=== PATIENT | male | born 1960 | race African-American/Black ===

== ENCOUNTER → 2016-08-01 | Outpatient (CLI) | payer MEDICARE ==
[~2016-08-01] MED LIST: AGM875T PO; ALBU8.5H4 IH; AMOX500C2 PO; ASPI-999 PO; ATEN100T PO; ATEN50TA PO; ATOR20TA66 PO; BENZ200C25 PO; CEPH500C PO; CHLO500T2 PO; CLN.1T PO; DOCU100T7 PO; GABA-488 PO; HYDR-34 PO; HYDR-3812 PO; HYDR-756 PO; HYDR-757 PO; HYDR12.570 PO; HYDR25TA4 PO; HYDROCHLOROTHIAZIDE; HYDROCODONE 7.5/500 PO; KCL10CCR; LISI40TA PO; NICO1PAT5; PHEN118S12 PO; PRD20T PO; PROP1TAB77 PO; STOOL SOFTENER; VITAMIN E
--- OUTSIDE RECORDS SUMMARY | 2016-08-01 10:57 | XMS REPORT | Continuity of Care Document ---
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 Role Phone LAURA NOVOA DO PCP Insurance Providers Payer Name Policy Number Subscriber Name Relationship [employer] [id number] Alverto Hernandez 16 Self / Same As Patient Advance Directives Directive Response Recorded Date/Time Advance Directives No 12/21/14 11:07pm Resuscitation Status Full Code 12/21/14 11:07pm Problems Medical Problems Problem Onset Date Status Insect bite Unknown Active Insect bite Unknown Active Medications Medication Dose Route Sig Days/Qty Instructions Order Date Discontinued Date Status Chlorzoxazone 1 Tab PO TWICE A DAY 12/26/08 Active Potassium Chloride 12/26/08 07/20/11 Discontinued [Hydrochlorothiazide] 12/26/08 07/20/11 Discontinued Nicotine 12/26/08 08/15/09 Discontinued Acetaminophen/Hydrocodone Bitart 1 Tab PO DAILY PRN 12/26/08 Discontinued [Stool Softener] 08/15/09 07/20/11 Discontinued [Vitamin E] 08/15/09 07/20/11 Discontinued Amoxicillin/Clavulanate Potassium 1 Tab PO TWICE A DAY 20 Qty FOR INFECTION 08/15/09 12/02/12 Discontinued Propoxyphene HCl/Acetaminophen 1 - 2 Each PO Q6HR PRN 20 Qty 08/15/09 12/02/12 Discontinued Clonidine HCl 1 Each PO TWICE A DAY 10 Qty FOR BLOOD PRESSURE 08/15/09 12/02/12 Discontinued Hydrochlorothiazide 25 Mg PO DAILY 07/20/11 Active Lisinopril 1 Tab PO DAILY 07/20/11 Active Docusate Sodium 1 Tab PO DAILY 07/20/11 02/18/13 Discontinued Clonidine HCl 1 Each PO THREE TIMES A DAY 42 Qty 07/20/11 12/02/12 Discontinued Atenolol 50 Mg PO DAILY 12/02/12 Active Phenylephrine Hcl/Cod/Prometh 2 Tsp PO THREE TIMES A DAY PRN 02/18/13 Discontinued Amoxicillin 2 Each PO THREE TIMES A DAY 10 Days 12/02/12 02/18/13 Discontinued Benzonatate (Tessalon Perles) 1 Each PO Q8HR PRN 20 Qty 12/02/1202/18 Discontinued Prednisone 40 Mg PO DAILY 5 Days 12/02/12 02/18/13 Discontinued Albuterol 8.5 Gm IH EVERY 6 HOURS PRN 1 Qty 12/02/12 02/18/13 Discontinued [Hydrocodone 7.5/500] 1 Tab PO EVERY 6 HOURS PRN 02/18/13 Active Amoxicillin 1 Each PO THREE TIMES A DAY 10 Days 02/18/13 12/21/14 Discontinued Cephalexin Monohydrate (Keflex) 2 Each PO EVERY 12 HOURS 7 Days Active Social History Social History Problem Response Recorded Date/Time Alcohol Use Occasionally Uses 12/21/2014 11:07pm Recreational Drug Use No 12/21/2014 11:07pm Recent Foreign Travel No 12/21/2014 11:07pm Recent Infectious Disease Exposure No 12/21/2014 11:07pm Smoking Status Current Everyday Smoker 12/21/2014 11:07pm Query Response Start Date Stop Date Smoking Status Current Everyday Smoker Hospital Discharge Instructions No hospital discharge instructions. Plan of Care No plan of care. Functional Status No functional status results. Allergies, Adverse Reactions, Alerts Allergen Type Severity Reaction Status Last Updated No Known Drug Allergies Active 07/20/11 Immunizations Name Given Type Tetanus Booster (TDap) Unknown Historical Tdap 12/21/14 Administered Vital Signs Acute Vital Signs Vital Response Date/Time Temperature (Fahrenheit) 98.0 degrees F (97.6 - 99.5) Temperature (Calculated Celsius) 36.90949 degrees C (36.4 - 37.5) Temperature Source Temporal Pulse Rate (adult) 76 bpm (60 - 90) Respiratory Rate 16 bpm (12 - 24) O2 Sat by Pulse Oximetry 99 % (88 - 100) Blood Pressure 191/110 mm Hg Pain Pain Intensity 4 Height (Feet) 6 feet Height (Inches) 3 inches Height (Calculated Centimeters) 190.589236 cm Weight (Pounds) 211 pounds Weight (Calculated Kilograms) 95.240918 kilograms Calculated BMI 26.37 Results No known relevant diagnostic tests, laboratory data and/or discharge summary. Procedures No known history of procedures. Encounters Encounter Location Date/Time Departed Emergency Room Via [facility] 12/21/14 10:59pm Recent Diagnosis
--- NOTE | 2016-08-01 12:15 | Diagnostic Imaging Report ---
PROCEDURE: MRI lumbar spine. TECHNIQUE: Multiplanar, multisequence MRI of the lumbar spine was performed without contrast. INDICATION: Tingling. Numbness. FINDINGS: There is minimal retrolisthesis of L5 over S1, otherwise the alignment of the posterior spinal line is satisfactory. The discs demonstrate significant disc height loss at L4/5 and L5/S1 with disc desiccation. There is prominent marrow edema along the endplates of vertebra around the L5/S1 disc compatible with reactive degenerative Modic type I changes. The marrow signal otherwise demonstrates no suspicious lesion. The cauda equina and conus medullaris appear grossly unremarkable. T12/L1: There is a mild right paracentral disc herniation without spinal canal or foraminal stenosis. L1/2: No disc herniation. No spinal canal or foraminal stenosis. L2/3: No disc herniation, no spinal canal or foraminal stenosis. There is mild facet joint hypertrophy seen at this level. L3/4: There is no disc herniation. There is mild facet arthropathy. There is no central canal or lateral recess stenosis. Bilateral foraminal stenosis, mild on the right and mild to moderate on the left, is seen. L4/5: There is an asymmetric disc bulge to the left with slight caudal migration of the herniated disc seen. This is associated with rhqctcyt-ej-fongnh facet arthropathy bilaterally. There is no central canal stenosis. The lateral recesses, however, demonstrate bilateral bdztpfin-zs-jqzmfc stenosis, worse on the left side encroaching upon the descending L5 nerve root. The neural foramina demonstrate bilateral stenosis, moderate on the right and severe on the left, compressing the exiting left L4 spinal nerve. L5/S1: There is minimal retrolisthesis secondary to disc height loss. No significant central canal stenosis. A diffuse disc bulge is present with superimposed cranially migrated right paracentral extruded disc. This results in hchvvgcw-ha-fsvxgu stenosis of the right lateral recess above the disc level compressing the descending right S1 nerve root. The right lateral recess at the disc level demonstrates moderate stenosis. The left lateral recess also demonstrates stenosis of kuxjleel-rj-rdkzkn degree mildly compressing the descending left L5 nerve root. The foramina demonstrate bilateral chjbbrqq-lv-cjyzta stenosis. IMPRESSION: Lower lumbar spine prominent disc degenerative changes with disc herniations at L4/5 and L5/S1. At these two levels, there is significant lateral recess and foraminal stenosis as described. Dictated by: Dictated on workstation # [id number]
== END ==
LOC: RAD 10:51
PROVIDERS: ATTEND Family Medicine
DX: M48.06 Spinal stenosis, lumbar region (principal)
CPT/HCPCS: 72148

== ENCOUNTER 2016-10-09 16:36 | Emergency (ER) | payer MEDICARE ==
[~2016-10-09] VITALS: Ht 185.4 cm; Wt 100.7 kg
[~2016-10-09 16:36] MED LIST changes: -HYDR-3812 PO
--- OUTSIDE RECORDS SUMMARY | 2016-10-09 16:42 | XMS REPORT | Continuity of Care Document ---
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 Role Phone LAURA NOVOA DO PCP Insurance Providers Payer Name Policy Number Subscriber Name Relationship [employer] [id number] Alverto Hernandez 16 Self / Same As [...] F (97.6 - 99.5) Temperature (Calculated Celsius) 36.96252 degrees C (36.4 - 37.5) Temperature Source Temporal Pulse Rate (adult) 76 bpm (60 - 90) Respiratory Rate 16 bpm (12 - 24) O2 Sat by Pulse Oximetry 99 % (88 - 100) Blood Pressure 191/110 mm Hg Pain Pain Intensity 4 Height (Feet) 6 feet Height (Inches) 3 inches Height (Calculated Centimeters) 190.177575 cm Weight (Pounds) 211 pounds Weight (Calculated Kilograms) 95.048371 kilograms Calculated BMI 26.37 Results No known relevant diagnostic tests, laboratory data and/or discharge summary. Procedures No known history of procedures. Encounters Encounter Location Date/Time Departed Emergency Room Via [facility] 12/21/14 10:59pm Recent Diagnosis
--- NOTE | 2016-10-09 17:14 | ED EENT ---
History of Present Illness General Chief Complaint: Oral/Throat Problems Stated Complaint: SWOLLEN GLANDS IN NECK/DIFF SWALLOWING Source: patient, RN notes reviewed Exam Limitations: no limitations (JACK NUNN DO) History of Present Illness Time seen by provider: 17:14 Timing/Duration: other (last night) Severity: moderate (02/05) Location: throat Prearrival Treatment: no prearrival treatment Modifying Factors: Improves With Other (swallowing make pain worse) Associated Symptoms: fever, sore throat (JACK NUNN DO) Allergies and Home Medications Allergies Coded Allergies: No Known Drug Allergies (Unverified , 07/20/11) Home Medications Amoxicillin 500 Mg Capsule, 1,000 MG PO TID, #60 Ref 0 Prescribed by: ANNA HERNANDEZ on 10/09/162015 Aspirin 81 Mg Tab.chew, 81 MG PO DAILY, (Reported) Atenolol 100 Mg Tablet, 100 MG PO DAILY, (Reported) Atorvastatin Calcium 20 Mg Tablet, 20 MG PO HS, (Reported) Chlorzoxazone 500 Mg Tablet, 500 MG PO BID PRN for MUSCLE SPASMS, (Reported) Gabapentin 300 Mg Capsule, 300 MG PO TID, (Reported) Hydrochlorothiazide 25 Mg Tablet, 25 MG PO DAILY, (Reported) Hydrocodone/Acetaminophen 1 Each Tablet, 1 TAB PO BID PRN for PAIN, (Reported) Hydrocodone/Acetaminophen 1 Each Tablet, 1 EACH PO Q4H PRN for PAIN, #20 Ref 0 Prescribed by: ANNA HERNANDEZ on 10/09/162015 Lisinopril 40 Mg Tablet, 40 MG PO DAILY, (Reported) Review of Systems Constitutional: see HPI, fever Mouth: see HPI, pain (JACK NUNN DO) All Other Systems Reviewed Negative Unless Noted: Yes (Negative excepted noted.) (JACK NUNN DO) Past Ylqlwno-Bizkoc-Rrfexu Hx Patient Social History Recent Foreign Travel: No Contact w/Someone Who Travel: No (JACK NUNN DO) Immunizations Up To Date Tetanus Booster (TDap): Unknown PED Vaccines UTD: No (JACK NUNN DO) Seasonal Allergies Seasonal Allergies: No (JACK NUNN DO) Surgeries HX Surgeries: Yes (Inguinal hernia Rpr-peds) Surgeries: Orthopedic (JACK UNNN DO) Respiratory Hx Respiratory Disorders: No (JACK NUNN DO) Cardiovascular Hx Cardiac Disorders: Yes Cardiac Disorders: High Cholesterol, Hypertension (JACK NUNN DO) Neurological Hx Neurological Disorders: No (JACK NUNN DO) Reproductive System Hx Reproductive Disorders: No (JACK NUNN DO) Genitourinary Hx Genitourinary Disorders: No (JACK NUNN DO) Gastrointestinal Hx Gastrointestinal Disorders: No (JACK NUNN DO) Musculoskeletal Hx Musculoskeletal Disorders: Yes Musculoskeletal Disorders: Chronic Back Pain (JACK NUNN DO) Endocrine Hx Endocrine Disorders: No (JACK NUNN DO) HEENT HX ENT Disorders: No (JACK NUNN DO) Cancer Hx Cancer: No (JACK NUNN DO) Psychosocial Hx Psychiatric Problems: No (JACK NUNN DO) Integumentary HX Skin/Integumentary Disorder: No (JACK NUNN DO) Blood Transfusions Hx Blood Disorders: No Adverse Reaction to a Blood Tr: No (JACK NUNN DO) Family Medical History Significant Family History: Diabetes (JACK NUNN DO) Physical Exam Vital Signs (ANNA HERNANDEZ) General Appearance: WD/WN, no apparent distress Mouth/Throat: other (posterior pharynx is red and mild edema, but no exudate) Neck: supple, No lymphadenopathy (R), No lymphadenopathy (L) Cardiovascular: regular rate, rhythm Respiratory: no respiratory distress Neurologic/Psychiatric: no motor/sensory deficits, alert, oriented x 3 Skin: warm/dry, No rash (JACK NUNN DO) Progress/Results/Core Measures Results/Orders Lab Results (ANNA HERNANDEZ) My Orders (ANNA HERNANDEZ) Vital Signs/I&O (ANNA HERNANDEZ) Departure Communication Progress Notes 1800 Patient care assumed from Dr. Nunn. CT scan findings of the face show multiple maxillary and mandibular dental caries with apical lucency suggestive of periapical abscesses. Scattered subcentimeter cervical lymph nodes noted. No drainable fluid collection noted. Laboratory and diagnostic findings were discussed with the patient. Patient given Rocephin 1 g IM 1 dose prior to discharge. Discharge to home with follow-up as an outpatient with his dentist of choice. All return precautions were discussed with the patient as described in the discharge instructions of this report. Patient voices understanding and agrees with the treatment plan. (ANNA HERNANDEZ) Impression Impression: Primary Impression: Abscess, dental Disposition: HOME, SELF-CARE Condition: Improved Departure-Patient Inst. Decision time for Depature: 20:15 (ANNA HERNANDEZ) Referrals: LAURA NOVOA DO (PCP/Family) Primary Care Physician Patient Instructions: Dental Pain (DC) Add. Discharge Instructions: All discharge instructions reviewed with patient and/or family. Voiced understanding. Medications as instructed. Continue usual home medications. Ibuprofen 800 mg by mouth every 8 hours as needed for pain. Ice packs or heating pads as needed for pain and swelling. Push fluids. Contact the dentist of your choice for recheck and dental repair tomorrow morning. Follow- up with your family practitioner for recheck. Return to the emergency department for worsened pain, swelling, fever, difficulty swallowing, difficulty breathing, vomiting, or any other concerns. Scripts Hydrocodone/Acetaminophen (Hydrocodon -Acetaminophen 5-325) 1 Each Tablet 1 EACH PO Q4H Y for PAIN, #20 TAB 0 Refills Prov: ANNA HERNANDEZ 10/09/16 Amoxicillin (Amoxicillin) 500 Mg Capsule 1000 MG PO TID, #60 CAP 0 Refills Prov: ANNA HERNANDEZ 10/09/16 JACK NUNN DO Oct 09, 2016 17:14 ANNA HERNANDEZ Oct 09, 2016 20:17
--- NOTE | 2016-10-09 18:32 | Diagnostic Imaging Report ---
PROCEDURE: CT neck soft tissue without contrast. TECHNIQUE: Multiple contiguous axial images were obtained through the neck without the use of intravenous contrast. INDICATION: Swelling under the jaw. Difficulty breathing. COMPARISON: 12/02/2012. FINDINGS: Multiple maxillary and mandibular dental caries are identified. Additionally, there are multiple areas of periapical lucency suggestive of periapical abscesses. There is however no significant surrounding soft tissue extension. There is no soft tissue emphysema. No focal air-fluid collection is identified to suggest soft tissue abscess. A few scattered borderline prominent appearing cervical lymph nodes are identified, bilaterally. The largest lymph nodes however measure approximately 9 mm in shortest axis dimension. No lymph nodes are seen measuring greater than 1 cm in shortest axis dimension. No soft tissue masses are identified on this noncontrast exam. The visualized portions of the nasopharynx, oropharynx and the hypopharynx are unremarkable. There is no airway compromise. The deep spaces of the neck are unremarkable. The parotid, submandibular and thyroid glands are unremarkable. The visualized portions of the intracranial structures demonstrate no acute abnormalities. The paranasal sinuses and orbits are unremarkable. The visualized portion of the lung apices and mediastinum are unremarkable. There is calcified atherosclerosis of the bilateral common and internal carotid arteries. IMPRESSION: 1. Multiple maxillary and mandibular dental caries with areas of periapical lucency suggestive of periapical abscesses. There is however no evidence of soft tissue abscess or soft tissue emphysema. 2. Few scattered prominent-appearing, yet subcentimeter cervical lymph nodes. Otherwise, no focal soft tissue masses identified. Dictated by: Dictated on workstation # [id number]
[2016-10-09] MEDS ORDERED: fentaNYL INJECTION 100 MCG/2 ML AMP IVP STA (18:41)
[2016-10-09 18:54] LABS: BASOPHILS % (AUTO) 0 % (0-10); EOSINOPHILS # (AUTO) 0.1 10^3/uL (0.0-0.3); EOSINOPHILS % (AUTO) 1 % (0-10); LYMPHOCYTES # (AUTO) 1.5 X 10^3 (1.0-4.0); LYMPHOCYTES % (AUTO) 10 % (12-44); MEAN CORPUSCULAR HEMOGLOBIN 31 PG (25-34); MEAN CORPUSCULAR HGB CONC 34 G/DL (32-36); MEAN CORPUSCULAR VOLUME 91 FL (80-99); MONOCYTES % (AUTO) 7 % (0-12); NEUTROPHILS # (AUTO) 11.9 X 10^3 (1.8-7.8); NEUTROPHILS % (AUTO) 82 % (42-75); PLATELET COUNT 200 10^3/uL (130-400); RED BLOOD COUNT 4.21 10^6/uL (4.35-5.85); RED CELL DISTRIBUTION WIDTH 13.4 % (10.0-14.5); WHITE BLOOD COUNT 14.5 10^3/uL (4.3-11.0)
[2016-10-09 19:06] LABS: BAND NEUTROPHILS 4 %; BASOPHILS % (MANUAL) 0 %; EOSINOPHILS % (MANUAL) 0 %; LYMPHOCYTES % (MANUAL) 17 %; NEUTROPHILS % (MANUAL) 72 %
[2016-10-09 19:14] LABS: ALANINE AMINOTRANSFERASE 24 U/L (0-55); ALBUMIN 3.9 G/DL (3.2-4.5); ANION GAP 12 MMOL/L (5-14); ASPARTATE AMINO TRANSFERASE 18 U/L (5-34); BILIRUBIN,TOTAL 0.9 MG/DL (0.1-1.0); BLOOD UREA NITROGEN 13 MG/DL (7-18); BUN/CREATININE RATIO 14; CALCIUM 9.4 MG/DL (8.5-10.1); CARBON DIOXIDE 24 MMOL/L (21-32); CHLORIDE 104 MMOL/L (98-107); CREATININE SERUM 0.96 MG/DL (0.60-1.30); GFR ESTIMATED > 60; GLUCOSE 89 MG/DL (70-105); POTASSIUM 3.9 MMOL/L (3.6-5.0); SODIUM 140 MMOL/L (135-145); TOTAL PROTEIN 7.3 G/DL (6.4-8.2)
[2016-10-09] MEDS ORDERED: HYDROcodone/APAP 10 MG/325 MG (LORTAB) TAB PO STA (19:14)
[2016-10-09] MEDS ORDERED: LIDOCAINE 1% INJ 20 ML (XYLOCAINE) VIAL INJ ONE (20:15)
[2016-10-09] MEDS ORDERED: cefTRIAXone 1 GM (ROCEPHIN) VIAL IM ONE (20:15)
[2016-10-09] MEDS ORDERED: HYDR-3812 PO (20:16)
[2016-10-09] MEDS ORDERED: AMOX500C2 PO (20:16)
[2016-10-09 20:33] VITALS: BP 181/105
== END 2016-10-09 20:33 | disposition home or self-care (01) ==
LOC: EDUNIT# 16:36 → ER 16:37
DX: K04.7 Periapical abscess without sinus (principal); R59.0 Localized enlarged lymph nodes; I10 Essential (primary) hypertension; Z79.82 Long term (current) use of aspirin; Z79.899 Other long term (current) drug therapy
CPT/HCPCS: 36415; 70490; 80053; 85007; 85027; 87430; 96372; 99285

== ENCOUNTER 2017-09-04 11:17 | Observation (INO) | payer MEDICARE ==
[2017-09-04] VITALS (9 sets, daily range): BP systolic 156–196; BP diastolic 82–95
[~2017-09-04] VITALS: Ht 188 cm; Wt 98.4 kg
[~2017-09-04 11:17] MED LIST changes: +ACHD5005 PO
[2017-09-04] MEDS ORDERED: ASPIRIN 81 MG CHEW (CHILDREN'S ASA) PO ONE (11:30)
[2017-09-04] MEDS ORDERED: meTOprolol 5 MG/5 ML (LOPRESSOR) VIAL IV ONE (11:30)
[2017-09-04 12:03] LABS: BASOPHILS % (AUTO) 0 % (0-10); EOSINOPHILS # (AUTO) 0.2 10^3/uL (0.0-0.3); EOSINOPHILS % (AUTO) 3 % (0-10); HEMATOCRIT 39 % (40-54); HEMOGLOBIN 13.4 G/DL (13.3-17.7); LYMPHOCYTES # (AUTO) 2.8 X 10^3 (1.0-4.0); LYMPHOCYTES % (AUTO) 42 % (12-44); MEAN CORPUSCULAR HEMOGLOBIN 31 PG (25-34); MEAN CORPUSCULAR HGB CONC 34 G/DL (32-36); MEAN CORPUSCULAR VOLUME 91 FL (80-99); MEAN PLATELET VOLUME 10.7 FL (7.4-10.4); MONOCYTES # (AUTO) 0.5 X 10^3 (0.0-1.0); MONOCYTES % (AUTO) 8 % (0-12); NEUTROPHILS # (AUTO) 3.2 X 10^3 (1.8-7.8); NEUTROPHILS % (AUTO) 47 % (42-75); PLATELET COUNT 205 10^3/uL (130-400); RED BLOOD COUNT 4.27 10^6/uL (4.35-5.85); RED CELL DISTRIBUTION WIDTH 13.5 % (10.0-14.5); WHITE BLOOD COUNT 6.7 10^3/uL (4.3-11.0)
[2017-09-04 12:19] LABS: INR 0.9 (0.8-1.4); PROTHROMBIN TIME PATIENT 12.5 SEC (12.2-14.7)
[2017-09-04 12:27] LABS: ALANINE AMINOTRANSFERASE 22 U/L (0-55); ALBUMIN 4.2 GM/DL (3.2-4.5); ALKALINE PHOSPHATASE 72 U/L (40-136); BILIRUBIN,TOTAL 0.6 MG/DL (0.1-1.0); BUN/CREATININE RATIO 13; CARBON DIOXIDE 28 MMOL/L (21-32); CHLORIDE 103 MMOL/L (98-107); CREATINE KINASE 107 U/L (30-200); GFR ESTIMATED > 60; GLUCOSE 91 MG/DL (70-105); POTASSIUM 3.5 MMOL/L (3.6-5.0); SODIUM 141 MMOL/L (135-145); TOTAL PROTEIN 8.1 GM/DL (6.4-8.2)
[2017-09-04 12:35] LABS: CREATINE KINASE MB 1.1 NG/ML (<6.6); MYOGLOBIN SERUM 43.9 NG/ML (10.0-92.0)
--- NOTE | 2017-09-04 12:49 | Diagnostic Imaging Report ---
PROCEDURE: CT head without contrast. TECHNIQUE: Multiple contiguous axial images were obtained through the brain without the use of intravenous contrast. INDICATION: Hypertension. Visual disturbances. Dizziness. COMPARISON: None. FINDINGS: No intracranial hemorrhage, mass effect, hydrocephalus or extra-axial fluid collections. Mild generalized cerebral and cerebellar parenchymal volume loss. Low-attenuation changes in the deep white matter of the parietal lobe greater than frontal lobes are symmetric bilaterally. No CT evidence of large territorial infarction. Osseous structures are intact. The visualized paranasal sinuses and mastoids are clear. IMPRESSION: Low-attenuation changes in the white matter of the parietal greater than frontal lobes. This is nonspecific and can be seen with chronic small vessel ischemic change. However, an acute or subacute process cannot be excluded, particularly given the history of hypertension. These findings can also be seen in PRES. This could be better evaluated with MRI. Dictated by: Dictated on workstation # [id number]
--- NOTE | 2017-09-04 13:36 | Diagnostic Imaging Report ---
EXAMINATION: PA chest at 12:55 p.m. INDICATION: Shortness of breath and chest pain. FINDINGS: The borderline cardiomegaly noted on the prior exam of 11/18/2015 is again evident and no different. The lungs remain clear. There is still no sign of failure, pneumonia, or of a pleural effusion to suggest an acute abnormality. The mediastinum is not widened. The osseous structures are intact. IMPRESSION: There is no evidence for active disease. When compared to the prior study, there has been no significant change. Dictated by: Dictated on workstation # [id number]
--- NOTE | 2017-09-04 14:25 | ED Cardiac General ---
History of Present Illness General Chief Complaint: Cardiac/General Problems Stated Complaint: POSS HIGH BP Nursing Triage Note: pt reports he had been eating chips that were salted around 0945 this am and started feeling lightheaded, tingly all over and had blurred vision. Pt states he has hx of hypertension and is supposed to avoid salt intake. Pt reports he feels like his bp is high. Source: patient Exam Limitations: no limitations History of Present Illness Date Seen by Provider: Sep 04, 2017 Time Seen by Provider: 11:25 Allergies and Home Medications Allergies Coded Allergies: No Known Drug Allergies (Unverified , 07/20/11) Home Medications Amoxicillin 500 Mg Capsule, 1,000 MG PO TID, #60 Ref 0 Prescribed by: ANNA HERNANDEZ on 10/09/162015 Aspirin 81 Mg Tab.chew, 81 MG PO DAILY, (Reported) Atenolol 100 Mg Tablet, 100 MG PO DAILY, (Reported) Atorvastatin Calcium 20 Mg Tablet, 20 MG PO HS, (Reported) Chlorzoxazone 500 Mg Tablet, 500 MG PO BID PRN for MUSCLE SPASMS, (Reported) Gabapentin 300 Mg Capsule, 300 MG PO TID, (Reported) Hydrochlorothiazide 25 Mg Tablet, 25 MG PO DAILY, (Reported) Hydrocodone Bit/Acetaminophen 1 Each Tablet, 1 EACH PO Q4H PRN for PAIN, #20 Ref 0 Prescribed by: ANNA HERNANDEZ on 10/09/162015 Hydrocodone/Acetaminophen 1 Each Tablet, 1 TAB PO BID PRN for PAIN, (Reported) Lisinopril 40 Mg Tablet, 40 MG PO DAILY, (Reported) Past Ixqhdmm-Wieznj-Zmvobg Hx Patient Social History Alcohol Use: Occasionally Uses Alcohol Beverage of Choice: Beer Recreational Drug Use: No Smoking Status: Former Smoker Type Used: Cigarettes Former Smoker, Quit: Jul 10, 2017 2nd Hand Smoke Exposure: No Recent Foreign Travel: No Contact w/Someone Who Travel: No Recent Infectious Disease Expo: No Recent Hopitalizations: No Physical Abuse: No Sexual Abuse: No Mistreated: No Immunizations Up To Date Tetanus Booster (TDap): Unknown PED Vaccines UTD: No Seasonal Allergies Seasonal Allergies: No Surgeries History of Surgeries: Yes (Inguinal hernia Rpr-peds, lower back, r pinky finger ) Surgeries: Orthopedic Respiratory History of Respiratory Disorde: Yes Respiratory Disorders: Asthma Currently Using CPAP: No Currently Using BIPAP: No Cardiovascular History of Cardiac Disorders: Yes Cardiac Disorders: High Cholesterol, Hypertension Neurological History of Neurological Disord: Yes Neurological Disorders: Stroke Reproductive System Hx Reproductive Disorders: No Genitourinary History of Genitourinary Disor: No Gastrointestinal History of Gastrointestinal Di: No Musculoskeletal History of Musculoskeletal Dis: Yes Musculoskeletal Disorders: Chronic Back Pain Endocrine History of Endocrine Disorders: No Cancer History of Cancer: No Psychosocial History of Psychiatric Problem: No Suicide Risk Score: 0 Integumentary History of Skin or Integumenta: No Blood Transfusions History of Blood Disorders: No Adverse Reaction to a Blood Tr: No Family Medical History Significant Family History: Diabetes Physical Exam Vital Signs Vital Signs - First Documented 09/04/17 11:25 Temp 98.4 Pulse 60 Resp 18 B/P (MAP) 237/119 (158) Pulse Ox 99 Capillary Refill : Less Than 3 Seconds Progress/Results/Core Measures Results/Orders Lab Results Laboratory Tests Test 09/04/17 11:46 Range/Units White Blood Count 6.7 4.3-11.0 10^3/uL Red Blood Count 4.27 L 4.35-5.85 10^6/uL Hemoglobin 13.4 13.3-17.7 G/DL Hematocrit 39 L 40-54 % Mean Corpuscular Volume 91 80-99 FL Mean Corpuscular Hemoglobin 31 25-34 PG Mean Corpuscular Hemoglobin Concent 34 32-36 G/DL Red Cell Distribution Width 13.5 10.0-14.5 % Platelet Count 205 130-400 10^3/uL Mean Platelet Volume 10.7 H 7.4-10.4 FL Neutrophils (%) (Auto) 47 42-75 % Lymphocytes (%) (Auto) 42 12-44 % Monocytes (%) (Auto) 8 0-12 % Eosinophils (%) (Auto) 3 0-10 % Basophils (%) (Auto) 0 0-10 % Neutrophils # (Auto) 3.2 1.8-7.8 X 10^3 Lymphocytes # (Auto) 2.8 1.0-4.0 X 10^3 Monocytes # (Auto) 0.5 0.0-1.0 X 10^3 Eosinophils # (Auto) 0.2 0.0-0.3 10^3/uL Basophils # (Auto) 0.0 0.0-0.1 10^3/uL Prothrombin Time 12.5 12.2-14.7 SEC INR Comment 0.9 0.8-1.4 Activated Partial Thromboplast Time 26 24-35 SEC D-Dimer 1.24 H 0.00-0.49 UG/ML Sodium Level 141 135-145 MMOL/L Potassium Level 3.5 L 3.6-5.0 MMOL/L Chloride Level 103 98-107 MMOL/L Carbon Dioxide Level 28 21-32 MMOL/L Anion Gap 10 5-14 MMOL/L Blood Urea Nitrogen 14 7-18 MG/DL Creatinine 1.10 0.60-1.30 MG/DL Estimat Glomerular Filtration Rate > 60 BUN/Creatinine Ratio 13 Glucose Level 91 70-105 MG/DL Calcium Level 10.0 8.5-10.1 MG/DL Magnesium Level 2.0 1.8-2.4 MG/DL Total Bilirubin 0.6 0.1-1.0 MG/DL Aspartate Amino Transf (AST/SGOT) 23 5-34 U/L Alanine Aminotransferase (ALT/SGPT) 22 0-55 U/L Alkaline Phosphatase 72 40-136 U/L Total Creatine Kinase 107 30-200 U/L Creatine Kinase MB 1.1 <6.6 NG/ML Myoglobin 43.9 10.0-92.0 NG/ML Troponin I < 0.30 <0.30 NG/ML B-Type Natriuretic Peptide 23.3 <100.0 PG/ML Total Protein 8.1 6.4-8.2 GM/DL Albumin 4.2 3.2-4.5 GM/DL My Orders Orders - ANNA HERNANDEZ PA Cbc With Automated Diff (09/04/17 11:30) Magnesium (09/04/17 11:30) Chest 1 View, Ap/Pa Only (09/04/17 11:30) Ekg Tracing (09/04/17 11:30) Cardiac Profile 1 (09/04/17 11:30) Comprehensive Metabolic Panel (09/04/17 11:30) Myoglobin Serum (09/04/17 11:30) Protime With Inr (09/04/17 11:30) Partial Thromboplastin Time (09/04/17 11:30) O2 (09/04/17 11:30) Monitor-Rhythm Ecg Trace Only (09/04/17 11:30) Lipid Panel (09/05/17 06:00) Aspirin Chewable Tablet (Baby Aspirin Ch (09/04/17 11:30) Saline Lock/Iv-Start (09/04/17 11:30) Creatine Kinase (09/04/17 11:30) Creatine Kinase Mb (09/04/17 11:30) BNP (09/04/17 11:30) Fibrin Degradation Products (09/04/17 11:30) Ct Head Wo (09/04/17 11:30) Metoprolol Tartrate Injection (Lopressor (09/04/17 11:30) Mri Brain W/O Contrast (09/04/17 14:21) Medications Given in ED Current Medications Medications Dose Ordered Sig/Haylie Route Start Time Stop Time Status Last Admin Dose Admin Aspirin 324 mg ONCE ONCE PO 09/04/17 11:30 09/04/17 11:33 DC 09/04/17 11:47 324 MG Metoprolol Tartrate 5 mg ONCE ONCE IV 09/04/17 11:30 09/04/17 11:33 DC 09/04/17 11:47 5 MG Vital Signs/I&O Vital Sign - Last 12Hours 09/04/17 11:25 Temp 98.4 Pulse 60 Resp 18 B/P (MAP) 237/119 (158) Pulse Ox 99 Blood Pressure Mean: 158 Departure Departure-Patient Inst. Referrals: LAURA NOVOA DO (PCP/Family) Primary Care Physician ANNA HERNANDEZ Sep 04, 2017 14:25
--- NOTE | 2017-09-04 15:19 | Diagnostic Imaging Report ---
PROCEDURE: MR imaging of the brain without contrast. TECHNIQUE: Multiplanar, multisequence MR imaging of the brain was performed without contrast. INDICATION: Hypertension. Visual disturbances. Dizziness. COMPARISON: CT head without contrast performed earlier today. FINDINGS: Moderate diffuse periventricular through subcortical T2 hyperintensities in the supratentorial white matter are nonspecific but most consistent with leukoaraiosis. There is no restricted water diffusion. No hemosiderin deposition. No other abnormal intracranial signal. Normal morphology including the major midline structures, sella, posterior fossa and cerebellopontine angle. The orbits are unremarkable on this nondedicated exam. Normal intracranial flow voids. No hydrocephalus or extra-axial fluid collections. The paranasal sinuses and mastoids are clear. Normal bone marrow signal. IMPRESSION: Moderate nonspecific periventricular through subcortical T2 hyperintensities in the supratentorial white matter are most compatible with chronic small vessel ischemic change and should account for the findings on today's CT. No acute intracranial MRI findings. Dictated by: Dictated on workstation # [id number]
[2017-09-04] MEDS ORDERED: oxyCODONE/APAP 5/325MG (PERCOCET 5) TABLET PO STA (15:37)
[2017-09-04] MEDS ORDERED: IOHEXOL 350 MG/ML 150 ML (OMNIPAQUE 350) VIAL IV ONE (16:15)
[2017-09-04] MEDS ORDERED: NS 100 ML (IVPB) BAG IV ONE (16:15)
--- NOTE | 2017-09-04 17:46 | Diagnostic Imaging Report ---
PROCEDURE: CT angiography of the chest with contrast. TECHNIQUE: Multiple contiguous axial images were obtained through the chest after uneventful bolus administration of intravenous contrast. Reconstructed CTA MIP acquisitions were also performed. INDICATION: Hypertension, lightheadedness, and shortness of air. FINDINGS: The pulmonary arterial branches are widely patent. There is no filling defect. There is no PE. The thoracic aorta is patent and nonaneurysmal. There is no pleural or pericardial effusion. No lung mass or thoracic lymphadenopathy. No aspiration or focal pneumonia. No acute chest wall pathology. The visualized upper abdomen reveals left renal cyst with left renal and hepatic cysts with no acute abnormality. IMPRESSION: Negative for PE or other acute abnormalities. Hepatorenal cysts partially visualized. The chest is negative. Dictated by: Dictated on workstation # [id number]
[2017-09-04] MEDS ORDERED: CATHETER FLUSH 10 ML SYR IV PRN ×2 (19:00)
[2017-09-04] MEDS ORDERED: NITROGLYCERIN 0.4 MG SL TABS BTL 25'S SL PRN (19:00)
[2017-09-04] MEDS ORDERED: KETOROLAC 15 MG/ML VIAL IV PRN (19:00)
[2017-09-04] MEDS ORDERED: morphine INJ 4 MG/ML 1 ML (VIAL/SYRINGE) IV PRN (19:00)
[2017-09-04 19:24] LABS: CHOLESTEROL 193 MG/DL (< 200); CREATINE KINASE 88 U/L (30-200); HDL CHOLESTEROL 40 MG/DL (40-60); TRIGLYCERIDES 133 MG/DL (<150); VLDL CHOLESTEROL 27 MG/DL (5-40)
[2017-09-04] MEDS ORDERED: INFLUENZA TRIvalent 2017-2018 0.5 ML/45 MCG SYR IM ONE (19:45)
[2017-09-04] MEDS: NS IV 1000 ML 1,000 ML IV SCH (20:19)
[2017-09-04] MEDS: cloNIDine 0.1 MG (CATAPRES) TAB PO SCH (21:19)
[2017-09-04] MEDS: ATORVASTATIN 20 MG (LIPITOR) TABLET PO SCH (21:19)
[2017-09-04] MEDS: CATHETER FLUSH 10 ML SYR IV SCH (21:20)
[2017-09-04 21:59] LABS: BILIRUBIN,URINE NEGATIVE (NEGATIVE); CLARITY,URINE CLEAR; COLOR,URINE YELLOW; GLUCOSE, URINE (UA) NEGATIVE (NEGATIVE); KETONES,URINE NEGATIVE (NEGATIVE); LEUKOCYTE ESTERASE ,URINE NEGATIVE (NEGATIVE); NITRITE,URINE NEGATIVE (NEGATIVE); PH,URINE 5 (5-9); PROTEIN,URINE 2+ (NEGATIVE); UROBILINOGEN,URINE 1 MG/DL (NORMAL)
[2017-09-04] MEDS: HYDROcodone/APAP 5 MG/325 MG (LORTAB) TAB PO PRN (22:03)
[2017-09-04 22:12] LABS: SQUAMOUS EPITHELIAL CELL,UR 0-2 /HPF
[2017-09-05] VITALS (10 sets, daily range): BP systolic 119–181; BP diastolic 58–85
[2017-09-05] MEDS: HYDROcodone/APAP 5 MG/325 MG (LORTAB) TAB PO PRN ×3 (00:04→17:52)
[2017-09-05] MEDS: NS IV 1000 ML 1,000 ML IV SCH ×2 (02:41→08:20)
[2017-09-05] MEDS: CATHETER FLUSH 10 ML SYR IV SCH ×3 (05:16→20:26)
[2017-09-05 05:57] LABS: BASOPHILS % (AUTO) 1 % (0-10); EOSINOPHILS # (AUTO) 0.2 10^3/uL (0.0-0.3); EOSINOPHILS % (AUTO) 3 % (0-10); HEMATOCRIT 35 % (40-54); HEMOGLOBIN 11.6 G/DL (13.3-17.7); LYMPHOCYTES # (AUTO) 2.5 X 10^3 (1.0-4.0); LYMPHOCYTES % (AUTO) 40 % (12-44); MEAN CORPUSCULAR HEMOGLOBIN 31 PG (25-34); MEAN CORPUSCULAR HGB CONC 34 G/DL (32-36); MEAN CORPUSCULAR VOLUME 92 FL (80-99); MEAN PLATELET VOLUME 10.6 FL (7.4-10.4); MONOCYTES # (AUTO) 0.4 X 10^3 (0.0-1.0); MONOCYTES % (AUTO) 6 % (0-12); NEUTROPHILS # (AUTO) 3.1 X 10^3 (1.8-7.8); NEUTROPHILS % (AUTO) 50 % (42-75); PLATELET COUNT 184 10^3/uL (130-400); RED BLOOD COUNT 3.76 10^6/uL (4.35-5.85); RED CELL DISTRIBUTION WIDTH 13.3 % (10.0-14.5); WHITE BLOOD COUNT 6.2 10^3/uL (4.3-11.0)
[2017-09-05 06:33] LABS: ALANINE AMINOTRANSFERASE 16 U/L (0-55); ALBUMIN 3.4 GM/DL (3.2-4.5); ALKALINE PHOSPHATASE 56 U/L (40-136); BILIRUBIN,TOTAL 0.6 MG/DL (0.1-1.0); BUN/CREATININE RATIO 16; CALCIUM 8.7 MG/DL (8.5-10.1); CARBON DIOXIDE 24 MMOL/L (21-32); CHLORIDE 106 MMOL/L (98-107); CHOLESTEROL 179 MG/DL (< 200); CREATININE SERUM 1.01 MG/DL (0.60-1.30); GFR ESTIMATED > 60; GLUCOSE 102 MG/DL (70-105); HDL CHOLESTEROL 32 MG/DL (40-60); SODIUM 140 MMOL/L (135-145); TOTAL PROTEIN 6.5 GM/DL (6.4-8.2); TRIGLYCERIDES 155 MG/DL (<150); VLDL CHOLESTEROL 31 MG/DL (5-40)
[2017-09-05] MEDS: ONDANSETRON 4 MG/2 ML (SDV) Z0FRAN IV PRN ×2 (06:41→20:25)
--- NOTE | 2017-09-05 08:07 | History & Physicial ---
History of Present Illness History of Present Illness Reason for visit/HPI Patient states she was eating salted chips. Patient became lightheaded, tingling all over, and blurred vision. Patient drove himself out to the emergency room. Patient's systolic blood pressure was over 235. Review surgeries back and right pinky. Family history father diabetic. Denies asthma TB heart disease lung disease cancer. Patient has a history of hypertension and hyperlipidemia. Date of Admission Sep 04, 2017 at 16:27 Time Seen by Provider: 08:00 I consulted on this patient on 09/05/17 08:03 Attending Physician Simon Novoa DO Admitting Physician Simon Novoa DO Consult Allergies and Home Medications Allergies Coded Allergies: No Known Drug Allergies (Unverified , 07/20/11) Home Medications Amoxicillin 500 Mg Capsule, 1,000 MG PO TID, #60 Ref 0 Prescribed by: ANNA HERNANDEZ on 10/09/162015 Aspirin 81 Mg Tab.chew, 81 MG PO DAILY, (Reported) Atenolol 100 Mg Tablet, 100 MG PO DAILY, (Reported) Atorvastatin Calcium 20 Mg Tablet, 20 MG PO HS, (Reported) Chlorzoxazone 500 Mg Tablet, 500 MG PO BID PRN for MUSCLE SPASMS, (Reported) Gabapentin 300 Mg Capsule, 300 MG PO TID, (Reported) Hydrochlorothiazide 25 Mg Tablet, 25 MG PO DAILY, (Reported) Hydrocodone Bit/Acetaminophen 1 Each Tablet, 1 EACH PO Q4H PRN for PAIN, #20 Ref 0 Prescribed by: ANNA HERNANDEZ on 10/09/162015 Hydrocodone/Acetaminophen 1 Each Tablet, 1 TAB PO BID PRN for PAIN, (Reported) Lisinopril 40 Mg Tablet, 40 MG PO DAILY, (Reported) Past Kijurql-Gmwrrl-Zlqxam Hx Patient Social History Marrital Status: Employed/Student: unemployed Alcohol Use: Occasionally Uses Alcohol Beverage of Choice: Beer Recreational Drug Use: No Smoking Status: Former Smoker Former Smoker, Quit: Jul 10, 2017 Type Used: Cigarettes 2nd Hand Smoke Exposure: No Physical Abuse Screen: No Sexual Abuse: No Recent Foreign Travel: No Contact w/other who traveled: No Recent Hopitalizations: No Recent Infectious Disease Expo: No Immunizations Up To Date Tetanus Booster (TDap): Unknown Pediatric: No Seasonal Allergies Seasonal Allergies: No Surgeries Yes (Inguinal hernia Rpr-peds, lower back, r pinky finger) Orthopedic Respiratory Yes Currently Using CPAP: No Currently Using BIPAP: No Cardiovascular Yes High Cholesterol, Hypertension Neurological Yes Stroke Reproductive System Hx Reproductive Disorders: No Genitourinary No Gastrointestinal No Musculoskeletal Yes Chronic Back Pain Endocrine History of Endocrine Disorders: No HEENT History of HEENT Disorders: No Cancer No Psychosocial History of Psychiatric Problem: No Integumentary History of Skin or Integumenta: No Blood Transfusions History of Blood Disorders: No Adverse Reaction to a Blood Tr: No Family Medical History Significant Family History: Diabetes Constitutional: no symptoms reported EENTM: blurred vision Respiratory: no symptoms reported Cardiovascular: other (Hypertension) Gastrointestinal: no symptoms reported Genitourinary: no symptoms reported Physical Exam Vital Signs Vital Signs - First Documented 09/04/17 09/04/17 11:25 17:14 Temp 98.4 Pulse 60 Resp 18 B/P (MAP) 237/119 (158) Pulse Ox 99 O2 Delivery Room Air Capillary Refill : Less Than 3 Seconds General Appearance: No Apparent Distress, WD/WN Eyes: Bilateral Eye Normal Inspection HEENT: Normal ENT Inspection Neck: Full Range of Motion, Normal Inspection, Non Tender Respiratory: Chest Non Tender, Lungs Clear, Normal Breath Sounds, No Accessory Muscle Use, No Respiratory Distress Cardiovascular: Regular Rate, Rhythm, No Murmur Gastrointestinal: Non Tender, Soft Assessment/Plan Assessment and Plan Malignant hypertension. Blurred vision. Hyperlipidemia. Weakness. Problems: Clinical Quality Measures DVT/VTE Risk/Contraindication: Risk Factor Score Per Nursin RFS Level Per Nursing on Admit: 2=Moderate SIMON NOVOA DO Sep 05, 2017 08:07
[2017-09-05] MEDS: cloNIDine 0.1 MG (CATAPRES) TAB PO SCH ×2 (08:20→20:26)
[2017-09-05] MEDS: ASPIRIN E.C. 325 MG (ECOTRIN) TABLET PO SCH (08:20)
[2017-09-05] MEDS: lisINopril 20 MG (ZESTRIL) TAB PO SCH (08:20)
[2017-09-05] MEDS: ATENOLOL 50 MG (TENORMIN) TAB PO SCH (08:21)
[2017-09-05] MEDS: ENOXAPARIN 40 MG/0.4 ML (LOVENOX) SYR SC SCH (08:23)
[2017-09-05] MEDS ORDERED: ATEN50TA PO (08:38)
[2017-09-05] MEDS ORDERED: TRAM50TA2 PO (08:48)
[2017-09-05] MEDS ORDERED: CHLO500T4 PO (08:48)
[2017-09-05] MEDS ORDERED: FURO40TA4 PO (08:48)
[2017-09-05] MEDS ORDERED: LISI40TA PO (08:48)
--- OUTSIDE RECORDS SUMMARY | 2017-09-05 08:55 | XMS REPORT | Continuity of Care Document ---
Author Author [facility] Organization [facility] Address Unknown Phone Unavailable Allergies Active Description Code Type Severity Reaction Onset Reported/Identified Relationship to Patient Clinical Status Yes No Known Drug Allergies [id number] Drug Allergy Unknown N/A 07/20/2011 Medications There is no data. Problems Date Dx Coded Attending Type Code Diagnosis Diagnosed By 07/20/2011 Ot 401.9 HYPERTENSION NOS 07/20/2011 Ot 429.3 CARDIOMEGALY 07/20/2011 Ot 780.4 DIZZINESS AND GIDDINESS 12/02/2012 ANNA FARFAN Ot 465.9 ACUTE URI NOS 12/02/2012 ANNA FARFAN Ot 786.2 COUGH 02/18/2013 STANTON CASTELLON MD Ot 250.00 DIAB [place] WO COMPL, TYPE II OR UNSPEC TY 02/18/2013 STANTON CASTELLON MD Ot 305.1 TOBACCO USE DISORDER 02/18/2013 STANTON CASTELLON MD Ot 338.29 OTHER CHRONIC PAIN 02/18/2013 STANTON CASTELLON MD Ot 520.6 TOOTH ERUPTION DISTURB 02/18/2013 STANTON CASTELLON MD Ot 724.5 BACKACHE NOS 02/18/2013 STANTON CASTELLON MD Ot 785.6 ENLARGEMENT LYMPH NODES 02/18/2013 STANTON CASTELLON MD Ot V58.69 OT MED,LT,CURRENT USE 12/21/2014 Ot 781.94 12/21/2014 Ot 433.30 12/21/2014 GELLENDER DOLAURA Ot 573.8 12/21/2014 GELLENDER LAURA BEAL Ot 593.9 12/21/2014 GELLENDER DOLAURA Ot 789.01 12/21/2014 GELLENDER LAURA BEAL Ot 433.10 12/21/2014 GELLENDER DOLAURA Ot 723.1 12/21/2014 GELLENDER LAURA BEAL Ot 433.10 12/21/2014 GELLENDER LAURA BEAL Ot 433.30 12/21/2014 GELLENDER DO, LAURA Tyler Ot 786.6 12/21/2014 GELLENDER DO, LAURA Tyler Ot 593.9 12/21/2014 GELLENDER DO, LAURA Tyler Ot 729.81 12/21/2014 ARLINE DO JACK Tala Ot 910.4 INSECT BITE HEAD 12/21/2014 ARLINE BEAL JACK Edgar Ot E000.8 OTHER EXTERNAL CAUSE STATUS 12/21/2014 ARLINE BEALJACK Ot E849.0 ACCIDENT IN HOME 12/21/2014 ARLINE DOJACK Ot E906.4 NONVENOM ARTHROPOD BITE 08/30/2015 Ot 781.94 08/30/2015 Ot 433.30 08/30/2015 GELLENDER DO, LAURA Tyler Ot 573.8 08/30/2015 GELLENDER DO, LAURA Tyler Ot 593.9 08/30/2015 GELLENDER DO, LAURA Tyler Ot 789.01 08/30/2015 GELLENDER DO, LAURA Tyler Ot 433.10 08/30/2015 GELLENDER DO, LAURA Tyler Ot 723.1 08/30/2015 GELLENDER DO, LAURA Tyler Ot 433.10 08/30/2015 GELLENDER DO, LAURA Tyler Ot 433.30 08/30/2015 GELLENDER DO, LAURA Tyler Ot 786.6 08/30/2015 GELLENDER DO, LAURA Tyler Ot 593.9 08/30/2015 GELLENDER DO, LAURA Tyler Ot 729.81 09/27/2015 GELLENDER DO, LAURA Tyler Ot M79.605 09/27/2015 GELLENDER DO, LAURA Tyler Ot R20.0 11/18/2015 Ot 781.94 FACIAL WEAKNESS 11/18/2015 Ot 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 ARTERY OCCLUSION WO CEREBRA 11/18/2015 GELLENDER DO, LAURA Tyler Ot 573.8 LIVER DISORDERS NEC 11/18/2015 GELLENDER DO, LAURA Tyler Ot 593.9 RENAL URETERAL DIS NOS 11/18/2015 GELLENDER DO, LAURA Tyler Ot 789.01 ABDOMINAL PAIN, RIGHT UPPER QUADRANT 11/18/2015 GELLENDER DO, LAURA Tyler Ot 433.10 CAROTID ARTERY OCCLUSION W O CEREBRAL IN 11/18/2015 GELLENDER DO, LAURA Tyler Ot 723.1 CERVICALGIA 11/18/2015 GELLENDER DO, LAURA A Ot 433.10 CAROTID ARTERY OCCLUSION W O CEREBRAL IN 11/18/2015 SOMMER BEALLAURA Ot 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 ARTERY OCCLUSION WO CEREBRA 11/18/2015 SOMMER BEALLAURA Ot 786.6 CHEST SWELLING/MASS/LUMP 11/18/2015 SOMMER BEALLAURA Ot 593.9 RENAL URETERAL DIS NOS 11/18/2015 SOMMER BEALLAURA Ot 729.81 SWELLING OF LIMB 11/18/2015 SOMMER BEALLAURA Ot M79.605 PAIN IN LEFT LEG 11/18/2015 SOMMER BEALLAURA Ot R20.0 ANESTHESIA OF SKIN 11/18/2015 ALIVIA MARKHAM, PETTY Monae Ot E78.5 HYPERLIPIDEMIA, UNSPECIFIED 11/18/2015 ALIVIA MARKHAM, PETTY Monae Ot F17.210 NICOTINE DEPENDENCE, CIGARETTES, UNCOMPL 11/18/2015 ALIVIA MARKHAM, PETTY Monae Ot I10 ESSENTIAL (PRIMARY) HYPERTENSION 11/18/2015 PETTY BUNCH MD Ot R07.89 OTHER CHEST PAIN 11/18/2015 ALIVIA MARKHAM, PETTY Monae Ot E78.5 HYPERLIPIDEMIA, UNSPECIFIED 11/18/2015 ALIVIA MARKHAM, PETTY Monae Ot F17.210 NICOTINE DEPENDENCE, CIGARETTES, UNCOMPL 11/18/2015 ALIVIA MARKHAM, PETTY Monae Ot I10 ESSENTIAL (PRIMARY) HYPERTENSION 11/18/2015 LAIVIA MARKHAM, PETTY Monae Ot R07.89 OTHER CHEST PAIN 08/01/2016 Ot 781.94 FACIAL WEAKNESS 08/01/2016 Ot 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 ARTERY OCCLUSION WO CEREBRA 08/01/2016 SOMMER LAURA BEAL Ot 573.8 LIVER DISORDERS NEC 08/01/2016 SOMMER BEALLAURA Ot 593.9 RENAL URETERAL DIS NOS 08/01/2016 SOMMER BEALLAURA Ot 789.01 ABDOMINAL PAIN, RIGHT UPPER QUADRANT 08/01/2016 SOMMER BEALLAURA Ot 433.10 CAROTID ARTERY OCCLUSION W O CEREBRAL IN 08/01/2016 SOMMER BEALLAURA Ot 723.1 CERVICALGIA 08/01/2016 SOMMER BEALLAURA Ot 433.10 CAROTID ARTERY OCCLUSION W O CEREBRAL IN 08/01/2016 SOMMER BEALLAURA Ot 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 ARTERY OCCLUSION WO CEREBRA 08/01/2016 SOMMER BEAL, LAURA Tyler Ot 786.6 CHEST SWELLING/MASS/LUMP 08/01/2016 SOMMER BEAL, LAURA Tyler Ot 593.9 RENAL URETERAL DIS NOS 08/01/2016 SOMMER BEAL, LAURA Tyler Ot 729.81 SWELLING OF LIMB 08/01/2016 [facility] Tyler Ot M79.605 PAIN IN LEFT LEG 08/01/2016 LAURA NOVOA DO Ot R20.0 ANESTHESIA OF SKIN 08/02/2016 [facility] Tyler Ot M48.06 SPINAL STENOSIS, LUMBAR REGION 08/30/2016 [facility] Tyler Ot M48.06 SPINAL STENOSIS, LUMBAR REGION 10/09/2016 ANNA FARFAN Ot I10 ESSENTIAL (PRIMARY) HYPERTENSION 10/09/2016 ANNA FARFAN Ot J02.9 ACUTE PHARYNGITIS, UNSPECIFIED 10/09/2016 ANNA FARFAN Ot K04.7 PERIAPICAL ABSCESS WITHOUT SINUS 10/09/2016 ANNA FARAFN Ot R59.0 LOCALIZED ENLARGED LYMPH NODES 10/09/2016 ANNA FARFAN Ot 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 10/09/2016 ANNA FARFAN Ot Z79.899 OTHER FDC (CURRENT) DRUG THERAPY 10/10/2016 ANNA FARFAN Ot I10 ESSENTIAL (PRIMARY) HYPERTENSION 10/10/2016 ANNA FARFAN Ot J02.9 ACUTE PHARYNGITIS, UNSPECIFIED 10/10/2016 ANNA FARFAN Ot K04.7 PERIAPICAL ABSCESS WITHOUT SINUS 10/10/2016 ANNA FARFAN Ot R59.0 LOCALIZED ENLARGED LYMPH NODES 10/10/2016 ANNA FARFAN Ot 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 10/10/2016 ANNA FARFAN Ot Z79.899 OTHER [facility] (CURRENT) DRUG THERAPY 10/17/2016 ANNA FARFAN Ot I10 ESSENTIAL (PRIMARY) HYPERTENSION 10/17/2016 ANNA FARFAN Ot J02.9 ACUTE PHARYNGITIS, UNSPECIFIED 10/17/2016 ANNA FARFAN Ot K04.7 PERIAPICAL ABSCESS WITHOUT SINUS 10/17/2016 ANNA FARFAN Ot R59.0 LOCALIZED ENLARGED LYMPH NODES 10/17/2016 ANNA FARFAN Ot Z79.82 F[facility] (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 ASPIRIN 10/17/2016 MARY BLAINEANNA Ot Z79.899 OTHER [employer] DEVEL[employer] (CURRENT) DRUG THERAPY 10/18/2016 MARY VALLADARESANNA Niharika Ot I10 ESSENTIAL (PRIMARY) HYPERTENSION 10/18/2016 MARY VALLADARESANNA Niharika Ot J02.9 ACUTE PHARYNGITIS, UNSPECIFIED 10/18/2016 MARY BLAINEANNA Ot K04.7 PERIAPICAL ABSCESS WITHOUT SINUS 10/18/2016 MARY BLAINEANNA Ot R59.0 LOCALIZED ENLARGED LYMPH NODES 10/18/2016 MARY BLAINEANNA Ot Z79.82 [facility] (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 ASPIRIN 10/18/2016 MARY BLAINEANNA Ot Z79.899 OTHER [facility] (CURRENT) DRUG THERAPY Procedures There is no data. Results Test Result Range Streptococcus pyogenes antigen detection - 10/09/16 17:27 Streptococcus pyogenes antigen detection NEGATIVE NEGATIVE Bacterial throat culture - 10/09/16 17:27 Bacterial throat culture NBS NRG Complete blood count (CBC) with automated white blood cell (WBC) differential - 10/09/16 18:39 Blood leukocytes automated count (number/volume) 14.5 10*3/uL 4.3-11.0 Blood erythrocytes automated count (number/volume) 4.21 10*6/uL 4.35-5.85 Venous blood hemoglobin measurement (mass/volume) 12.9 g/dL 13.3-17.7 Blood hematocrit (volume fraction) 38 % 40-54 Automated erythrocyte mean corpuscular volume 91 [foz_us] 80-99 Automated erythrocyte mean corpuscular hemoglobin (mass per erythrocyte) 31 pg 25-34 Automated erythrocyte mean corpuscular hemoglobin concentration measurement ( mass/volume) 34 g/dL 32-36 Automated erythrocyte distribution width ratio 13.4 % 10.0-14.5 Automated blood platelet count (count/volume) 200 10*3/uL 130-400 Automated blood platelet mean volume measurement 11.0 [foz_us] 7.4-10.4 Automated blood neutrophils/100 leukocytes 82 % 42-75 Automated blood lymphocytes/100 leukocytes 10 % 12-44 Blood monocytes/100 leukocytes 7 % 0-12 Automated blood eosinophils/100 leukocytes 1 % 0-10 Automated blood basophils/100 leukocytes 0 % 0-10 Blood neutrophils automated count (number/volume) 11.9 10*3 1.8-7.8 Blood lymphocytes automated count (number/volume) 1.5 10*3 1.0-4.0 Blood monocytes automated count (number/volume) 1.0 10*3 0.0-1.0 Automated eosinophil count 0.1 10*3/uL 0.0-0.3 Automated blood basophil count (count/volume) 0.0 10*3/uL 0.0-0.1 Blood manual differential performed detection - 10/09/16 18:39 Blood monocytes/100 leukocytes 7 % NRG Manual blood segmented neutrophils/100 leukocytes 72 % NRG Blood band neutrophils/100 leukocytes 4 % NRG Manual blood lymphocytes/100 leukocytes 17 % NRG Manual eosinophils/100 leukocytes in nose 0 % NRG Manual blood basophils/100 leukocytes 0 % NRG Blood erythrocyte morphology finding identification [facility] Comprehensive metabolic panel - 10/09/16 18:39 Serum or plasma sodium measurement (moles/volume) 140 mmol/L 135-145 Serum or plasma potassium measurement (moles/volume) 3.9 mmol/L 3.6-5.0 Serum or plasma chloride measurement (moles/volume) 104 mmol/L 98-107 Carbon dioxide 24 mmol/L 21-32 Serum or plasma anion gap determination (moles/volume) 12 mmol/L 5-14 Serum or plasma urea nitrogen measurement (mass/volume) 13 mg/dL 7-18 Serum or plasma creatinine measurement (mass/volume) 0.96 mg/dL 0.60-1.30 Serum or plasma urea nitrogen/creatinine mass ratio 14 NRG Serum or plasma creatinine measurement with calculation of estimated glomerular filtration rate > NRG Serum or plasma glucose measurement (mass/volume) 89 mg/dL 70-105 Serum or plasma calcium measurement (mass/volume) 9.4 mg/dL 8.5-10.1 Serum or plasma total bilirubin measurement (mass/volume) 0.9 mg/dL 0.1-1.0 Serum or plasma alkaline phosphatase measurement (enzymatic activity/volume) 93 U/L 40-136 Serum or plasma aspartate aminotransferase measurement (enzymatic activity/ volume) 18 U/L 5-34 Serum or plasma alanine aminotransferase measurement (enzymatic activity/volume ) 24 U/L 0-55 Serum or plasma protein measurement (mass/volume) 7.3 g/dL 6.4-8.2 Serum or plasma albumin measurement (mass/volume) 3.9 g/dL 3.2-4.5 Complete blood count (CBC) with automated white blood cell (WBC) differential - 09/04/17 11:46 Blood leukocytes automated count (number/volume) 6.7 10*3/uL 4.3-11.0 Blood erythrocytes automated count (number/volume) 4.27 10*6/uL 4.35-5.85 Venous blood hemoglobin measurement (mass/volume) 13.4 g/dL 13.3-17.7 Blood hematocrit (volume fraction) 39 % 40-54 Automated erythrocyte mean corpuscular volume 91 [foz_us] 80-99 Automated erythrocyte mean corpuscular hemoglobin (mass per erythrocyte) 31 pg 25-34 Automated erythrocyte mean corpuscular hemoglobin concentration measurement ( mass/volume) 34 g/dL 32-36 Automated erythrocyte distribution width ratio 13.5 % 10.0-14.5 Automated blood platelet count (count/volume) 205 10*3/uL 130-400 Automated blood platelet mean volume measurement 10.7 [foz_us] 7.4-10.4 Automated blood neutrophils/100 leukocytes 47 % 42-75 Automated blood lymphocytes/100 leukocytes 42 % 12-44 Blood monocytes/100 leukocytes 8 % 0-12 Automated blood eosinophils/100 leukocytes 3 % 0-10 Automated blood basophils/100 leukocytes 0 % 0-10 Blood neutrophils automated count (number/volume) 3.2 10*3 1.8-7.8 Blood lymphocytes automated count (number/volume) 2.8 10*3 1.0-4.0 Blood monocytes automated count (number/volume) 0.5 10*3 0.0-1.0 Automated eosinophil count 0.2 10*3/uL 0.0-0.3 Automated blood basophil count (count/volume) 0.0 10*3/uL 0.0-0.1 PT panel in platelet poor plasma by coagulation assay - 09/04/17 11:46 Prothrombin time (PT) in platelet poor plasma by coagulation assay 12.5 s 12.2-14.7 INR in platelet poor plasma or blood by coagulation assay 0.9 0.8-1.4 Activated partial thromboplastin time (aPTT) in platelet poor plasma bycoagulation assay - 09/04/17 11:46 Activated partial thromboplastin time (aPTT) in platelet poor plasma bycoagulation assay 26 s 24-35 Comprehensive metabolic panel - 09/04/17 11:46 Serum or plasma sodium measurement (moles/volume) 141 mmol/L 135-145 Serum or plasma potassium measurement (moles/volume) 3.5 mmol/L 3.6-5.0 Serum or plasma chloride measurement (moles/volume) 103 mmol/L 98-107 Carbon dioxide 28 mmol/L 21-32 Serum or plasma anion gap determination (moles/volume) 10 mmol/L 5-14 Serum or plasma urea nitrogen measurement (mass/volume) 14 mg/dL 7-18 Serum or plasma creatinine measurement (mass/volume) 1.10 mg/dL 0.60-1.30 Serum or plasma urea nitrogen/creatinine mass ratio 13 NRG Serum or plasma creatinine measurement with calculation of estimated glomerular filtration rate > NRG Serum or plasma glucose measurement (mass/volume) 91 mg/dL 70-105 Serum or plasma calcium measurement (mass/volume) 10.0 mg/dL 8.5-10.1 Serum or plasma total bilirubin measurement (mass/volume) 0.6 mg/dL 0.1-1.0 Serum or plasma alkaline phosphatase measurement (enzymatic activity/volume) 72 U/L 40-136 Serum or plasma aspartate aminotransferase measurement (enzymatic activity/ volume) 23 U/L 5-34 Serum or plasma alanine aminotransferase measurement (enzymatic activity/volume ) 22 U/L 0-55 Serum or plasma protein measurement (mass/volume) 8.1 g/dL 6.4-8.2 Serum or plasma albumin measurement (mass/volume) 4.2 g/dL 3.2-4.5 Magnesium - 09/04/17 11:46 Magnesium 2.0 mg/dL 1.8-2.4 Serum or plasma creatine kinase measurement (enzymatic activity/volume) - 09/04 11:46 Serum or plasma creatine kinase measurement (enzymatic activity/volume) 107 U/L 30-200 Serum or plasma lithium measurement (moles/volume) - 09/04/17 11:46 BNP level 23.3 pg/mL <100.0 Serum or plasma creatine kinase MB measurement (enzymatic activity/volume) - 11:46 Serum or plasma creatine kinase MB measurement (enzymatic activity/volume) 1.1 ng/mL <6.6 Serum or plasma troponin i.cardiac measurement (mass/volume) - 09/04/17 11:46 Serum or plasma troponin i.cardiac measurement (mass/volume) < ng/ mL <0.30 Myoglobin, serum - 09/04/17 11:46 Myoglobin, serum 43.9 ng/mL 10.0-92.0 Fibrin D-dimer FEU measurement in platelet poor plasma (mass/volume) - 11:46 Fibrin D-dimer FEU measurement in platelet poor plasma (mass/volume) 1.24 ug/mL 0.00-0.49 Serum or plasma creatine kinase measurement (enzymatic activity/volume) - 09/04 18:58 Serum or plasma creatine kinase measurement (enzymatic activity/volume) 88 U/L 30-200 Lipid 1996 panel - 09/04/17 18:58 Serum or plasma triglyceride measurement (mass/volume) 133 mg/dL <150 Serum or plasma cholesterol measurement (mass/volume) 193 mg/dL < 200 Serum or plasma cholesterol in HDL measurement (mass/volume) 40 mg/ dL 40-60 Cholesterol in LDL [mass/volume] in serum or plasma by direct assay 133 mg/dL 1-129 Serum or plasma cholesterol in VLDL measurement (mass/volume) 27 mg/ dL 5-40 Complete urinalysis with reflex to culture - 09/04/17 20:50 Urine color determination YELLOW NRG Urine clarity determination CLEAR NRG Urine pH measurement by test strip 5 5-9 Specific gravity of urine by test strip 1.010 1.016- 1.022 Urine protein assay by test strip, semi-quantitative 2+ NEGATIVE Urine glucose detection by automated test strip NEGATIVE NEGATIVE Erythrocytes detection in urine sediment by light microscopy NEGATIVE NEGATIVE Urine ketones detection by automated test strip NEGATIVE NEGATIVE Urine nitrite detection by test strip NEGATIVE NEGATIVE Urine total bilirubin detection by test strip NEGATIVE NEGATIVE Urine urobilinogen measurement by automated test strip (mass/volume) 1 mg/dL NORMAL Urine leukocyte esterase detection by dipstick NEGATIVE NEGATIVE Automated urine sediment erythrocyte count by microscopy (number/high power field) NONE NRG Automated urine sediment leukocyte count by microscopy (number/high power field ) NONE NRG Bacteria detection in urine sediment by light microscopy NONE NRG Squamous epithelial cells detection in urine sediment by light microscopy 0-2 NRG Crystals detection in urine sediment by light microscopy NONE NRG Casts detection in urine sediment by light microscopy NONE NRG Mucus detection in urine sediment by light microscopy NEGATIVE NRG Complete urinalysis with reflex to culture NO NRG Complete blood count (CBC) with automated white blood cell (WBC) differential - 09/05/17 05:21 Blood leukocytes automated count (number/volume) 6.2 10*3/uL 4.3-11.0 Blood erythrocytes automated count (number/volume) 3.76 10*6/uL 4.35-5.85 Venous blood hemoglobin measurement (mass/volume) 11.6 g/dL 13.3-17.7 Blood hematocrit (volume fraction) 35 % 40-54 Automated erythrocyte mean corpuscular volume 92 [foz_us] 80-99 Automated erythrocyte mean corpuscular hemoglobin (mass per erythrocyte) 31 pg 25-34 Automated erythrocyte mean corpuscular hemoglobin concentration measurement ( mass/volume) 34 g/dL 32-36 Automated erythrocyte distribution width ratio 13.3 % 10.0-14.5 Automated blood platelet count (count/volume) 184 10*3/uL 130-400 Automated blood platelet mean volume measurement 10.6 [foz_us] 7.4-10.4 Automated blood neutrophils/100 leukocytes 50 % 42-75 Automated blood lymphocytes/100 leukocytes 40 % 12-44 Blood monocytes/100 leukocytes 6 % 0-12 Automated blood eosinophils/100 leukocytes 3 % 0-10 Automated blood basophils/100 leukocytes 1 % 0-10 Blood neutrophils automated count (number/volume) 3.1 10*3 1.8-7.8 Blood lymphocytes automated count (number/volume) 2.5 10*3 1.0-4.0 Blood monocytes automated count (number/volume) 0.4 10*3 0.0-1.0 Automated eosinophil count 0.2 10*3/uL 0.0-0.3 Automated blood basophil count (count/volume) 0.0 10*3/uL 0.0-0.1 Comprehensive metabolic panel - 09/05/17 05:21 Serum or plasma sodium measurement (moles/volume) 140 mmol/L 135-145 Serum or plasma potassium measurement (moles/volume) 4.0 mmol/L 3.6-5.0 Serum or plasma chloride measurement (moles/volume) 106 mmol/L 98-107 Carbon dioxide 24 mmol/L 21-32 Serum or plasma anion gap determination (moles/volume) 10 mmol/L 5-14 Serum or plasma urea nitrogen measurement (mass/volume) 16 mg/dL 7-18 Serum or plasma creatinine measurement (mass/volume) 1.01 mg/dL 0.60-1.30 Serum or plasma urea nitrogen/creatinine mass ratio 16 NRG Serum or plasma creatinine measurement with calculation of estimated glomerular filtration rate > NRG Serum or plasma glucose measurement (mass/volume) 102 mg/dL 70-105 Serum or plasma calcium measurement (mass/volume) 8.7 mg/dL 8.5-10.1 Serum or plasma total bilirubin measurement (mass/volume) 0.6 mg/dL 0.1-1.0 Serum or plasma alkaline phosphatase measurement (enzymatic activity/volume) 56 U/L 40-136 Serum or plasma aspartate aminotransferase measurement (enzymatic activity/ volume) 16 U/L 5-34 Serum or plasma alanine aminotransferase measurement (enzymatic activity/volume ) 16 U/L 0-55 Serum or plasma protein measurement (mass/volume) 6.5 g/dL 6.4-8.2 Serum or plasma albumin measurement (mass/volume) 3.4 g/dL 3.2-4.5 Lipid 1996 panel - 09/05/17 05:21 Serum or plasma triglyceride measurement (mass/volume) 155 mg/dL <150 Serum or plasma cholesterol measurement (mass/volume) 179 mg/dL < 200 Serum or plasma cholesterol in HDL measurement (mass/volume) 32 mg/ dL 40-60 Cholesterol in LDL [mass/volume] in serum or plasma by direct assay 118 mg/dL 1-129 Serum or plasma cholesterol in VLDL measurement (mass/volume) 31 mg/ dL 5-40 Encounters ACCT No. Visit Date/Time Discharge Status Pt. Type Provider Facility Loc./Unit Complaint [id number] 10/09/2016 16:37:00 10/09/2016 20:33:00 DIS Emergency ANNA FARFAN [facility] ER SWOLLEN GLANDS IN NECK /DIFF SWALLOWING [id number] 08/01/2016 10:51:00 08/01/2016 23:59:59 CLS Outpatient LAURA NOVOA DO [facility] RAD RIGHT LEG AND FOOT NUMBNESS AND TINGLING [id number] 11/18/2015 01:54:00 11/18/2015 16:50:00 DIS Inpatient PETTY BUNCH MD [facility] CSD CHEST PAIN,HYPERTENSIVE URGENCY [id number] 08/30/2015 14:06:00 08/30/2015 23:59:59 CLS Outpatient LAURA NOVOA DO [facility] RAD LT LEG GOIES NUMB HURTS TO WALK [id number] 12/21/2014 22:59:00 12/21/2014 23:37:00 DIS Emergency JACK NUNN DO [facility] ER BUG BITE IN LEFT EAR [id number] 01/08/2014 06:59:00 01/08/2014 23:59:59 CLS Outpatient LAURA NOVOA DO [facility] RAD SWELLING ABOVE LEFT CLAVICLE,RENAL INSUFF [id number] 12/31/2013 15:05:00 12/31/2013 23:59:59 CLS Outpatient LAURA NOVOA DO [facility] RAD SWELLING ABOVE LT CLAVICLE [id number] 12/04/2013 10:20:00 12/04/2013 23:59:59 CLS Outpatient LAURA NOVOA DO [facility] RAD CAROTID OCCLUSION [id number] 12/01/2013 11:10:00 12/01/2013 23:59:59 CLS Outpatient LAURA NOVOA DO [facility] RAD NECK PAIN SWELLING [id number] 11/04/2013 13:26:00 11/04/2013 23:59:59 CLS Outpatient LAURA NOVOA DO [facility] RAD RLQ PAIN [id number] 02/18/2013 08:38:00 02/18/2013 10:03:00 DIS Emergency STANTON CASTELLON MD [facility] ER SWOLLEN LYMPH NODES [id number] 12/02/2012 14:38:00 12/02/2012 17:49:00 DIS Emergency ANNA FARFAN [facility] ER COUGH/CONGESTION [id number] 09/04/2017 16:27:00 ACT Inpatient LAURA NOVOA DO [facility] 4TH HYPERTENSIVE ENERPENCY, GENERLIZED WEAKNESS [id number] 12/21/2014 22:59:00 Document Registration [id number] 10/20/2011 14:28:00 Document Registration [id number] 10/17/2011 12:42:00 Document Registration [id number] 07/20/2011 02:29:00 Document Registration
--- OUTSIDE RECORDS SUMMARY | 2017-09-05 09:38 | XMS REPORT | Continuity of Care Document ---
Author Author [facility] Organization [facility] Address Unknown Phone Unavailable Allergies Active Description Code Type Severity Reaction Onset Reported/Identified Relationship to Patient Clinical Status Yes No Known Drug Allergies [id number] Drug Allergy Unknown N/A 07/20/2011 Medications There [...] Tyler Ot 729.81 09/27/2015 GELLENDER DO, LAURA Tlyer Ot M79.605 09/27/2015 GELLENDER DO, LAURA Tyler [...] Monae Ot I10 ESSENTIAL (PRIMARY) HYPERTENSION 11/18/2015 ALIVIA MARKHAM, PETTY Monae Ot R07.89 OTHER CHEST [...] Tyler Ot 729.81 SWELLING OF LIMB 08/01/2016 [facility] Tyler Ot M79.605 PAIN IN [...] K04.7 PERIAPICAL ABSCESS WITHOUT SINUS 10/09/2016 ANNA FARFAN Ot R59.0 LOCALIZED ENLARGED LYMPH NODES 10/09/2016 ANNA FARFAN Ot 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 10/09/2016 ANNA FARFAN Ot Z79.899 OTHER LONG-TERM (CURRENT) DRUG THERAPY 10/10/2016 ANNA FARFAN Ot I10 ESSENTIAL (PRIMARY) HYPERTENSION 10/10/2016 ANAN FARFAN Ot J02.9 ACUTE PHARYNGITIS, UNSPECIFIED 10/10/2016 ANNA FARFAN Ot K04.7 PERIAPICAL ABSCESS WITHOUT SINUS 10/10/2016 ANNA FARFAN Ot R59.0 LOCALIZED ENLARGED LYMPH NODES 10/10/2016 ANNA FARFAN Ot 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 10/10/2016 ANNA FARFAN Ot Z79.899 OTHER LONG-TERM (CURRENT) DRUG THERAPY 10/17/2016 ANNA FARFAN Ot I10 ESSENTIAL (PRIMARY) HYPERTENSION 10/17/2016 ANNA FARFAN Ot J02.9 ACUTE PHARYNGITIS, UNSPECIFIED 10/17/2016 ANNA FARFAN Ot K04.7 PERIAPICAL ABSCESS WITHOUT SINUS 10/17/2016 ANNA FARFAN Ot R59.0 LOCALIZED ENLARGED LYMPH NODES 10/17/2016 ANNA FARFAN Ot Z79.82 LONG-TERM (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 ASPIRIN 10/17/2016 MARY BLAINEANNA Ot 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 10/18/2016 MARY VALLADARESANNA Niharika Ot I10 ESSENTIAL (PRIMARY) HYPERTENSION 10/18/2016 MARY VALLADARESANNA Niharika Ot J02.9 ACUTE PHARYNGITIS, UNSPECIFIED 10/18/2016 MARY BLAINEANNA Ot K04.7 PERIAPICAL ABSCESS WITHOUT SINUS 10/18/2016 MARY BLAINEANNA Ot R59.0 LOCALIZED ENLARGED LYMPH NODES 10/18/2016 MARY BLAINEANNA Ot Z79.82 LONG-TERM (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 ASPIRIN 10/18/2016 MARY BLAINEANNA Ot Z79.899 OTHER LONG-TERM (CURRENT) DRUG THERAPY Procedures There is no [...] Blood erythrocyte morphology finding identification NORMAL BANNER Comprehensive metabolic panel - 10/09/16 18:39 Serum [...] Status Pt. Type Provider Facility Loc./Unit Complaint [id number] 10/09/2016 16:37:00 10/09/2016 20:33:00 DIS Emergency ANNA FARFAN [facility] ER SWOLLEN GLANDS IN NECK /DIFF SWALLOWING [id number] 08/01/2016 10:51:00 08/01/2016 23:59:59 CLS Outpatient LAURA NOVOA DO [facility] RAD RIGHT LEG AND FOOT NUMBNESS AND TINGLING [id number] 11/18/2015 01:54:00 11/18/2015 16:50:00 DIS Inpatient PETTY BUNCH MD [facility] CSD CHEST PAIN,HYPERTENSIVE URGENCY [id number] 08/30/2015 14:06:00 08/30/2015 23:59:59 CLS Outpatient LAURA NOVOA DO [facility] RAD LT LEG GOIES NUMB HURTS TO WALK [id number] 12/21/2014 22:59:00 12/21/2014 23:37:00 DIS Emergency JACK NUNN DO [facility] ER BUG BITE IN LEFT EAR [id number] 01/08/2014 06:59:00 01/08/2014 23:59:59 CLS Outpatient LAURA NOVOA DO [facility] RAD SWELLING ABOVE LEFT CLAVICLE,RENAL INSUFF [id number] 12/31/2013 15:05:00 12/31/2013 23:59:59 CLS Outpatient LAURA NOVOA DO [facility] RAD SWELLING ABOVE LT CLAVICLE [id number] 12/04/2013 10:20:00 12/04/2013 23:59:59 CLS Outpatient LAURA NOVOA DO [facility] RAD CAROTID OCCLUSION [id number] 12/01/2013 11:10:00 12/01/2013 23:59:59 CLS Outpatient LAURA NOVOA DO [facility] RAD NECK PAIN SWELLING [id number] 11/04/2013 13:26:00 11/04/2013 23:59:59 CLS Outpatient LAURA NOVOA DO [facility] RAD RLQ PAIN [id number] 02/18/2013 08:38:00 02/18/2013 10:03:00 DIS Emergency STANTON CASTELLON MD [facility] ER SWOLLEN LYMPH NODES [id number] 12/02/2012 14:38:00 12/02/2012 17:49:00 DIS Emergency ANNA FARFAN [facility] ER COUGH/CONGESTION [id number] 09/04/2017 16:27:00 ACT Inpatient LAURA NOVOA DO [facility] 4TH HYPERTENSIVE ENERPENCY, GENERLIZED WEAKNESS [id number] 12/21/2014 22:59:00 Document Registration [id number] 10/20/2011 14:28:00 Document Registration [id number] 10/17/2011 12:42:00 Document Registration [id number] 07/20/2011 02:29:00 Document Registration
[2017-09-05] MEDS ORDERED: amLODIPine 10 MG (NORVASC) TAB PO NR (09:45)
--- NOTE | 2017-09-05 10:36 | Consultation-Cardiology ---
HPI-Cardiology Cardiology Consultation: Date of Consultation 09/05/17 Date of Admission Attending Physician Simon Gunn DO Admitting Physician Simon Gunn DO Consulting Physician Royal SOSA MD HPI: Time Seen by Provider: 09:00 Chief Complaint: Lightheadedness This is a 57-year-old gentleman with history of hyperlipidemia and hypertension. He is a patient of Dr. Gunn. He presented [employer] with complains of lightheadedness, tingling and blurred vision. He was found to have significantly high blood pressure and was treated appropriately. On my interviews blood pressure is improved however still uncontrolled. Patient denies any significant shortness of breath or chest pain. The patient also denies any history of syncope or near syncope. Review of Systems-Cardiology Review of Systems Constitutional: lightheadedness Eyes: blurred vision Ears/Nose/Throat: No As described under HPI, No no symptoms reported, No chronic hearing loss, No epistaxis, No ear discharge, No ear pain, No loose teeth, No mouth pain, No mouth swelling, No nasal drainage, No nose pain, No recent hearing loss, No throat pain, No throat swelling, No ulcerations, No other Respiratory: No no symptoms reported, No As described under HPI, No cough, No orthopnea, No shortness of breath, No SOB with excertion, No SOB at rest, No stridor, No wheezing, No other Cardiovascular: no symptoms reported, No As described under HPI, No chest pain , No edema, No irregular heart rate, No lightheadedness, No palpitations, No syncope, No other Gastrointestinal: No no symptoms reported, No As described under HPI, No abdomen distended, No abdominal pain, No blood streaked bowels, No constipation , No diarrhea, No difficulty swallowing, No nausea, No poor appetite, No poor fluid intake, No rectal bleeding, No vomiting, No other, No nausea/vomiting/ diarrhea, No stool coloration changes Genitourinary: No no symptoms reported, No As described under HPI, No burning, No dysuria, No discharge, No frequency, No flank pain, No hematuria, No incontinence, No pain, No urgency, No other, No urine frequency changes, No urine coloration changes Musculoskeletal: No no symptoms reported, No As describe under HPI, No back pain, No gout, No joint pain, No joint swelling, No muscle pain, No muscle stiffness, No neck pain, No other Skin: No no symptoms reported, No As described under HPI, No change in color, No change in hair/nails, No dryness, No lesions, No lumps, No rash, No other, No skin related problems, No ulcerations, No rash on exposed areas, No ulcerations on exposed areas Psychiatric/Neurological: No no symptoms reported, No As described under HPI, No anxiety, No depression, No emotional problems, No headache, No numbness, No pre-existing deficit, No seizure, No tingling, No tremors, No weakness, No other , No focal weakness, No syncope Hematologic: No no symptoms reported, No As described under HPI, No anemia, No blood clots, No easy bleeding, No easy bruising, No swollen glands, No other, No bleeding abnormalities DLI-Szzkfh-Djzyek Hx Patient Social History Marrital Status: Employed/Student: unemployed Alcohol Use: Occasionally Uses Recreational Drug Use: No Smoking Status: Former Smoker Type Used: Cigarettes 2nd Hand Smoke Exposure: No Recent Foreign Travel: No Recent Infectious Disease Expo: No Physical Abuse Screen: No Sexual Abuse: No Immunizations Up To Date Tetanus Booster (TDap): Unknown Past Medical History PMH As described under Assessment. Allergies and Home Medications Allergies Coded Allergies: No Known Drug Allergies (Unverified , 07/20/11) Home Medications Aspirin 81 Mg Tab.chew, 81 MG PO DAILY, (Reported) Atenolol 50 Mg Tablet, 100 MG PO DAILY, (Reported) TAKES 2 (50MG) TABLETS Atorvastatin Calcium 20 Mg Tablet, 20 MG PO HS, (Reported) Chlorzoxazone 500 Mg Tablet, 500 MG PO BID, (Reported) Furosemide 40 Mg Tablet, 40 MG PO DAILY, (Reported) Lisinopril 40 Mg Tablet, 40 MG PO DAILY, (Reported) Tramadol HCl 50 Mg Tablet, 50 MG PO BID PRN for PAIN-MODERATE, (Reported) Physical Exam-Cardiology Physical Exam Vital Signs/I&O Vital Sign - Last 12Hours 09/05/17 09/05/17 09/05/17 09/05/17 07:00 08:00 10:30 12:00 Temp 97.6 96.5 Pulse 56 61 71 Resp 18 20 B/P (MAP) 181/85 (117) 147/77 (100) 119/58 (78) Pulse Ox 100 97 O2 Delivery Room Air Room Air 09/05/17 15:44 Temp 97.1 Pulse 60 Resp 16 B/P (MAP) 150/76 (100) Pulse Ox 98 O2 Delivery Room Air Intake and Output 09/05/17 00:00 Intake Total 540 ml Output Total 50 ml Balance 490 ml Capillary Refill : Less Than 3 Seconds Constitutional: AAO x 3 HEENT: PERRL, No discharge, hearing is well preserved, oral hygience is good, No ulceration, No xanthelasmas are seen Neck: No non-tender, No full range of motion, No supple, No normal inspection, No carotid bruit, No limited range of motion, No lymphadenopathy (R), No lymphadenopathy (L), No tender lateral, No tender midline, No thyromegaly, No other, carotid pulses are 2 + bilaterally, No with good upstrokes Respiratory: No accessory muscle use, No respiratory distress, No chest tender , No chest expansion is symmetric, chest is bilaterally symmetric, lungs clear to percussion, lungs clear to auscultation, No crackles, No rhonchi, No rales, No stridor, No wheezing, No pleural rub, No other Cardiovascular: regular rate-rhythm, No irregularly irregular, No extra beats, No parasternal heave is noted, No JVD, No edema, No bradycardia, No tachycardia , No point of maximal impulse, No cardiac thrills are palpable, S1 and S2, No gallop/S3, No gallop/S4, No diastolic murmur, No systolic murmur, No friction rub, No click, No other Gastrointestinal: No tender, No soft, No round, No distended, No pulsatile mass , No organomegaly, No guarding, No rebound, No tenderness, No hernia, No mass, No audible bowel sounds, No abnormal bowel sounds, No abdominal bruits, No spleenomegaly, No other Rectal: deferred Extremities: No normal range of motion, No non-tender, No normal inspection, No pedal edema, No calf tenderness, No normal capillary refill, No pelvis stable , No calf tenderness, No inflammation, No pedal edema, No slow capillary refill , No swelling, No other, No abrasion, No clubbing, No cyanosis, No ecchymosis, No laceration, No no lower extremity edema bilateral, No significant edema, No tenderness, No wound Neurologic/Psychiatric: No steel manager II-XII nml as tested, No no motor/sensory deficits, alert, normal mood/affect, oriented x 3, No abnormal cerebellar tests , No abnormal steel manager II-XII, No abnormal gait, No aphasia, No EOM palsy, No facial droop, No motor weakness, No sensory deficit, No depressed affect, No disoriented x 3, No other, No grossly intact, No power is 5/5 both on sides Skin: No normal color, No warm/dry, No cyanosis, No cool, No diaphoresis, No damp, No ecchymosis, No jaundice, No mottled, No pallor, No rash, No tattoos/ piercings, No ulcerations, No rash on exposed areas, No ulcerations on exposed areas, No other Data Review Labs Laboratory Tests 09/04/17 18:58: Total Creatine Kinase 88, Triglycerides Level 133, Cholesterol Level 193, LDL Cholesterol Direct 133H, VLDL Cholesterol 27, HDL Cholesterol 40 09/04/17 20:50: Urine Color YELLOW, Urine Clarity CLEAR, Urine pH 5, Urine Specific [place] 1.010L, Urine Protein 2+H, Urine Glucose (UA) NEGATIVE, Urine Ketones NEGATIVE, Urine Nitrite NEGATIVE, Urine Bilirubin NEGATIVE, Urine Urobilinogen 1, Urine Leukocyte Esterase NEGATIVE, Urine RBC (Auto) NEGATIVE, Urine RBC NONE, Urine WBC NONE, Urine Squamous Epithelial Cells 0-2, Urine Crystals NONE, Urine Bacteria NONE, Urine Casts NONE, Urine Mucus NEGATIVE, Urine Culture Indicated NO 09/05/17 05:21: Triglycerides Level 155H, Cholesterol Level 179, LDL Cholesterol Direct 118, VLDL Cholesterol 31, HDL Cholesterol 32L, White Blood Count 6.2, Red Blood Count 3.76L, Hemoglobin 11.6L, Hematocrit 35L, Mean Corpuscular Volume 92, Mean Corpuscular Hemoglobin 31, Mean Corpuscular Hemoglobin Concent 34, Red Cell Distribution Width 13.3, Platelet Count 184, Mean Platelet Volume 10.6H, Neutrophils (%) (Auto) 50, Lymphocytes (%) (Auto) 40, Monocytes (%) (Auto) 6, Eosinophils (%) (Auto) 3, Basophils (%) (Auto) 1, Neutrophils # (Auto) 3.1, Lymphocytes # (Auto) 2.5, Monocytes # (Auto) 0.4, Eosinophils # (Auto) 0.2, Basophils # (Auto) 0.0, Sodium Level 140, Potassium Level 4.0, Chloride Level 106, Carbon Dioxide Level 24, Anion Gap 10, Blood Urea Nitrogen 16, Creatinine 1.01, Estimat Glomerular Filtration Rate > 60, BUN/Creatinine Ratio 16, Glucose Level 102, Calcium Level 8.7, Total Bilirubin 0.6, Aspartate Amino Transf (AST/ SGOT) 16, Alanine Aminotransferase (ALT/SGPT) 16, Alkaline Phosphatase 56, Troponin I < 0.30, Total Protein 6.5, Albumin 3.4 ECG Impression ECG Initial ECG Rhythm: Normal Sinus Comment LVH, lateral T-wave changes. A/P-Cardiology Assessment/Admission Diagnosis Severe hypertension, Hyperlipidemia, LVH, Lateral T-wave inversions. Plan Hypertension: We'll start all outpatient antihypertensive medications including lisinopril. Salt restriction was strongly recommended. I spoke to him about compliance with medications and salt restriction. LVH: Hypertensive heart disease: Patient has LVH on EKG suggesting hypertensive heart disease. We'll recommend an echocardiogram. Hyperlipidemia: Atorvastatin. Lateral T-wave changes: Could be secondary to LVH. May require a stress test as an outpatient. Thank you for your consultation. Please call me if you have any questions. Shauna Sosa MD, FACP, FACC, FSCAI, FHRS, CCDS Interventional Cardiology Cardiac Electrophysiology Vascular Medicine and Endovascular Interventions Clinical Quality Measures DVT/VTE Risk/Contraindication: Risk Factor Score Per Nursin RFS Level Per Nursing on Admit: 2=Moderate Royal SOSA MD Sep 05, 2017 10:36
--- NOTE | 2017-09-05 11:11 | Diagnostic Imaging Report ---
Procedure; Bilateral lower extremity venous Doppler. Indication: Leg pain. Findings: Spectral color flow imaging of the deep venous system was performed. There are no prior studies available for comparison. There is generally good blood flow and compressibility at all levels. There is no evidence for a deep venous embolus. Impression: There is no evidence for a deep venous thrombosis of the bilateral lower extremities. Dictated by: Dictated on workstation # [id number]
--- NOTE | 2017-09-05 11:14 | Occ Therapy Progress Note ---
Therapy Progress Note 1105 to 1110 Pt seen in room, family present. OT order from protocol, for changes in vision. Pt has been up ad ketan in room, taking himself to the bathroom. He denies any UE weakness or problems with self care. After discussion with pt and family, no skilled OT needs identified. DC OT visit SHLOMO CHRISTINE OT Sep 05, 2017 11:14
[2017-09-05] MEDS: ATORVASTATIN 20 MG (LIPITOR) TABLET PO SCH (20:26)
[2017-09-06] VITALS: BP 148/75
[2017-09-06 01:45] VITALS: BP 157/79
[2017-09-06] MEDS: ONDANSETRON 4 MG/2 ML (SDV) Z0FRAN IV PRN (01:51)
[2017-09-06 04:34] VITALS: BP 145/78
[2017-09-06 05:54] LABS: HEMOGLOBIN 11.1 G/DL (13.3-17.7); MEAN PLATELET VOLUME 10.2 FL (7.4-10.4); RED BLOOD COUNT 3.56 10^6/uL (4.35-5.85); RED CELL DISTRIBUTION WIDTH 13.2 % (10.0-14.5); WHITE BLOOD COUNT 5.7 10^3/uL (4.3-11.0)
[2017-09-06] MEDS: CATHETER FLUSH 10 ML SYR IV SCH (06:15)
[2017-09-06 06:17] LABS: BUN/CREATININE RATIO 14; CALCIUM 8.9 MG/DL (8.5-10.1); CARBON DIOXIDE 26 MMOL/L (21-32); CHLORIDE 107 MMOL/L (98-107); CREATININE SERUM 0.93 MG/DL (0.60-1.30); GFR ESTIMATED > 60; GLUCOSE 94 MG/DL (70-105); POTASSIUM 4.1 MMOL/L (3.6-5.0); SODIUM 139 MMOL/L (135-145)
[2017-09-06 08:00] VITALS: BP 162/80
--- NOTE | 2017-09-06 08:18 | Progress Note (SOAP) ---
Subjective Time Seen by Provider: 08:15 Subjective/Events-last exam Patient doing better today. Patient wants to go home. Blood pressure better. Nurse to call me at 10 a.m. Objective Exam Vital Signs Date Time Temp Pulse Resp B/P (MAP) Pulse Ox O2 Delivery O2 Flow Rate FiO2 09/06/17 04:34 97.8 64 18 145/78 (100) 98 Room Air 09/06/17 01:45 96.6 59 16 157/79 (105) 99 Room Air 09/06/17 01:00 54 09/06/17 00:00 97.4 72 18 148/75 (99) 98 Room Air 09/05/17 20:30 99 Room Air 09/05/17 19:59 97.6 69 16 141/73 (95) 99 Room Air 09/05/17 19:00 69 09/05/17 15:44 97.1 60 16 150/76 (100) 98 Room Air 09/05/17 13:00 66 09/05/17 12:00 96.5 71 20 119/58 (78) 97 Room Air 09/05/17 10:30 147/77 (100) I & O 09/06/17 07:00 Intake Total 2910 ml Balance 2910 ml Capillary Refill : Less Than 3 Seconds General Appearance: No Apparent Distress, WD/WN HEENT: Normal ENT Inspection Neck: Full Range of Motion, Normal Inspection Respiratory: Lungs Clear, Normal Breath Sounds, No Accessory Muscle Use, No Respiratory Distress Cardiovascular: Regular Rate, Rhythm, No Murmur Gastrointestinal: non tender, soft Results Lab Laboratory Tests 09/06/17 05:41 Laboratory Tests 09/06/17 05:41: White Blood Count 5.7, Red Blood Count 3.56L, Hemoglobin 11.1L, Hematocrit 33L, Mean Corpuscular Volume 91, Mean Corpuscular Hemoglobin 31, Mean Corpuscular Hemoglobin Concent 34, Red Cell Distribution Width 13.2, Platelet Count 169, Mean Platelet Volume 10.2, Sodium Level 139, Potassium Level 4.1, Chloride Level 107, Carbon Dioxide Level 26, Anion Gap 6, Blood Urea Nitrogen 13, Creatinine 0.93, Estimat Glomerular Filtration Rate > 60, BUN/Creatinine Ratio 14, Glucose Level 94, Calcium Level 8.9 Assessment/Plan Assessment/Plan Assess & Plan/Chief Complaint . Malignant hypertension better. Patient to be discharged today Clinical Quality Measures DVT/VTE Risk/Contraindication: Risk Factor Score Per Nursin RFS Level Per Nursing on Admit: 2=Moderate LAURA NOVOA DO Sep 06, 2017 08:18
[2017-09-06] MEDS: ATENOLOL 50 MG (TENORMIN) TAB PO SCH (08:52)
[2017-09-06] MEDS: lisINopril 20 MG (ZESTRIL) TAB PO SCH (08:52)
[2017-09-06] MEDS: ASPIRIN E.C. 325 MG (ECOTRIN) TABLET PO SCH (08:52)
[2017-09-06] MEDS: cloNIDine 0.1 MG (CATAPRES) TAB PO SCH (08:52)
[2017-09-06] MEDS: ENOXAPARIN 40 MG/0.4 ML (LOVENOX) SYR SC SCH (08:52)
[2017-09-06] MEDS: HYDROcodone/APAP 5 MG/325 MG (LORTAB) TAB PO PRN (09:12)
[2017-09-06] MEDS ORDERED: CLON0.1T PO (10:10)
[2017-09-06 10:45] VITALS: BP 162/80
--- NOTE | 2017-09-06 11:26 | Cardiology Progress Note ---
Cardiology SOAP Progress Note Subjective: No cardiac complaints. Objective: I&O/Vital Signs Vital Sign - Last 12Hours 09/06/17 09/06/17 09/06/17 07:00 08:00 10:45 Temp 97.1 Pulse 58 60 60 Resp 18 18 B/P (MAP) 162/80 (107) 162/80 Pulse Ox 100 100 O2 Delivery Room Air Room Air Intake and Output 09/06/17 00:00 Intake Total 1690 ml Balance 1690 ml Weight (Pounds): 217 Weight (Ounces): 0.0 Weight (Calculated Kilograms): 98.701346 Constitutional: AAO x 3 Respiratory: No accessory muscle use, No respiratory distress, No chest tender , No chest expansion is symmetric, chest is bilaterally symmetric, lungs clear to percussion, lungs clear to auscultation, No crackles, No rhonchi, No rales, No stridor, No wheezing, No pleural rub, No other Cardiovascular: regular rate-rhythm, No irregularly irregular, No extra beats, No parasternal heave is noted, No JVD, No edema, No bradycardia, No tachycardia , No point of maximal impulse, No cardiac thrills are palpable, S1 and S2, No gallop/S3, No gallop/S4, No diastolic murmur, No systolic murmur, No friction rub, No click, No other Gastrointestional: No tender, No soft, No round, No distended, No pulsatile mass, No organomegaly, No guarding, No rebound, No tenderness, No hernia, No mass, No audible bowel sounds, No abnormal bowel sounds, No abdominal bruits, No spleenomegaly, No other Extremities: No normal range of motion, No non-tender, No normal inspection, No pedal edema, No calf tenderness, No normal capillary refill, No pelvis stable , No calf tenderness, No inflammation, No pedal edema, No slow capillary refill , No swelling, No other, No abrasion, No clubbing, No cyanosis, No ecchymosis, No laceration, No no lower extremity edema bilateral, No significant edema, No tenderness, No wound Neurologic/Psychiatric: No corner former II-XII nml as tested, No no motor/sensory deficits, alert, normal mood/affect, oriented x 3, No abnormal cerebellar tests , No abnormal corner former II-XII, No abnormal gait, No aphasia, No EOM palsy, No facial droop, No motor weakness, No sensory deficit, No depressed affect, No disoriented x 3, No other, No grossly intact, No power is 5/5 both on sides Skin: No normal color, No warm/dry, No cyanosis, No cool, No diaphoresis, No damp, No ecchymosis, No jaundice, No mottled, No pallor, No rash, No tattoos/ piercings, No ulcerations, No rash on exposed areas, No ulcerations on exposed areas, No other Results/Procedures: Labs Laboratory Tests 09/06/17 05:41: White Blood Count 5.7, Red Blood Count 3.56L, Hemoglobin 11.1L, Hematocrit 33L, Mean Corpuscular Volume 91, Mean Corpuscular Hemoglobin 31, Mean Corpuscular Hemoglobin Concent 34, Red Cell Distribution Width 13.2, Platelet Count 169, Mean Platelet Volume 10.2, Sodium Level 139, Potassium Level 4.1, Chloride Level 107, Carbon Dioxide Level 26, Anion Gap 6, Blood Urea Nitrogen 13, Creatinine 0.93, Estimat Glomerular Filtration Rate > 60, BUN/Creatinine Ratio 14, Glucose Level 94, Calcium Level 8.9 A/P: Assessment/Dx: Severe hypertension, Hyperlipidemia, LVH, Lateral T-wave inversions. Plan: Hypertension: We'll start all outpatient antihypertensive medications including lisinopril. Salt restriction was strongly recommended. I spoke to him about compliance with medications and salt restriction. LVH: Hypertensive heart disease: Patient has LVH on EKG suggesting hypertensive heart disease. Echocardiogram showed hyperdynamic LV function with moderate concentric LVH suggesting hypertensive heart disease.. Hyperlipidemia: Atorvastatin. Lateral T-wave changes: Could be secondary to LVH. May require a stress test as an outpatient. Cardiology follow-up as an outpatient with myself. Thank you for your consultation. Please call me if you have any questions. Shauna Sosa MD, FACP, FACC, FSCAI, FHRS, CCDS Interventional Cardiology Cardiac Electrophysiology Vascular Medicine and Endovascular Interventions Royal SOSA MD Sep 06, 2017 11:26
--- NOTE | 2017-09-07 07:06 | Clinic Account Progress/Dx ---
Clinic Account Progress/Dx DIAGNOSIS: Time Seen by Provider: 07:05 Malignant hypertension. Blurred vision. Weakness. Hyperlipidemia. LVH left ventricular hypertrophy LAURA NOVOA DO Sep 07, 2017 07:06
== END 2017-09-06 08:18 | disposition home or self-care (01) ==
LOC: EDUNIT# 11:17 → ER 11:19 → 4TH 16:27 → UNDOADMOB 16:27 → 4TH 17:20
PROVIDERS: ADMIT Family Medicine; ATTEND Family Medicine
DX: I11.0 Hypertensive heart disease with heart failure (principal); H53.8 Other visual disturbances; R53.1 Weakness; E78.5 Hyperlipidemia, unspecified; I51.7 Cardiomegaly; Z87.891 Personal history of nicotine dependence; Z79.899 Other long term (current) drug therapy
CPT/HCPCS: 36415; 70450; 70551; 71045; 71275; 80048; 80053; 80061; 81000; 82550; 82553; 83735; 83874; 83880; 84484; 85025; 85027; 85379; 85610; 85730; 93005; 93041; 93306; 93970; 96374; G0378

== ENCOUNTER → 2017-09-14 | Outpatient (CLI) | payer MEDICARE ==
[~2017-09-14] MED LIST changes: +CHLO500T4 PO; +CLON0.1T PO; +FURO40TA4 PO; +TRAM50TA2 PO
--- NOTE | 2017-09-14 10:03 | Diagnostic Imaging Report ---
PROCEDURE: MRI lumbar spine. TECHNIQUE: Multiplanar, multisequence MRI of the lumbar spine was performed without contrast. INDICATION: Increasing low back pain and bilateral leg pain. Patient has a history of prior lumbar spine surgery in 1989. Comparison is made with prior MRI of the lumbar spine from 08/01/2016. Curvature of the lumbar spine is within normal limits. The vertebral body heights are maintained. No acute compression fracture seen. No geographic marrow lesion is seen. There are Modic changes in the endplates at the L4-5 level. There is loss of height and signal intensity to the L4-L5 and L5-S1 discs compatible with degenerative change, similar to prior exam. The conus is unremarkable at the L1 level. T12-L1: Again noted is a very mild broad-based right paracentral disc bulge producing slight indentation upon the ventral thecal sac. However, no significant resultant central canal or neuroforaminal stenosis is identified. L1-2: Unremarkable. L2-3: Unremarkable. L3-4: Unremarkable. L4-5: Broad-based disc/osteophyte complex is again noted flattening of the ventral thecal sac. AP dimensions of the central canal remain within normal limits. There is continued significant bilateral lateral recess stenosis as well as severe left and moderate to severe right neural foraminal stenosis, similar to prior. L5-S1: Previously noted right paracentral focal disc protrusion has significantly decreased in size. There is a small amount of residual signal at this location may represent tiny residual disc material. The central canal is widely patent. There is moderate bilateral neuroforaminal stenosis and moderate bilateral lateral recess stenosis. Paraspinous tissues are unremarkable. IMPRESSION: Lumbar spondylosis, similar to examination from one year earlier. Neural foraminal and lateral recess stenosis at L4-L5 and L5-S1 levels is again seen. There has been a decrease in size of a large right paracentral disc extrusion at L5-S1 level when compared with prior study, although a small amount of disc material does remain. No new abnormality is detected. Dictated by: Dictated on workstation # [id number]
== END ==
LOC: RAD 07:47
PROVIDERS: ATTEND Family Medicine
DX: M48.07 Spinal stenosis, lumbosacral region (principal); M51.27 Other intervertebral disc displacement, lumbosacral region; M47.816 Spondylosis without myelopathy or radiculopathy, lumbar region
CPT/HCPCS: 72148

== ENCOUNTER 2018-05-19 07:13 | Observation (INO) | payer MEDICARE ==
[2018-05-19] VITALS (20 sets, daily range): BP systolic 144–213; BP diastolic 72–109
[~2018-05-19] VITALS: Ht 188 cm; Wt 98.2 kg
[~2018-05-19 07:13] MED LIST changes: +HYDR-4226 PO; +HYDR-4227 PO; -HYDR-756 PO; -HYDR-757 PO
--- NOTE | 2018-05-19 07:40 | ED Cardiac General ---
History of Present Illness General Stated Complaint: CANT GET BLOOD PRESSURE DOWN 207/104 Source: patient Exam Limitations: no limitations History of Present Illness Date Seen by Provider: May 19, 2018 Time Seen by Provider: 07:23 Initial Comments The patient presents to the ER by private conveyance with chief complaint this morning his blood pressure was 207/104. This is the second day it has been that high in the morning when he checked it. He noticed it was pretty high around midnight because he was having some mild pain for just a minute or 2 under his left breast subcostal. He says he tried massaging the site but it didn't help. After a few minutes it went away. He's never had a heart attack and he says his mother when she denied headache: Her heart but he does not remember anything about that. He has however been dealing with very high blood pressure and even was hospitalized in August of this year for it. He's having no blurry vision lightheadedness headache change in vision double vision. He is not having any weakness but he does feel some tingling in his left leg and he said when he tapped his foot a few times it went away. He's had some persistent paresthesias in his right foot. He denies being diabetic and he quit smoking a couple years ago. He does not have any known thyroid disease but he does take a statin for cholesterol. After his chest pain went away he drank a cup of coffee and that only made his blood pressure go up even higher. He states he has been taking his medications appropriately and takes clonidine in the morning but he hasn't had this morning yet. He took an extra dose of atenolol last night before going to bed. Allergies and Home Medications Allergies Coded Allergies: No Known Drug Allergies (Unverified , 07/20/11) Home Medications Aspirin 81 Mg Tab.chew, 81 MG PO DAILY, (Reported) Atenolol 50 Mg Tablet, 100 MG PO DAILY, (Reported) TAKES 2 (50MG) TABLETS Atorvastatin Calcium 20 Mg Tablet, 20 MG PO HS, (Reported) Chlorzoxazone 500 Mg Tablet, 500 MG PO BID, (Reported) Clonidine HCl 0.1 Mg Tablet, 0.1 MG PO BID Prescribed by: ALEX PEÑA on 09/06/17 1010 Furosemide 40 Mg Tablet, 40 MG PO DAILY, (Reported) Lisinopril 40 Mg Tablet, 40 MG PO DAILY, (Reported) Tramadol HCl 50 Mg Tablet, 50 MG PO BID PRN for PAIN-MODERATE, (Reported) Patient Home Medication List Home Medication List Reviewed: Yes Review of Systems Review of Systems Constitutional: No chills, No dizziness, No fever, No malaise, No weakness EENTM: No Blurred Vision, No Double Vision Respiratory: Denies Cough, Denies Shortness of Air Cardiovascular: See HPI, Chest Pain; Denies Edema, Denies Irregular Heart Rate , Denies Lightheadedness, Denies Palpitations, Denies Syncope Gastrointestinal: Denies Constipated, Denies Diarrhea, Denies Nausea Genitourinary: Denies Discharge, Denies Drainage Musculoskeletal: No back pain, No joint pain Skin: No pruritus, No rash Psychiatric/Neurological: Denies Headache, Denies Numbness; Paresthesia ( bilateral feet intermittent) Past Kixpfhf-Rrqxhk-Bpzjmj Hx Patient Social History Alcohol Use: Occasionally Uses (last use 6 months ago) Alcohol Beverage of Choice: Beer Recreational Drug Use: No Smoking Status: Former Smoker Type Used: Cigarettes Former Smoker, Quit: Jul 10, 2017 2nd Hand Smoke Exposure: No Recent Foreign Travel: No Contact w/Someone Who Travel: No Recent Hopitalizations: No Immunizations Up To Date Tetanus Booster (TDap): Unknown PED Vaccines UTD: No Seasonal Allergies Seasonal Allergies: No Past Medical History Surgeries: Yes (Inguinal hernia Rpr-peds, lower back, r pinky finger) Orthopedic Respiratory: Yes Asthma Currently Using CPAP: No Currently Using BIPAP: No Cardiac: Yes High Cholesterol, Hypertension Neurological: Yes Stroke Reproductive Disorders: No Genitourinary: No Gastrointestinal: No Musculoskeletal: Yes Chronic Back Pain Endocrine: No HEENT: No Cancer: No Psychosocial: No Integumentary: No Blood Disorders: No Adverse Reaction/Blood Tranf: No Family Medical History Diabetes Physical Exam Vital Signs Vital Signs - First Documented 05/19/18 07:32 Temp 97.6 Pulse 67 Resp 16 B/P (MAP) 245/119 (161) Pulse Ox 16 O2 Delivery Room Air Capillary Refill : Height, Weight, BMI Height: 6'2.00" Weight: 217lbs. 0.0oz. 98.650875rc; 27.9 BMI Method:Stated General Appearance: No Apparent Distress, WD/WN HEENT: PERRL/EOMI, TMs Normal, Normal ENT Inspection, Pharynx Normal, Moist Mucous Membranes Neck: Full Range of Motion, Normal Inspection, Non Tender, Supple Respiratory: Chest Non Tender, Lungs Clear, Normal Breath Sounds, No Accessory Muscle Use, No Respiratory Distress Cardiovascular: Regular Rate, Rhythm, No Edema, Normal Peripheral Pulses Gastrointestinal: Normal Bowel Sounds, Non Tender, Soft Extremity: Normal Capillary Refill, Normal Inspection, Normal Range of Motion, Non Tender, No Calf Tenderness, No Pedal Edema Neurologic/Psychiatric: Alert, Oriented x3, No Motor/Sensory Deficits, Normal Mood/Affect Skin: Normal Color, Other (dry) Progress/Results/Core Measures Results/Orders Lab Results Laboratory Tests Test 05/19/18 07:32 05/19/18 07:37 05/19/18 08:18 Range/Units Thyroid Stimulating Hormone (TSH) 1.33 0.35-4.94 UIU/ML White Blood Count 7.3 4.3-11.0 10^3/uL Red Blood Count 4.17 L 4.35-5.85 10^6/uL Hemoglobin 12.7 L 13.3-17.7 G/DL Hematocrit 38 L 40-54 % Mean Corpuscular Volume 91 80-99 FL Mean Corpuscular Hemoglobin 30 25-34 PG Mean Corpuscular Hemoglobin Concent 34 32-36 G/DL Red Cell Distribution Width 13.8 10.0-14.5 % Platelet Count 217 130-400 10^3/uL Mean Platelet Volume 10.1 7.4-10.4 FL Neutrophils (%) (Auto) 48 42-75 % Lymphocytes (%) (Auto) 41 12-44 % Monocytes (%) (Auto) 8 0-12 % Eosinophils (%) (Auto) 3 0-10 % Basophils (%) (Auto) 0 0-10 % Neutrophils # (Auto) 3.5 1.8-7.8 X 10^3 Lymphocytes # (Auto) 3.0 1.0-4.0 X 10^3 Monocytes # (Auto) 0.6 0.0-1.0 X 10^3 Eosinophils # (Auto) 0.2 0.0-0.3 10^3/uL Basophils # (Auto) 0.0 0.0-0.1 10^3/uL Prothrombin Time 12.7 12.2-14.7 SEC INR Comment 1.0 0.8-1.4 Activated Partial Thromboplast Time 27 24-35 SEC Sodium Level 141 135-145 MMOL/L Potassium Level 3.2 L 3.6-5.0 MMOL/L Chloride Level 104 98-107 MMOL/L Carbon Dioxide Level 24 21-32 MMOL/L Anion Gap 13 5-14 MMOL/L Blood Urea Nitrogen 16 7-18 MG/DL Creatinine 1.06 0.60-1.30 MG/DL Estimat Glomerular Filtration Rate > 60 BUN/Creatinine Ratio 15 Glucose Level 89 70-105 MG/DL Calcium Level 9.8 8.5-10.1 MG/DL Corrected Calcium 9.4 8.5-10.1 MG/DL Magnesium Level 1.9 1.8-2.4 MG/DL Total Bilirubin 0.5 0.1-1.0 MG/DL Aspartate Amino Transf (AST/SGOT) 22 5-34 U/L Alanine Aminotransferase (ALT/SGPT) 24 0-55 U/L Alkaline Phosphatase 68 40-136 U/L Myoglobin 40.8 10.0-92.0 NG/ML Troponin I < 0.30 <0.30 NG/ML Total Protein 7.8 6.4-8.2 GM/DL Albumin 4.5 3.2-4.5 GM/DL Urine Color YELLOW Urine Clarity CLEAR Urine pH 6 5-9 Urine Specific [place] 1.015 L 1.016-1.022 Urine Protein NEGATIVE NEGATIVE Urine Glucose (UA) NEGATIVE NEGATIVE Urine Ketones NEGATIVE NEGATIVE Urine Nitrite NEGATIVE NEGATIVE Urine Bilirubin NEGATIVE NEGATIVE Urine Urobilinogen NORMAL NORMAL MG/DL Urine Leukocyte Esterase NEGATIVE NEGATIVE Urine RBC (Auto) NEGATIVE NEGATIVE Urine RBC NONE /HPF Urine WBC NONE /HPF Urine Squamous Epithelial Cells NONE /HPF Urine Crystals NONE /LPF Urine Bacteria NEGATIVE /HPF Urine Casts NONE /LPF Urine Mucus NEGATIVE /LPF Urine Culture Indicated NO Urine Opiates Screen NEGATIVE NEGATIVE Urine Oxycodone Screen NEGATIVE NEGATIVE Urine Methadone Screen NEGATIVE NEGATIVE Urine Propoxyphene Screen NEGATIVE NEGATIVE Urine Barbiturates Screen NEGATIVE NEGATIVE Ur Tricyclic Antidepressants Screen NEGATIVE NEGATIVE Urine Phencyclidine Screen NEGATIVE NEGATIVE Urine Amphetamines Screen NEGATIVE NEGATIVE Urine Methamphetamines Screen NEGATIVE NEGATIVE Urine Benzodiazepines Screen NEGATIVE NEGATIVE Urine Cocaine Screen NEGATIVE NEGATIVE Urine Cannabinoids Screen NEGATIVE NEGATIVE My Orders Orders - DELROY KELLEY Ekg Tracing (05/19/18 07:32) Continuous Ekg Monitoring (05/19/18 07:32) Cbc With Automated Diff (05/19/18 07:32) Magnesium (05/19/18 07:32) Chest 1 View, Ap/Pa Only (05/19/18 07:32) Cardiac Profile 1 (05/19/18 07:32) Comprehensive Metabolic Panel (05/19/18 07:32) Myoglobin Serum (05/19/18 07:32) Protime With Inr (05/19/18 07:32) Partial Thromboplastin Time (05/19/18 07:32) O2 (05/19/18 07:32) Lipid Panel (05/20/18 06:00) Aspirin Chewable Tablet (Baby Aspirin Ch (05/19/18 07:45) Saline Lock/Iv-Start (05/19/18 07:32) Clonidine Tablet (Catapres Tablet) (05/19/18 07:45) Hydralazine Injection (Apresoline Inject (05/19/18 07:45) Ua Culture If Indicated (05/19/18 07:36) Drug Screen Stat (Urine) (05/19/18 07:36) Thyroid Stimulating Hormone (05/19/18 07:40) Nitroglycerin Ointment (Nitrobid Ointme (05/19/18 08:45) Nitroglycerin Ointment (Nitrobid Ointme (05/19/18 08:35) Medications Given in ED Current Medications Medications Dose Ordered Sig/Haylie Route Start Time Stop Time Status Last Admin Dose Admin Aspirin 324 mg ONCE ONCE PO 05/19/18 07:45 05/19/18 07:46 DC 05/19/18 07:44 324 MG Clonidine HCl 0.1 mg ONCE ONCE PO 05/19/18 07:45 05/19/18 07:46 DC 05/19/18 07:44 0.1 MG Hydralazine HCl 10 mg ONCE ONCE IV 05/19/18 07:45 05/19/18 07:46 DC 05/19/18 07:44 10 MG Nitroglycerin 1 inch ONCE ONCE TOP 05/19/18 08:45 05/19/18 08:46 DC 05/19/18 08:39 1 INCH Vital Signs/I&O 05/19/18 07:32 Temp 97.6 Pulse 67 Resp 16 B/P (MAP) 245/119 (161) Pulse Ox 16 O2 Delivery Room Air Progress Progress Note : Time: 07:43 Progress Note Clonidine and beta blockers can interact to have unrestricted alpha2 vasoconstriction. He has not had his clonidine this morning so I would be loathe to stop him cold turkey. Plan to give him another dose while he waits but also try some hydralazine 10 mg IV to bring his blood pressure down 20-30%. Concerning that he is having some chest pain this morning so we'll get an EKG troponin and give him 324 mg aspirin to chew and swallow. He is not having any current symptoms of chest pain or headache. We'll check another thyroid level and we can see what his sugar is on the CMP. We'll obtain urinalysis with urine drug screen to rule out that as a source of his hypertension. Initial EKG looks like left ventricular hypertrophy but is unchanged from August. We have also considered using nitroglycerin to bring his blood pressure down despite having no chest pain right now. Echocardiogram [address] Sosa demonstrates left ventricular wall thickness mildly to moderately increased. Concentric hypertrophy. Hyperdynamic systolic function with an EF of 70-75%. Doppler parameters consistent with restrictive physiology indicative of decreased left ventricular diastolic compliance and/or increased left atrial pressure. Malignant hypertension versus hypertensive urgency, rule out ACS. CT angiogram of the chest from August, 8 months ago demonstrated a non-aneurysmal aorta. Initial ECG Impression Date: May 19, 2018 Initial ECG Impression Time: 07:28 Initial ECG Rate: 59 Initial ECG Rhythm: Normal Sinus Initial ECG Intervals: Normal Initial ECG Impression: Nonspecific Changes Initial ECG Comparisson: Unchanged Comment Evident left ventricular hypertrophy without ST elevation or depression. Diagnostic Imaging Diagonstic Imaging: Xray Plain Films/CT/US/NM/MRI: chest (1v) Comments No acute cardiopulmonary processes noted on the chest x-ray one view. NAME: ALVERTO HERNANDEZ MED REC#: [id number] PHYSICIAN: DELROY KELLEY MD CC: SWETA FONTENOT MD; DELROY KELLEY Page 1 of 1 RADIOLOGY REPORT VIA [facility]. [place], [place] CC: SWETA FONTENOT MD; DELROY KELLEY Page 1 of 1 RADIOLOGY REPORT NAME: MARYALVERTO Nayeli MED REC#: [id number] PT STATUS: REG ER : 1960 PHYSICIAN: DELROY KELLEY MD ADMIT DATE: 05/19/18/ER Signed Date of Exam: 05/19/18 CHEST 1 VIEW, AP/PA ONLY EXAMINATION: Chest radiograph, portable AP view. DATE: May 19, 2018 at 0800 hours. INDICATION: 58-year-old male, hypertension. Shortness of breath. COMPARISON: September 04, 2017. FINDINGS: Stable overall appearance of the cardiomediastinal silhouette. There is no identified pneumothorax. There is no large pleural effusion. There is no identified focal airspace consolidation. IMPRESSION: No identified acute cardiopulmonary abnormality. Dictated by: Dictated on workstation # [id number] Dict: 05/19/18805 Trans: 05/19/18806 Interpreted by: SWETA FONTENOT MD Electronically signed by: SWETA FONTENOT MD 05/19/18806 Reviewed: Reviewed by Me Consults : Consulting Physician: Royal SOSA MD Departure Communication (Admissions) Time/Spoke to Admitting Phy: 08:35 Discussed case lab imaging and plan with Dr. Spencer and she agrees to accept the patient. Time/Spoke to Consulting Phy: 08:32 Discussed the case with Dr. Sosa, cardiology. He recommends observation stay get a 2-D echocardiogram and set patient up for a Lexiscan stress test. He wants amlodipine 10 mg by mouth and nitroglycerin paste in addition to his routine meds for blood pressure. Impression Primary Impression: Malignant hypertension Additional Impression: Chest pain Qualified Codes: R07.9 - Chest pain, unspecified Disposition: ADMITTED INPATIENT Condition: Stable Admissions Decision to Admit Reason: Admit from ER (General) Decision to Admit/Date: May 19, 2018 Time/Decision to Admit Time: 09:00 Departure-Patient Inst. Referrals: LAURA NOVOA DO (PCP/Family) Primary Care Physician Copy Copies To 1: LAURA NOVOA TITUS J May 19, 2018 07:40
[2018-05-19 07:42] LABS: BASOPHILS % (AUTO) 0 % (0-10); EOSINOPHILS # (AUTO) 0.2 10^3/uL (0.0-0.3); EOSINOPHILS % (AUTO) 3 % (0-10); HEMATOCRIT 38 % (40-54); HEMOGLOBIN 12.7 G/DL (13.3-17.7); LYMPHOCYTES % (AUTO) 41 % (12-44); MEAN CORPUSCULAR HEMOGLOBIN 30 PG (25-34); MEAN CORPUSCULAR HGB CONC 34 G/DL (32-36); MEAN CORPUSCULAR VOLUME 91 FL (80-99); MEAN PLATELET VOLUME 10.1 FL (7.4-10.4); MONOCYTES # (AUTO) 0.6 X 10^3 (0.0-1.0); MONOCYTES % (AUTO) 8 % (0-12); NEUTROPHILS # (AUTO) 3.5 X 10^3 (1.8-7.8); NEUTROPHILS % (AUTO) 48 % (42-75); PLATELET COUNT 217 10^3/uL (130-400); RED BLOOD COUNT 4.17 10^6/uL (4.35-5.85); RED CELL DISTRIBUTION WIDTH 13.8 % (10.0-14.5); WHITE BLOOD COUNT 7.3 10^3/uL (4.3-11.0)
[2018-05-19] MEDS ORDERED: hydrALAZINE (APESOLINE) 20 MG/ML VIAL IV ONE (07:45)
[2018-05-19] MEDS ORDERED: ASPIRIN 81 MG CHEW (CHILDREN'S ASA) PO ONE (07:45)
[2018-05-19] MEDS ORDERED: cloNIDine 0.1 MG (CATAPRES) TAB PO ONE ×2 (07:45→20:15)
[2018-05-19 07:55] LABS: PROTHROMBIN TIME PATIENT 12.7 SEC (12.2-14.7)
[2018-05-19 08:02] LABS: ALANINE AMINOTRANSFERASE 24 U/L (0-55); ALBUMIN 4.5 GM/DL (3.2-4.5); ALKALINE PHOSPHATASE 68 U/L (40-136); BILIRUBIN,TOTAL 0.5 MG/DL (0.1-1.0); BUN/CREATININE RATIO 15; CALCIUM 9.8 MG/DL (8.5-10.1); CARBON DIOXIDE 24 MMOL/L (21-32); CHLORIDE 104 MMOL/L (98-107); CREATININE SERUM 1.06 MG/DL (0.60-1.30); GFR ESTIMATED > 60; GLUCOSE 89 MG/DL (70-105); MAGNESIUM 1.9 MG/DL (1.8-2.4); POTASSIUM 3.2 MMOL/L (3.6-5.0); SODIUM 141 MMOL/L (135-145); TOTAL PROTEIN 7.8 GM/DL (6.4-8.2)
[2018-05-19 08:09] LABS: MYOGLOBIN SERUM 40.8 NG/ML (10.0-92.0)
--- NOTE | 2018-05-19 08:10 | Diagnostic Imaging Report ---
EXAMINATION: Chest radiograph, portable AP view. DATE: May 19, 2018 at 0800 hours. INDICATION: 58-year-old male, hypertension. Shortness of breath. COMPARISON: September 04, 2017. FINDINGS: Stable overall appearance of the cardiomediastinal silhouette. There is no identified pneumothorax. There is no large pleural effusion. There is no identified focal airspace consolidation. IMPRESSION: No identified acute cardiopulmonary abnormality. Dictated by: Dictated on workstation # [id number]
[2018-05-19 08:26] LABS: BILIRUBIN,URINE NEGATIVE (NEGATIVE); CLARITY,URINE CLEAR; COLOR,URINE YELLOW; GLUCOSE, URINE (UA) NEGATIVE (NEGATIVE); KETONES,URINE NEGATIVE (NEGATIVE); LEUKOCYTE ESTERASE ,URINE NEGATIVE (NEGATIVE); NITRITE,URINE NEGATIVE (NEGATIVE); PH,URINE 6 (5-9); PROTEIN,URINE NEGATIVE (NEGATIVE); UROBILINOGEN,URINE NORMAL (NORMAL)
[2018-05-19 08:35] LABS: AMPHETAMINE SCREEN, URINE NEGATIVE (NEGATIVE); BARBITURATE SCREEN URINE NEGATIVE (NEGATIVE); BENZODIAZEPINES SCREEN URINE NEGATIVE (NEGATIVE); CANNABINOID SCREEN, URINE NEGATIVE (NEGATIVE); COCAINE SCREEN URINE NEGATIVE (NEGATIVE); METHADONE STAT NEGATIVE (NEGATIVE); METHAMPHETAMINE SCREEN URINE S NEGATIVE (NEGATIVE); OPIATE SCREEN URINE NEGATIVE (NEGATIVE); OXYCODONE STAT NEGATIVE (NEGATIVE); PROPOXYPHENE STAT NEGATIVE (NEGATIVE); TRICYCLIC ANTIDEPRESSANTS SCRE NEGATIVE (NEGATIVE)
[2018-05-19] MEDS ORDERED: NITROGLYCERIN 2% OINT 1 GM UNIT DOSE PACKET ONE (08:35)
[2018-05-19 08:37] LABS: BACTERIA,URINE NEGATIVE /HPF
[2018-05-19] MEDS ORDERED: NITROGLYCERIN 2% OINT 1 GM UNIT DOSE PACKET TOP ONE (08:45)
--- OUTSIDE RECORDS SUMMARY | 2018-05-19 09:19 | XMS REPORT ---
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
--- OUTSIDE RECORDS SUMMARY | 2018-05-19 09:20 | XMS REPORT | Continuity of Care Document ---
Author Author [facility] Organization [facility] Address Unknown Phone Unavailable Allergies Active Description Code Type Severity Reaction Onset Reported/Identified Relationship to Patient Clinical Status Yes No Known Drug Allergies [id number] Drug Allergy Unknown N/A 07/20/2011 Medications There [...] Tyler Ot 729.81 SWELLING OF LIMB 08/01/2016 [facility] Tyler Ot M79.605 PAIN IN LEFT LEG 08/01/2016 LAURA NOVOA DO Ot R20.0 ANESTHESIA OF SKIN 08/02/2016 [facility] Tyler Ot M48.06 SPINAL STENOSIS, LUMBAR REGION 08/30/2016 [facility] Tyler Ot M48.06 SPINAL STENOSIS, LUMBAR REGION 10/09/2016 ANNA FARFAN Ot I10 ESSENTIAL (PRIMARY) HYPERTENSION 10/09/2016 ANNA FARFAN Ot J02.9 ACUTE PHARYNGITIS, UNSPECIFIED 10/09/2016 ANNA FARFAN Ot K04.7 PERIAPICAL ABSCESS WITHOUT SINUS 10/09/2016 ANNA FARFAN Ot R59.0 LOCALIZED ENLARGED LYMPH NODES 10/09/2016 ANNA FARFAN Ot Z79.82 HAND MARKER (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 ASPIRIN 10/09/2016 ANNA FARFAN Ot Z79.899 OTHER SENIOR CARE (CURRENT) DRUG THERAPY 10/10/2016 ANNA FARFAN Ot I10 ESSENTIAL (PRIMARY) HYPERTENSION 10/10/2016 ANNA FARFAN Ot J02.9 ACUTE PHARYNGITIS, UNSPECIFIED 10/10/2016 ANNA FARFAN Ot K04.7 PERIAPICAL ABSCESS WITHOUT SINUS 10/10/2016 ANNA FARFAN Ot R59.0 LOCALIZED ENLARGED LYMPH NODES 10/10/2016 ANNA FARFAN Ot Z79.82 HAND MARKER (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 ASPIRIN 10/10/2016 ANNA FARFAN Ot Z79.899 OTHER SENIOR CARE (CURRENT) DRUG THERAPY 10/17/2016 ANNA FARFAN Ot I10 ESSENTIAL (PRIMARY) HYPERTENSION 10/17/2016 ANNA FARFAN Ot J02.9 ACUTE PHARYNGITIS, UNSPECIFIED 10/17/2016 ANNA FARFAN Ot K04.7 PERIAPICAL ABSCESS WITHOUT SINUS 10/17/2016 ANNA FARFAN Ot R59.0 LOCALIZED ENLARGED LYMPH NODES 10/17/2016 ANNA FARFAN Ot Z79.82 SENIOR CARE (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 ASPIRIN 10/17/2016 ANNA FARFAN Ot Z79.899 OTHER HAND MARKER (CURRENT) DRUG THERAPY 10/18/2016 ANNA FARFAN Ot I10 ESSENTIAL (PRIMARY) HYPERTENSION 10/18/2016 ANNA FARFAN Ot J02.9 ACUTE PHARYNGITIS, UNSPECIFIED 10/18/2016 ANNA FARFAN Ot K04.7 PERIAPICAL ABSCESS WITHOUT SINUS 10/18/2016 ANNA FARFAN Ot R59.0 LOCALIZED ENLARGED LYMPH NODES 10/18/2016 ANNA FARFAN Ot Z79.82 SENIOR CARE (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 ASPIRIN 10/18/2016 ANNA FARFAN Ot Z79.899 OTHER SENIOR CARE (CURRENT) DRUG THERAPY 09/06/2017 GELLENDER DO, LAURA Tyler Ot E78.5 HYPERLIPIDEMIA, UNSPECIFIED 09/06/2017 GELLENDER DO, LAURA Tyler Ot H53.8 OTHER VISUAL DISTURBANCES 09/06/2017 GELLENDER DO, LAURA Tyler Ot I11.0 HYPERTENSIVE HEART DISEASE WITH HEART FA 09/06/2017 GELLENDER DO, LAURA Tyler Ot I51.7 CARDIOMEGALY 09/06/2017 GELLENDER DO, LAURA Tyler Ot R53.1 WEAKNESS 09/06/2017 GELLENDER DO, LAURA Tyler Ot Z79.899 OTHER HAND MARKER (CURRENT) DRUG THERAPY 09/06/2017 GELLENDER DO, LAURA Tyler Ot Z87.891 PERSONAL HISTORY OF NICOTINE DEPENDENCE 09/17/2017 GELLENDER DO, LAURA Tyler Ot M47.816 SPONDYLOSIS W/O MYELOPATHY OR RADICULOPA 09/17/2017 GELLENDER DO, LAURA Tyler Ot M48.07 SPINAL STENOSIS, LUMBOSACRAL REGION 09/17/2017 GELLENDER DO, LAURA Tyler Ot M51.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, 10/04/2017 GELLENDER DO, LAURA Tyler Ot M47.816 SPONDYLOSIS W/O MYELOPATHY OR RADICULOPA 10/04/2017 GELLENDER DO, LAURA Tyler Ot M48.07 SPINAL STENOSIS, LUMBOSACRAL REGION 10/04/2017 GELLENDER DO, LAURA Tyler Ot M51.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, 05/19/2018 SOMMER BEAL, LAURA Tyler Ot 573.8 LIVER DISORDERS NEC 05/19/2018 SOMMER BEALLAURA Ot 593.9 RENAL URETERAL DIS NOS 05/19/2018 SOMMER BEALLAURA Ot 789.01 ABDOMINAL PAIN, RIGHT UPPER QUADRANT 05/19/2018 SOMMER BEALLAURA Ot 433.10 CAROTID ARTERY OCCLUSION W O CEREBRAL IN 05/19/2018 SOMMER BEALLAURA Ot 723.1 CERVICALGIA 05/19/2018 SOMMER BEALLAURA Ot 433.10 CAROTID ARTERY OCCLUSION W O CEREBRAL IN 05/19/2018 SOMMER BEAL, LAURA Tyler Ot 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 ARTERY OCCLUSION WO CEREBRA 05/19/2018 SOMMER BEALLAURA Ot 786.6 CHEST SWELLING/MASS/LUMP 05/19/2018 SOMMER BEALALURA Ot 593.9 RENAL URETERAL DIS NOS 05/19/2018 SOMMER BEALLAURA Ot 729.81 SWELLING OF LIMB 05/19/2018 SOMMER BEALLAURA Ot M79.605 PAIN IN LEFT LEG 05/19/2018 SOMMER BEALLAURA Ot R20.0 ANESTHESIA OF SKIN 05/19/2018 SOMMER BEALLAURA Ot M48.06 SPINAL STENOSIS, LUMBAR REGION 05/19/2018 SOMMER BEALLAURA Ot M47.816 SPONDYLOSIS W/O MYELOPATHY OR RADICULOPA 05/19/2018 SOMMER BEALLAURA Ot M48.07 SPINAL STENOSIS, LUMBOSACRAL REGION 05/19/2018 SOMMER BEALLAURA Ot M51.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, Procedures There is no data. Results Test Result Range Streptococcus pyogenes antigen detection - 10/09/16 17:27 Streptococcus pyogenes antigen detection NEGATIVE NEGATIVE Bacterial throat culture - 10/09/16 17:27 Bacterial throat culture NBS [facility] Complete blood count (CBC) with automated white blood cell (WBC) differential - 10/09/16 18:39 Blood leukocytes automated count (number/volume) 14.5 10*3/uL 4.3-11.0 Blood erythrocytes automated count (number/volume) 4.21 10*6/uL 4.35-5.85 Venous blood hemoglobin measurement (mass/volume) 12.9 g/dL 13.3-17.7 Blood hematocrit (volume fraction) 38 % 40-54 Automated erythrocyte mean corpuscular volume 91 [[facility]] 80-99 Automated erythrocyte mean corpuscular hemoglobin (mass [...] NRG Blood erythrocyte morphology finding identification NORMAL [facility] Comprehensive metabolic panel - 10/09/16 [...] VLDL measurement (mass/volume) 31 mg/ dL 5-40 Serum or plasma troponin i.cardiac measurement (mass/volume) - 09/05/17 05:21 Serum or plasma troponin i.cardiac measurement (mass/volume) < ng/ mL <0.30 Automated blood complete blood count (hemogram) panel - 09/06/17 05:41 Blood leukocytes automated count (number/volume) 5.7 10*3/uL 4.3-11.0 Blood erythrocytes automated count (number/volume) 3.56 10*6/uL 4.35-5.85 Venous blood hemoglobin measurement (mass/volume) 11.1 g/dL 13.3-17.7 Blood hematocrit (volume fraction) 33 % 40-54 Automated erythrocyte mean corpuscular volume 91 [[facility]z_us] 80-99 Automated erythrocyte mean corpuscular hemoglobin (mass per erythrocyte) 31 pg 25-34 Automated erythrocyte mean corpuscular hemoglobin concentration measurement ( mass/volume) 34 g/dL 32-36 Automated erythrocyte distribution width ratio 13.2 % 10.0-14.5 Automated blood platelet count (count/volume) 169 10*3/uL 130-400 Automated blood platelet mean volume measurement 10.2 [[facility]z_us] 7.4-10.4 Whole blood basic metabolic panel - 09/06/17 05:41 Serum or plasma sodium measurement (moles/volume) 139 mmol/L 135-145 Serum or plasma potassium measurement (moles/volume) 4.1 mmol/L 3.6-5.0 Serum or plasma chloride measurement (moles/volume) 107 mmol/L 98-107 Carbon dioxide 26 mmol/L 21-32 Serum or plasma anion gap determination (moles/volume) 6 mmol/L 5-14 Serum or plasma urea nitrogen measurement (mass/volume) 13 mg/dL 7-18 Serum or plasma creatinine measurement (mass/volume) 0.93 mg/dL 0.60-1.30 Serum or plasma urea nitrogen/creatinine mass ratio 14 NRG Serum or plasma creatinine measurement with calculation of estimated glomerular filtration rate > NRG Serum or plasma glucose measurement (mass/volume) 94 mg/dL 70-105 Serum or plasma calcium measurement (mass/volume) 8.9 mg/dL 8.5-10.1 THYROID STIMULATING HORMONE - 05/19/18 07:32 THYROID STIMULATING HORMONE 1.33 u[iU]/mL 0.35-4.94 Complete blood count (CBC) with automated white blood cell (WBC) differential - 05/19/18 07:37 Blood leukocytes automated count (number/volume) 7.3 10*3/uL 4.3-11.0 Blood erythrocytes automated count (number/volume) 4.17 10*6/uL 4.35-5.85 Venous blood hemoglobin measurement (mass/volume) 12.7 g/dL 13.3-17.7 Blood hematocrit (volume fraction) 38 % 40-54 Automated erythrocyte mean corpuscular volume 91 [foz_us] 80-99 Automated erythrocyte mean corpuscular hemoglobin (mass per erythrocyte) 30 pg 25-34 Automated erythrocyte mean corpuscular hemoglobin concentration measurement ( mass/volume) 34 g/dL 32-36 Automated erythrocyte distribution width ratio 13.8 % 10.0-14.5 Automated blood platelet count (count/volume) 217 10*3/uL 130-400 Automated blood platelet mean volume measurement 10.1 [foz_us] 7.4-10.4 Automated blood neutrophils/100 leukocytes 48 % 42-75 Automated blood lymphocytes/100 leukocytes 41 % 12-44 Blood monocytes/100 leukocytes 8 % 0-12 Automated blood eosinophils/100 leukocytes 3 % 0-10 Automated blood basophils/100 leukocytes 0 % 0-10 Blood neutrophils automated count (number/volume) 3.5 10*3 1.8-7.8 Blood lymphocytes automated count (number/volume) 3.0 10*3 1.0-4.0 Blood monocytes automated count (number/volume) 0.6 10*3 0.0-1.0 Automated eosinophil count 0.2 10*3/uL 0.0-0.3 Automated blood basophil count (count/volume) 0.0 10*3/uL 0.0-0.1 PT panel in platelet poor plasma by coagulation assay - 05/19/18 07:37 Prothrombin time (PT) in platelet poor plasma by coagulation assay 12.7 s 12.2-14.7 INR in platelet poor plasma or blood by coagulation assay 1.0 0.8-1.4 Activated partial thromboplastin time (aPTT) in platelet poor plasma bycoagulation assay - 05/19/18 07:37 Activated partial thromboplastin time (aPTT) in platelet poor plasma bycoagulation assay 27 s 24-35 Comprehensive metabolic panel - 05/19/18 07:37 Serum or plasma sodium measurement (moles/volume) 141 mmol/L 135-145 Serum or plasma potassium measurement (moles/volume) 3.2 mmol/L 3.6-5.0 Serum or plasma chloride measurement (moles/volume) 104 mmol/L 98-107 Carbon dioxide 24 mmol/L 21-32 Serum or plasma anion gap determination (moles/volume) 13 mmol/L 5-14 Serum or plasma urea nitrogen measurement (mass/volume) 16 mg/dL 7-18 Serum or plasma creatinine measurement (mass/volume) 1.06 mg/dL 0.60-1.30 Serum or plasma urea nitrogen/creatinine mass ratio 15 NRG Serum or plasma creatinine measurement with calculation of estimated glomerular filtration rate > NRG Serum or plasma glucose measurement (mass/volume) 89 mg/dL 70-105 Serum or plasma calcium measurement (mass/volume) 9.8 mg/dL 8.5-10.1 Serum or plasma total bilirubin measurement (mass/volume) 0.5 mg/dL 0.1-1.0 Serum or plasma alkaline phosphatase measurement (enzymatic activity/volume) 68 U/L 40-136 Serum or plasma aspartate aminotransferase measurement (enzymatic activity/ volume) 22 U/L 5-34 Serum or plasma alanine aminotransferase measurement (enzymatic activity/volume ) 24 U/L 0-55 Serum or plasma protein measurement (mass/volume) 7.8 g/dL 6.4-8.2 Serum or plasma albumin measurement (mass/volume) 4.5 g/dL 3.2-4.5 CALCIUM CORRECTED 9.4 mg/dL 8.5-10.1 Magnesium - 05/19/18 07:37 Magnesium 1.9 mg/dL 1.8-2.4 Serum or plasma troponin i.cardiac measurement (mass/volume) - 05/19/18 07:37 Serum or plasma troponin i.cardiac measurement (mass/volume) < ng/ mL <0.30 Myoglobin, serum - 05/19/18 07:37 Myoglobin, serum 40.8 ng/mL 10.0-92.0 Urine drug screening test - 05/19/18 08:18 Urine phencyclidine detection by screening method NEGATIVE NEGATIVE Urine benzodiazepines detection by screening method NEGATIVE NEGATIVE Urine cocaine detection NEGATIVE NEGATIVE Urine amphetamines detection by screening method NEGATIVE NEGATIVE Urine methamphetamine detection by screening method NEGATIVE NEGATIVE Urine cannabinoids detection by screening method NEGATIVE NEGATIVE Urine opiates detection by screening method NEGATIVE NEGATIVE Urine barbiturates detection NEGATIVE NEGATIVE Screening urine tricyclic antidepressants detection NEGATIVE NEGATIVE Urine methadone detection by screening method NEGATIVE NEGATIVE Urine oxycodone detection NEGATIVE NEGATIVE Urine propoxyphene detection NEGATIVE NEGATIVE Complete urinalysis with reflex to culture - 05/19/18 08:18 Urine color determination YELLOW NRG Urine clarity determination CLEAR NRG Urine pH measurement by test strip 6 5-9 Specific gravity of urine by test strip 1.015 1.016- 1.022 Urine protein assay by test strip, semi-quantitative NEGATIVE NEGATIVE Urine glucose detection by automated test strip NEGATIVE NEGATIVE Erythrocytes detection in urine sediment by light microscopy NEGATIVE NEGATIVE Urine ketones detection by automated test strip NEGATIVE NEGATIVE Urine nitrite detection by test strip NEGATIVE NEGATIVE Urine total bilirubin detection by test strip NEGATIVE NEGATIVE Urine urobilinogen measurement by automated test strip (mass/volume) NORMAL NORMAL Urine leukocyte esterase detection by dipstick NEGATIVE NEGATIVE Automated urine sediment erythrocyte count by microscopy (number/high power field) NONE NRG Automated urine sediment leukocyte count by microscopy (number/high power field ) NONE NRG Bacteria detection in urine sediment by light microscopy NEGATIVE NRG Squamous epithelial cells detection in urine sediment by light microscopy NONE NRG Crystals detection in urine sediment by light microscopy NONE NRG Casts detection in urine sediment by light microscopy NONE NRG Mucus detection in urine sediment by light microscopy NEGATIVE NRG Complete urinalysis with reflex to culture NO NRG Encounters ACCT No. Visit Date/Time Discharge Status Pt. Type Provider Facility Loc./Unit Complaint [id number] 09/14/2017 07:47:00 09/14/2017 23:59:59 CLS Outpatient LAURA NOVOA DO [facility] RAD PAIN IN LUMBAR REGION AND GOES DOWN LT LEG [id number] 09/04/2017 17:20:00 09/06/2017 10:45:00 DIS Inpatient LAURA NOVOA DO [facility] 4TH HYPERTENSIVE ENERPENCY, GENERLIZED WEAKNESS [id number] 10/09/2016 16:37:00 10/09/2016 20:33:00 DIS Emergency ANNA FARFAN [facility] ER SWOLLEN GLANDS IN NECK /DIFF SWALLOWING [id number] 08/01/2016 10:51:00 08/01/2016 23:59:59 CLS Outpatient LAURA NOVOA DO [facility] RAD RIGHT LEG AND FOOT NUMBNESS AND TINGLING [id number] 11/18/2015 01:54:00 11/18/2015 16:50:00 DIS Inpatient PETTY BUNCH MD [facility] CSD CHEST PAIN,HYPERTENSIVE URGENCY [id number] 08/30/2015 14:06:00 08/30/2015 23:59:59 CLS Outpatient LAURA NOVOA DO [facility] RAD LT LEG GOIES NUMB HURTS TO WALK [id number] 12/21/2014 22:59:00 12/21/2014 23:37:00 DIS Emergency JACK NUNN DO [facility] ER BUG BITE IN LEFT EAR [id number] 01/08/2014 06:59:00 01/08/2014 23:59:59 CLS Outpatient LAURA NOVOA DO [facility] RAD SWELLING ABOVE LEFT CLAVICLE,RENAL INSUFF [id number] 12/31/2013 15:05:00 12/31/2013 23:59:59 CLS Outpatient LAURA NOVOA DO [facility] RAD SWELLING ABOVE LT CLAVICLE [id number] 12/04/2013 10:20:00 12/04/2013 23:59:59 CLS Outpatient LAURA NOVOA DO [facility] RAD CAROTID OCCLUSION [id number] 12/01/2013 11:10:00 12/01/2013 23:59:59 CLS Outpatient LAURA NOVOA DO [facility] RAD NECK PAIN SWELLING [id number] 11/04/2013 13:26:00 11/04/2013 23:59:59 CLS Outpatient LAURA NOVOA DO [facility] RAD RLQ PAIN [id number] 02/18/2013 08:38:00 02/18/2013 10:03:00 DIS Emergency STANTON CASTELLON MD [facility] ER SWOLLEN LYMPH NODES [id number] 12/02/2012 14:38:00 12/02/2012 17:49:00 DIS Emergency ANNA FARFAN [facility] ER COUGH/CONGESTION [id number] 05/19/2018 08:40:00 ACT Inpatient GIANNI PAUL DO [facility] ICU HYPERTENSIVE EMERGENCY,CHEST PAIN, R/O ACS [id number] 12/21/2014 22:59:00 Document Registration [id number] 10/20/2011 14:28:00 Document Registration [id number] 10/17/2011 12:42:00 Document Registration [id number] 07/20/2011 02:29:00 Document Registration [id number] 08/10/2017 14:00:00 08/10/2017 23:59:59 [facility] Outpatient BREANNE MACKENZIE L[facility]
[2018-05-19] MEDS ORDERED: ONDANSETRON 4 MG/2 ML (SDV) Z0FRAN IVP PRN (10:15)
[2018-05-19] MEDS ORDERED: CHLO500T4 PO (10:18)
[2018-05-19] MEDS ORDERED: CLON0.1T PO (10:19)
[2018-05-19] MEDS ORDERED: PYRI25TA3 PO (10:22)
[2018-05-19] MEDS ORDERED: PATIENT MAY USE OWN MEDS, ALL MC SCH (10:45)
[2018-05-19] MEDS ORDERED: amLODIPine 10 MG (NORVASC) TAB PO NR (11:03)
[2018-05-19] MEDS ORDERED: amLODIPine 5 MG (NORVASC) TAB PO NR ×2 (11:33→16:21)
--- NOTE | 2018-05-19 11:59 | History & Physical-Hospitalist ---
History of Present Illness HPI/Chief Complaint CC: Chest pain with malignant HTN HPI: This is a 58-year-old black male of Dr. Branch who presents to the emergency room with chest pain and malignant hypertension. Workup was negative for any significant ST elevation in troponin was negative but due to the severity of the blood pressure and no stress test for the past 2 years and no regular cardiology follow-up he will be admitted placed on observation and obtain stress test and echocardiogram for further risk stratification. At this current time he denies any chest pain and his blood pressure has been very labile. Source: patient, RN/MD Date Seen 05/19/18 Time Seen by a Provider: 11:00 Attending Physician Kimberly Paul Richard A DO Referring Physician Royal KENDRICK MD Date of Admission May 19, 2018 at 08:40 Home Medications & Allergies Home Medications Reviewed patient Home Medication Reconciliation performed by pharmacy medication reconciliations bike technician and/or nursing. Patients Allergies have been reviewed. 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[employer]) Alcohol Use: Rarely Uses Number of Drinks Today: AA Alcohol Beverage of Choice: Beer Recreational Drug Use: No Smoking Status: Former Smoker Former Smoker, Quit: Jul 10, 2017 Type Used: Cigarettes 2nd Hand Smoke Exposure: No Physical Abuse Screen: No Sexual Abuse: No Recent Foreign Travel: No Contact w/other who traveled: No Recent Hopitalizations: No Recent Infectious Disease Expo: No Immunizations Up To Date Tetanus Booster (TDap): Unknown Pediatric: No Seasonal Allergies Seasonal Allergies: No Past Medical History Surgeries: Orthopedic Currently Using CPAP: No Currently Using BIPAP: No Cardiac: High Cholesterol, Hypertension Neurological: Stroke Reproductive: No Musculoskeletal: Chronic Back Pain History of Blood Disorders: No Adverse Reaction to Blood Bernal: No Family History Diabetes Review of Systems Constitutional: see HPI, dizziness EENTM: no symptoms reported Respiratory: no symptoms reported Cardiovascular: chest pain Gastrointestinal: no symptoms reported Genitourinary: no symptoms reported Musculoskeletal: no symptoms reported Skin: no symptoms reported Psychiatric/Neurological: No Symptoms Reported All Other Systems Reviewed Negative Unless Noted: Yes Physical Exam Physical Exam Vital Signs Vital Signs - First Documented 05/19/18 07:32 Temp 97.6 Pulse 67 Resp 16 B/P (MAP) 245/119 (161) Pulse Ox 16 O2 Delivery Room Air Capillary Refill : Less Than 3 Seconds Height, Weight, BMI Height: 6'2.00" Weight: 215lbs. 0.0oz. 97.883944ov; 27.6 BMI Method:Stated General Appearance: No Apparent Distress, WD/WN, Chronically ill Eyes: Bilateral Eye Normal Inspection, Bilateral Eye PERRL HEENT: PERRL/EOMI, TMs Normal, Normal ENT Inspection, Pharynx Normal Neck: Full Range of Motion, Normal Inspection, Non Tender, Supple, Carotid Bruit Respiratory: Chest Non Tender, Lungs Clear, Normal Breath Sounds, No Accessory Muscle Use, No Respiratory Distress Cardiovascular: Regular Rate, Rhythm, No Edema, No Gallop, No JVD, No Murmur, Normal Peripheral Pulses Gastrointestinal: Normal Bowel Sounds, No Organomegaly, No Pulsatile Mass, Non Tender, Soft Back: Normal Inspection, No CVA Tenderness, No Vertebral Tenderness Extremity: Normal Capillary Refill, Normal Inspection, Normal Range of Motion, Non Tender, No Calf Tenderness, Pedal Edema Neurologic/Psychiatric: Alert, Oriented x3, No Motor/Sensory Deficits, Normal Mood/Affect Skin: Normal Color, Warm/Dry Lymphatic: No Adenopathy Results Results/Procedures Labs Laboratory Tests 05/19/18 07:37 Patient resulted labs reviewed. Assessment/Plan Admission Diagnosis Assessment: Chest pain HTN urgency Asthma HLP CVA remote Plan: EST in am ECHO HTN control Ultram Admission Status: Observation Diagnosis/Problems Diagnosis/Problems (1) Chest pain Status: Acute Qualifiers: Chest pain type: unspecified Qualified Codes: R07.9 - Chest pain, unspecified (2) Hypertensive emergency Status: Acute (3) Back pain, chronic Status: Chronic Qualifiers: Back pain location: low back pain Back pain laterality: unspecified Sciatica presence: unspecified whether sciatica present Qualified Codes: M54.5 - Low back pain; G89.29 - Other chronic pain (4) Asthma Status: Chronic Qualifiers: Asthma severity: mild Asthma persistence: unspecified Asthma complication type: unspecified Qualified Codes: J45.998 - Other asthma (5) Hyperlipidemia Status: Chronic Qualifiers: Hyperlipidemia type: mixed hyperlipidemia Qualified Codes: E78.2 - Mixed hyperlipidemia (6) Alcohol abuse, in remission Status: Chronic (7) Old cerebrovascular accident (CVA) without late effect Status: Chronic Clinical Quality Measures DVT/VTE Risk/Contraindication: Risk Factor Score Per Nursin RFS Level Per Nursing on Admit: 2=Moderate KIMBERLY PAUL DO May 19, 2018 11:59
--- NOTE | 2018-05-19 12:33 | Consultation-Cardiology ---
HPI-Cardiology Cardiology Consultation: Date of Consultation 05/19/18 Date of Admission Attending Physician Kimberly Spencer DO Admitting Physician Simon Gunn DO Consulting Physician Royal SOSA MD HPI: Time Seen by a Provider: 10:30 Chief Complaint: Chest pain, hypertensive emergency This is a 58-year-old gentleman who I previously saw in August of this year for severely elevated blood pressure. However the patient did not follow as an outpatient. He presented yesterday to the ER with severely elevated blood pressure. His blood pressure was 207/104 mmHg. He also had discomfort in his left side of his chest. He denies any other cardiac symptoms. He also complained of tingling feeling in the left lower extremity. He denies any other neurological or cardiac symptoms. Patient has history of hypertension. He denies active smoking or being diabetes. His tells me that he eats a lot of salty snacks with soda. And his salt intake is very high. Review of Systems-Cardiology Review of Systems Constitutional: As described under HPI; No As described under HPI, No no symptoms reported, No chills, No fever, No lightheadedness Eyes: No As described under HPI, No no symptoms reported, No blindness, No blurred vision, No contact lenses, No drainage, No decreased acuity, No foreign body sensation, No pain, No vision change Ears/Nose/Throat: No As described under HPI, No no symptoms reported, No chronic hearing loss, No ear discharge, No ear pain, No nasal drainage, No ulcerations Respiratory: No no symptoms reported; As described under HPI; No As described under HPI, No cough, No orthopnea, No shortness of breath, No SOB with excertion Cardiovascular: No no symptoms reported; As described under HPI; No As described under HPI; chest pain; No edema, No irregular heart rate, No lightheadedness, No palpitations Gastrointestinal: No no symptoms reported, No As described under HPI, No abdomen distended, No abdominal pain, No blood streaked bowels, No constipation , No diarrhea, No nausea, No vomiting, No stool coloration changes Genitourinary: No As described under HPI, No burning, No dysuria, No discharge , No frequency, No flank pain, No hematuria, No urgency Musculoskeletal: No no symptoms reported, No As describe under HPI, No back pain, No gout, No joint pain, No joint swelling, No muscle pain, No muscle stiffness, No neck pain, No other Skin: No no symptoms reported, No As described under HPI, No change in color, No change in hair/nails, No dryness, No lesions, No lumps, No rash, No other, No skin related problems, No ulcerations, No rash on exposed areas, No ulcerations on exposed areas Psychiatric/Neurological: No anxiety, No depression, No seizure, No focal weakness, No syncope Hematologic: No bleeding abnormalities All Other Systems Reviewed Negative Unless Noted: Yes [id number] Hx Patient Social History 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 Allergies and Home Medications Allergies Coded Allergies: No Known Drug Allergies (Unverified , 07/20/11) Home Medications Aspirin 81 Mg Tab.chew, 81 MG PO DAILY, (Reported) Atenolol 50 Mg Tablet, 100 MG PO DAILY, (Reported) TAKES 2 (50MG) TABLETS Atorvastatin Calcium 20 Mg Tablet, 20 MG PO HS, (Reported) Chlorzoxazone 500 Mg Tablet, 500 MG PO BID, (Reported) Clonidine HCl 0.1 Mg Tablet, 0.1 MG PO DAILY, (Reported) Furosemide 40 Mg Tablet, 40 MG PO DAILY, (Reported) Pyridoxine HCl 25 Mg Tablet, 25 MG PO DAILY, (Reported) Patient Home Medication List Home Medication List Reviewed: Yes Physical Exam-Cardiology Physical Exam Vital Signs/I&O 05/19/18 05/19/18 05/19/18 05/19/18 07:32 09:38 10:03 10:03 Temp 97.6 Pulse 67 63 61 63 Resp 16 20 B/P (MAP) 245/119 (161) 171/96 (121) 203/104 (137) Pulse Ox 16 99 100 O2 Delivery Room Air Room Air Room Air 05/19/18 05/19/18 10:15 10:30 Pulse 60 64 B/P (MAP) 213/109 (143) 195/99 (131) Pulse Ox 100 99 O2 Delivery Room Air Room Air Capillary Refill : Less Than 3 Seconds Constitutional: appears stated age, AAO x 3; No apparent distress; well- developed, well-nourished HEENT: PERRL; No normal ENT inspection, No TMs normal, No pharynx normal, No scleral icterus (R), No scleral icterus (L), No pale conjunctivae (R), No pale conjunctivae (L), No photophobia, No TM abnormal (R), No TM abnormal (L), No pharyngeal erythema, No tonsillar exudate, No other, No discharge, No EOMI; hearing is well preserved; No hard of hearing; oral hygience is good; No ulceration, No xanthelasmas are seen Neck: No non-tender, No full range of motion, No supple, No normal inspection, No carotid bruit, No limited range of motion, No lymphadenopathy (R), No lymphadenopathy (L), No tender lateral, No tender midline, No thyromegaly, No other; carotid pulses are 2 + bilaterally; No with good upstrokes Respiratory: No accessory muscle use, No respiratory distress, No chest tender , No chest expansion is symmetric; chest is bilaterally symmetric; No lungs clear to percussion; lungs clear to auscultation; No crackles, No rhonchi, No rales, No stridor, No wheezing, No pleural rub, No other Cardiovascular: regular rate-rhythm; No irregularly irregular, No extra beats, No parasternal heave is noted, No JVD, No edema, No bradycardia, No tachycardia , No point of maximal impulse, No cardiac thrills are palpable; S1 and S2; No gallop/S3, No gallop/S4, No diastolic murmur, No systolic murmur, No friction rub, No click, No other Gastrointestinal: No tender, No soft, No round, No distended, No pulsatile mass , No organomegaly, No guarding, No rebound, No tenderness, No hernia, No mass, No audible bowel sounds, No abnormal bowel sounds, No abdominal bruits, No spleenomegaly, No other Rectal: deferred Extremities: No normal range of motion, No non-tender, No normal inspection, No pedal edema, No calf tenderness, No normal capillary refill, No pelvis stable , No calf tenderness, No inflammation, No pedal edema, No slow capillary refill , No swelling, No other, No abrasion, No clubbing, No cyanosis, No ecchymosis, No laceration, No no lower extremity edema bilateral, No significant edema, No tenderness, No wound Neurologic/Psychiatric: no motor/sensory deficits, alert, normal mood/affect, oriented x 3, power is 5/5 both on sides Skin: No normal color, No warm/dry, No cyanosis, No cool, No diaphoresis, No damp, No ecchymosis, No jaundice, No mottled, No pallor, No rash, No tattoos/ piercings, No ulcerations, No rash on exposed areas, No ulcerations on exposed areas, No other Data Review Labs Laboratory Tests 05/19/18 07:32: Thyroid Stimulating Hormone (TSH) 1.33 05/19/18 07:37: White Blood Count 7.3, Red Blood Count 4.17L, Hemoglobin 12.7L, Hematocrit 38L, Mean Corpuscular Volume 91, Mean Corpuscular Hemoglobin 30, Mean Corpuscular Hemoglobin Concent 34, Red Cell Distribution Width 13.8, Platelet Count 217, Mean Platelet Volume 10.1, Neutrophils (%) (Auto) 48, Lymphocytes (%) (Auto) 41 , Monocytes (%) (Auto) 8, Eosinophils (%) (Auto) 3, Basophils (%) (Auto) 0, Neutrophils # (Auto) 3.5, Lymphocytes # (Auto) 3.0, Monocytes # (Auto) 0.6, Eosinophils # (Auto) 0.2, Basophils # (Auto) 0.0, Prothrombin Time 12.7, INR Comment 1.0, Activated Partial Thromboplast Time 27, Sodium Level 141, Potassium Level 3.2L, Chloride Level 104, Carbon Dioxide Level 24, Anion Gap 13 , Blood Urea Nitrogen 16, Creatinine 1.06, Estimat Glomerular Filtration Rate > 60, BUN/Creatinine Ratio 15, Glucose Level 89, Calcium Level 9.8, Corrected Calcium 9.4, Magnesium Level 1.9, Total Bilirubin 0.5, Aspartate Amino Transf ( AST/SGOT) 22, Alanine Aminotransferase (ALT/SGPT) 24, Alkaline Phosphatase 68, Myoglobin 40.8, Troponin I < 0.30, Total Protein 7.8, Albumin 4.5 05/19/18 08:18: Urine Color YELLOW, Urine Clarity CLEAR, Urine pH 6, Urine Specific [place] 1.015L, Urine Protein NEGATIVE, Urine Glucose (UA) NEGATIVE, Urine Ketones NEGATIVE, Urine Nitrite NEGATIVE, Urine Bilirubin NEGATIVE, Urine Urobilinogen NORMAL, Urine Leukocyte Esterase NEGATIVE, Urine RBC (Auto) NEGATIVE, Urine RBC NONE, Urine WBC NONE, Urine Squamous Epithelial Cells NONE, Urine Crystals NONE , Urine Bacteria NEGATIVE, Urine Casts NONE, Urine Mucus NEGATIVE, Urine Culture Indicated NO, Urine Opiates Screen NEGATIVE, Urine Oxycodone Screen NEGATIVE, Urine Methadone Screen NEGATIVE, Urine Propoxyphene Screen NEGATIVE, Urine Barbiturates Screen NEGATIVE, Ur Tricyclic Antidepressants Screen NEGATIVE , Urine Phencyclidine Screen NEGATIVE, Urine Amphetamines Screen NEGATIVE, Urine Methamphetamines Screen NEGATIVE, Urine Benzodiazepines Screen NEGATIVE, Urine Cocaine Screen NEGATIVE, Urine Cannabinoids Screen NEGATIVE ECG Impression ECG Initial ECG Rhythm: Normal Sinus Comment LVH. T-wave inversions noted. A/P-Cardiology Assessment/Admission Diagnosis Severe hypertension, Chest discomfort, LVH on EKG, Diastolic dysfunction, T wave inversions on EKG. Plan Severe hypertension: Patient was given clonidine, hydralazine and nitroglycerin paste in the ER. Some improvement in blood pressure. Will start the patient on amlodipine 5 mg daily. If no significant improvement we'll go up to 10 mg of amlodipine. I discussed at length with the patient about salt restriction and dietary changes to help with blood pressure management. Renal artery ultrasound will be done to rule out renal artery stenosis. Chest pain with T-wave inversions on EKG. Patient has history of uncontrolled hypertension and recent history of active smoking. EKG changes could be due to hypertensive heart disease and LVH however coronary ischemia needs to be ruled out. I will recommend an echocardiogram and a nuclear stress test if acute coronary syndrome is ruled out with serial negative troponin. LVH on EKG: Due to hypertensive heart disease. Aggressive management of hypertension is recommended. Discussed at length with the patient. Thank you for your consultation. Please call me if you have any questions. Shauna Sosa MD, FACP, FACC, FSCAI, FHRS, CCDS Interventional Cardiology Cardiac Electrophysiology Vascular Medicine and Endovascular Interventions Clinical Quality Measures DVT/VTE Risk/Contraindication: Risk Factor Score Per Nursin RFS Level Per Nursing on Admit: 2=Moderate Royal SOSA MD May 19, 2018 12:33
[2018-05-19] MEDS ORDERED: FLU QUADRIvalent (5+ YOA) 2018-2019 (AFLURIA) 0.5 ML IM ONE (14:30)
[2018-05-19] MEDS: ACETAMINOPHEN 500 MG TAB (TYLENOL) PO PRN (16:42)
[2018-05-19] MEDS: CARVEDILOL 12.5 MG (COREG) TABLET PO SCH (16:42)
[2018-05-19] MEDS: KCL 20 MEQ TAB (K-DUR) PO SCH (20:00)
[2018-05-19] MEDS ORDERED: ATENOLOL 50 MG (TENORMIN) TAB PO SCH (21:00)
[2018-05-19] MEDS ORDERED: ATORVASTATIN 20 MG (LIPITOR) TABLET PO SCH (21:00)
[2018-05-19] MEDS ORDERED: cloNIDine 0.1 MG (CATAPRES) TAB PO SCH (21:00)
[2018-05-20] VITALS (17 sets, daily range): BP systolic 118–180; BP diastolic 67–100
[2018-05-20] MEDS: ACETAMINOPHEN 500 MG TAB (TYLENOL) PO PRN (00:58)
[2018-05-20 03:15] LABS: BASOPHILS % (AUTO) 0 % (0-10); EOSINOPHILS # (AUTO) 0.2 10^3/uL (0.0-0.3); EOSINOPHILS % (AUTO) 3 % (0-10); HEMATOCRIT 35 % (40-54); HEMOGLOBIN 11.9 G/DL (13.3-17.7); LYMPHOCYTES # (AUTO) 2.5 X 10^3 (1.0-4.0); LYMPHOCYTES % (AUTO) 39 % (12-44); MEAN CORPUSCULAR HEMOGLOBIN 31 PG (25-34); MEAN CORPUSCULAR HGB CONC 34 G/DL (32-36); MEAN CORPUSCULAR VOLUME 91 FL (80-99); MEAN PLATELET VOLUME 10.4 FL (7.4-10.4); MONOCYTES # (AUTO) 0.3 X 10^3 (0.0-1.0); MONOCYTES % (AUTO) 5 % (0-12); NEUTROPHILS # (AUTO) 3.3 X 10^3 (1.8-7.8); NEUTROPHILS % (AUTO) 53 % (42-75); PLATELET COUNT 193 10^3/uL (130-400); RED BLOOD COUNT 3.85 10^6/uL (4.35-5.85); RED CELL DISTRIBUTION WIDTH 13.7 % (10.0-14.5); WHITE BLOOD COUNT 6.3 10^3/uL (4.3-11.0)
[2018-05-20] MEDS ORDERED: cloNIDine 0.1 MG (CATAPRES) TAB PO ONE (03:15)
[2018-05-20 03:30] LABS: BUN/CREATININE RATIO 13; CALCIUM 9.3 MG/DL (8.5-10.1); CARBON DIOXIDE 22 MMOL/L (21-32); CHLORIDE 106 MMOL/L (98-107); CHOLESTEROL 193 MG/DL (< 200); GFR ESTIMATED > 60; GLUCOSE 97 MG/DL (70-105); HDL CHOLESTEROL 36 MG/DL (40-60); POTASSIUM 3.5 MMOL/L (3.6-5.0); SODIUM 140 MMOL/L (135-145); TRIGLYCERIDES 141 MG/DL (<150); VLDL CHOLESTEROL 28 MG/DL (5-40)
--- NOTE | 2018-05-20 07:33 | Progress Note (SOAP) ---
Subjective Time Seen by a Provider: 07:31 Subjective/Events-last exam Patient feels better this morning. Patient states blood pressure was 245/117 and chest discomfort. Patient does not have any chest discomfort or headache this morning. Patient still has systolic hypertension. Objective Exam Vital Signs Date Time Temp Pulse Resp B/P (MAP) Pulse Ox O2 Delivery O2 Flow Rate FiO2 05/20/18 06:00 67 164/93 (116) 99 Room Air 05/20/18 05:00 62 153/94 (113) 100 Room Air 05/20/18 04:00 71 180/100 (126) 100 Room Air 05/20/18 04:00 Room Air 05/20/18 03:00 67 175/99 (124) 100 Room Air 05/20/18 02:00 60 159/95 (116) 100 Room Air 05/20/18 01:00 59 05/20/18 01:00 66 174/98 (123) 100 Room Air 05/20/18 00:00 64 125/98 (107) 99 Room Air 05/20/18 00:00 Room Air 05/20/18 00:00 96.0 05/19/18 23:00 65 144/84 (104) 99 Room Air 05/19/18 22:00 71 145/72 (96) 100 Room Air 05/19/18 21:00 99 Room Air 05/19/18 21:00 68 157/92 (113) 100 Room Air 05/19/18 20:00 97.8 81 18 162/87 (112) 99 Room Air 05/19/18 20:00 99 Room Air 05/19/18 19:00 70 154/84 (107) 99 05/19/18 19:00 75 05/19/18 18:22 67 174/94 (120) 100 Room Air 05/19/18 17:00 73 178/101 (126) 100 Room Air 05/19/18 16:00 99 Room Air 05/19/18 16:00 73 188/102 (130) 100 Room Air 05/19/18 15:00 68 153/83 (106) 99 Room Air 05/19/18 14:00 72 170/91 (117) 100 Room Air 05/19/18 13:00 70 151/76 (101) 99 Room Air 05/19/18 13:00 69 05/19/18 12:00 99 Room Air 05/19/18 12:00 70 182/105 (130) 99 Room Air 05/19/18 11:45 64 177/97 (123) 99 Room Air 05/19/18 11:30 63 188/99 (128) 100 Room Air 05/19/18 11:15 67 172/98 (122) 100 Room Air 05/19/18 11:00 65 167/91 (116) 99 Room Air 05/19/18 10:45 65 175/99 (124) 99 Room Air 05/19/18 10:30 64 195/99 (131) 99 Room Air 05/19/18 10:15 60 213/109 (143) 100 Room Air 05/19/18 10:03 63 05/19/18 10:03 61 203/104 (137) 100 Room Air 05/19/18 09:38 63 20 171/96 (121) 99 Room Air 05/19/18 07:32 97.6 67 16 245/119 (161) 16 Room Air I & O 05/20/18 07:00 Intake Total 575 ml Output Total 1050 ml Balance -475 ml Capillary Refill : Less Than 3 Seconds General Appearance: No Apparent Distress, WD/WN HEENT: Normal ENT Inspection Neck: Full Range of Motion, Normal Inspection Respiratory: Chest Non Tender, Lungs Clear, No Accessory Muscle Use, No Respiratory Distress Cardiovascular: Regular Rate, Rhythm, No Murmur Gastrointestinal: non tender, soft Results Lab Laboratory Tests 05/19/18 07:37 05/20/18 02:59 Laboratory Tests 05/19/18 07:32: Thyroid Stimulating Hormone (TSH) 1.33 05/19/18 07:37: White Blood Count 7.3, Red Blood Count 4.17L, Hemoglobin 12.7L, Hematocrit 38L, Mean Corpuscular Volume 91, Mean Corpuscular Hemoglobin 30, Mean Corpuscular Hemoglobin Concent 34, Red Cell Distribution Width 13.8, Platelet Count 217, Mean Platelet Volume 10.1, Neutrophils (%) (Auto) 48, Lymphocytes (%) (Auto) 41 , Monocytes (%) (Auto) 8, Eosinophils (%) (Auto) 3, Basophils (%) (Auto) 0, Neutrophils # (Auto) 3.5, Lymphocytes # (Auto) 3.0, Monocytes # (Auto) 0.6, Eosinophils # (Auto) 0.2, Basophils # (Auto) 0.0, Prothrombin Time 12.7, INR Comment 1.0, Activated Partial Thromboplast Time 27, Sodium Level 141, Potassium Level 3.2L, Chloride Level 104, Carbon Dioxide Level 24, Anion Gap 13 , Blood Urea Nitrogen 16, Creatinine 1.06, Estimat Glomerular Filtration Rate > 60, BUN/Creatinine Ratio 15, Glucose Level 89, Calcium Level 9.8, Corrected Calcium 9.4, Magnesium Level 1.9, Total Bilirubin 0.5, Aspartate Amino Transf ( AST/SGOT) 22, Alanine Aminotransferase (ALT/SGPT) 24, Alkaline Phosphatase 68, Myoglobin 40.8, Troponin I < 0.30, Total Protein 7.8, Albumin 4.5 05/19/18 08:18: Urine Color YELLOW, Urine Clarity CLEAR, Urine pH 6, Urine Specific [place] 1.015L, Urine Protein NEGATIVE, Urine Glucose (UA) NEGATIVE, Urine Ketones NEGATIVE, Urine Nitrite NEGATIVE, Urine Bilirubin NEGATIVE, Urine Urobilinogen NORMAL, Urine Leukocyte Esterase NEGATIVE, Urine RBC (Auto) NEGATIVE, Urine RBC NONE, Urine WBC NONE, Urine Squamous Epithelial Cells NONE, Urine Crystals NONE , Urine Bacteria NEGATIVE, Urine Casts NONE, Urine Mucus NEGATIVE, Urine Culture Indicated NO, Urine Opiates Screen NEGATIVE, Urine Oxycodone Screen NEGATIVE, Urine Methadone Screen NEGATIVE, Urine Propoxyphene Screen NEGATIVE, Urine Barbiturates Screen NEGATIVE, Ur Tricyclic Antidepressants Screen NEGATIVE , Urine Phencyclidine Screen NEGATIVE, Urine Amphetamines Screen NEGATIVE, Urine Methamphetamines Screen NEGATIVE, Urine Benzodiazepines Screen NEGATIVE, Urine Cocaine Screen NEGATIVE, Urine Cannabinoids Screen NEGATIVE 05/19/18 13:35: Troponin I < 0.30 05/20/18 02:59: White Blood Count 6.3, Red Blood Count 3.85L, Hemoglobin 11.9L, Hematocrit 35L, Mean Corpuscular Volume 91, Mean Corpuscular Hemoglobin 31, Mean Corpuscular Hemoglobin Concent 34, Red Cell Distribution Width 13.7, Platelet Count 193, Mean Platelet Volume 10.4, Neutrophils (%) (Auto) 53, Lymphocytes (%) (Auto) 39 , Monocytes (%) (Auto) 5, Eosinophils (%) (Auto) 3, Basophils (%) (Auto) 0, Neutrophils # (Auto) 3.3, Lymphocytes # (Auto) 2.5, Monocytes # (Auto) 0.3, Eosinophils # (Auto) 0.2, Basophils # (Auto) 0.0, Sodium Level 140, Potassium Level 3.5L, Chloride Level 106, Carbon Dioxide Level 22, Anion Gap 12, Blood Urea Nitrogen 12, Creatinine 0.90, Estimat Glomerular Filtration Rate > 60, BUN/ Creatinine Ratio 13, Glucose Level 97, Calcium Level 9.3, Triglycerides Level 141, Cholesterol Level 193, LDL Cholesterol Direct 129, VLDL Cholesterol 28, HDL Cholesterol 36L Assessment/Plan Assessment/Plan Assess & Plan/Chief Complaint Chest pain. Malignant hypertension. Back pain. Asthma. Hyperlipidemia. Old CVA. Diastolic dysfunction Clinical Quality Measures DVT/VTE Risk/Contraindication: Risk Factor Score Per Nursin RFS Level Per Nursing on Admit: 2=Moderate LAURA NOVOA DO May 20, 2018 07:33
--- NOTE | 2018-05-20 08:56 | Diagnostic Imaging Report ---
PROCEDURE: US DOPPLER ABD/COMPLETE TECHNIQUE: Multiple real-time grayscale images were obtained over the kidneys in various projections. Duplex evaluation of renal arteries was also attempted. INDICATION: Hypertensive emergency. FINDINGS: The right kidney measures 9.8 x 4.9 x 5.2 cm and the left kidney measures 9.5 x 6.1 x 3.9 cm. The cortical thickness and echogenicity is normal. No calculi or hydronephrosis is identified. There is a cyst in the upper pole left kidney approximately 2.7 x 2.0 cm in size. Renal arterial velocities are unremarkable bilaterally. No significant velocity elevation is seen. Renal artery to aorta ratios are normal. Doppler waveforms are normal. IMPRESSION: 1. Left renal cyst. 2. No calculi or hydronephrosis is identified. 3. No findings to suggest renal artery stenosis. Dictated by: Dictated on workstation # [id number]
[2018-05-20] MEDS ORDERED: ASPIRIN E.C. 81 MG (ECOTRIN) TAB PO SCH (09:00)
[2018-05-20] MEDS ORDERED: FUROSEMIDE 40 MG (LASIX) TAB PO SCH (09:00)
[2018-05-20] MEDS ORDERED: amLODIPine 5 MG (NORVASC) TAB PO SCH (09:00)
[2018-05-20] MEDS ORDERED: lisINopril 40 MG (PRINIVIL) TABLET PO SCH (09:00)
[2018-05-20] MEDS ORDERED: amLODIPine 10 MG (NORVASC) TAB PO SCH (09:00)
[2018-05-20] MEDS ORDERED: cloNIDine 0.1 MG (CATAPRES) TAB PO SCH (09:00)
[2018-05-20] MEDS ORDERED: cloNIDine 0.1 MG (CATAPRES) TAB PO NR (10:00)
[2018-05-20] MEDS ORDERED: CATHETER FLUSH 10 ML SYR IV PRN (10:30)
[2018-05-20] MEDS ORDERED: REGADENOSON 0.4 MG/5 ML SYR (LEXISCAN) IV ONE (11:36)
[2018-05-20] MEDS ORDERED: REGADENOSON 0.4 MG/5 ML SYR (LEXISCAN) IV STA (11:40)
--- NOTE | 2018-05-20 12:09 | Cardiology Progress Note ---
Cardiology SOAP Progress Note Subjective: No cardiac complaints. Objective: I&O/Vital Signs 05/20/18 05/20/18 05/20/18 05/20/18 01:00 01:00 02:00 03:00 Pulse 66 59 60 67 B/P (MAP) 174/98 (123) 159/95 (116) 175/99 (124) Pulse Ox 100 100 100 O2 Delivery Room Air Room Air Room Air 05/20/18 05/20/18 05/20/18 05/20/18 04:00 04:00 04:00 05:00 Temp 97.0 Pulse 71 62 B/P (MAP) 180/100 (126) 153/94 (113) Pulse Ox 100 100 O2 Delivery Room Air Room Air Room Air 05/20/18 05/20/18 05/20/18 05/20/18 06:00 07:00 07:00 08:00 Pulse 67 70 68 61 B/P (MAP) 164/93 (116) 172/93 (119) 154/88 (110) Pulse Ox 99 100 100 O2 Delivery Room Air Room Air Room Air 05/20/18 05/20/18 05/20/18 05/20/18 08:38 08:38 08:38 09:00 Temp 97.2 Pulse 59 B/P (MAP) 168/94 (118) Pulse Ox 99 100 O2 Delivery Room Air Room Air Room Air Room Air 05/20/18 05/20/18 10:00 11:39 Pulse 59 63 B/P (MAP) 173/96 (121) 175/95 (121) Pulse Ox 100 100 O2 Delivery Room Air Room Air 05/20/18 00:00 Intake Total 575 ml Output Total 800 ml Balance -225 ml Weight (Pounds): 216 Weight (Ounces): 8.0 Weight (Calculated Kilograms): 98.855087 Constitutional: appears stated age, AAO x 3; No apparent distress; well- developed, well-nourished Respiratory: No accessory muscle use, No respiratory distress, No chest tender , No chest expansion is symmetric; chest is bilaterally symmetric; No lungs clear to percussion; lungs clear to auscultation; No crackles, No rhonchi, No rales, No stridor, No wheezing, No pleural rub, No other Cardiovascular: regular rate-rhythm; No irregularly irregular, No extra beats, No parasternal heave is noted, No JVD, No edema, No bradycardia, No tachycardia , No point of maximal impulse, No cardiac thrills are palpable; S1 and S2; No gallop/S3, No gallop/S4, No diastolic murmur, No systolic murmur, No friction rub, No click, No other Gastrointestional: No tender, No soft, No round, No distended, No pulsatile mass, No organomegaly, No guarding, No rebound, No tenderness, No hernia, No mass, No audible bowel sounds, No abnormal bowel sounds, No abdominal bruits, No spleenomegaly, No other Extremities: No normal range of motion, No non-tender, No normal inspection, No pedal edema, No calf tenderness, No normal capillary refill, No pelvis stable , No calf tenderness, No inflammation, No pedal edema, No slow capillary refill , No swelling, No other, No abrasion, No clubbing, No cyanosis, No ecchymosis, No laceration, No no lower extremity edema bilateral, No significant edema, No tenderness, No wound Neurologic/Psychiatric: no motor/sensory deficits, alert, normal mood/affect, oriented x 3, power is 5/5 both on sides Skin: No normal color, No warm/dry, No cyanosis, No cool, No diaphoresis, No damp, No ecchymosis, No jaundice, No mottled, No pallor, No rash, No tattoos/ piercings, No ulcerations, No rash on exposed areas, No ulcerations on exposed areas, No other Results/Procedures: Labs Laboratory Tests 05/19/18 13:35: Troponin I < 0.30 05/20/18 02:59: White Blood Count 6.3, Red Blood Count 3.85L, Hemoglobin 11.9L, Hematocrit 35L, Mean Corpuscular Volume 91, Mean Corpuscular Hemoglobin 31, Mean Corpuscular Hemoglobin Concent 34, Red Cell Distribution Width 13.7, Platelet Count 193, Mean Platelet Volume 10.4, Neutrophils (%) (Auto) 53, Lymphocytes (%) (Auto) 39 , Monocytes (%) (Auto) 5, Eosinophils (%) (Auto) 3, Basophils (%) (Auto) 0, Neutrophils # (Auto) 3.3, Lymphocytes # (Auto) 2.5, Monocytes # (Auto) 0.3, Eosinophils # (Auto) 0.2, Basophils # (Auto) 0.0, Sodium Level 140, Potassium Level 3.5L, Chloride Level 106, Carbon Dioxide Level 22, Anion Gap 12, Blood Urea Nitrogen 12, Creatinine 0.90, Estimat Glomerular Filtration Rate > 60, BUN/ Creatinine Ratio 13, Glucose Level 97, Calcium Level 9.3, Triglycerides Level 141, Cholesterol Level 193, LDL Cholesterol Direct 129, VLDL Cholesterol 28, HDL Cholesterol 36L A/P: Assessment/Dx: Severe hypertension, Chest discomfort, LVH on EKG, Diastolic dysfunction, T wave inversions on EKG. Plan: Severe hypertension: Patient was given clonidine, hydralazine and nitroglycerin paste in the ER. Some improvement in blood pressure. Amlodipine 10 mg daily, clonidine 0.2 mg daily, lisinopril 40 mg daily. Heart rate was 58 bpm this morning therefore carvedilol is not given. I discussed at length with the patient about salt restriction and dietary changes to help with blood pressure management. Renal artery ultrasound will be done to rule out renal artery stenosis. Chest pain with T-wave inversions on EKG. Patient has history of uncontrolled hypertension and recent history of active smoking. EKG changes could be due to hypertensive heart disease and LVH however coronary ischemia needs to be ruled out. Acute coronary syndrome ruled out with serial negative troponin. Lexiscan stress test this morning. LVH on EKG: Due to hypertensive heart disease. Aggressive management of hypertension is recommended. Discussed at length with the patient. Echocardiogram shows severe LVH, hypertrophic cardiomyopathy secondary to hypertensive heart disease. Thank you for your consultation. Please call me if you have any questions. Shauna Sosa MD, FACP, FACC, FSCAI, FHRS, CCDS Interventional Cardiology Cardiac Electrophysiology Vascular Medicine and Endovascular Interventions Royal SOSA MD May 20, 2018 12:09 pm
[2018-05-20] MEDS: CARVEDILOL 12.5 MG (COREG) TABLET PO SCH (13:27)
[2018-05-20] MEDS: KCL 20 MEQ TAB (K-DUR) PO SCH (13:42)
[2018-05-20] MEDS ORDERED: TRIAMCINOLONE 0.1% CR (KENALOG) 15 GM TUBE TOP SCH (14:15)
[2018-05-20] MEDS ORDERED: CLON0.2T PO (17:00)
[2018-05-20] MEDS ORDERED: LISI40TA PO (17:00)
[2018-05-20] MEDS ORDERED: AMLO10TA6 PO (17:00)
[2018-05-20] MEDS ORDERED: ATOR20TA66 PO (17:05)
[2018-05-21] MEDS ORDERED: cloNIDine 0.2 MG (CATAPRES) TAB PO SCH (09:00)
--- NOTE | 2018-05-22 07:26 | Clinic Account Progress/Dx ---
Clinic Account Progress/Dx DIAGNOSIS: Time Seen by Provider: 07:25 Chest pain. Malignant hypertension. Previous CVA. Asthma. Left ventricular hypertrophy LAURA NOVOA DO May 22, 2018 07:26
== END 2018-05-20 17:03 | disposition home or self-care (01) ==
LOC: EDUNIT# 07:13 → ER 07:15 → UNDOADMOB 08:40 → ICU 08:40 → UNDODISOB 05-20 17:43
PROVIDERS: ADMIT Internal Medicine; ATTEND Internal Medicine
DX: I16.1 Hypertensive emergency (principal); R07.9 Chest pain, unspecified; I11.9 Hypertensive heart disease without heart failure; I42.2 Other hypertrophic cardiomyopathy; E78.5 Hyperlipidemia, unspecified; J45.909 Unspecified asthma, uncomplicated; M54.5 Low back pain; G89.29 Other chronic pain; Z86.73 Personal history of transient ischemic attack (TIA), and cerebral infarction without residual deficits; Z87.891 Personal history of nicotine dependence; Z79.82 Long term (current) use of aspirin; Z79.899 Other long term (current) drug therapy
CPT/HCPCS: 36415; 71045; 78452; 80048; 80053; 80061; 80306; 81000; 83735; 83874; 84443; 84484; 85025; 85610; 85730; 93005; 93017; 93306; 93975

== ENCOUNTER → 2018-07-11 | Outpatient (CLI) | payer MEDICARE ==
[~2018-07-11] MED LIST changes: +AMLO10TA6 PO; +CLON0.2T PO; +PYRI25TA3 PO
== END ==
LOC: CARD 08:20
PROVIDERS: ATTEND Internal Medicine Interventional Cardiology
DX: R07.9 Chest pain, unspecified (principal)

== ENCOUNTER 2018-08-08 10:23 | Day surgery (SDC) | payer MEDICARE ==
[~2018-08-08] VITALS: Ht 188 cm; Wt 99.8 kg
[2018-08-08] VITALS (10 sets, daily range): BP systolic 140–188; BP diastolic 87–112
--- OUTSIDE RECORDS SUMMARY | 2018-08-08 10:31 | XMS REPORT | Continuity of Care Document ---
Author Author [facility] Organization [facility] Address Unknown Phone Unavailable Allergies Active Description Code Type Severity Reaction Onset Reported/Identified Relationship to Patient Clinical Status Yes No Known Drug Allergies [id number] Drug Allergy Unknown N/A 07/20/2011 Medications There [...] 12/21/2014 GELLENDER DOLAURA Ot 573.8 12/21/2014 GELLENDER DOLAURA Ot 593.9 12/21/2014 GELLENDER DOLAURA Ot 789.01 12/21/2014 GELLENDER LAURA BEAL Ot 433.10 12/21/2014 GELLENDER DOLAURA Ot 723.1 12/21/2014 GELLENDER DOLAURA Ot 433.10 12/21/2014 GELLENDER DO, LAURA Tyler Ot 433.30 12/21/2014 GELLENDER DO, LAURA Tyler [...] Tyler Ot 729.81 SWELLING OF LIMB 08/01/2016 [facility] Tyler Ot M79.605 PAIN IN LEFT LEG 08/01/2016 LAURA NOVOA DO Ot R20.0 ANESTHESIA OF SKIN 08/02/2016 [facility] Tyler Ot M48.06 SPINAL STENOSIS, LUMBAR REGION 08/30/2016 [facility]URA Tyler Ot M48.06 SPINAL STENOSIS, LUMBAR REGION 10/09/2016 ANNA FARFAN Ot I10 ESSENTIAL (PRIMARY) HYPERTENSION 10/09/2016 ANNA FARFAN Ot J02.9 ACUTE PHARYNGITIS, UNSPECIFIED 10/09/2016 ANNA FARFAN Ot K04.7 PERIAPICAL ABSCESS WITHOUT SINUS 10/09/2016 ANNA FARFAN Ot R59.0 LOCALIZED ENLARGED LYMPH NODES 10/09/2016 ANNA FARFAN Ot Z79.82 ESTIMATION MANAGER (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 ASPIRIN 10/09/2016 ANNA FARFAN Ot Z79.899 OTHER PENITENTIARY (CURRENT) DRUG THERAPY 10/10/2016 ANNA FARFAN Ot I10 ESSENTIAL (PRIMARY) HYPERTENSION 10/10/2016 ANNA FARFAN Ot J02.9 ACUTE PHARYNGITIS, UNSPECIFIED 10/10/2016 ANNA FARFAN Ot K04.7 PERIAPICAL ABSCESS WITHOUT SINUS 10/10/2016 ANNA FARFAN Ot R59.0 LOCALIZED ENLARGED LYMPH NODES 10/10/2016 ANNA FARFAN Ot Z79.82 ESTIMATION MANAGER (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 ASPIRIN 10/10/2016 ANNA FARFAN Ot Z79.899 OTHER PENITENTIARY (CURRENT) DRUG THERAPY 10/17/2016 ANNA FARFAN Ot I10 ESSENTIAL (PRIMARY) HYPERTENSION 10/17/2016 ANNA FARFAN Ot J02.9 ACUTE PHARYNGITIS, UNSPECIFIED 10/17/2016 ANNA FARFAN Ot K04.7 PERIAPICAL ABSCESS WITHOUT SINUS 10/17/2016 ANNA FARFAN Ot R59.0 LOCALIZED ENLARGED LYMPH NODES 10/17/2016 ANNA FARFAN Ot Z79.82 PENITENTIARY (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 ASPIRIN 10/17/2016 ANNA FARFAN Ot Z79.899 OTHER ESTIMATION MANAGER (CURRENT) DRUG THERAPY 10/18/2016 ANNA FARFAN Ot I10 ESSENTIAL (PRIMARY) HYPERTENSION 10/18/2016 ANNA FARFAN Ot J02.9 ACUTE PHARYNGITIS, UNSPECIFIED 10/18/2016 ANNA FARFAN Ot K04.7 PERIAPICAL ABSCESS WITHOUT SINUS 10/18/2016 ANNA FARFAN Ot R59.0 LOCALIZED ENLARGED LYMPH NODES 10/18/2016 ANNA FARFAN Ot Z79.82 PENITENTIARY (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 ASPIRIN 10/18/2016 ANNA FARFAN Ot Z79.899 OTHER PENITENTIARY (CURRENT) DRUG THERAPY 09/06/2017 GELLENDER DO, LAURA Tyler Ot E78.5 HYPERLIPIDEMIA, UNSPECIFIED 09/06/2017 GELLENDER DO, LAURA Tyler Ot H53.8 OTHER VISUAL DISTURBANCES 09/06/2017 GELLENDER DO, LAURA Tyler Ot I11.0 HYPERTENSIVE HEART DISEASE WITH HEART FA 09/06/2017 GELLENDER DO, LAURA Tyler Ot I51.7 CARDIOMEGALY 09/06/2017 GELLENDER DO, LAURA Tyler Ot R53.1 WEAKNESS 09/06/2017 GELLENDER DO, LAURA Tyler Ot Z79.899 OTHER ESTIMATION MANAGER (CURRENT) DRUG THERAPY 09/06/2017 GELLENDER DO, LAURA [...] M51.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, 05/19/2018 SOMMER BEALLAURA Ot 573.8 LIVER DISORDERS NEC 05/19/2018 SOMMER BEALLAURA Ot 593.9 RENAL URETERAL DIS NOS 05/19/2018 SOMMER BEALLAURA Ot 789.01 ABDOMINAL PAIN, RIGHT UPPER QUADRANT 05/19/2018 SOMMER BEALLAURA Ot 433.10 CAROTID ARTERY OCCLUSION W O CEREBRAL IN 05/19/2018 SOMMER BEALLAURA Ot 723.1 CERVICALGIA 05/19/2018 SOMMER BEALLAURA Ot 433.10 CAROTID ARTERY OCCLUSION W O CEREBRAL IN 05/19/2018 SOMMER BEALLAURA Ot 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 ARTERY OCCLUSION WO CEREBRA 05/19/2018 SOMMER BEALLAURA Ot 786.6 CHEST SWELLING/MASS/LUMP 05/19/2018 SOMMER BEALLAURA Ot 593.9 RENAL URETERAL DIS NOS 05/19/2018 SOMMER BEALLAURA Ot 729.81 SWELLING OF LIMB 05/19/2018 SOMMER BEALLAURA Ot M79.605 PAIN IN LEFT LEG 05/19/2018 SOMMER BEALLAURA Ot R20.0 ANESTHESIA OF SKIN 05/19/2018 SOMMER BEALLAURA Ot M48.06 SPINAL STENOSIS, LUMBAR REGION 05/19/2018 SOMMER BEALLAURA Ot M47.816 SPONDYLOSIS W/O MYELOPATHY OR RADICULOPA 05/19/2018 SOMMER BEALLAURA Ot M48.07 SPINAL STENOSIS, LUMBOSACRAL REGION 05/19/2018 OTILIADAMARIS BEALLAURA Ot M51.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, 05/20/2018 HUMBERTO BEAL GIANNI Ot E78.5 HYPERLIPIDEMIA, UNSPECIFIED 05/20/2018 HUMBERTO BEAL GIANNI Ot G89.29 OTHER CHRONIC PAIN 05/20/2018 HUMBERTO BEAL GIANNI Ot I11.9 HYPERTENSIVE HEART DISEASE WITHOUT HEART 05/20/2018 HUMBERTO BEAL GIANNI Ot I16.1 HYPERTENSIVE EMERGENCY 05/20/2018 HUMBERTO BEAL GIANNI Ot I42.2 OTHER HYPERTROPHIC CARDIOMYOPATHY 05/20/2018 HUMBERTO BEAL GIANNI Ot J45.909 UNSPECIFIED ASTHMA, UNCOMPLICATED 05/20/2018 PAUL DO, GIANNI Ot M54.5 LOW BACK PAIN 05/20/2018 PAUL DO, GIANNI Ot R07.9 CHEST PAIN, UNSPECIFIED 05/20/2018 PAUL DO, GIANNI Ot Z79.82 PENITENTIARY (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 ASPIRIN 05/20/2018 PAUL DO, GIANNI Ot Z79.899 OTHER PENITENTIARY (CURRENT) DRUG THERAPY 05/20/2018 PAUL DO, GIANNI Ot Z86.73 PRSNL HX OF TIA (TIA), AND CEREB INFRC W 05/20/2018 PAUL DO, GIANNI Ot Z87.891 PERSONAL HISTORY OF NICOTINE DEPENDENCE 05/20/2018 PAUL DO, GIANNI Ot E78.5 HYPERLIPIDEMIA, UNSPECIFIED 05/20/2018 PAUL DO, GIANNI Ot G89.29 OTHER CHRONIC PAIN 05/20/2018 PAUL DO, GIANNI Ot I11.9 HYPERTENSIVE HEART DISEASE WITHOUT HEART 05/20/2018 PAUL DO, GIANNI Ot I16.1 HYPERTENSIVE EMERGENCY 05/20/2018 PAUL DO, GIANNI Ot I42.2 OTHER HYPERTROPHIC CARDIOMYOPATHY 05/20/2018 PAUL DO, GIANNI Ot J45.909 UNSPECIFIED ASTHMA, UNCOMPLICATED 05/20/2018 PAUL DO, GIANNI Ot M54.5 LOW BACK PAIN 05/20/2018 PAUL DO, GIANNI Ot R07.9 CHEST PAIN, UNSPECIFIED 05/20/2018 PAUL DO, GIANNI Ot Z79.82 ESTIMATION MANAGER (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 ASPIRIN 05/20/2018 PAUL DO, GIANNI Ot Z79.899 OTHER ESTIMATION MANAGER (CURRENT) DRUG THERAPY 05/20/2018 PAUL DO, GIANNI Ot Z86.73 PRSNL HX OF TIA (TIA), AND CEREB INFRC W 05/20/2018 PAUL DO, GIANNI Ot Z87.891 PERSONAL HISTORY OF NICOTINE DEPENDENCE 07/15/2018 Royal KENDRICK MD Ot R07.9 CHEST PAIN, UNSPECIFIED Procedures There is no data. Results Test [...] 10/09/16 18:39 Blood monocytes/100 leukocytes 7 % NR Manual blood segmented neutrophils/100 leukocytes 72 % NRG Blood band neutrophils/100 leukocytes 4 % NRG Manual blood lymphocytes/100 leukocytes 17 % NRG Manual eosinophils/100 leukocytes in nose 0 % NRG Manual blood basophils/100 leukocytes 0 % NR Blood erythrocyte morphology finding identification [facility]ORMAL [facility] Comprehensive metabolic panel - 10/09/16 18:39 Serum [...] urinalysis with reflex to culture NO NRG Serum or plasma troponin i.cardiac measurement (mass/volume) - 05/19/18 13:35 Serum or plasma troponin i.cardiac measurement (mass/volume) < ng/ mL <0.30 Complete blood count (CBC) with automated white blood cell (WBC) differential - 05/20/18 02:59 Blood leukocytes automated count (number/volume) 6.3 10*3/uL 4.3-11.0 Blood erythrocytes automated count (number/volume) 3.85 10*6/uL 4.35-5.85 Venous blood hemoglobin measurement (mass/volume) 11.9 g/dL 13.3-17.7 Blood hematocrit (volume fraction) 35 % 40-54 Automated erythrocyte mean corpuscular volume 91 [foz_us] 80-99 Automated erythrocyte mean corpuscular hemoglobin (mass per erythrocyte) 31 pg 25-34 Automated erythrocyte mean corpuscular hemoglobin concentration measurement ( mass/volume) 34 g/dL 32-36 Automated erythrocyte distribution width ratio 13.7 % 10.0-14.5 Automated blood platelet count (count/volume) 193 10*3/uL 130-400 Automated blood platelet mean volume measurement 10.4 [foz_us] 7.4-10.4 Automated blood neutrophils/100 leukocytes 53 % 42-75 Automated blood lymphocytes/100 leukocytes 39 % 12-44 Blood monocytes/100 leukocytes 5 % 0-12 Automated blood eosinophils/100 leukocytes 3 % 0-10 Automated blood basophils/100 leukocytes 0 % 0-10 Blood neutrophils automated count (number/volume) 3.3 10*3 1.8-7.8 Blood lymphocytes automated count (number/volume) 2.5 10*3 1.0-4.0 Blood monocytes automated count (number/volume) 0.3 10*3 0.0-1.0 Automated eosinophil count 0.2 10*3/uL 0.0-0.3 Automated blood basophil count (count/volume) 0.0 10*3/uL 0.0-0.1 Whole blood basic metabolic panel - 05/20/18 02:59 Serum or plasma sodium measurement (moles/volume) 140 mmol/L 135-145 Serum or plasma potassium measurement (moles/volume) 3.5 mmol/L 3.6-5.0 Serum or plasma chloride measurement (moles/volume) 106 mmol/L 98-107 Carbon dioxide 22 mmol/L 21-32 Serum or plasma anion gap determination (moles/volume) 12 mmol/L 5-14 Serum or plasma urea nitrogen measurement (mass/volume) 12 mg/dL 7-18 Serum or plasma creatinine measurement (mass/volume) 0.90 mg/dL 0.60-1.30 Serum or plasma urea nitrogen/creatinine mass ratio 13 NRG Serum or plasma creatinine measurement with calculation of estimated glomerular filtration rate > NRG Serum or plasma glucose measurement (mass/volume) 97 mg/dL 70-105 Serum or plasma calcium measurement (mass/volume) 9.3 mg/dL 8.5-10.1 Lipid 1996 panel - 05/20/18 02:59 Serum or plasma triglyceride measurement (mass/volume) 141 mg/dL <150 Serum or plasma cholesterol measurement (mass/volume) 193 mg/dL < 200 Serum or plasma cholesterol in HDL measurement (mass/volume) 36 mg/ dL 40-60 Cholesterol in LDL [mass/volume] in serum or plasma by direct assay 129 mg/dL 1-129 Serum or plasma cholesterol in VLDL measurement (mass/volume) 28 mg/ dL 5-40 Encounters ACCT No. Visit Date/Time Discharge Status Pt. Type Provider Facility Loc./Unit Complaint [id number] 07/11/2018 08:20:00 07/11/2018 23:59:59 CLS Outpatient Royal KENDRICK MD [facility] CARD CHEST PAIN [id number] 05/19/2018 08:40:00 05/20/2018 17:43:00 DIS Inpatient GIANNI PAUL DO [facility] ICU HYPERTENSIVE EMERGENCY, CHEST PAIN, R/O ACS [id number] 09/14/2017 07:47:00 09/14/2017 23:59:59 CLS Outpatient LAURA NOVOA DO [facility] RAD PAIN IN LUMBAR REGION AND GOES DOWN LT LEG [id number] 09/04/2017 17:20:00 09/06/2017 10:45:00 DIS Inpatient LAURA NOVOA DO [facility] 4TH HYPERTENSIVE ENERPENCY, GENERLIZED WEAKNESS [id number] 10/09/2016 16:37:00 10/09/2016 20:33:00 DIS Emergency ANNA FARFAN [facility] ER SWOLLEN GLANDS IN NECK /DIFF SWALLOWING [id number] 08/01/2016 10:51:00 08/01/2016 23:59:59 CLS Outpatient LAURA NOVOA DO [facility] RAD RIGHT LEG AND FOOT NUMBNESS AND TINGLING [id number] 11/18/2015 01:54:00 11/18/2015 16:50:00 DIS Inpatient PETTY BUNCH MD [facility] CSD CHEST PAIN,HYPERTENSIVE URGENCY [id number] 08/30/2015 14:06:00 08/30/2015 23:59:59 CLS Outpatient LAURA NOVOA DO [facility] RAD LT LEG GOIES NUMB HURTS TO WALK [id number] 12/21/2014 22:59:00 12/21/2014 23:37:00 DIS Emergency JACK NUNN DO [facility] ER BUG BITE IN LEFT EAR [id number] 01/08/2014 06:59:00 01/08/2014 23:59:59 CLS Outpatient ZINAHOGUELAURA [facility] RAD SWELLING ABOVE LEFT CLAVICLE,RENAL INSUFF [id number] 12/31/2013 15:05:00 12/31/2013 23:59:59 CLS Outpatient ZINAHOGUELAURA [facility] RAD SWELLING ABOVE LT CLAVICLE [id number] 12/04/2013 10:20:00 12/04/2013 23:59:59 CLS Outpatient SOMMER BEAL LAURA Nayeli [facility] RAD CAROTID OCCLUSION [id number] 12/01/2013 11:10:00 12/01/2013 23:59:59 CLS Outpatient OTILIAJERAMIEHOGUE LAURA Tyler [facility] RAD NECK PAIN SWELLING [id number] 11/04/2013 13:26:00 11/04/2013 23:59:59 CLS Outpatient ZINAHOGUELAURA [facility] RAD RLQ PAIN [id number] 02/18/2013 08:38:00 02/18/2013 10:03:00 DIS Emergency STANTON CASTELLON MD [facility] ER SWOLLEN LYMPH NODES [id number] 12/02/2012 14:38:00 12/02/2012 17:49:00 DIS Emergency ANNA FARFAN [facility] ER COUGH/CONGESTION [id number] 12/21/2014 22:59:00 Document Registration [id number] 10/20/2011 14:28:00 Document Registration [id number] 10/17/2011 12:42:00 Document Registration [id number] 07/20/2011 02:29:00 Document Registration [id number] 08/10/2017 14:00:00 08/10/2017 23:59:59 CLS Outpatient BREANNE MACKENZIE [facility]
[2018-08-08] MEDS ORDERED: LIDOCAINE 1% INJ 20 ML 20 ML VIAL ONE (10:35)
[2018-08-08] MEDS ORDERED: HEParin (CATH LAB) 2,000 ML IV ONE (10:35)
[2018-08-08] MEDS ORDERED: NS IV 1000 ML 1,000 ML ONE (10:35)
[2018-08-08 11:12] LABS: HEMOGLOBIN 12.4 G/DL (13.3-17.7); MEAN PLATELET VOLUME 10.1 FL (7.4-10.4); RED BLOOD COUNT 4.05 10^6/uL (4.35-5.85); RED CELL DISTRIBUTION WIDTH 13.6 % (10.0-14.5); WHITE BLOOD COUNT 7.1 10^3/uL (4.3-11.0)
[2018-08-08 11:23] LABS: PROTHROMBIN TIME PATIENT 12.8 SEC (12.2-14.7)
[2018-08-08 11:30] LABS: ALANINE AMINOTRANSFERASE 25 U/L (0-55); ALBUMIN 4.2 GM/DL (3.2-4.5); ALKALINE PHOSPHATASE 78 U/L (40-136); BILIRUBIN,TOTAL 0.6 MG/DL (0.1-1.0); BUN/CREATININE RATIO 12; CALCIUM 9.7 MG/DL (8.5-10.1); CARBON DIOXIDE 28 MMOL/L (21-32); CHLORIDE 104 MMOL/L (98-107); CHOLESTEROL 205 MG/DL (< 200); CREATININE SERUM 1.07 MG/DL (0.60-1.30); GFR ESTIMATED > 60; GLUCOSE 99 MG/DL (70-105); HDL CHOLESTEROL 43 MG/DL (40-60); POTASSIUM 3.7 MMOL/L (3.6-5.0); SODIUM 141 MMOL/L (135-145); TOTAL PROTEIN 7.6 GM/DL (6.4-8.2); TRIGLYCERIDES 130 MG/DL (<150); VLDL CHOLESTEROL 26 MG/DL (5-40)
[2018-08-08] MEDS ORDERED: FLU QUADRIvalent (5+ YOA) 2018-2019 (AFLURIA) 0.5 ML IM ONE (12:00)
[2018-08-08] MEDS ORDERED: NS IV 1000 ML 1,000 ML IV SCH ×2 (12:00→15:13)
[2018-08-08] MEDS ORDERED: MIDAZOLAM 5 MG/5 ML (VERSED) VIAL ONE ×2 (12:14→13:25)
[2018-08-08] MEDS ORDERED: fentaNYL INJECTION 100 MCG/2 ML AMP ONE (12:14)
[2018-08-08] MEDS ORDERED: ATOR40TA PO (12:21)
[2018-08-08] MEDS ORDERED: ASPI-983 PO (12:21)
[2018-08-08] MEDS ORDERED: LISI40TA PO (12:21)
[2018-08-08] MEDS ORDERED: AMLO10TA6 PO (12:21)
[2018-08-08] MEDS ORDERED: TRAM50TA2 PO (12:25)
[2018-08-08] MEDS ORDERED: PYRI100T2 PO (12:25)
[2018-08-08] MEDS ORDERED: NITR0.4T39 SL (12:49)
--- NOTE | 2018-08-08 12:49 | NUR ---
PATIENT HAD MOST OF HIS BOTTLES WITH HIM AND VERIFIED WHAT HE IS TAKING. I ALSO VERIFIED WITH WHAT HAS BEEN FILLED RECENTLY AT [facility]. [facility] FILLED: 07-08-18 CHLORZOXAZONE 500MG BID #60 07-08-18 AMLODIPINE 10MG DAILY #30 07-08-18 LISINOPRIL 40MG DAILY #30 07-08-18 FUROSEMIDE 40MG DAILY #30 07-02-18 NITROSTAT 0.4MG UD 06-28-18 ATORVASTATIN 40MG HS #90 06-10-18 CLONIDINE 0.2MG DAILY #30 (PATIENT STATES HE IS NO LONGER TAKING) 04-11-18 TRAMADOL 50MG #60 (STATES HE TAKES PRN) HE TAKES ASPIRIN 81MG DAILY AND VITAMIN B6 100MG DAILY OTC.
[2018-08-08] MEDS ORDERED: VERAPAMIL 5 MG/2 ML (CALAN) VIAL IV ONE (12:51)
[2018-08-08] MEDS ORDERED: NITRO DRIP 25000 MCG/D5W 250 ML IV ONE (12:52)
[2018-08-08] MEDS ORDERED: HEParin 1000 UNIT/ML (10ML VIAL) FOR BOLUS ONE (12:52)
[2018-08-08] MEDS ORDERED: TICAGRELOR 90 MG TABLET (BRILINTA) PO ONE (13:56)
--- NOTE | 2018-08-08 15:13 | Cardiac Procedure Note-CS/ASA ---
Pre-Procedure Note Pre-Op Procedure Note H&P Reviewed The H&P was reviewed, patient examined and no changes noted. Date H&P Reviewed: Aug 08, 2018 Time H&P Reviewed: 12:00 Conscious Sedation Pre-Proced Time 12:00 ASA Score 3 For ASA 3 and 4: Consider anesthesia and medical clearance. Also, for patients with a history of failed moderate sedation consider anesthesia. Airway Lungs Heart ASA score ASA 1: a normal healthy patient ASA 2: a patient with a mild systemic disease (mid diabetes, controlled hypertension, obesity ASA 3: a patient with a severe systemic disease that limits activity (angina , COPD, prior Myocardial infarction) ASA 4: a patient with an incapacitating disease that is a constant threat to life (CHF, renal failure) ASA 5: a moribund patient not expected to survive 24 hrs. (ruptured aneurysm) ASA 6: a declared brain patient whose organs are being harvested. For emergent operations, add the letter E after the classification Mallampati Classification Grade 1 Sedation Plan Analgesia, Amnesia, Plan communicated to team members, Discussed options with patient/fam, Discussed risks with patient/fam The patient is an appropriate candidate to undergo the planned procedure, sedation, and anesthesia. The patient immediately re-assessed prior to indication. Royal KENDRICK MD Aug 08, 2018 15:13
--- NOTE | 2018-08-08 15:13 | Coronary Angiography & PCI ---
Coronary Angiography & PCI DATE OF PROCEDURE: 08/08/18 INDICATION: Recurrent chest pain, abnormal nuclear stress test. PREOPERATIVE DIAGNOSIS: Recurrent chest pain, abnormal nuclear stress test. POSTOPERATIVE DIAGNOSIS: Status post successful PCI to left circumflex artery. HISTORY: This is a 58-year-old gentleman with history of active smoking and hypertension. He is been having recurrent chest pain episodes. Lexiscan nuclear stress test showed abnormal perfusion in the apex. Therefore, the patient was scheduled for coronary angiography. PROCEDURES PERFORMED: 1.Coronary angiography. 2.Left heart catheterization. 3.PCI to the left circumflex artery with drug-eluting stent. COMPLICATIONS: None. SPECIMENS: None. ESTIMATED BLOOD LOSS: 10 mL ANESTHESIA: Conscious sedation ANTICOAGULATION: IV heparin CONTRAST: 278 mL. FLUOROSCOPY: 31.3 minutes. FLOUROSCOPY DOSE: [id number] mgy. PROCEDURE DETAILS: The patient is a 58 male and was brought to the geophysical laboratory chief after informed consent was taken. All the risks and complications were explained in detail; this included the risk of bleeding, vascular damage, stroke , [place] and even . The patient was draped and prepped in the usual sterile fashion. Access was gained in the right radial artery with a 6 Kinyarwanda sheath. Coronary angiography and left heart catheterization was performed with the Paoli catheter. FINDINGS: 1.Left main: Patent. 2.LAD: Patent. 3.Left circumflex artery: Moderate disease in the proximal left circumflex artery. Stenosis severity 40 percent. Moderate to severe ostial stenosis of first OM artery. Stenosis severity 70-80 percent. Severe distal left circumflex artery stenosis. Stenosis severity 80 percent. 4.RCA: Nondominant. No significant disease. 5.Left heart catheterization: Aortic pressure 108/67 mmHg. LV pressure 118/1 mmHg. LVEDP 8 mmHg. Normal LVEF with no wall motion abnormalities. No gradient across the aortic valve. RECOMMENDATIONS: PCI to distal left circumflex artery is recommended. INTERVENTION DETAILS: EBU 3.5 guide catheter. Whisper extra-support guidewire. IV heparin for anticoagulation. Brilinta 180 mg by mouth was given before the PCI. ACT was done twice. The first ACT was 180 seconds. The second ACT was 200 seconds. After the second ACT another 2000 units of heparin was given. The lesion in the distal left circumflex artery was crossed with the whisper wire. The lesion was direct stented with a Xience Marian 3 x 18mm drug-eluting stent which was deployed at 18 keon for 31 seconds. Postdilatation was done with an NC Quantum 3.5 x 15 mm noncompliant balloon. 2 inflations were done in the mid and proximal segments. Both inflations were done for 18 keon. Excellent results were noted. We left the wire in the distal left circumflex artery and took another whisper extra-support guidewire and tried to cross into the first OM artery. However due to significant tortuosity we were not able to cross into the first OM artery even after numerous tries and tried numerous aggressive bend to the tip of the wire. At the end of the procedure with the both wires out and post-angiogram showed excellent results post PCI with MARIE 3 flow and 0 percent residual stenosis. The radial artery was closed with a radial band. The patient tolerated the procedure well and did not have any complication. CONCLUSIONS: 1. Successful PCI with drug-eluting stent to distal left circumflex artery. Moderate to severe disease in first OM artery was left alone. 2. Dual antiplatelet therapy. High dose statin therapy. 3. Continue aggressive blood pressure management. Shauna Sosa MD, FACP, FACC, [facility] Interventional Cardiology Royal SOSA MD Aug 08, 2018 15:13
[2018-08-08] MEDS ORDERED: PATIENT MAY USE OWN MEDS, ALL PO SCH (15:15)
[2018-08-08] MEDS ORDERED: ACETAMINOPHEN 325 MG TABLET PO PRN (19:45)
[2018-08-08] MEDS ORDERED: amLODIPine 5 MG (NORVASC) TAB PO PRN (19:45)
[2018-08-08] MEDS ORDERED: oxyCODONE/APAP 5/325MG (PERCOCET 5) TABLET PO PRN (20:00)
[2018-08-08] MEDS: TICAGRELOR 90 MG TABLET (BRILINTA) PO SCH (20:50)
[2018-08-08] MEDS ORDERED: ATORVASTATIN 40 MG (LIPITOR) TABLET PO SCH (21:00)
[2018-08-08] MEDS ORDERED: ATORVASTATIN 80 MG (LIPITOR) TABLET PO SCH (21:00)
[2018-08-09] VITALS: BP 157/86
[2018-08-09 04:00] VITALS: BP 152/95
[2018-08-09 04:17] LABS: HEMOGLOBIN 12.4 G/DL (13.3-17.7); MEAN PLATELET VOLUME 10.7 FL (7.4-10.4); RED BLOOD COUNT 4.09 10^6/uL (4.35-5.85); RED CELL DISTRIBUTION WIDTH 13.4 % (10.0-14.5); WHITE BLOOD COUNT 7.6 10^3/uL (4.3-11.0)
[2018-08-09 04:45] LABS: BUN/CREATININE RATIO 13; CALCIUM 9.5 MG/DL (8.5-10.1); CARBON DIOXIDE 24 MMOL/L (21-32); CHLORIDE 107 MMOL/L (98-107); CREATININE SERUM 0.95 MG/DL (0.60-1.30); GFR ESTIMATED > 60; GLUCOSE 105 MG/DL (70-105); POTASSIUM 3.8 MMOL/L (3.6-5.0); SODIUM 141 MMOL/L (135-145)
[2018-08-09 08:00] VITALS: BP 146/92
[2018-08-09] MEDS ORDERED: ASPIRIN E.C. 81 MG (ECOTRIN) TAB PO SCH (09:00)
[2018-08-09] MEDS: TICAGRELOR 90 MG TABLET (BRILINTA) PO SCH (09:31)
--- NOTE | 2018-08-09 10:06 | Cardiology Discharge Summary ---
Diagnosis/Chief Complaint Date of Admission 08/08/2018 Date of Discharge 08/09/2018 Admission Diagnosis Recurrent chest pain, abnormal nuclear stress test Final/Discharge Diagnosis CAD Chief Complaint/HPI Chief Complaint/HPI This is a 58-year-old gentleman with history of active smoking and hypertension. He is been having recurrent chest pain episodes. Lexiscan nuclear stress test showed abnormal perfusion in the apex. Therefore, the patient was scheduled for coronary angiography. Discharge Summary Procedures PCI with drug-eluting stent to mid/distal left circumflex artery. Moderate disease in the proximal left circumflex artery left alone. Severe ostial disease of first OM, could not cross with the wire due to significant tortuosity, left alone. Discharge Physical Examination Normal right radial pulse. Normal cardiovascular examination Hospital Course Unremarkable. Pending Labs Laboratory Tests 08/09/18 03:05: White Blood Count 7.6, Red Blood Count 4.09, Hemoglobin 12.4, Hematocrit 37, Mean Corpuscular Volume 90, Mean Corpuscular Hemoglobin 30, Mean Corpuscular Hemoglobin Concent 34, Red Cell Distribution Width 13.4, Platelet Count 222, Mean Platelet Volume 10.7, Sodium Level 141, Potassium Level 3.8, Chloride Level 107, Carbon Dioxide Level 24, Anion Gap 10, Blood Urea Nitrogen 12, Creatinine 0.95, Estimat Glomerular Filtration Rate > 60, BUN/Creatinine Ratio 13, Glucose Level 105, Calcium Level 9.5 Discussion & Recommendations Discussion Discharge took over 30 minutes to complete. The procedure was discussed at length with the patient and significant other. All the medications were discussed at length. Compliance with Brilinta was emphasized. Follow up appt.: Dr. Sosa in 2-3 weeks. Dicharge Diet: Cardiac Diet Activity as Tolerated: Yes Home Medications Reviewed patient Home Medication Reconciliation performed by pharmacy medication reconciliations health care sanitary technician and/or nursing. Patients Allergies have been reviewed. Discharge Home Medications: Reviewed and agree with Discharge Medication list on patient's Discharge Instruction sheet Condition at discharge Stable. Instructions to patient/family Discussed at length with the patient and significant other. Royal SOSA MD Aug 09, 2018 10:06
[2018-08-09] MEDS ORDERED: TICA90TA PO (10:08)
[2018-08-09] MEDS ORDERED: METO-370 PO (10:08)
--- NOTE | 2018-08-09 10:09 | Discharge Inst-Post CATH ---
Discharge Inst-CATH/EP Post Cardiac Cath/EP D/C Inst Follow Up/Plan Dr Sosa in 2-3 weeks. CARDIAC CATH DISCHARGE INSTRUCTIONS *Hold Metformin for 48 hours post heart cath. ACTIVITY * Go Home directly and rest. * Limit activity of the leg (or wrist if it was used) for 7 days including aerobics, swimming, jogging, bicycling, etc. * Restrict stair-climbing for 7 days if possible, if not, climb up with your non -cath leg, then bring together on the same step. * Avoid lifting, pushing, pulling or excessive movement of the affected extremity for 7 days. * Customary sexual activity may be resumed after 2 days-use caution not to use a position that strains or causes pain to the affected extremity. * No driving for 24 hours. * NO SMOKING. * Avoid straining for bowel movements for 7 days. * Gentle walking on level ground is allowed. * Returning to work will depend on the type of procedure and the results. Your doctor will discuss this with you. CALL YOUR DOCTOR FOR ANY OF THE FOLLOWING: *If bleeding from the puncture site occurs- Apply gentle pressure to site with clean cloth and call your doctor or EMS. * If a knot or lump forms under the skin, increases in size, or causes pain. * If bruising appears to be worsening or moving further down your leg instead of disappearing. * Temperature above 101 F. CARE OF YOUR GROIN INCISION; * Bruising or purple discoloration of the skin near the puncture site is common. * You may shower only, no bathtub bathing for 5 days. Be careful to avoid slipping as your leg may feel stiff. * If a closure device was used on your femoral artery, please see the attached guide regarding care of the device and your leg. * Leave the dressing on, until removed by office staff. CARE OF YOUR WRIST INCISION; * Bruising or purple discoloration of the skin near the puncture site is common. * You may shower. * DO NOT submerge wrist. * Leave dressing on, until removed by office staff.. Royal SOSA MD Aug 09, 2018 10:09
[2018-08-09 10:28] VITALS: BP 146/92
== END 2018-08-09 10:25 | disposition home or self-care (01) ==
LOC: CATH 10:23 → ICU 15:32 → CATH 08-09 10:25
PROVIDERS: ATTEND Internal Medicine Interventional Cardiology
DX: I25.10 Atherosclerotic heart disease of native coronary artery without angina pectoris (principal); I11.9 Hypertensive heart disease without heart failure; I42.2 Other hypertrophic cardiomyopathy; I08.1 Rheumatic disorders of both mitral and tricuspid valves; R94.39 Abnormal result of other cardiovascular function study; Z87.891 Personal history of nicotine dependence; Z79.82 Long term (current) use of aspirin; Z79.899 Other long term (current) drug therapy
CPT/HCPCS: 36415; 80048; 80053; 80061; 85027; 85610; 85730; 87081; 93005; 93458

== ENCOUNTER 2018-11-11 08:09 | Emergency (ER) | payer MEDICARE ==
[~2018-11-11] VITALS: Ht 188 cm; Wt 97.1 kg
[~2018-11-11 08:09] MED LIST changes: -AMLO10TA6 PO; +AMLO10TA7 PO; +ASPI-983 PO; +ATOR40TA PO; +METO-370 PO; +NITR0.4T39 SL; +PYRI100T2 PO; +TICA90TA PO
--- OUTSIDE RECORDS SUMMARY | 2018-11-11 08:15 | XMS REPORT | Continuity of Care Document ---
Author Organization Unknown Address Unknown Allergies Active Description Code Type Severity Reaction Onset Reported/Identified Relationship to Patient Clinical Status Yes No Known Drug Allergies [id number] Drug Allergy Unknown N/A 07/20/2011 Medications There [...] Ot 781.94 12/21/2014 Ot 433.30 12/21/2014 GELLENDER DO, LAURA Tyler Ot 573.8 12/21/2014 GELLENDER DO, LAURA Tyler Ot 593.9 12/21/2014 GELLENDER DOLAURA Ot 789.01 12/21/2014 GELLENDER DOLAURA Ot 433.10 12/21/2014 GELLENDER DOLAURA Ot 723.1 12/21/2014 GELLENDER DOLAURA Ot 433.10 12/21/2014 GELLENDER DOLAURA Ot 433.30 12/21/2014 GELLENDER DO, LAURA Tyler Ot 786.6 12/21/2014 GELLENDER DO, LAURA Tyler Ot 593.9 12/21/2014 GELLENDER DO, LAURA Tyler Ot 729.81 12/21/2014 ARLINE JACK BEAL Ot 910.4 INSECT BITE HEAD 12/21/2014 ARLINE JACK BEAL Ot E000.8 OTHER EXTERNAL CAUSE STATUS 12/21/2014 ARLINE JACK BEAL Ot E849.0 ACCIDENT IN HOME 12/21/2014 JACK NUNN DO Ot E906.4 NONVENOM ARTHROPOD BITE 08/30/2015 Ot [...] OCCLUSION W O CEREBRAL IN 11/18/2015 GELLENDER DOLAURA Ot 723.1 CERVICALGIA 11/18/2015 GELLENDER DOLAURA Ot 433.10 CAROTID ARTERY OCCLUSION W O CEREBRAL IN 11/18/2015 SOMMER BEALLAURA Ot 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 ARTERY OCCLUSION WO CEREBRA 11/18/2015 LAURA NOVOA DO Ot 786.6 CHEST SWELLING/MASS/LUMP 11/18/2015 OTILIAJERAMIEPANCHITO LAURA BEAL Ot 593.9 RENAL URETERAL DIS NOS 11/18/2015 OTILIAJERAMIEPANCHITO LAURA BEAL Ot 729.81 SWELLING OF LIMB 11/18/2015 LAURA NOVOA DO Ot M79.605 PAIN IN LEFT LEG 11/18/2015 LAURA NOVOA DO Ot R20.0 ANESTHESIA OF SKIN 11/18/2015 ALIVIA MARKHAM, PETTY Monae Ot E78.5 HYPERLIPIDEMIA, UNSPECIFIED 11/18/2015 ALIVIA MARKHAM, PETTY Monae Ot F17.210 NICOTINE DEPENDENCE, CIGARETTES, UNCOMPL 11/18/2015 ALIVIA MARKHAM, PETTY Monae Ot I10 ESSENTIAL (PRIMARY) HYPERTENSION 11/18/2015 ALIVIA MARKHAM, PETTY Monae Ot R07.89 OTHER CHEST PAIN 11/18/2015 PETTY BUNCH MD Ot E78.5 HYPERLIPIDEMIA, UNSPECIFIED 11/18/2015 ALIVIA MARKHAM, PETTY Monae Ot F17.210 NICOTINE DEPENDENCE, CIGARETTES, UNCOMPL 11/18/2015 ALIVIA MARKHAM, PETTY Monae Ot I10 ESSENTIAL (PRIMARY) HYPERTENSION 11/18/2015 ALIVIA MARKHAM, PETTY Monae Ot R07.89 OTHER CHEST PAIN 08/01/2016 Ot 781.94 FACIAL WEAKNESS 08/01/2016 Ot 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 ARTERY OCCLUSION WO CEREBRA 08/01/2016 LAURA NOVOA DO Ot 573.8 LIVER DISORDERS NEC 08/01/2016 LAURA NOVOA DO Ot 593.9 RENAL URETERAL DIS NOS 08/01/2016 LAURA NOVOA DO Ot 789.01 ABDOMINAL PAIN, RIGHT UPPER QUADRANT 08/01/2016 LAURA NOVOA DO Ot 433.10 CAROTID ARTERY OCCLUSION W O CEREBRAL IN 08/01/2016 LAURA NOVOA DO Ot 723.1 CERVICALGIA 08/01/2016 LAURA NOVOA DO Ot 433.10 CAROTID ARTERY OCCLUSION W O CEREBRAL IN 08/01/2016 LAURA NOVOA DO Ot 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 ARTERY OCCLUSION WO CEREBRA 08/01/2016 LAURA NOVOA DO A Ot 786.6 CHEST SWELLING/MASS/LUMP 08/01/2016 [facility], LAURA Tyler Ot 593.9 RENAL URETERAL DIS NOS 08/01/2016 [facility], LAURA Tyler Ot 729.81 SWELLING OF LIMB 08/01/2016 [facility], LAURA Tyler Ot M79.605 PAIN IN LEFT LEG 08/01/2016 [facility], LAURA Tyler Ot R20.0 ANESTHESIA OF SKIN 08/02/2016 [facility], LAURA Tyler Ot M48.06 SPINAL STENOSIS, LUMBAR REGION 08/30/2016 [facility], LAURA Tyler Ot M48.06 SPINAL STENOSIS, LUMBAR REGION 10/09/2016 ANNA FARFAN Ot I10 ESSENTIAL (PRIMARY) HYPERTENSION 10/09/2016 ANNA FARFAN Ot J02.9 ACUTE PHARYNGITIS, UNSPECIFIED 10/09/2016 ANNA FARFAN Ot K04.7 PERIAPICAL ABSCESS WITHOUT SINUS 10/09/2016 ANNA FARFAN Ot R59.0 LOCALIZED ENLARGED LYMPH NODES 10/09/2016 ANNA FARFAN Ot Z79.82 [employer] (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 ASPIRIN 10/09/2016 ANNA FARFAN Ot Z79.899 OTHER [employer] (CURRENT) DRUG THERAPY 10/10/2016 ANNA FARFAN Ot I10 ESSENTIAL (PRIMARY) HYPERTENSION 10/10/2016 ANNA FARFAN Ot J02.9 ACUTE PHARYNGITIS, UNSPECIFIED 10/10/2016 ANNA FARFAN Ot K04.7 PERIAPICAL ABSCESS WITHOUT SINUS 10/10/2016 ANNA FARFAN Ot R59.0 LOCALIZED ENLARGED LYMPH NODES 10/10/2016 ANNA FARFAN Ot Z79.82 S[facility] LIVING (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 ASPIRIN 10/10/2016 ANNA FARFAN Ot Z79.899 OTHER [employer] (CURRENT) DRUG THERAPY 10/17/2016 ANNA FARFAN Ot I10 ESSENTIAL (PRIMARY) HYPERTENSION 10/17/2016 ANNA FARFAN Ot J02.9 ACUTE PHARYNGITIS, UNSPECIFIED 10/17/2016 ANNA FARFAN Ot K04.7 PERIAPICAL ABSCESS WITHOUT SINUS 10/17/2016 ANNA FARFAN Ot R59.0 LOCALIZED ENLARGED LYMPH NODES 10/17/2016 ANNA FARFAN Ot Z79.82 [employer] (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 ASPIRIN 10/17/2016 ANNA FARFAN Ot Z79.899 OTHER [employer] (CURRENT) DRUG THERAPY 10/18/2016 ANNA FARFAN Ot I10 ESSENTIAL (PRIMARY) HYPERTENSION 10/18/2016 ANNA FARFAN Ot J02.9 ACUTE PHARYNGITIS, UNSPECIFIED 10/18/2016 ANNA FARFAN Ot K04.7 PERIAPICAL ABSCESS WITHOUT SINUS 10/18/2016 ANNA FARFAN Ot R59.0 LOCALIZED ENLARGED LYMPH NODES 10/18/2016 ANNA FARFAN Ot Z79.82 [employer] (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 ASPIRIN 10/18/2016 ANNA FARFAN Ot Z79.899 OTHER [employer] (CURRENT) DRUG THERAPY 09/06/[address] [facility] Tyler Ot E78.5 HYPERLIPIDEMIA, UNSPECIFIED 09/06/2017 GELLENDER DO, LAURA Tyler Ot H53.8 OTHER VISUAL DISTURBANCES 09/06/2017 GELLENDER DO, LAURA Tyler Ot I11.0 HYPERTENSIVE HEART DISEASE WITH HEART FA 09/06/2017 GELLENDER DO, LAURA Tyler Ot I51.7 CARDIOMEGALY 09/06/2017 GELLENDER DO, LAURA Tyler Ot R53.1 WEAKNESS 09/06/2017 GELLENDER DO, LAURA Tyler Ot Z79.899 OTHER [employer] (CURRENT) DRUG THERAPY 09/06/2017 GELLENDER DO, LAURA [...] Ot 573.8 LIVER DISORDERS NEC 05/19/2018 SOMMER BEAL, LAURA Tyler Ot 593.9 RENAL URETERAL DIS NOS 05/19/2018 SOMMER BEAL, LAURA Tyler Ot 789.01 ABDOMINAL PAIN, RIGHT UPPER QUADRANT 05/19/2018 SOMMER BEAL, LAURA Tyler Ot 433.10 CAROTID ARTERY OCCLUSION W O CEREBRAL IN 05/19/2018 SOMMER BEAL, LAURA Tyler Ot 723.1 CERVICALGIA 05/19/2018 SOMMER BEAL, LAURA Tyler Ot 433.10 CAROTID ARTERY OCCLUSION W O CEREBRAL IN 05/19/2018 SOMMER BEAL, LAURA Tyler Ot 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 ARTERY OCCLUSION WO CEREBRA 05/19/2018 SOMMER BEAL, LAURA Tyler Ot 786.6 CHEST SWELLING/MASS/LUMP 05/19/2018 SOMMER BEALLAURA [...] I11.9 HYPERTENSIVE HEART DISEASE WITHOUT HEART 05/20/2018 TASNEEM PAUL DOI Ot I16.1 HYPERTENSIVE EMERGENCY 05/20/2018 TASNEEM PAUL DOI Ot I42.2 OTHER HYPERTROPHIC CARDIOMYOPATHY 05/20/2018 HUMBERTO BEAL GIANNI Ot J45.909 UNSPECIFIED ASTHMA, UNCOMPLICATED 05/20/2018 HUMBERTO BEAL GIANNI Ot M54.5 LOW BACK PAIN 05/20/2018 PAUL DO, GIANNI Ot R07.9 CHEST PAIN, UNSPECIFIED 05/20/2018 PAUL DO, GIANNI Ot Z79.82 [employer] (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 ASPIRIN 05/20/2018 PAUL DO, GIANNI Ot Z79.899 OTHER [employer] (CURRENT) DRUG THERAPY 05/20/2018 PAUL DO, GIANNI Ot Z86.73 PRSNL HX OF TIA (TIA), AND CEREB INFRC W 05/20/2018 PAUL DO, GIANNI Ot Z87.891 PERSONAL HISTORY OF NICOTINE DEPENDENCE 05/20/2018 PAUL DO GIANNI Ot E78.5 HYPERLIPIDEMIA, UNSPECIFIED 05/20/2018 PAUL DO, GIANNI Ot G89.29 OTHER CHRONIC PAIN 05/20/2018 PAUL DO GIANNI Ot I11.9 HYPERTENSIVE HEART DISEASE WITHOUT HEART 05/20/2018 PAUL DO GIANNI Ot I16.1 HYPERTENSIVE EMERGENCY 05/20/2018 PAUL DO GIANNI Ot I42.2 OTHER HYPERTROPHIC CARDIOMYOPATHY 05/20/2018 PAUL DO GIANNI Ot J45.909 UNSPECIFIED ASTHMA, UNCOMPLICATED 05/20/2018 PAUL DO, GIANNI Ot M54.5 LOW BACK PAIN 05/20/2018 PAUL DO, GIANNI Ot R07.9 CHEST PAIN, UNSPECIFIED 05/20/2018 PAUL DO, GIANNI Ot Z79.82 [employer] (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 ASPIRIN 05/20/2018 PAUL DO GIANNI Ot Z79.899 OTHER [employer] (CURRENT) DRUG THERAPY 05/20/2018 PAUL DO GIANNI Ot Z86.73 PRSNL HX OF TIA (TIA), AND CEREB INFRC W 05/20/2018 PAUL DO GIANNI Ot Z87.891 PERSONAL HISTORY OF NICOTINE DEPENDENCE 07/15/2018 MIREILLE MARKHAM, Royal CORONADO Ot R07.9 CHEST PAIN, UNSPECIFIED 08/08/2018 LAURA NOVOA DO Ot 573.8 LIVER DISORDERS NEC 08/08/2018 LAURA NOVOA DO Ot 593.9 RENAL URETERAL DIS NOS 08/08/2018 LAURA NOVOA DO Ot 789.01 ABDOMINAL PAIN, RIGHT UPPER QUADRANT 08/08/2018 LAURA NOVOA DO Ot 433.10 CAROTID ARTERY OCCLUSION W O CEREBRAL IN 08/08/2018 [facility], LAURA Tyler Ot 723.1 CERVICALGIA 08/08/2018 [facility], LAURA Tyler Ot 433.10 CAROTID ARTERY OCCLUSION W O CEREBRAL IN 08/08/2018 [facility], LAURA Tyler Ot 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 ARTERY OCCLUSION WO CEREBRA 08/08/2018 [facility], LAURA Tyler Ot 786.6 CHEST SWELLING/MASS/LUMP 08/08/2018 [facility], LAURA Tyler Ot 593.9 RENAL URETERAL DIS NOS 08/08/2018 [facility], LAURA Tyler Ot 729.81 SWELLING OF LIMB 08/08/2018 [facility], LAURA Tyler Ot M79.605 PAIN IN LEFT LEG 08/08/2018 [facility], LAURA Nayeli Ot R20.0 ANESTHESIA OF SKIN 08/08/2018 [facility], LAURA Tyler Ot M48.06 SPINAL STENOSIS, LUMBAR REGION 08/08/2018 [facility], LAURA Nayeli Ot M47.816 SPONDYLOSIS W/O MYELOPATHY OR RADICULOPA 08/08/2018 [facility], LAURA Tyler Ot M48.07 SPINAL STENOSIS, LUMBOSACRAL REGION 08/08/2018 [facility], LAURA Nayeli Ot M51.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, 08/08/2018 MIREILLE MARKHAM, Royal CORONADO Ot R07.9 CHEST PAIN, UNSPECIFIED 08/08/2018 [facility], LAURA Tyler Ot M47.816 SPONDYLOSIS W/O MYELOPATHY OR RADICULOPA 08/08/2018 [facility], LAURA Nayeli Ot M48.07 SPINAL STENOSIS, LUMBOSACRAL REGION 08/08/2018 [facility], LAURA Nayeli Ot M51.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, 08/08/2018 [facility], LAURA Nayeli Ot M48.06 SPINAL STENOSIS, LUMBAR REGION 08/09/2018 MIREILLE MARKHAM, Royal CORONADO Ot I08.1 RHEUMATIC DISORDERS OF BOTH MITRAL AND T 08/09/2018 Royal KENDRICK MD Ot I11.9 HYPERTENSIVE HEART DISEASE WITHOUT HEART 08/09/2018 Royal KENDRICK MD Ot I25.10 ATHSCL HEART DISEASE OF [place] CORONARY 08/09/2018 MIRELILE MARKHAM, Royal CORONADO Ot I42.2 OTHER HYPERTROPHIC CARDIOMYOPATHY 08/09/2018 Royal KENDRICK MD Ot R94.39 ABNORMAL RESULT OF OTHER CARDIOVASCULAR 08/09/2018 Royal KENDRICK MD Ot Z79.82 [employer] (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 ASPIRIN 08/09/2018 Royal KENDRICK MD Ot Z79.899 OTHER [facility]IVING (CURRENT) DRUG THERAPY 08/09/2018 Royal KENDRICK MD Ot Z87.891 PERSONAL HISTORY OF NICOTINE DEPENDENCE 08/14/2018 Royal KENDRICK MD Ot I08.1 RHEUMATIC DISORDERS OF BOTH MITRAL AND T 08/14/2018 Royal KENDRICK MD Ot I11.9 HYPERTENSIVE HEART DISEASE WITHOUT HEART 08/14/2018 Royal KENDRICK MD Ot I25.10 ATHSCL HEART DISEASE OF [place] CORONARY 08/14/2018 Royal KENDRICK MD Ot I42.2 OTHER HYPERTROPHIC CARDIOMYOPATHY 08/14/2018 Royal KENDRICK MD Ot R94.39 ABNORMAL RESULT OF OTHER CARDIOVASCULAR 08/14/2018 Royal KENDRICK MD Ot Z79.82 SENIOR LIVING (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 ASPIRIN 08/14/2018 Royal KENDRICK MD Ot Z79.899 OTHER [facility]IVING (CURRENT) DRUG THERAPY 08/14/2018 Royal KENDRICK MD Ot Z87.891 PERSONAL HISTORY OF NICOTINE DEPENDENCE 09/06/2018 LAURA NOVOA DO Ot M48.06 SPINAL STENOSIS, LUMBAR REGION 09/06/2018 LAURA NOVOA DO Ot M47.816 SPONDYLOSIS W/O MYELOPATHY OR RADICULOPA 09/06/2018 LAURA NOVOA DO Ot M48.07 SPINAL STENOSIS, LUMBOSACRAL REGION 09/06/2018 [facility] Ot M51.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, Procedures [...] Manual eosinophils/100 leukocytes in nose 0 % NR Manual blood basophils/100 leukocytes 0 % NR Blood erythrocyte morphology finding identification [facility] Comprehensive metabolic panel - [...] VLDL measurement (mass/volume) 28 mg/ dL 5-40 Automated blood complete blood count (hemogram) panel - 08/08/18 11:00 Blood leukocytes automated count (number/volume) 7.1 10*3/uL 4.3-11.0 Blood erythrocytes automated count (number/volume) 4.05 10*6/uL 4.35-5.85 Venous blood hemoglobin measurement (mass/volume) 12.4 g/dL 13.3-17.7 Blood hematocrit (volume fraction) 37 % 40-54 Automated erythrocyte mean corpuscular volume 91 [foz_us] 80-99 Automated erythrocyte mean corpuscular hemoglobin (mass per erythrocyte) 31 pg 25-34 Automated erythrocyte mean corpuscular hemoglobin concentration measurement ( mass/volume) 34 g/dL 32-36 Automated erythrocyte distribution width ratio 13.6 % 10.0-14.5 Automated blood platelet count (count/volume) 238 10*3/uL 130-400 Automated blood platelet mean volume measurement 10.1 [foz_us] 7.4-10.4 PT panel in platelet poor plasma by coagulation assay - 08/08/18 11:00 Prothrombin time (PT) in platelet poor plasma by coagulation assay 12.8 s 12.2-14.7 INR in platelet poor plasma or blood by coagulation assay 1.0 0.8-1.4 Activated partial thromboplastin time (aPTT) in platelet poor plasma bycoagulation assay - 08/08/18 11:00 Activated partial thromboplastin time (aPTT) in platelet poor plasma bycoagulation assay 26 s 24-35 Comprehensive metabolic panel - 08/08/18 11:00 Serum or plasma sodium measurement (moles/volume) 141 mmol/L 135-145 Serum or plasma potassium measurement (moles/volume) 3.7 mmol/L 3.6-5.0 Serum or plasma chloride measurement (moles/volume) 104 mmol/L 98-107 Carbon dioxide 28 mmol/L 21-32 Serum or plasma anion gap determination (moles/volume) 9 mmol/L 5-14 Serum or plasma urea nitrogen measurement (mass/volume) 13 mg/dL 7-18 Serum or plasma creatinine measurement (mass/volume) 1.07 mg/dL 0.60-1.30 Serum or plasma urea nitrogen/creatinine mass ratio 12 NRG Serum or plasma creatinine measurement with calculation of estimated glomerular filtration rate > NRG Serum or plasma glucose measurement (mass/volume) 99 mg/dL 70-105 Serum or plasma calcium measurement (mass/volume) 9.7 mg/dL 8.5-10.1 Serum or plasma total bilirubin measurement (mass/volume) 0.6 mg/dL 0.1-1.0 Serum or plasma alkaline phosphatase measurement (enzymatic activity/volume) 78 U/L 40-136 Serum or plasma aspartate aminotransferase measurement (enzymatic activity/ volume) 20 U/L 5-34 Serum or plasma alanine aminotransferase measurement (enzymatic activity/volume ) 25 U/L 0-55 Serum or plasma protein measurement (mass/volume) 7.6 g/dL 6.4-8.2 Serum or plasma albumin measurement (mass/volume) 4.2 g/dL 3.2-4.5 CALCIUM CORRECTED 9.5 mg/dL 8.5-10.1 Lipid 1996 panel - 08/08/18 11:00 Serum or plasma triglyceride measurement (mass/volume) 130 mg/dL <150 Serum or plasma cholesterol measurement (mass/volume) 205 mg/dL < 200 Serum or plasma cholesterol in HDL measurement (mass/volume) 43 mg/ dL 40-60 Cholesterol in LDL [mass/volume] in serum or plasma by direct assay 141 mg/dL 1-129 Serum or plasma cholesterol in VLDL measurement (mass/volume) 26 mg/ dL 5-40 Methicillin resistant Staphylococcus aureus (MRSA) screening culture - 11:00 Methicillin resistant Staphylococcus aureus (MRSA) screening culture NEG NRG Automated blood complete blood count (hemogram) panel - 08/09/18 03:05 Blood leukocytes automated count (number/volume) 7.6 10*3/uL 4.3-11.0 Blood erythrocytes automated count (number/volume) 4.09 10*6/uL 4.35-5.85 Venous blood hemoglobin measurement (mass/volume) 12.4 g/dL 13.3-17.7 Blood hematocrit (volume fraction) 37 % 40-54 Automated erythrocyte mean corpuscular volume 90 [foz_us] 80-99 Automated erythrocyte mean corpuscular hemoglobin (mass per erythrocyte) 30 pg 25-34 Automated erythrocyte mean corpuscular hemoglobin concentration measurement ( mass/volume) 34 g/dL 32-36 Automated erythrocyte distribution width ratio 13.4 % 10.0-14.5 Automated blood platelet count (count/volume) 222 10*3/uL 130-400 Automated blood platelet mean volume measurement 10.7 [foz_us] 7.4-10.4 Whole blood basic metabolic panel - 08/09/18 03:05 Serum or plasma sodium measurement (moles/volume) 141 mmol/L 135-145 Serum or plasma potassium measurement (moles/volume) 3.8 mmol/L 3.6-5.0 Serum or plasma chloride measurement (moles/volume) 107 mmol/L 98-107 Carbon dioxide 24 mmol/L 21-32 Serum or plasma anion gap determination (moles/volume) 10 mmol/L 5-14 Serum or plasma urea nitrogen measurement (mass/volume) 12 mg/dL 7-18 Serum or plasma creatinine measurement (mass/volume) 0.95 mg/dL 0.60-1.30 Serum or plasma urea nitrogen/creatinine mass ratio 13 NRG Serum or plasma creatinine measurement with calculation of estimated glomerular filtration rate > NRG Serum or plasma glucose measurement (mass/volume) 105 mg/dL 70-105 Serum or plasma calcium measurement (mass/volume) 9.5 mg/dL 8.5-10.1 Encounters ACCT No. Visit Date/Time Discharge Status Pt. Type Provider Facility Loc./Unit Complaint [id number] 08/08/2018 10:23:00 08/09/2018 10:25:00 DIS Outpatient Royal KENDRICK MD [facility] CATH CHEST PAIN,ABN NUCLEAR STRESS TEST [id number] 07/11/2018 08:20:00 07/11/2018 23:59:59 CLS Outpatient Royal KENDRICK MD [facility] CARD CHEST PAIN [id number] 05/19/2018 08:40:00 05/20/2018 17:43:00 DIS Inpatient GIANNI PAUL DO [facility] ICU HYPERTENSIVE EMERGENCY, CHEST PAIN, R/O ACS [id number] 09/14/2017 07:47:00 09/14/2017 23:59:59 CLS Outpatient LAURA NOVOA DO [facility] RAD PAIN IN LUMBAR REGION AND GOES DOWN LT LEG [id number] 09/04/2017 17:20:00 09/06/2017 10:45:00 DIS Inpatient LAURA NOVOA DO [facility] 4TH HYPERTENSIVE ENERPENCY, GENERLIZED WEAKNESS [id number] 10/09/2016 16:37:00 10/09/2016 20:33:00 DIS Emergency ANNA FARFAN [facility] ER SWOLLEN GLANDS IN NECK /DIFF SWALLOWING [id number] 08/01/2016 10:51:00 08/01/2016 23:59:59 CLS Outpatient LAURA NOVOA DO [facility] RAD RIGHT LEG AND FOOT NUMBNESS AND TINGLING [id number] 11/18/2015 01:54:00 11/18/2015 16:50:00 DIS Inpatient ALIVIA MARKHAM, PETTY Monae [facility] CSD CHEST PAIN,HYPERTENSIVE URGENCY [id number] 08/30/2015 14:06:00 08/30/2015 23:59:59 CLS Outpatient LAURA NOVOA DO [facility] RAD LT LEG GOIES NUMB HURTS TO WALK [id number] 12/21/2014 22:59:00 12/21/2014 23:37:00 DIS Emergency JACK NUNN DO [facility] ER BUG BITE IN LEFT EAR [id number] 01/08/2014 06:59:00 01/08/2014 23:59:59 CLS Outpatient LAURA NOVOA DO [facility] RAD SWELLING ABOVE LEFT CLAVICLE,RENAL INSUFF [id number] 12/31/2013 15:05:00 12/31/2013 23:59:59 CLS Outpatient LAURA NOVOA DO [facility] RAD SWELLING ABOVE LT CLAVICLE [id number] 12/04/2013 10:20:00 12/04/2013 23:59:59 CLS Outpatient LAURA NOVOA DO [facility] RAD CAROTID OCCLUSION [id number] 12/01/2013 11:10:00 12/01/2013 23:59:59 CLS Outpatient LAURA NOVOA DO [facility] RAD NECK PAIN SWELLING [id number] 11/04/2013 13:26:00 11/04/2013 23:59:59 CLS Outpatient LAURA NOVOA DO [facility] RAD RLQ PAIN [id number] 02/18/2013 08:38:00 02/18/2013 10:03:00 DIS Emergency STANTON CASTELLON MD [facility] ER SWOLLEN LYMPH NODES [id number] 12/02/2012 14:38:00 12/02/2012 17:49:00 DIS Emergency ANNA FARFAN [facility] ER COUGH/CONGESTION [id number] 11/11/2018 08:10:00 ACT Emergency STANTON CASTELLON MD [facility] ER THROAT PAIN [id number] 12/21/2014 22:59:00 Document Registration [id number] 10/20/2011 14:28:00 Document Registration [id number] 10/17/2011 12:42:00 Document Registration [id number] 07/20/2011 02:29:00 Document Registration [id number] 08/10/2017 14:00:00 08/10/2017 23:59:59 CLS Outpatient BREANNE MACKENZIE [facility]
[2018-11-11] MEDS ORDERED: KETOROLAC 60 MG/2 ML VIAL IM STA (08:37)
[2018-11-11] MEDS ORDERED: DEXAMETHASONE 10 MG/ML (DECADRON) 1 ML VIAL IM ONE (08:45)
--- NOTE | 2018-11-11 09:13 | ED EENT ---
History of Present Illness General Chief Complaint: Oral/Throat Problems Stated Complaint: THROAT PAIN Nursing Triage Note: pt presents to ed with complaints of sore throat, feels swollen, hard to swallow, also reports nasal congestion and cough, body aches starting yesterday. Source: patient Exam Limitations: no limitations History of Present Illness Date Seen by Provider: Nov 11, 2018 Time Seen by Provider: 08:31 Initial Comments Here with report of sore throat and nasal congestion and cough that started yesterday. Also associated with bodyaches. Denies nausea or vomiting. Has not taken anything for the pain. He states he did not sleep well last night because of a cough and sore throat. Timing/Duration: gradual, yesterday Severity: moderate Location: nose, throat Prearrival Treatment: no prearrival treatment Associated Symptoms: cough; No ear drainage, No facial pain/swelling, No fever ; nasal congestion/drainage, tooth pain Allergies and Home Medications Allergies Coded Allergies: No Known Drug Allergies (Unverified , 07/20/11) Home Medications Amlodipine Besylate 10 Mg Tablet, 10 MG PO DAILY, (Reported) Aspirin 81 Mg Tablet.dr, 81 MG PO DAILY, (Reported) Atorvastatin Calcium 40 Mg Tablet, 40 MG PO HS, (Reported) Chlorzoxazone 500 Mg Tablet, 500 MG PO BID, (Reported) Furosemide 40 Mg Tablet, 40 MG PO DAILY, (Reported) Lisinopril 40 Mg Tablet, 40 MG PO DAILY, (Reported) Metoprolol Succinate 50 Mg Tab.er.24h, 50 MG PO DAILY Prescribed by: Royal KENDRICK on 08/09/18 1008 Nitroglycerin 0.4 Mg Tab.subl, 0.4 MG SL UD PRN for CHEST PAIN, (Reported) Pyridoxine HCl 100 Mg Tablet, 100 MG PO DAILY, (Reported) Ticagrelor 90 Mg Tablet, 90 MG PO BID Prescribed by: Royal KENDRICK on 08/09/18 1008 Tramadol HCl 50 Mg Tablet, 50 MG PO BID PRN for PAIN-MODERATE, (Reported) Patient Home Medication List Home Medication List Reviewed: Yes Review of Systems Review of Systems Constitutional: see HPI; No chills, No fever Eyes: No Symptoms Reported Ears: No Symptoms Reported Nose: see HPI Mouth: see HPI Throat: see HPI, pain; denies neck stiffness, denies hoarse, denies aphonia, denies muffled Respiratory: cough; No short of breath Cardiovascular: no symptoms reported Gastrointestinal: no symptoms reported Past Xvautxz-Rqeybl-Dvtawo Hx Past Med/Social Hx: Reviewed Nursing Past Med/Soc Hx Patient Social History Alcohol Use: Denies Use Number of Drinks Today: AA Alcohol Beverage of Choice: Beer Recreational Drug Use: No Smoking Status: Former Smoker Type Used: Cigarettes Former Smoker, Quit: Feb 05, 2017 2nd Hand Smoke Exposure: No Recent Foreign Travel: No Contact w/Someone Who Travel: No Recent Infectious Disease Expo: No Recent Hopitalizations: Yes (HTN) Physical Abuse: No Sexual Abuse: No Mistreated: No Fear: No Immunizations Up To Date Tetanus Booster (TDap): Unknown PED Vaccines UTD: No Seasonal Allergies Seasonal Allergies: No Past Medical History Surgeries: Yes (Inguinal hernia Rpr-peds, lower back, r pinky finger) Coronary Stent, Orthopedic Respiratory: Yes (CHILDHOOD ASTHMA) Asthma Currently Using CPAP: No Currently Using BIPAP: No Cardiac: Yes Heart Attack, High Cholesterol, Hypertension Neurological: No Stroke Reproductive Disorders: No Genitourinary: No Gastrointestinal: No Musculoskeletal: Yes Chronic Back Pain Endocrine: No HEENT: No Cancer: No Psychosocial: No Integumentary: No Blood Disorders: No Adverse Reaction/Blood Tranf: No Family Medical History Reviewed Nursing Family Hx Diabetes Physical Exam Vital Signs Vital Signs - First Documented 11/11/18 08:27 Temp 98.4 Pulse 70 Resp 18 B/P (MAP) 198/99 (132) Pulse Ox 98 Height, Weight, BMI Height: 6'2.00" Weight: 214lbs. 0.0oz. 97.488617jl; 28.1 BMI Method:Stated General Appearance: WD/WN, no apparent distress Ears: bilateral ear auricle normal, bilateral ear canal normal, bilateral ear TM bulging, bilateral ear other (TMs otherwise normal) Mouth/Throat: No tongue swollen, No tonsillar exudate, No trismus, No uvula swelling; other (pharyngeal erythema) Neck: full range of motion, supple, normal inspection Cardiovascular: regular rate, rhythm, no murmur Respiratory: lungs clear, normal breath sounds Gastrointestinal: non tender, soft Neurologic/Psychiatric: alert, oriented x 3 Progress/Results/Core Measures Results/Orders Lab Results Laboratory Tests Test 11/11/18 08:38 Range/Units Group A Streptococcus Screen NEGATIVE NEGATIVE My Orders Orders - STANTON CASTELLON MD Rapid Strep A Screen (11/11/18 08:36) Influenza A And B Antigens (11/11/18 08:36) Ketorolac Injection (Toradol Injection) (11/11/18 08:37) Dexamethasone Injection (Decadron Inject (11/11/18 08:45) Medications Given in ED Current Medications Medications Dose Ordered Sig/Haylie Route Start Time Stop Time Status Last Admin Dose Admin Dexamethasone Sodium Phosphate 10 mg ONCE ONCE IM 11/11/18 08:45 11/11/18 08:46 DC 11/11/18 08:49 10 MG Vital Signs/I&O 11/11/18 08:27 Temp 98.4 Pulse 70 Resp 18 B/P (MAP) 198/99 (132) Pulse Ox 98 Blood Pressure Mean: 132 Progress Progress Note : Progress Note Seen and evaluated. Influenza screen and strep screen ordered. Decadron 10 mg IM ordered. Toradol 60 mg IM. Patient took his home blood pressure medicines since he missed his dose this morning. Screens negative. Discharged home with return precautions. Patient verbalize understanding instructions and agreement with plan. Departure Impression Primary Impression: Viral upper respiratory infection Disposition: HOME, SELF-CARE Condition: Stable Departure-Patient Inst. Decision time for Depature: 09:10 Referrals: LAURA NOVOA DO (PCP/Family) Primary Care Physician Patient Instructions: Viral Upper Respiratory Infection, Adult (DC) Add. Discharge Instructions: All discharge instructions reviewed with patient and/or family. Voiced understanding. You may take Tylenol/acetaminophen 1000 mg every 8 hours as needed for fever or pain. You may take ibuprofen 600 mg every 8 hours as needed for fever or pain. You may use Afrin nasal spray or the generic, 12 hour relief, 2 sprays to each nostril twice daily for 3 days only and then stop. Do not use more than 3 days. Follow-up with your DrElina in a few days for recheck. Drink plenty of fluids. Return for worse pain, fever, vomiting, weakness, breathing problems or other concerns as needed. STANTON CASTELLON MD Nov 11, 2018 09:13
[2018-11-11 09:45] VITALS: BP 168/106
== END 2018-11-11 09:45 | disposition home or self-care (01) ==
LOC: EDUNIT# 08:09 → ER 08:10
DX: J06.9 Acute upper respiratory infection, unspecified (principal); J45.909 Unspecified asthma, uncomplicated; I25.2 Old myocardial infarction; E78.00 Pure hypercholesterolemia, unspecified; I10 Essential (primary) hypertension; Z86.73 Personal history of transient ischemic attack (TIA), and cerebral infarction without residual deficits; Z79.82 Long term (current) use of aspirin; Z87.891 Personal history of nicotine dependence; Z98.890 Other specified postprocedural states; Z95.5 Presence of coronary angioplasty implant and graft
CPT/HCPCS: 87430; 87804; 96372

== ENCOUNTER 2019-03-17 18:34 | Emergency (ER) | payer MEDICARE ==
[~2019-03-17] VITALS: Ht 188 cm; Wt 100.7 kg
--- NOTE | 2019-03-17 19:14 | NUR ---
Assumed care of pt @ this time. Pt amb from triage to room #6 w/o difficulty. a&ox4.
--- NOTE | 2019-03-17 20:20 | NUR ---
Bilat DP pulses present and equal.
[2019-03-17 20:26] LABS: BASOPHILS % (AUTO) 0 % (0-10); EOSINOPHILS # (AUTO) 0.2 10^3/uL (0.0-0.3); EOSINOPHILS % (AUTO) 3 % (0-10); HEMATOCRIT 35 % (40-54); HEMOGLOBIN 11.6 G/DL (13.3-17.7); LYMPHOCYTES % (AUTO) 30 % (12-44); MEAN CORPUSCULAR HEMOGLOBIN 31 PG (25-34); MEAN CORPUSCULAR HGB CONC 34 G/DL (32-36); MEAN CORPUSCULAR VOLUME 93 FL (80-99); MEAN PLATELET VOLUME 11.2 FL (7.4-10.4); MONOCYTES # (AUTO) 0.4 X 10^3 (0.0-1.0); MONOCYTES % (AUTO) 6 % (0-12); NEUTROPHILS # (AUTO) 4.1 X 10^3 (1.8-7.8); NEUTROPHILS % (AUTO) 62 % (42-75); PLATELET COUNT 207 10^3/uL (130-400); RED CELL DISTRIBUTION WIDTH 13.7 % (10.0-14.5); WHITE BLOOD COUNT 6.6 10^3/uL (4.3-11.0)
--- NOTE | 2019-03-17 20:30 | Diagnostic Imaging Report ---
INDICATION: Shortness of breath COMPARISON: 05/19/2018 FINDINGS: Single view of the chest demonstrates stable cardiac enlargement. The lungs are clear. There is no pneumothorax. Osseous structures are normal. IMPRESSION: Stable cardiac enlargement without pulmonary edema or infiltrate. Dictated by: Dictated on workstation # [id number]
[2019-03-17 20:31] LABS: PROTHROMBIN TIME PATIENT 13.1 SEC (12.2-14.7)
[2019-03-17 20:43] LABS: ALANINE AMINOTRANSFERASE 24 U/L (0-55); ALBUMIN 4.1 GM/DL (3.2-4.5); ALKALINE PHOSPHATASE 84 U/L (40-136); BILIRUBIN,TOTAL 0.6 MG/DL (0.1-1.0); BUN/CREATININE RATIO 11; CALCIUM 9.4 MG/DL (8.5-10.1); CARBON DIOXIDE 24 MMOL/L (21-32); CHLORIDE 104 MMOL/L (98-107); CREATININE SERUM 1.37 MG/DL (0.60-1.30); GFR ESTIMATED > 60; GLUCOSE 178 MG/DL (70-105); MAGNESIUM 1.7 MG/DL (1.6-2.4); POTASSIUM 3.5 MMOL/L (3.6-5.0); SODIUM 140 MMOL/L (135-145); TOTAL PROTEIN 7.6 GM/DL (6.4-8.2)
[2019-03-17] MEDS: ASPIRIN 81 MG CHEW (CHILDREN'S ASA) PO ONE ×2 (20:57→21:20)
--- NOTE | 2019-03-17 20:58 | ED Lower Extremity ---
General Chief Complaint: General Problems/Pain Stated Complaint: POOR CIRCULATION IN LEGS Nursing Triage Note: PT AMB TO TRIAGE WITH COMPLAINT OF "POOR CIRCULATION IN LEGS" AND SOA. STATES HIS LEGS FEEL NUMB WHEN STANDING. Nursing Sepsis Screen: No Definite Risk Source: patient Exam Limitations: no limitations History of Present Illness Date Seen by Provider: Mar 17, 2019 Time Seen by Provider: 20:40 Initial Comments Patient presents to ER by private conveyance with chief complaint that he was at the pharmacy this evening around 5 and while standing up and said his bilateral lower extremity is went numb up to available about his thigh. He is wearing his compression stockings as instructed. He does have a history of coronary disease with a stent in his heart known to Dr. Sosa. He is not having any chest pain but for the last week he has had some shortness of breath. As long as he wears stockings he does not have swelling in his feet. He denies any chest pain. Couple nights ago he did take a single dose of nitroglycerin sublingually for left arm numbness but it went away within 10 minutes. He does not have claudication in his legs or chest on exertion. He is on Brilinta and aspirin. He's been taking all his medications routinely. He's never had an SIM or any workup for peripheral arterial disease that he is aware of. No history of stents in his extremities. Allergies and Home Medications Allergies Coded Allergies: No Known Drug Allergies (Unverified , 07/20/11) Home Medications Amlodipine Besylate 10 Mg Tablet, 10 MG PO DAILY, (Reported) Aspirin 81 Mg Tablet.dr, 81 MG PO DAILY, (Reported) Atorvastatin Calcium 40 Mg Tablet, 40 MG PO HS, (Reported) Chlorzoxazone 500 Mg Tablet, 500 MG PO BID, (Reported) Furosemide 40 Mg Tablet, 40 MG PO DAILY, (Reported) Lisinopril 40 Mg Tablet, 40 MG PO DAILY, (Reported) Metoprolol Succinate 50 Mg Tab.er.24h, 50 MG PO DAILY Prescribed by: Royal SOSA on 08/09/18 1008 Nitroglycerin 0.4 Mg Tab.subl, 0.4 MG SL UD PRN for CHEST PAIN, (Reported) Pyridoxine HCl 100 Mg Tablet, 100 MG PO DAILY, (Reported) Ticagrelor 90 Mg Tablet, 90 MG PO BID Prescribed by: Royal SOSA on 08/09/18 1008 Tramadol HCl 50 Mg Tablet, 50 MG PO BID PRN for PAIN-MODERATE, (Reported) Patient Home Medication List Home Medication List Reviewed: Yes Review of Systems Constitutional: No chills, No diaphoresis, No malaise EENTM: No ear discharge, No eye pain Respiratory: No cough, No short of breath Cardiovascular: No chest pain, No edema Gastrointestinal: No abdominal pain, No constipation, No diarrhea Genitourinary: No discharge, No dysuria Musculoskeletal: No back pain, No joint pain Psychiatric/Neurological: See HPI, Numbness, Paresthesia Past Hjygsst-Qytsal-Uinnlo Hx Patient Social History Alcohol Use: Occasionally Uses Number of Drinks Today: AA Alcohol Beverage of Choice: Beer Recreational Drug Use: No Smoking Status: Former Smoker Type Used: Cigarettes Former Smoker, Quit: Feb 05, 2017 2nd Hand Smoke Exposure: No Recent Foreign Travel: No Contact w/Someone Who Travel: No Recent Infectious Disease Expo: No Recent Hopitalizations: Yes (HTN) Immunizations Up To Date Tetanus Booster (TDap): Unknown PED Vaccines UTD: No Seasonal Allergies Seasonal Allergies: No Past Medical History Surgeries: Yes (Inguinal hernia Rpr-peds, lower back, r pinky finger) Coronary Stent, Orthopedic Respiratory: Yes (CHILDHOOD ASTHMA) Asthma Currently Using CPAP: No Currently Using BIPAP: No Cardiac: Yes Heart Attack, High Cholesterol, Hypertension Neurological: No Stroke Reproductive Disorders: No Genitourinary: No Gastrointestinal: No Musculoskeletal: Yes Chronic Back Pain Endocrine: No HEENT: No Cancer: No Psychosocial: No Integumentary: No Blood Disorders: No Adverse Reaction/Blood Tranf: No Family Medical History Diabetes Physical Exam Vital Signs Vital Signs - First Documented 03/17/19 18:44 Temp 98.0 Pulse 72 Resp 16 B/P (MAP) 160/95 (116) Pulse Ox 98 O2 Delivery Room Air Capillary Refill : Less Than 3 Seconds Height, Weight, BMI Height: 6'2.00" Weight: 222lbs. 0.0oz. 100.990473li; 28.1 BMI Method:Stated General Appearance: WD/WN, no apparent distress HEENT: PERRL/EOMI, normal ENT inspection, TMs normal, pharynx normal Neck: non-tender, full range of motion, supple, normal inspection Cardiovascular: normal peripheral pulses, regular rate, rhythm, no edema, no gallop, no JVD, no murmur, other (The patient has dopplerable dorsal pedal pulses bilateral feet. He has a 1 out of 4 palpable posterior popliteal pulses bilaterally symmetric. Capillary refill is less than 3 seconds in his feet are warm) Respiratory: chest non-tender, lungs clear, normal breath sounds, no respiratory distress, no accessory muscle use Gastrointestinal: normal bowel sounds, non tender, soft Legs: bilateral leg non-tender, bilateral leg normal inspection, bilateral leg normal range of motion, bilateral leg no evidence of injury Progress/Results/Core Measures Results/Orders Lab Results Laboratory Tests Test 03/17/19 19:20 03/17/19 21:05 Range/Units White Blood Count 6.6 4.3-11.0 10^3/uL Red Blood Count 3.74 L 4.35-5.85 10^6/uL Hemoglobin 11.6 L 13.3-17.7 G/DL Hematocrit 35 L 40-54 % Mean Corpuscular Volume 93 80-99 FL Mean Corpuscular Hemoglobin 31 25-34 PG Mean Corpuscular Hemoglobin Concent 34 32-36 G/DL Red Cell Distribution Width 13.7 10.0-14.5 % Platelet Count 207 130-400 10^3/uL Mean Platelet Volume 11.2 H 7.4-10.4 FL Neutrophils (%) (Auto) 62 42-75 % Lymphocytes (%) (Auto) 30 12-44 % Monocytes (%) (Auto) 6 0-12 % Eosinophils (%) (Auto) 3 0-10 % Basophils (%) (Auto) 0 0-10 % Neutrophils # (Auto) 4.1 1.8-7.8 X 10^3 Lymphocytes # (Auto) 2.0 1.0-4.0 X 10^3 Monocytes # (Auto) 0.4 0.0-1.0 X 10^3 Eosinophils # (Auto) 0.2 0.0-0.3 10^3/uL Basophils # (Auto) 0.0 0.0-0.1 10^3/uL Prothrombin Time 13.1 12.2-14.7 SEC INR Comment 1.0 0.8-1.4 Activated Partial Thromboplast Time 26 24-35 SEC Sodium Level 140 135-145 MMOL/L Potassium Level 3.5 L 3.6-5.0 MMOL/L Chloride Level 104 98-107 MMOL/L Carbon Dioxide Level 24 21-32 MMOL/L Anion Gap 12 5-14 MMOL/L Blood Urea Nitrogen 15 7-18 MG/DL Creatinine 1.37 H 0.60-1.30 MG/DL Estimat Glomerular Filtration Rate > 60 BUN/Creatinine Ratio 11 Glucose Level 178 H 70-105 MG/DL Calcium Level 9.4 8.5-10.1 MG/DL Corrected Calcium 9.3 8.5-10.1 MG/DL Magnesium Level 1.7 1.6-2.4 MG/DL Total Bilirubin 0.6 0.1-1.0 MG/DL Aspartate Amino Transf (AST/SGOT) 18 5-34 U/L Alanine Aminotransferase (ALT/SGPT) 24 0-55 U/L Alkaline Phosphatase 84 40-136 U/L Myoglobin 41.4 10.0-92.0 NG/ML Troponin I < 0.028 < 0.028 <0.028 NG/ML B-Type Natriuretic Peptide 18.1 <100.0 PG/ML Total Protein 7.6 6.4-8.2 GM/DL Albumin 4.1 3.2-4.5 GM/DL My Orders Orders - WARREN,DELROY J Cbc With Automated Diff (03/17/19 20:13) Magnesium (03/17/19 20:13) Chest 1 View, Ap/Pa Only (03/17/19 20:13) Ekg Tracing (03/17/19 20:13) Cardiac Profile 1 (03/17/19 20:13) Comprehensive Metabolic Panel (03/17/19 20:13) Myoglobin Serum (03/17/19 20:13) Protime With Inr (03/17/19 20:13) Partial Thromboplastin Time (03/17/19 20:13) O2 (03/17/19 20:13) Monitor-Rhythm Ecg Trace Only (03/17/19 20:13) Lipid Panel (03/18/19 06:00) Ed Iv/Invasive Line Start (03/17/19 20:13) BNP (03/17/19 20:13) Aspirin Chewable Tablet (Baby Aspirin Ch (03/17/19 20:15) Troponin I (03/17/19 20:55) Medications Given in ED Current Medications Medications Dose Ordered Sig/Haylie Route Start Time Stop Time Status Last Admin Dose Admin Aspirin 324 mg ONCE ONCE PO 03/17/19 20:15 03/17/19 20:16 DC 03/17/19 21:20 324 MG Vital Signs/I&O 03/17/19 18:44 Temp 98.0 Pulse 72 Resp 16 B/P (MAP) 160/95 (116) Pulse Ox 98 O2 Delivery Room Air Blood Pressure Mean: 116 Progress Progress Note : Time: 21:31 Progress Note The patient probably needs an outpatient peripheral vascular disease workup. Or shortness of breath with a delta troponin to make sure he is not having atypical anginal situation however his vital signs otherwise are okay. he is not hypoxic with an oxygen saturation of 100% on room air. Chest x-ray unremarkable. Lungs sound clear on auscultation. He would probably be appropriate to follow up outpatient Initial ECG Impression Date: Mar 17, 2019 Initial ECG Impression Time: 20:39 Initial ECG Rate: 54 Initial ECG Rhythm: Normal Sinus Initial ECG Intervals: Normal Initial ECG Impression: Normal, Nonspecific Changes Initial ECG Comparisson: Unchanged Comment No clinically evident ST elevation or depression. Diagnostic Imaging Diagonstic Imaging: Xray Plain Films/CT/US/NM/MRI: chest (1v) Comments NAME: ALVERTO HERNANDEZ MED REC#: [id number] PT STATUS: REG ER : 1960 PHYSICIAN: DELROY KELLEY MD ADMIT DATE: 03/17/19/ER Signed Date of Exam:03/17/19 CHEST 1 VIEW, AP/PA ONLY INDICATION: Shortness of breath COMPARISON: 05/19/2018 FINDINGS: Single view of the chest demonstrates stable cardiac enlargement. The lungs are clear. There is no pneumothorax. Osseous structures are normal. IMPRESSION: Stable cardiac enlargement without pulmonary edema or infiltrate. Dictated by: Dictated on workstation # [id number] Dict: 03/17/192024 Trans: 03/17/192103 [facility] [id number] Interpreted by: FRANCESCO CASTRO Electronically signed by: FRANCESCO CASTRO 03/17/192103 Reviewed: Reviewed by Me Consults : Consulting Physician: Royal SOSA MD Consults Notes Discussed the case with Dr. Sosa and he agrees that the patient is a delta troponin is okay to follow up outpatient with him in the clinic tomorrow. Departure Impression Primary Impression: Paresthesia of both lower extremities Additional Impression: Shortness of breath on exertion Disposition: 01 HOME, SELF-CARE Condition: Stable Departure-Patient Inst. Decision time for Depature: 22:09 Referrals: LAURA NOVOA DO (PCP/Family) Primary Care Physician Royal SOSA MD Patient Instructions: Paresthesias (DC), Shortness of Breath (Dyspnea) Add. Discharge Instructions: Tomorrow morning call Dr. Sosa, cardiology and request an appointment to follow-up for your numbness in her legs. He will help you discover whether it is related to your vascular disease and what can be done about it. If you begin to have chest pain or severe shortness of breath please return to the nearest ER for further evaluation and management. All discharge instructions reviewed with patient and/or family. Voiced understanding. DELROY KELLEY Mar 17, 2019 20:58
--- NOTE | 2019-03-17 21:30 | NUR ---
Repeat troponin redrawn from iv to lt a/c @ 0703.
[2019-03-17 22:19] VITALS: BP 154/91
== END 2019-03-17 22:24 | disposition home or self-care (01) ==
LOC: EDUNIT# 18:34 → ER 18:35
DX: R20.2 Paresthesia of skin (principal); R06.02 Shortness of breath; I25.10 Atherosclerotic heart disease of native coronary artery without angina pectoris; I10 Essential (primary) hypertension; J45.909 Unspecified asthma, uncomplicated; E78.00 Pure hypercholesterolemia, unspecified; I25.2 Old myocardial infarction; Z86.73 Personal history of transient ischemic attack (TIA), and cerebral infarction without residual deficits; Z95.5 Presence of coronary angioplasty implant and graft; Z79.82 Long term (current) use of aspirin; Z87.891 Personal history of nicotine dependence
CPT/HCPCS: 36415; 71045; 80053; 83735; 83874; 83880; 84484; 85025; 85610; 85730; 93005; 93041

== ENCOUNTER 2019-05-30 01:14 | Emergency (ER) | payer MEDICARE ==
[~2019-05-30] VITALS: Ht 188 cm; Wt 100.0 kg
[~2019-05-30 01:14] MED LIST changes: -METO-370 PO; +METO50TA7 PO; -PYRI100T2 PO; +PYRI100T4 PO; -TRAM50TA2 PO; +TRM50T PO
[2019-05-30] MEDS ORDERED: methylPREDNISolone 125 MG (Solu-MEDROL) VIAL IM ONE (02:30)
[2019-05-30] MEDS ORDERED: LORATADINE (CLARITIN) 10 MG TAB PO ONE (02:30)
[2019-05-30] MEDS ORDERED: methylPREDNISolone 125 MG (Solu-MEDROL) VIAL ONE (02:31)
[2019-05-30] MEDS ORDERED: PRD20T PO (02:36)
[2019-05-30] MEDS ORDERED: LORA10TA7 PO (02:36)
--- NOTE | 2019-05-30 02:37 | ED Integumentary General ---
General Chief Complaint: Allergic Reaction Stated Complaint: RASH Nursing Triage Note: Pt amb to room #8 with c/o rash. Pt reports rash to torso that began approx x2 wks ago. Pt reports to have been seen @ pcp on 05/28/[address] Novoa prescribed unknown antibiotic. Denies tongue, throat, or lip discomfort. Denies SOA. Source: patient Exam Limitations: no limitations History of Present Illness Date Seen by Provider: May 30, 2019 Time Seen by Provider: 02:20 Initial Comments Patient presents to ER by private conveyance with 2 weeks of itching rash started up on his right chest radiating around to his left chest his back and his abdomen. He does not have any pustules blisters fevers chills. He has not used anything for it. He does not have any known allergies (. No asthma. No history of liver failure. No confusion. Allergies and Home Medications Allergies Coded Allergies: No Known Drug Allergies (Unverified , 07/20/11) Home Medications Amlodipine Besylate 10 Mg Tablet, 10 MG PO DAILY, (Reported) Aspirin 81 Mg Tablet.dr, 81 MG PO DAILY, (Reported) Atorvastatin Calcium 40 Mg Tablet, 40 MG PO HS, (Reported) Chlorzoxazone 500 Mg Tablet, 500 MG PO BID, (Reported) Furosemide 40 Mg Tablet, 40 MG PO DAILY, (Reported) Lisinopril 40 Mg Tablet, 40 MG PO DAILY, (Reported) Metoprolol Succinate 50 Mg Tab.er.24h, 50 MG PO DAILY Prescribed by: Royal KENDRICK on 08/09/18 1008 Nitroglycerin 0.4 Mg Tab.subl, 0.4 MG SL UD PRN for CHEST PAIN, (Reported) Pyridoxine HCl 100 Mg Tablet, 100 MG PO DAILY, (Reported) Ticagrelor 90 Mg Tablet, 90 MG PO BID Prescribed by: Royal KENDRICK on 08/09/18 1008 Tramadol HCl 50 Mg Tablet, 50 MG PO BID PRN for PAIN-MODERATE, (Reported) Patient Home Medication List Home Medication List Reviewed: Yes Review of Systems Review of Systems Constitutional: No chills, No diaphoresis EENTM: No ear discharge, No ear pain Respiratory: No cough, No short of breath Cardiovascular: No chest pain, No edema Past Ybxyhdf-Ekmads-Zxfjlb Hx Patient Social History Alcohol Use: Rarely Uses Number of Drinks Today: AA Alcohol Beverage of Choice: Beer Recreational Drug Use: No Smoking Status: Former Smoker Type Used: Cigarettes Former Smoker, Quit: Feb 05, 2017 2nd Hand Smoke Exposure: No Recent Foreign Travel: No Contact w/Someone Who Travel: No Recent Infectious Disease Expo: No Recent Hopitalizations: Yes (HTN) Immunizations Up To Date Tetanus Booster (TDap): Unknown PED Vaccines UTD: No Seasonal Allergies Seasonal Allergies: No Past Medical History Surgeries: Yes (Inguinal hernia Rpr-peds, lower back, r pinky finger) Coronary Stent, Orthopedic Respiratory: Yes (CHILDHOOD ASTHMA) Asthma Currently Using CPAP: No Currently Using BIPAP: No Cardiac: Yes Heart Attack, High Cholesterol, Hypertension Neurological: No Stroke Reproductive Disorders: No Genitourinary: No Gastrointestinal: No Musculoskeletal: Yes Chronic Back Pain Endocrine: No HEENT: No Cancer: No Psychosocial: No Integumentary: No Blood Disorders: No Adverse Reaction/Blood Tranf: No Family Medical History Diabetes Physical Exam Vital Signs Vital Signs - First Documented 05/30/19 01:45 Temp 36.7 Pulse 71 Resp 18 B/P (MAP) 171/98 (122) Pulse Ox 98 O2 Delivery Room Air Capillary Refill : Less Than 3 Seconds General Appearance: WD/WN, no apparent distress HEENT: PERRL/EOMI, pharynx normal Neck: full range of motion, normal inspection Cardiovascular: normal peripheral pulses, regular rate, rhythm Skin: other (dry, scaly mildly excoriated skin over the trunk and upper extremities.) Progress/Results/Core Measures Results/Orders My Orders Orders - DELROY KELLEY Loratadine Tablet (Claritin Tablet) (05/30/19 02:30) Methylprednisolone Sod Succ (Solu-Medrol (05/30/19 02:30) Vital Signs/I&O 05/30/19 01:45 Temp 36.7 Pulse 71 Resp 18 B/P (MAP) 171/98 (122) Pulse Ox 98 O2 Delivery Room Air Blood Pressure Mean: 122 POS Progress Progress Note : Time: 02:33 Progress Note Loratadine, Solu-Medrol and put him on some prednisone loratadine and Benadryl. Departure Impression Primary Impression: Dermatitis, atopic Qualified Codes: L20.9 - Atopic dermatitis, unspecified Disposition: 01 HOME, SELF-CARE Condition: Stable Departure-Patient Inst. Decision time for Depature: 02:34 Referrals: LAURA NOVOA DO (PCP/Family) Primary Care Physician Patient Instructions: Skin Rash (DC) Add. Discharge Instructions: As long as you're having itching you should take one tablet of the loratadine/Claritin or cetirizine/Zyrtec. For breakthrough itching you can take one to 2 tablets of Benadryl every 6 hours as needed but this will cause drowsiness. 2 tablets prednisone twice daily for the next 5 days. All discharge instructions reviewed with patient and/or family. Voiced understanding. Scripts Loratadine (Loratadine) 10 Mg Tablet 10 MG PO DAILY for 7 Days, #7 TAB 0 Refills Prov: DELROY KELLEY 05/30/19 Prednisone (Prednisone) 20 Mg Tab 40 MG PO BID for 5 Days, #20 TAB 0 Refills Prov: DELROY KELLEY 05/30/19 DELROY KELLEY May 30, 2019 02:37 POS
[2019-05-30 02:52] VITALS: BP 164/76
--- OUTSIDE RECORDS SUMMARY | 2019-06-22 18:34 | XMS REPORT | Continuity of Care Document ---
Author Organization Unknown POS Address Unknown SP Phone Unavailable SP Allergies Active Description Code Type Severity POS Reaction Onset Reported/Identified POS to Patient Clinical Status POS Yes No Known Drug Allergies [id number] Drug SP Unknown N/A 07/20/2011 SP SP Medications There is no data. Problems Date Dx Coded Attending Type Code POS Diagnosed By POS 07/20/2011 Ot 401.9 HYPE RTENSION NOS SP SP 07/20/2011 Ot 429.3 CARD IOMEGALY SP SP 07/20/2011 Ot 780.4 DIZZ INESS AND SP SP 12/02/2012 ANNA FARFAN Ot 465.9 SP ACUTE URI NOS SP 12/02/2012 ANNA FARFAN Ot 786.2 SP COUGH SP 02/18/2013 STANTON CASTELLON MD Ot 250.00 SP DIAB [place] WO COMPL, TYPE II OR UNSPEC TY SP 02/18/2013 STANTON CASTELLON MD Ot 305.1 SP TOBACCO USE DISORDER SP 02/18/2013 STANTON CASTELLON MD Ot 338.29 SP OTHER CHRONIC PAIN SP 02/18/2013 STANTON CASTELLON MD Ot 520.6 SP TOOTH ERUPTION DISTURB SP 02/18/2013 STANTON CASTELLON MD Ot 724.5 SP BACKACHE NOS SP 02/18/2013 STANTON CASTELLON MD Ot 785.6 SP ENLARGEMENT LYMPH NODES SP 02/18/2013 STANTON CASTELLON MD Ot V58.69 SP OTH MED,LT,CURRENT USE SP 12/21/2014 Ot 781.94 SP 12/21/2014 Ot 433.30 SP 12/21/2014 GELLENDER DOLAURA Ot 573.8 SP SP 12/21/2014 GELLENDER DOLAURA Ot 593.9 SP SP 12/21/2014 GELLENDER LAURA BEAL Ot 789.01 SP SP 12/21/2014 GELLENDER LAURA BEAL Ot 433.10 SP SP 12/21/2014 GELLENDER DO, LAUAR Tyler Ot 723.1 SP SP 12/21/2014 GELLENDER DO, LAURA Tyler Ot 433.10 SP SP 12/21/2014 GELLENDER DO, LAURA Tyler Ot 433.30 SP SP 12/21/2014 GELLENDER DO, LAURA Tyler Ot 786.6 SP SP 12/21/2014 GELLENDER DO, LAURA Tyler Ot 593.9 SP SP 12/21/[facility] Tyler Ot 729.81 SP SP 12/21/2014 [place] JACK BEAL Ot 910.4 SP INSECT BITE HEAD SP 12/21/2014 [place] JACK BEAL Ot E000.8 SP OTHER EXTERNAL CAUSE STATUS SP 12/21/2014 [place] JACK BEAL Ot E849.0 SP ACCIDENT IN HOME SP 12/21/2014 [facility] 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 08/30/2015 Ot 781.94 SP 08/30/2015 Ot 433.30 SP 08/30/2015 [facility]A Tyler Ot 573.8 SP SP 08/30/2015 GELLENDER DO, LAURA Tyler Ot 593.9 SP SP 08/30/2015 GELLENDER DO, LAURA Tyler Ot 789.01 SP SP 08/30/2015 GELLENDER DO, LAURA Tyler Ot 433.10 SP SP 08/30/2015 GELLENDER DO, LAURA Tyler Ot 723.1 SP SP 08/30/2015 GELLENDER DO, LAURA Tyler Ot 433.10 SP SP 08/30/2015 GELLENDER DO, LAURA Tyler Ot 433.30 SP SP 08/30/2015 GELLENDER DO, LAURA Tyler Ot 786.6 SP SP 08/30/2015 GELLENDER DO, LAURA Tyler Ot 593.9 SP SP 08/30/2015 GELLENDER DO, LAURA Tyler Ot 729.81 SP SP 09/27/2015 GELLENDER DO, LAURA Tyler Ot M79.605 SP SP 09/27/2015 GELLENDER DO, LAUAR Tyler Ot R20.0 SP SP 11/18/2015 Ot 781.94 FAC IAL WEAKNESS SP SP 11/18/2015 Ot 433.30 MUL T BILTRAL SP OCCLUSION WO CEREBRA SP 11/18/2015 GELLENDER DO, LAURA Tyler Ot 573.8 SP LIVER DISORDERS NEC SP 11/18/2015 SOMMER BEALLAURA Ot 593.9 SP RENAL URETERAL DIS NOS SP 11/18/2015 SOMMER BEALLAURA Ot 789.01 SP ABDOMINAL PAIN, RIGHT UPPER QUADRANT SP 11/18/2015 SOMMER BEALLAURA Ot 433.10 SP CAROTID ARTERY OCCLUSION W O CEREBRAL IN SP 11/18/2015 SOMMER BEALLAURA Ot 723.1 SP CERVICALGIA SP 11/18/2015 SOMMER BEALLAURA Ot 433.10 SP CAROTID ARTERY OCCLUSION W O CEREBRAL IN SP 11/18/2015 SOMMER BEALLAURA Ot 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 5 SP UNSPECIFIED SP 11/18/2015 PETTY BUNCH MD Ot F17.210 SP NICOTINE DEPENDENCE, CIGARETTES, UNCOMPL SP 11/18/2015 PETTY BUNCH MD Ot I10 SP (PRIMARY) HYPERTENSION SP 11/18/2015 PETTY BUNCH MD Ot R07. 89 SP CHEST PAIN SP 11/18/2015 PETTY BUNCH MD Ot E78. 5 SP UNSPECIFIED SP 11/18/2015 PETTY BUNCH MD Ot F17.210 SP NICOTINE DEPENDENCE, CIGARETTES, UNCOMPL SP 11/18/2015 PETTY BUNCH MD Ot I10 SP (PRIMARY) HYPERTENSION SP 11/18/2015 PETTY BUNCH MD Ot R07. 89 SP CHEST PAIN SP 08/01/2016 Ot 781.94 FAC IAL WEAKNESS SP SP 08/01/2016 Ot 433.30 MUL T BILTRAL SP OCCLUSION WO CEREBRA SP 08/01/2016 SOMMER BEALLAURA Ot 573.8 SP LIVER DISORDERS NEC SP 08/01/[address] [facility], LAURA Tyler Ot 593.9 SP RENAL URETERAL DIS NOS SP 08/01/2016 [facility] Ot 789.01 SP ABDOMINAL PAIN, RIGHT UPPER QUADRANT SP 08/01/2016 [facility], LAURA Tyler Ot 433.10 SP CAROTID ARTERY OCCLUSION W O CEREBRAL IN SP 08/01/[address] [facility], LAURA Tyler Ot 723.1 SP CERVICALGIA SP 08/01/[address] [facility], LAURA Tyler Ot 433.10 SP CAROTID ARTERY OCCLUSION W O CEREBRAL IN SP 08/01/2016 [facility], LAURA Tyler Ot 433.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 ARTERY OCCLUSION WO CEREBRA SP 08/01/2016 [facility], LAURA Tyler Ot 786.6 SP CHEST SWELLING/MASS/LUMP SP 08/01/2016 [facility] 593.9 SP RENAL URETERAL DIS NOS SP 08/01/2016 [facility] Ot 729.81 SP SWELLING OF LIMB SP 08/01/2016 [facility] M79.605 SP PAIN IN LEFT LEG SP 08/01/2016 [facility] R20.0 SP ANESTHESIA OF SKIN SP 08/02/2016 [facility] M48.06 SP SPINAL STENOSIS, LUMBAR REGION SP 08/30/2016 [facility] M48.06 SP SPINAL STENOSIS, LUMBAR REGION SP 10/09/2016 ANNA FARFAN Ot I 10 SP (PRIMARY) HYPERTENSION SP 10/09/2016 ANNA FARFAN Ot J02.9 SP ACUTE PHARYNGITIS, UNSPECIFIED SP 10/09/2016 ANNA FARFAN Ot K04.7 SP PERIAPICAL ABSCESS WITHOUT SINUS SP 10/09/2016 ANNA FARFAN Ot R59.0 SP LOCALIZED ENLARGED LYMPH NODES SP 10/09/2016 ANNA FARFAN Ot Z79.82 SP CORRECTION (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 ASPIRIN SP 10/09/2016 ANNA FARFAN Ot Z79.899 SP OTHER HARDWARE TRAINER (CURRENT) DRUG THERAPY SP 10/10/2016 ANNA FARFAN Ot I 10 SP (PRIMARY) HYPERTENSION SP 10/10/2016 ANNA FARFAN Ot J02.9 SP ACUTE PHARYNGITIS, UNSPECIFIED SP 10/10/2016 ANNA FARFAN Ot K04.7 SP PERIAPICAL ABSCESS WITHOUT SINUS SP 10/10/2016 ANNA FARFAN Ot R59.0 SP LOCALIZED ENLARGED LYMPH NODES SP 10/10/2016 ANNA FARFAN Ot Z79.82 SP HARDWARE TRAINER (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 ASPIRIN SP 10/10/2016 ANNA FARFAN Ot Z79.899 SP OTHER HARDWARE TRAINER (CURRENT) DRUG THERAPY SP 10/17/2016 ANNA FARFAN Ot I 10 SP (PRIMARY) HYPERTENSION SP 10/17/2016 ANNA FARFAN Ot J02.9 SP ACUTE PHARYNGITIS, UNSPECIFIED SP 10/17/2016 ANNA FARFAN Ot K04.7 SP PERIAPICAL ABSCESS WITHOUT SINUS SP 10/17/2016 ANNA FARFAN Ot R59.0 SP LOCALIZED ENLARGED LYMPH NODES SP 10/17/2016 ANNA FARFAN Ot Z79.82 SP HARDWARE TRAINER (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 ASPIRIN SP 10/17/2016 ANNA FARFAN Ot Z79.899 SP OTHER HARDWARE TRAINER (CURRENT) DRUG THERAPY SP 10/18/2016 ANNA FARFAN Ot I 10 SP (PRIMARY) HYPERTENSION SP 10/18/2016 ANNA FARFAN Ot J02.9 SP ACUTE PHARYNGITIS, UNSPECIFIED SP 10/18/2016 ANNA FARFAN Ot K04.7 SP PERIAPICAL ABSCESS WITHOUT SINUS SP 10/18/2016 ANNA FARFAN Ot R59.0 SP LOCALIZED ENLARGED LYMPH NODES SP 10/18/2016 ANNA FARFAN Ot Z79.82 SP CORRECTION (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 ASPIRIN SP 10/18/2016 ANNA FARFAN Ot Z79.899 SP OTHER HARDWARE TRAINER (CURRENT) DRUG THERAPY SP 09/06/2017 GELLENDER DO, LAURA Tyler Ot E78.5 SP HYPERLIPIDEMIA, UNSPECIFIED SP 09/06/2017 GELLENDER DO, LAURA Tyler Ot H53.8 SP OTHER VISUAL DISTURBANCES SP 09/06/2017 GELLENDER DO, LAURA Tyler Ot I11.0 SP HYPERTENSIVE HEART DISEASE WITH HEART FA SP 09/06/2017 GELLENDER DO, LAURA Tyler Ot I51.7 SP CARDIOMEGALY SP 09/06/[address] [facility], LAURA Tyler Ot R53.1 SP WEAKNESS SP 09/06/[address] [facility], LAURA Tyler Ot Z79.899 SP OTHER CORRECTION (CURRENT) DRUG THERAPY SP 09/06/[address] [facility], LAURA Tyler Ot Z87.891 SP PERSONAL HISTORY OF NICOTINE DEPENDENCE SP 09/17/[address] [facility], LAURA Tyler Ot M47.816 SP SPONDYLOSIS W/O MYELOPATHY OR RADICULOPA SP 09/17/2017 [facility], LAURA Tyler Ot M48.07 SP SPINAL STENOSIS, LUMBOSACRAL REGION SP 09/17/2017 [facility], LAURA Tyler Ot M51.27 SP OTHER INTERVERTEBRAL DISC DISPLACEMENT, SP 10/04/2017 [facility], LAURA Tyler Ot M47.816 SP SPONDYLOSIS W/O MYELOPATHY OR RADICULOPA SP 10/04/2017 [facility], LAURA Tyler Ot M48.07 SP SPINAL STENOSIS, LUMBOSACRAL REGION SP 10/04/[address] [facility], LAURA Tyler Ot M51.27 SP OTHER INTERVERTEBRAL DISC DISPLACEMENT, SP 05/19/2018 [facility], LAURA Tyler Ot 573.8 SP LIVER DISORDERS NEC SP 05/19/2018 [facility], LAURA Tyler Ot 593.9 SP RENAL URETERAL DIS NOS SP 05/19/2018 [facility] 789.01 SP ABDOMINAL PAIN, RIGHT UPPER QUADRANT SP 05/19/2018 [facility], LAURA Tyler Ot 433.10 SP CAROTID ARTERY OCCLUSION W O CEREBRAL IN SP 05/19/2018 [facility], LAURA Tyler Ot 723.1 SP CERVICALGIA SP 05/19/2018 [facility], LAURA Tyler Ot 433.10 SP CAROTID ARTERY OCCLUSION W O CEREBRAL IN SP 05/19/2018 [facility], LAURA Tyler Ot 433.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 ARTERY OCCLUSION WO CEREBRA SP 05/19/2018 [facility], LAURA Tyler Ot 786.6 SP CHEST SWELLING/MASS/LUMP SP 05/19/2018 [facility], LAURA Tyler Ot 593.9 SP RENAL URETERAL DIS NOS SP 05/19/2018 [facility] 729.81 SP SWELLING OF LIMB SP 05/19/2018 [facility] M79.605 SP PAIN IN LEFT LEG SP 05/19/2018 OTILIAJERAMIEPANCHITO DO LAURA Nayeli Ot R20.0 SP ANESTHESIA OF SKIN SP 05/19/2018 [place] LAURA BEAL Ot M48.06 SP SPINAL STENOSIS, LUMBAR REGION SP 05/19/2018 SOMMER LAURA BEAL Ot M47.816 SP SPONDYLOSIS W/O MYELOPATHY OR RADICULOPA SP 05/19/2018 SOMMER LAURA BEAL Ot M48.07 SP SPINAL STENOSIS, LUMBOSACRAL REGION SP 05/19/2018 LAURA NOVOA DO Ot M51.27 SP OTHER INTERVERTEBRAL DISC DISPLACEMENT, SP 05/20/2018 HUMBERTO BEAL GIANNI Ot E78.5 SP UNSPECIFIED SP 05/20/2018 HUMBERTO BEAL GIANNI Ot G89.29 SP CHRONIC PAIN SP 05/20/2018 HUMBERTO BEAL GIANNI Ot I11.9 SP HEART DISEASE WITHOUT HEART SP 05/20/2018 HUMBERTO BEAL GIANNI Ot I16.1 SP EMERGENCY SP 05/20/2018 HUMBERTO BEAL GIANNI Ot I42.2 SP HYPERTROPHIC CARDIOMYOPATHY SP 05/20/2018 HUMBERTO BEAL GIANNI Ot J45.90 9 SP ASTHMA, UNCOMPLICATED SP 05/20/2018 HUMBERTO BEAL GIANNI Ot M54.5 LOW SPBACK PAIN SP 05/20/2018 HUMBERTO BEAL GIANNI Ot R07.9 SP PAIN, UNSPECIFIED SP 05/20/2018 HUMBERTO BEAL GIANNI Ot Z79.82 SP TERM (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 ASPIRIN SP 05/20/2018 HUMBERTO BEAL GIANNI Ot Z79.89 9 SP CORRECTION (CURRENT) DRUG THERAPY SP 05/20/2018 TASNEEM PAUL DOI Ot 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), AND CEREB INFRC W SP 05/20/2018 HUMBERTO BEAL GIANNI Ot Z87.89 1 SP HISTORY OF NICOTINE DEPENDENCE SP 05/20/2018 HUMBERTO BEAL GIANNI Ot E78.5 SP UNSPECIFIED SP 05/20/2018 HUMBERTO BEAL GIANNI Ot G89.29 SP CHRONIC PAIN SP 05/20/2018 HUMBERTO BEAL GIANNI Ot I11.9 SP HEART DISEASE WITHOUT HEART SP 05/20/2018 HUMBERTO BEAL GIANNI Ot I16.1 SP EMERGENCY SP 05/20/2018 HUMBERTO BEAL GIANNI Ot I42.2 SP HYPERTROPHIC CARDIOMYOPATHY SP 05/20/2018 TASNEEM PAUL DOI Ot J45.90 9 SP ASTHMA, UNCOMPLICATED SP 05/20/2018 HUMBERTO BEAL GIANNI Ot M54.5 LOW SPBACK PAIN SP 05/20/2018 HUMBERTO BEAL GIANNI Ot R07.9 SP PAIN, UNSPECIFIED SP 05/20/2018 HUMBERTO BEAL GIANNI Ot Z79.82 SP TERM (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 ASPIRIN SP 05/20/2018 HUMBERTO BEAL GIANNI Ot Z79.89 9 SP CORRECTION (CURRENT) DRUG THERAPY SP 05/20/2018 HUMBERTO BEAL GIANNI Ot 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), AND CEREB INFRC W SP 05/20/2018 HUMBERTO BEAL GIANNI Ot Z87.89 1 SP HISTORY OF NICOTINE DEPENDENCE SP 07/15/2018 MIREILLE MARKHAM, Royal CORONADO Ot R07 .9 SP PAIN, UNSPECIFIED SP 08/08/2018 [facility] 573.8 SP LIVER DISORDERS NEC SP 08/08/2018 [facility] Ot 593.9 SP RENAL URETERAL DIS NOS SP 08/08/2018 [facility] Ot 789.01 SP ABDOMINAL PAIN, RIGHT UPPER QUADRANT SP 08/08/2018 [facility] Ot 433.10 SP CAROTID ARTERY OCCLUSION W O CEREBRAL IN SP 08/08/2018 [facility] 723.1 SP CERVICALGIA SP 08/08/2018 [facility] Ot 433.10 SP CAROTID ARTERY OCCLUSION W O CEREBRAL IN SP 08/08/2018 [facility] 433.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 ARTERY OCCLUSION WO CEREBRA SP 08/08/2018 [facility] Ot 786.6 SP CHEST SWELLING/MASS/LUMP SP 08/08/2018 [facility] Ot 593.9 SP RENAL URETERAL DIS NOS 08/08/2018 [facility] Ot 729.81 SP SWELLING OF LIMB SP 08/08/2018 [facility] M79.605 SP PAIN IN LEFT LEG SP 08/08/2018 [facility] R20.0 SP ANESTHESIA OF SKIN SP 08/08/2018 [facility] M48.06 SP SPINAL STENOSIS, LUMBAR REGION SP 08/08/2018 GELLENDER DO, LAURA Tyler Ot M47.816 SP SPONDYLOSIS W/O MYELOPATHY OR RADICULOPA SP 08/08/2018 [facility], LAURA Tyler Ot M48.07 SP SPINAL STENOSIS, LUMBOSACRAL REGION SP 08/08/2018 [facility] Tyler Ot M51.27 SP OTHER INTERVERTEBRAL DISC DISPLACEMENT, SP 08/08/2018 MIREILLE MARKHAM, Royal CORONADO Ot R07 .9 SP PAIN, UNSPECIFIED SP 08/08/2018 [facility], LAURA Nayeli Ot M47.816 SP SPONDYLOSIS W/O MYELOPATHY OR RADICULOPA SP 08/08/2018 [facility] LAURA Tyler Ot M48.07 SP SPINAL STENOSIS, LUMBOSACRAL REGION SP 08/08/[address] [facility], LAURA Tyler Ot M51.27 SP OTHER INTERVERTEBRAL DISC DISPLACEMENT, SP 08/08/2018 [facility], LAURA Nayeli Ot M48.06 SP SPINAL STENOSIS, LUMBAR REGION SP 08/09/2018 MIREILLE MARKHAM, Royal CORONADO Ot 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 08/09/2018 MIREILLE MARKHAM, Royal CORONADO Ot I11 .9 SP HEART DISEASE WITHOUT HEART SP 08/09/2018 MIREILLE MARKHAM, Royal CORONADO Ot 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 08/09/2018 Royal KENDRICK MD Ot I42 .2 SP HYPERTROPHIC CARDIOMYOPATHY SP 08/09/2018 MIREILLE MARKHAM, Royal CORONADO Ot R94.39 SP ABNORMAL RESULT OF OTHER CARDIOVASCULAR SP 08/09/2018 MIREILLE MARKHAM, Royal CORONADO Ot Z79.82 SP HARDWARE TRAINER (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 ASPIRIN SP 08/09/2018 Royal KENDRICK MD Ot Z79.899 SP OTHER CORRECTION (CURRENT) DRUG THERAPY SP 08/09/2018 Royal KENDRICK MD Ot Z87.891 SP PERSONAL HISTORY OF NICOTINE DEPENDENCE SP 08/14/2018 MIREILLE MARKHAM M [place] Ot 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 08/14/2018 Royal KENDRICK MD Ot I11 .9 SP HEART DISEASE WITHOUT HEART SP 08/14/2018 Royal KENDRICK MD Ot 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 08/14/2018 MIREILLE MARKHAM, Royal CORONADO Ot I42 .2 SP HYPERTROPHIC CARDIOMYOPATHY SP 08/14/2018 MIREILLE MARKHAM, Royal CORONADO Ot R94.39 SP ABNORMAL RESULT OF OTHER CARDIOVASCULAR SP 08/14/2018 Royal KENDRICK MD Ot Z79.82 SP CORRECTION (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 ASPIRIN SP 08/14/2018 Royal KENDRICK MD Ot Z79.899 SP OTHER CORRECTION (CURRENT) DRUG THERAPY SP 08/14/2018 MIREILLE MARKHAM, Royal CORONADO Ot Z87.891 SP PERSONAL HISTORY OF NICOTINE DEPENDENCE SP 09/06/2018 [facility] Ot M48.06 SP SPINAL STENOSIS, LUMBAR REGION SP 09/06/2018 [facility] M47.816 SP SPONDYLOSIS W/O MYELOPATHY OR RADICULOPA SP 09/06/2018 [facility] M48.07 SP SPINAL STENOSIS, LUMBOSACRAL REGION SP 09/06/2018 [facility] M51.27 SP OTHER INTERVERTEBRAL DISC DISPLACEMENT, SP 11/11/2018 STANTON CASTELLON MD Ot E78.00 SP PURE HYPERCHOLESTEROLEMIA, UNSPECIFIED SP 11/11/2018 STANTON CASTELLON MD Ot I10 SP ESSENTIAL (PRIMARY) HYPERTENSION SP 11/11/2018 STANTON CASTELLON MD Ot 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 SP 11/11/2018 STANTON CASTELLON MD Ot J06.9 SP ACUTE UPPER RESPIRATORY INFECTION, UNSPE SP 11/11/2018 STANTON CASTELLON MD Ot J45.909 SP UNSPECIFIED ASTHMA, UNCOMPLICATED SP 11/11/2018 STANTON CASTELLON MD Ot R07.0 SP PAIN IN THROAT SP 11/11/2018 STANTON CASTELLON MD Ot Z79.82 SP HARDWARE TRAINER (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 ASPIRIN SP 11/11/2018 STANTON CASTELLON MD Ot Z86.73 SP PRSNL HX OF TIA (TIA), AND CEREB INFRC W SP 11/11/2018 STANTON CASTELLON MD Ot Z87.891 SP PERSONAL HISTORY OF NICOTINE DEPENDENCE SP 11/11/2018 STANTON CASTELLON MD Ot Z95.5 SP PRESENCE OF CORONARY ANGIOPLASTY IMPLANT SP 11/11/2018 STANTON CASTELLON MD Ot Z98.890 SP OTHER SPECIFIED POSTPROCEDURAL STATES SP 11/13/2018 STANTON CASTELLON MD Ot E78.00 SP PURE HYPERCHOLESTEROLEMIA, UNSPECIFIED SP 11/13/2018 STANTON CASTELLON MD Ot I10 SP ESSENTIAL (PRIMARY) HYPERTENSION SP 11/13/2018 STANTON CASTELLON MD Ot 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 SP 11/13/2018 STANTON CASTELLON MD Ot J06.9 SP ACUTE UPPER RESPIRATORY INFECTION, UNSPE SP 11/13/2018 STANTON CASTELLON MD Ot J45.909 SP UNSPECIFIED ASTHMA, UNCOMPLICATED SP 11/13/2018 STANTON CASTELLON MD Ot R07.0 SP PAIN IN THROAT SP 11/13/2018 STANTON CASTELLON MD Ot Z79.82 SP HARDWARE TRAINER (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 ASPIRIN SP 11/13/2018 STANTON CASTELLON MD Ot Z86.73 SP PRSNL HX OF TIA (TIA), AND CEREB INFRC W SP 11/13/2018 STANTON CASTELLON MD Ot Z87.891 SP PERSONAL HISTORY OF NICOTINE DEPENDENCE SP 11/13/2018 STANTON CASTELLON MD Ot Z95.5 SP PRESENCE OF CORONARY ANGIOPLASTY IMPLANT SP 11/13/2018 STANTON CASTELLON MD Ot Z98.890 SP OTHER SPECIFIED POSTPROCEDURAL STATES SP 03/17/2019 DELROY KELLEY MD Ot E78. 00 SP HYPERCHOLESTEROLEMIA, UNSPECIFIED SP 03/17/2019 DELROY KELLEY MD Ot I10 SP (PRIMARY) HYPERTENSION SP 03/17/2019 DELROY KELLEY MD Ot I25. 10 SP HEART DISEASE OF [place] CORONARY SP 03/17/2019 DELROY KELLEY MD Ot I25. 2 SP MYOCARDIAL INFARCTION SP 03/17/2019 DELROY KELLEY MD Ot J45.909 SP UNSPECIFIED ASTHMA, UNCOMPLICATED SP 03/17/2019 DELROY KELLEY MD Ot R06. 02 SP OF BREATH SP 03/17/2019 DELROY KELLEY MD Ot R20. 0 SP OF SKIN SP 03/17/2019 DELROY KELLEY MD Ot R20. 2 SP OF SKIN SP 03/17/2019 DELROY KELLEY MD Ot Z79. 82 SP TERM (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 ASPIRIN SP 03/17/2019 DELROY KELLEY MD Ot Z86. 73 SP HX OF TIA (TIA), AND CEREB INFRC W SP 03/17/2019 DELROY KELLEY MD Ot Z87.891 SP PERSONAL HISTORY OF NICOTINE DEPENDENCE SP 03/17/2019 DELROY KELLEY MD J Ot Z95. 5 SP OF CORONARY ANGIOPLASTY IMPLANT SP 03/20/2019 DELROY KELLEY MD J Ot E78. 00 SP HYPERCHOLESTEROLEMIA, UNSPECIFIED SP 03/20/2019 DELROY KELLEY MD J Ot I10 SP (PRIMARY) HYPERTENSION SP 03/20/2019 DELROY KELLEY MD J Ot I25. 10 SP HEART DISEASE OF [place] CORONARY SP 03/20/2019 DELROY KELLEY MD Ot I25. 2 SP MYOCARDIAL INFARCTION SP 03/20/2019 DELROY KELLEY MD Ot J45.909 SP UNSPECIFIED ASTHMA, UNCOMPLICATED SP 03/20/2019 DELROY KELLEY MD Ot R06. 02 SP OF BREATH SP 03/20/2019 DELROY KELLEY MD Ot R20. 0 SP OF SKIN SP 03/20/2019 DELROY KELLEY MD Ot R20. 2 SP OF SKIN SP 03/20/2019 DELROY KELLEY MD Ot Z79. 82 SP TERM (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 ASPIRIN SP 03/20/2019 DELROY KELLEY MD Ot Z86. 73 SP HX OF TIA (TIA), AND CEREB INFRC W SP 03/20/2019 DELROY KELLEY MD Ot Z87.891 SP PERSONAL HISTORY OF NICOTINE DEPENDENCE SP 03/20/2019 DELROY KELLEY MD Ot Z95. 5 SP OF CORONARY ANGIOPLASTY IMPLANT SP 03/23/2019 DELROY KELLEY MD Ot E78. 00 SP HYPERCHOLESTEROLEMIA, UNSPECIFIED SP 03/23/2019 DELROY KELLEY MD J Ot I10 SP (PRIMARY) HYPERTENSION SP 03/23/2019 DELROY KELLEY MD Ot I25. 10 SP HEART DISEASE OF [place] CORONARY SP 03/23/2019 WARREN MD, DELROY J Ot I25. 2 SP MYOCARDIAL INFARCTION SP 03/23/2019 WARREN MARKHAM, DELROY Monae Ot J45.909 SP UNSPECIFIED ASTHMA, UNCOMPLICATED SP 03/23/2019 WARREN MARKHAM, DELROY Monae Ot R06. 02 SP OF BREATH SP 03/23/2019 WARREN MARKHAM, DELROY Monae Ot R20. 0 SP OF SKIN SP 03/23/2019 WARREN MARKHAM, DELROY J Ot R20. 2 SP OF SKIN SP 03/23/2019 WARREN MARKHAM, DELROY Monae Ot Z79. 82 SP TERM (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 ASPIRIN SP 03/23/2019 WARREN MARKHAM, DELROY Monae Ot Z86. 73 SP HX OF TIA (TIA), AND CEREB INFRC W SP 03/23/2019 WARREN MARKHAM, DELROY Monae Ot Z87.891 SP PERSONAL HISTORY OF NICOTINE DEPENDENCE SP 03/23/2019 WARREN MARKHAM, DELROY Monae Ot Z95. 5 SP OF CORONARY ANGIOPLASTY IMPLANT SP 05/30/[address] [facility], LAURA Tyler Ot 786.6 SP CHEST SWELLING/MASS/LUMP SP 05/30/[address] [facility] Ot 593.9 SP RENAL URETERAL DIS NOS SP 05/30/[address] [facility] Ot 729.81 SP SWELLING OF LIMB SP 05/30/[address] [facility] Ot M79.605 SP PAIN IN LEFT LEG SP 05/30/[address] [facility] Ot R20.0 SP ANESTHESIA OF SKIN SP 05/30/[address] [facility] Ot M48.06 SP SPINAL STENOSIS, LUMBAR REGION SP 05/30/[address] [facility] Ot M47.816 SP SPONDYLOSIS W/O MYELOPATHY OR RADICULOPA SP 05/30/[address] [facility] Ot M48.07 SP SPINAL STENOSIS, LUMBOSACRAL REGION SP 05/30/[address] [facility] Ot M51.27 SP OTHER INTERVERTEBRAL DISC DISPLACEMENT, SP 05/30/2019 MIREILLE MARKHAM, Royal CORONADO Ot R07 .9 SP PAIN, UNSPECIFIED SP 06/15/2019 MAMI MARKHAM, KIMBERLY Paige Ot E11. 65 SP 2 DIABETES MELLITUS WITH HYPERGLYCE SP 06/15/2019 MAMI MARKHAM, KIMBERLY Paige Ot E78. 00 SP HYPERCHOLESTEROLEMIA, UNSPECIFIED SP 06/15/2019 KIMBERLY BOLAÑOS MD Ot E78. 5 SP UNSPECIFIED SP 06/15/2019 KIMBERLY BOLAÑOS MD Ot G89. 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 9 SP UNSPECIFIED SP 06/15/2019 KIMBERLY BOLAÑOS MD Ot N17. 9 SP KIDNEY FAILURE, UNSPECIFIED SP 06/15/2019 KIMBERLY BOLAÑOS MD Ot R20. 2 SP OF SKIN SP 06/15/2019 KIMBERLY BOLAÑOS MD Ot Z79. 4 SP TERM (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 INSULIN SP 06/15/2019 KIMBERLY BOLAÑOS MD Ot Z79. 52 SP TERM (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 SYSTEMIC STER SP 06/15/2019 KIMBERLY BOLAÑOS MD Ot Z79. 82 SP TERM (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 ASPIRIN SP 06/15/2019 KIMBERLY BOLAÑOS MD Ot Z79.899 SP OTHER HARDWARE TRAINER (CURRENT) DRUG THERAPY SP 06/15/2019 KIMBERLY BOLAÑOS MD Ot Z83. 3 SP HISTORY OF DIABETES MELLITUS SP 06/15/2019 KIMBERLY BOLAÑOS MD Ot Z84. 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 Results Test Result Range POS Streptococcus pyogenes antigen detection - 10/09/16 17:27 POS Streptococcus pyogenes antigen detection NEGATIVE NEGATIVE SP Bacterial throat culture - 10/09/16 17:2 7 POS Bacterial throat culture NBS NRG SP Complete blood count (CBC) with automate d white blood cell (WBC) differential - POS 18:39 Blood leukocytes automated count (number/volume) 14.5 10*3/uL POS 4.3-11.0 SP Blood erythrocytes automated count (number/volume) 4.21 10*6/uL SP 4.35-5.85 SP Venous blood hemoglobin measurement (mass/volume) 12.9 g/dL SP17.7 Blood hematocrit (volume fraction) 38 % 40-54 SP Automated erythrocyte mean corpuscular volume 91 [ foz_us] SP99 Automated erythrocyte mean corpuscular h emoglobin (mass per erythrocyte) SP 31 pg 25-34 SP Automated erythrocyte mean corpuscular h emoglobin concentration measurement SP 34 g/dL 32-36 SP Automated erythrocyte distribution width ratio 13. 4 % 10.0- SP Automated blood platelet count (count/volume) 200 10*3/uL SP400 Automated blood platelet mean volume measurement 11.0 [foz_us] SP 7.4-10.4 SP Automated blood neutrophils/100 leukocytes 82 % 42-75 SP Automated blood lymphocytes/100 leukocytes 10 % 12-44 SP Blood monocytes/100 leukocytes 7 % 0-12 SP Automated blood eosinophils/100 leukocytes 1 % 0-10 SP Automated blood basophils/100 leukocytes 0 % 0-10 SP Blood neutrophils automated count (number/volume) 11.9 10*3 SP7.8 Blood lymphocytes automated count (number/volume) 1.5 10*3 SP4.0 Blood monocytes automated count (number/volume) 1. 0 10*3 SP1.0 Automated eosinophil count 0.1 10*3/uL 0 .0-0.3 SP Automated blood basophil count (count/volume) 0.0 10*3/uL SP0.1 Blood manual differential performed dete ction - 10/09/16 18:39 POS Blood monocytes/100 leukocytes 7 % NRG SP Manual blood segmented neutrophils/100 leukocytes 72 % NRG SP Blood band neutrophils/100 leukocytes 4 % NRG SP Manual blood lymphocytes/100 leukocytes 17 % NRG SP Manual eosinophils/100 leukocytes in nose 0 % NRG SP Manual blood basophils/100 leukocytes 0 % NRG SP Blood erythrocyte morphology finding identification NORMAL SP Comprehensive metabolic panel - 10/09/16 18:39 POS Serum or plasma sodium measurement (moles/volume) 140 mmol/L SP 135-145 SP Serum or plasma potassium measurement (moles/volume) 3.9 mmol/L SP 3.6-5.0 SP Serum or plasma chloride measurement (moles/volume) 104 mmol/L SP 98-107 SP Carbon dioxide 24 mmol/L 21-32 SP Serum or plasma anion gap determination (moles/volume) 12 mmol/L SP 5-14 SP Serum or plasma urea nitrogen measurement (mass/volume ) 13 mg/dL SP 7-18 SP Serum or plasma creatinine measurement (mass/volume) 0.96 mg/dL SP 0.60-1.30 SP Serum or plasma urea nitrogen/creatinine mass ratio 14 NRG SP Serum or plasma creatinine measurement w ith calculation of estimated glomerular SP rate > NRG SP Serum or plasma glucose measurement (mass/volume) 89 mg/dL SP105 Serum or plasma calcium measurement (mass/volume) 9.4 mg/dL SP10.1 Serum or plasma total bilirubin measurement (mass/volu me) 0.9 mg/dL SP 0.1-1.0 SP Serum or plasma alkaline phosphatase mayelin surement (enzymatic activity/volume) SP 93 U/L 40-136 SP Serum or plasma aspartate aminotransfera se measurement (enzymatic SP 18 U/L 5-34 SP Serum or plasma alanine aminotransferase measurement (enzymatic activity/volume) SP 24 U/L 0-55 SP Serum or plasma protein measurement (mass/volume) 7.3 g/dL SP8.2 Serum or plasma albumin measurement (mass/volume) 3.9 g/dL SP4.5 Complete blood count (CBC) with automate d white blood cell (WBC) differential - POS 11:46 Blood leukocytes automated count (number/volume) 6.7 10*3/uL POS 4.3-11.0 SP Blood erythrocytes automated count (number/volume) 4.27 10*6/uL SP 4.35-5.85 SP Venous blood hemoglobin measurement (mass/volume) 13.4 g/dL SP17.7 Blood hematocrit (volume fraction) 39 % 40-54 SP Automated erythrocyte mean corpuscular volume 91 [ foz_us] SP99 Automated erythrocyte mean corpuscular h emoglobin (mass per erythrocyte) SP 31 pg 25-34 SP Automated erythrocyte mean corpuscular h emoglobin concentration measurement SP 34 g/dL 32-36 SP Automated erythrocyte distribution width ratio 13. 5 % 10.0- SP Automated blood platelet count (count/volume) 205 10*3/uL SP400 Automated blood platelet mean volume measurement 10.7 [foz_us] SP 7.4-10.4 SP Automated blood neutrophils/100 leukocytes 47 % 42-75 SP Automated blood lymphocytes/100 leukocytes 42 % 12-44 SP Blood monocytes/100 leukocytes 8 % 0-12 SP Automated blood eosinophils/100 leukocytes 3 % 0-10 SP Automated blood basophils/100 leukocytes 0 % 0-10 SP Blood neutrophils automated count (number/volume) 3.2 10*3 SP7.8 Blood lymphocytes automated count (number/volume) 2.8 10*3 SP4.0 Blood monocytes automated count (number/volume) 0. 5 10*3 SP1.0 Automated eosinophil count 0.2 10*3/uL 0 .0-0.3 SP Automated blood basophil count (count/volume) 0.0 10*3/uL SP0.1 PT panel in platelet poor plasma by coag ulation assay - 09/04/17 11:46 POS Prothrombin time (PT) in platelet poor plasma by coagu lation assay SP s 12.2-14.7 SP INR in platelet poor plasma or blood by coagulation as say 0.9 SP 0.8-1.4 SP Activated partial thromboplastin time (a PTT) in platelet poor plasma POS assay - 09/04/17 11:46 Activated partial thromboplastin time (a PTT) in platelet poor plasma POS assay 26 s 24-35 SP Comprehensive metabolic panel - 09/04/17 11:46 POS Serum or plasma sodium measurement (moles/volume) 141 mmol/L SP 135-145 SP Serum or plasma potassium measurement (moles/volume) 3.5 mmol/L SP 3.6-5.0 SP Serum or plasma chloride measurement (moles/volume) 103 mmol/L SP 98-107 SP Carbon dioxide 28 mmol/L 21-32 SP Serum or plasma anion gap determination (moles/volume) 10 mmol/L SP 5-14 SP Serum or plasma urea nitrogen measurement (mass/volume ) 14 mg/dL SP 7-18 SP Serum or plasma creatinine measurement (mass/volume) 1.10 mg/dL SP 0.60-1.30 SP Serum or plasma urea nitrogen/creatinine mass ratio 13 NRG SP Serum or plasma creatinine measurement w ith calculation of estimated glomerular SP rate > NRG SP Serum or plasma glucose measurement (mass/volume) 91 mg/dL SP105 Serum or plasma calcium measurement (mass/volume) 10.0 mg/dL SP 8.5-10.1 SP Serum or plasma total bilirubin measurement (mass/volu me) 0.6 mg/dL SP 0.1-1.0 SP Serum or plasma alkaline phosphatase mayelin surement (enzymatic activity/volume) SP 72 U/L 40-136 SP Serum or plasma aspartate aminotransfera se measurement (enzymatic SP 23 U/L 5-34 SP Serum or plasma alanine aminotransferase measurement (enzymatic activity/volume) SP 22 U/L 0-55 SP Serum or plasma protein measurement (mass/volume) 8.1 g/dL SP8.2 Serum or plasma albumin measurement (mass/volume) 4.2 g/dL SP4.5 Magnesium - 09/04/17 11:46 POS Magnesium 2.0 mg/dL 1.8-2.4 SP Serum or plasma creatine kinase measurem ent (enzymatic activity/volume) - POS 11:46 Serum or plasma creatine kinase measurem ent (enzymatic activity/volume) POS 107 U/L 30-200 SP Serum or plasma lithium measurement (mol es/volume) - 09/04/17 11:46 POS BNP level 23.3 pg/mL <100.0 SP Serum or plasma creatine kinase MB measu rement (enzymatic activity/volume) - POS 11:46 Serum or plasma creatine kinase MB measu rement (enzymatic activity/volume) POS 1.1 ng/mL <6.6 SP Serum or plasma troponin i.cardiac measu rement (mass/volume) - 09/04/17 11:46 POS Serum or plasma troponin i.cardiac measurement (mass/v olume) < ng/mL POS <0.30 SP Myoglobin, serum - 09/04/17 11:46 POS Myoglobin, serum 43.9 ng/mL 10.0-92.0 SP Fibrin D-dimer FEU measurement in platel et poor plasma (mass/volume) - 09/04/17 POS Fibrin D-dimer FEU measurement in platelet poor plasma (mass/volume) POS ug/mL 0.00-0.49 SP Serum or plasma creatine kinase measurem ent (enzymatic activity/volume) - POS 18:58 Serum or plasma creatine kinase measurem ent (enzymatic activity/volume) POS 88 U/L 30-200 SP Lipid 1996 panel - 09/04/17 18:58 POS Serum or plasma triglyceride measurement (mass/volume) 133 mg/dL SP <150 SP Serum or plasma cholesterol measurement (mass/volume) 193 mg/dL SP < 200 SP Serum or plasma cholesterol in HDL measurement (mass/v olume) 40 mg/dL SP 40-60 SP Cholesterol in LDL [mass/volume] in serum or plasma by direct assay SP mg/dL 1-129 SP Serum or plasma cholesterol in VLDL measurement (mass/ volume) 27 mg/dL SP 5-40 SP Complete urinalysis with reflex to cultu re - 09/04/17 20:50 POS Urine color determination YELLOW NRG SP Urine clarity determination CLEAR NR G SP Urine pH measurement by test strip 5 5-9 SP Specific gravity of urine by test strip 1.010 1.016-1.022 SP Urine protein assay by test strip, semi-quantitative 2+ SP Urine glucose detection by automated test strip NE GATIVE SP Erythrocytes detection in urine sediment by light micr oscopy NEGATIVE SP NEGATIVE SP Urine ketones detection by automated test strip NE GATIVE SP Urine nitrite detection by test strip NEGATIVE NEGATIVE SP Urine total bilirubin detection by test strip NEGA TIVE SP Urine urobilinogen measurement by automated test strip (mass/volume) 1 SPmg/dL NORMAL SP Urine leukocyte esterase detection by dipstick NEG ATIVE SP Automated urine sediment erythrocyte cou nt by microscopy (number/high power SP NONE NRG SP Automated urine sediment leukocyte count by microscopy (number/high power field) SP NONE NRG SP Bacteria detection in urine sediment by light microsco py NONE SP NRG SP Squamous epithelial cells detection in u rine sediment by light microscopy SP 0-2 NRG SP Crystals detection in urine sediment by light microsco py NONE SP NRG SP Casts detection in urine sediment by light microscopy NONE SP Mucus detection in urine sediment by light microscopy NEGATIVE SP NRG SP Complete urinalysis with reflex to culture NO NRG SP Complete blood count (CBC) with automate d white blood cell (WBC) differential - POS 05:21 Blood leukocytes automated count (number/volume) 6.2 10*3/uL POS 4.3-11.0 SP Blood erythrocytes automated count (number/volume) 3.76 10*6/uL SP 4.35-5.85 SP Venous blood hemoglobin measurement (mass/volume) 11.6 g/dL SP17.7 Blood hematocrit (volume fraction) 35 % 40-54 SP Automated erythrocyte mean corpuscular volume 92 [ foz_us] SP99 Automated erythrocyte mean corpuscular h emoglobin (mass per erythrocyte) SP 31 pg 25-34 SP Automated erythrocyte mean corpuscular h emoglobin concentration measurement SP 34 g/dL 32-36 SP Automated erythrocyte distribution width ratio 13. 3 % 10.0- SP Automated blood platelet count (count/volume) 184 10*3/uL SP400 Automated blood platelet mean volume measurement 10.6 [foz_us] SP 7.4-10.4 SP Automated blood neutrophils/100 leukocytes 50 % 42-75 SP Automated blood lymphocytes/100 leukocytes 40 % 12-44 SP Blood monocytes/100 leukocytes 6 % 0-12 SP Automated blood eosinophils/100 leukocytes 3 % 0-10 SP Automated blood basophils/100 leukocytes 1 % 0-10 SP Blood neutrophils automated count (number/volume) 3.1 10*3 SP7.8 Blood lymphocytes automated count (number/volume) 2.5 10*3 SP4.0 Blood monocytes automated count (number/volume) 0. 4 10*3 SP1.0 Automated eosinophil count 0.2 10*3/uL 0 .0-0.3 SP Automated blood basophil count (count/volume) 0.0 10*3/uL SP0.1 Comprehensive metabolic panel - 09/05/17 05:21 POS Serum or plasma sodium measurement (moles/volume) 140 mmol/L SP 135-145 SP Serum or plasma potassium measurement (moles/volume) 4.0 mmol/L SP 3.6-5.0 SP Serum or plasma chloride measurement (moles/volume) 106 mmol/L SP 98-107 SP Carbon dioxide 24 mmol/L 21-32 SP Serum or plasma anion gap determination (moles/volume) 10 mmol/L SP 5-14 SP Serum or plasma urea nitrogen measurement (mass/volume ) 16 mg/dL SP 7-18 SP Serum or plasma creatinine measurement (mass/volume) 1.01 mg/dL SP 0.60-1.30 SP Serum or plasma urea nitrogen/creatinine mass ratio 16 NRG SP Serum or plasma creatinine measurement w ith calculation of estimated glomerular SP rate > NRG SP Serum or plasma glucose measurement (mass/volume) 102 mg/dL SP105 Serum or plasma calcium measurement (mass/volume) 8.7 mg/dL SP10.1 Serum or plasma total bilirubin measurement (mass/volu me) 0.6 mg/dL SP 0.1-1.0 SP Serum or plasma alkaline phosphatase mayelin surement (enzymatic activity/volume) SP 56 U/L 40-136 SP Serum or plasma aspartate aminotransfera se measurement (enzymatic SP 16 U/L 5-34 SP Serum or plasma alanine aminotransferase measurement (enzymatic activity/volume) SP 16 U/L 0-55 SP Serum or plasma protein measurement (mass/volume) 6.5 g/dL SP8.2 Serum or plasma albumin measurement (mass/volume) 3.4 g/dL SP4.5 Lipid 1996 panel - 09/05/17 05:21 POS Serum or plasma triglyceride measurement (mass/volume) 155 mg/dL SP <150 SP Serum or plasma cholesterol measurement (mass/volume) 179 mg/dL SP < 200 SP Serum or plasma cholesterol in HDL measurement (mass/v olume) 32 mg/dL SP 40-60 SP Cholesterol in LDL [mass/volume] in serum or plasma by direct assay SP mg/dL 1-129 SP Serum or plasma cholesterol in VLDL measurement (mass/ volume) 31 mg/dL SP 5-40 SP Serum or plasma troponin i.cardiac measu rement (mass/volume) - 09/05/17 05:21 POS Serum or plasma troponin i.cardiac measurement (mass/v olume) < ng/mL POS <0.30 SP Automated blood complete blood count (he mogram) panel - 09/06/17 05:41 POS Blood leukocytes automated count (number/volume) 5.7 10*3/uL SP 4.3-11.0 SP Blood erythrocytes automated count (number/volume) 3.56 10*6/uL SP 4.35-5.85 SP Venous blood hemoglobin measurement (mass/volume) 11.1 g/dL SP17.7 Blood hematocrit (volume fraction) 33 % 40-54 SP Automated erythrocyte mean corpuscular volume 91 [ foz_us] SP99 Automated erythrocyte mean corpuscular h emoglobin (mass per erythrocyte) SP 31 pg 25-34 SP Automated erythrocyte mean corpuscular h emoglobin concentration measurement SP 34 g/dL 32-36 SP Automated erythrocyte distribution width ratio 13. 2 % 10.0- SP Automated blood platelet count (count/volume) 169 10*3/uL SP400 Automated blood platelet mean volume measurement 10.2 [foz_us] SP 7.4-10.4 SP Whole blood basic metabolic panel - 03/16 05:41 POS Serum or plasma sodium measurement (moles/volume) 139 mmol/L SP 135-145 SP Serum or plasma potassium measurement (moles/volume) 4.1 mmol/L SP 3.6-5.0 SP Serum or plasma chloride measurement (moles/volume) 107 mmol/L SP 98-107 SP Carbon dioxide 26 mmol/L 21-32 SP Serum or plasma anion gap determination (moles/volume) 6 mmol/L SP 5-14 SP Serum or plasma urea nitrogen measurement (mass/volume ) 13 mg/dL SP 7-18 SP Serum or plasma creatinine measurement (mass/volume) 0.93 mg/dL SP 0.60-1.30 SP Serum or plasma urea nitrogen/creatinine mass ratio 14 NRG SP Serum or plasma creatinine measurement w ith calculation of estimated glomerular SP rate > NRG SP Serum or plasma glucose measurement (mass/volume) 94 mg/dL SP105 Serum or plasma calcium measurement (mass/volume) 8.9 mg/dL SP10.1 THYROID STIMULATING HORMONE - 05/19/18 0 7:32 POS THYROID STIMULATING HORMONE 1.33 u[iU]/mL 0.35-4.94 SP Complete blood count (CBC) with automate d white blood cell (WBC) differential - POS 07:37 Blood leukocytes automated count (number/volume) 7.3 10*3/uL POS 4.3-11.0 SP Blood erythrocytes automated count (number/volume) 4.17 10*6/uL SP 4.35-5.85 SP Venous blood hemoglobin measurement (mass/volume) 12.7 g/dL SP17.7 Blood hematocrit (volume fraction) 38 % 40-54 SP Automated erythrocyte mean corpuscular volume 91 [ foz_us] SP99 Automated erythrocyte mean corpuscular h emoglobin (mass per erythrocyte) SP 30 pg 25-34 SP Automated erythrocyte mean corpuscular h emoglobin concentration measurement SP 34 g/dL 32-36 SP Automated erythrocyte distribution width ratio 13. 8 % 10.0- SP Automated blood platelet count (count/volume) 217 10*3/uL SP400 Automated blood platelet mean volume measurement 10.1 [foz_us] SP 7.4-10.4 SP Automated blood neutrophils/100 leukocytes 48 % 42-75 SP Automated blood lymphocytes/100 leukocytes 41 % 12-44 SP Blood monocytes/100 leukocytes 8 % 0-12 SP Automated blood eosinophils/100 leukocytes 3 % 0-10 SP Automated blood basophils/100 leukocytes 0 % 0-10 SP Blood neutrophils automated count (number/volume) 3.5 10*3 SP7.8 Blood lymphocytes automated count (number/volume) 3.0 10*3 SP4.0 Blood monocytes automated count (number/volume) 0. 6 10*3 SP1.0 Automated eosinophil count 0.2 10*3/uL 0 .0-0.3 SP Automated blood basophil count (count/volume) 0.0 10*3/uL SP0.1 PT panel in platelet poor plasma by coag ulation assay - 05/19/18 07:37 POS Prothrombin time (PT) in platelet poor plasma by coagu lation assay SP s 12.2-14.7 SP INR in platelet poor plasma or blood by coagulation as say 1.0 SP 0.8-1.4 SP Activated partial thromboplastin time (a PTT) in platelet poor plasma POS assay - 05/19/18 07:37 Activated partial thromboplastin time (a PTT) in platelet poor plasma POS assay 27 s 24-35 SP Comprehensive metabolic panel - 05/19/18 07:37 POS Serum or plasma sodium measurement (moles/volume) 141 mmol/L SP 135-145 SP Serum or plasma potassium measurement (moles/volume) 3.2 mmol/L SP 3.6-5.0 SP Serum or plasma chloride measurement (moles/volume) 104 mmol/L SP 98-107 SP Carbon dioxide 24 mmol/L 21-32 SP Serum or plasma anion gap determination (moles/volume) 13 mmol/L SP 5-14 SP Serum or plasma urea nitrogen measurement (mass/volume ) 16 mg/dL SP 7-18 SP Serum or plasma creatinine measurement (mass/volume) 1.06 mg/dL SP 0.60-1.30 SP Serum or plasma urea nitrogen/creatinine mass ratio 15 NRG SP Serum or plasma creatinine measurement w ith calculation of estimated glomerular SP rate > NRG SP Serum or plasma glucose measurement (mass/volume) 89 mg/dL SP105 Serum or plasma calcium measurement (mass/volume) 9.8 mg/dL SP10.1 Serum or plasma total bilirubin measurement (mass/volu me) 0.5 mg/dL SP 0.1-1.0 SP Serum or plasma alkaline phosphatase mayelin surement (enzymatic activity/volume) SP 68 U/L 40-136 SP Serum or plasma aspartate aminotransfera se measurement (enzymatic SP 22 U/L 5-34 SP Serum or plasma alanine aminotransferase measurement (enzymatic activity/volume) SP 24 U/L 0-55 SP Serum or plasma protein measurement (mass/volume) 7.8 g/dL SP8.2 Serum or plasma albumin measurement (mass/volume) 4.5 g/dL SP4.5 CALCIUM CORRECTED 9.4 mg/dL 8.5-10.1 SP Magnesium - 05/19/18 07:37 POS Magnesium 1.9 mg/dL 1.8-2.4 SP Serum or plasma troponin i.cardiac measu rement (mass/volume) - 05/19/18 07:37 POS Serum or plasma troponin i.cardiac measurement (mass/v olume) < ng/mL POS <0.30 SP Myoglobin, serum - 05/19/18 07:37 POS Myoglobin, serum 40.8 ng/mL 10.0-92.0 SP Urine drug screening test - 05/19/18 08: 18 POS Urine phencyclidine detection by screening method NEGATIVE SP Urine benzodiazepines detection by screening method NEGATIVE SP NEGATIVE SP Urine cocaine detection NEGATIVE NEGATI VE SP Urine amphetamines detection by screening method N EGATIVE SP Urine methamphetamine detection by screening method NEGATIVE SP NEGATIVE SP Urine cannabinoids detection by screening method N EGATIVE SP Urine opiates detection by screening method NEGATI VE SP Urine barbiturates detection NEGATIVE N EGATIVE SP Screening urine tricyclic antidepressants detection NEGATIVE SP NEGATIVE SP Urine methadone detection by screening method NEGA TIVE SP Urine oxycodone detection NEGATIVE NEGA TIVE SP Urine propoxyphene detection NEGATIVE N EGATIVE SP Complete urinalysis with reflex to cultu re - 05/19/18 08:18 POS Urine color determination YELLOW NRG SP Urine clarity determination CLEAR NR G SP Urine pH measurement by test strip 6 5-9 SP Specific gravity of urine by test strip 1.015 1.016-1.022 SP Urine protein assay by test strip, semi-quantitative NEGATIVE SP NEGATIVE SP Urine glucose detection by automated test strip NE GATIVE SP Erythrocytes detection in urine sediment by light micr oscopy NEGATIVE SP NEGATIVE SP Urine ketones detection by automated test strip NE GATIVE SP Urine nitrite detection by test strip NEGATIVE NEGATIVE SP Urine total bilirubin detection by test strip NEGA TIVE SP Urine urobilinogen measurement by automated test strip (mass/volume) SP NORMAL SP Urine leukocyte esterase detection by dipstick NEG ATIVE SP Automated urine sediment erythrocyte cou nt by microscopy (number/high power SP NONE NRG SP Automated urine sediment leukocyte count by microscopy (number/high power field) SP NONE NRG SP Bacteria detection in urine sediment by light microsco py NEGATIVE SP NRG SP Squamous epithelial cells detection in u rine sediment by light microscopy SP NONE NRG SP Crystals detection in urine sediment by light microsco py NONE SP NRG SP Casts detection in urine sediment by light microscopy NONE SP Mucus detection in urine sediment by light microscopy NEGATIVE SP NRG SP Complete urinalysis with reflex to culture NO NRG SP Serum or plasma troponin i.cardiac measu rement (mass/volume) - 05/19/18 13:35 POS Serum or plasma troponin i.cardiac measurement (mass/v olume) < ng/mL POS <0.30 SP Complete blood count (CBC) with automate d white blood cell (WBC) differential - POS 02:59 Blood leukocytes automated count (number/volume) 6.3 10*3/uL POS 4.3-11.0 SP Blood erythrocytes automated count (number/volume) 3.85 10*6/uL SP 4.35-5.85 SP Venous blood hemoglobin measurement (mass/volume) 11.9 g/dL SP17.7 Blood hematocrit (volume fraction) 35 % 40-54 SP Automated erythrocyte mean corpuscular volume 91 [ foz_us] SP99 Automated erythrocyte mean corpuscular h emoglobin (mass per erythrocyte) SP 31 pg 25-34 SP Automated erythrocyte mean corpuscular h emoglobin concentration measurement SP 34 g/dL 32-36 SP Automated erythrocyte distribution width ratio 13. 7 % 10.0- SP Automated blood platelet count (count/volume) 193 10*3/uL SP400 Automated blood platelet mean volume measurement 10.4 [foz_us] SP 7.4-10.4 SP Automated blood neutrophils/100 leukocytes 53 % 42-75 SP Automated blood lymphocytes/100 leukocytes 39 % 12-44 SP Blood monocytes/100 leukocytes 5 % 0-12 SP Automated blood eosinophils/100 leukocytes 3 % 0-10 SP Automated blood basophils/100 leukocytes 0 % 0-10 SP Blood neutrophils automated count (number/volume) 3.3 10*3 SP7.8 Blood lymphocytes automated count (number/volume) 2.5 10*3 SP4.0 Blood monocytes automated count (number/volume) 0. 3 10*3 SP1.0 Automated eosinophil count 0.2 10*3/uL 0 .0-0.3 SP Automated blood basophil count (count/volume) 0.0 10*3/uL SP0.1 Whole blood basic metabolic panel - 04/30 09/16 02:59 POS Serum or plasma sodium measurement (moles/volume) 140 mmol/L SP 135-145 SP Serum or plasma potassium measurement (moles/volume) 3.5 mmol/L SP 3.6-5.0 SP Serum or plasma chloride measurement (moles/volume) 106 mmol/L SP 98-107 SP Carbon dioxide 22 mmol/L 21-32 SP Serum or plasma anion gap determination (moles/volume) 12 mmol/L SP 5-14 SP Serum or plasma urea nitrogen measurement (mass/volume ) 12 mg/dL SP 7-18 SP Serum or plasma creatinine measurement (mass/volume) 0.90 mg/dL SP 0.60-1.30 SP Serum or plasma urea nitrogen/creatinine mass ratio 13 NRG SP Serum or plasma creatinine measurement w ith calculation of estimated glomerular SP rate > NRG SP Serum or plasma glucose measurement (mass/volume) 97 mg/dL SP105 Serum or plasma calcium measurement (mass/volume) 9.3 mg/dL SP10.1 Lipid 1996 panel - 05/20/18 02:59 POS Serum or plasma triglyceride measurement (mass/volume) 141 mg/dL SP <150 SP Serum or plasma cholesterol measurement (mass/volume) 193 mg/dL SP < 200 SP Serum or plasma cholesterol in HDL measurement (mass/v olume) 36 mg/dL SP 40-60 SP Cholesterol in LDL [mass/volume] in serum or plasma by direct assay SP mg/dL 1-129 SP Serum or plasma cholesterol in VLDL measurement (mass/ volume) 28 mg/dL SP 5-40 SP Automated blood complete blood count (he mogram) panel - 08/08/18 11:00 POS Blood leukocytes automated count (number/volume) 7.1 10*3/uL SP 4.3-11.0 SP Blood erythrocytes automated count (number/volume) 4.05 10*6/uL SP 4.35-5.85 SP Venous blood hemoglobin measurement (mass/volume) 12.4 g/dL SP17.7 Blood hematocrit (volume fraction) 37 % 40-54 SP Automated erythrocyte mean corpuscular volume 91 [ foz_us] SP99 Automated erythrocyte mean corpuscular h emoglobin (mass per erythrocyte) SP 31 pg 25-34 SP Automated erythrocyte mean corpuscular h emoglobin concentration measurement SP 34 g/dL 32-36 SP Automated erythrocyte distribution width ratio 13. 6 % 10.0- SP Automated blood platelet count (count/volume) 238 10*3/uL SP400 Automated blood platelet mean volume measurement 10.1 [foz_us] SP 7.4-10.4 SP PT panel in platelet poor plasma by coag ulation assay - 08/08/18 11:00 POS Prothrombin time (PT) in platelet poor plasma by coagu lation assay SP s 12.2-14.7 SP INR in platelet poor plasma or blood by coagulation as say 1.0 SP 0.8-1.4 SP Activated partial thromboplastin time (a PTT) in platelet poor plasma POS assay - 08/08/18 11:00 Activated partial thromboplastin time (a PTT) in platelet poor plasma POS assay 26 s 24-35 SP Comprehensive metabolic panel - 08/08/18 11:00 POS Serum or plasma sodium measurement (moles/volume) 141 mmol/L SP 135-145 SP Serum or plasma potassium measurement (moles/volume) 3.7 mmol/L SP 3.6-5.0 SP Serum or plasma chloride measurement (moles/volume) 104 mmol/L SP 98-107 SP Carbon dioxide 28 mmol/L 21-32 SP Serum or plasma anion gap determination (moles/volume) 9 mmol/L SP 5-14 SP Serum or plasma urea nitrogen measurement (mass/volume ) 13 mg/dL SP 7-18 SP Serum or plasma creatinine measurement (mass/volume) 1.07 mg/dL SP 0.60-1.30 SP Serum or plasma urea nitrogen/creatinine mass ratio 12 NRG SP Serum or plasma creatinine measurement w ith calculation of estimated glomerular SP rate > NRG SP Serum or plasma glucose measurement (mass/volume) 99 mg/dL SP105 Serum or plasma calcium measurement (mass/volume) 9.7 mg/dL SP10.1 Serum or plasma total bilirubin measurement (mass/volu me) 0.6 mg/dL SP 0.1-1.0 SP Serum or plasma alkaline phosphatase mayelin surement (enzymatic activity/volume) SP 78 U/L 40-136 SP Serum or plasma aspartate aminotransfera se measurement (enzymatic SP 20 U/L 5-34 SP Serum or plasma alanine aminotransferase measurement (enzymatic activity/volume) SP 25 U/L 0-55 SP Serum or plasma protein measurement (mass/volume) 7.6 g/dL SP8.2 Serum or plasma albumin measurement (mass/volume) 4.2 g/dL SP4.5 CALCIUM CORRECTED 9.5 mg/dL 8.5-10.1 SP Lipid 1996 panel - 08/08/18 11:00 POS Serum or plasma triglyceride measurement (mass/volume) 130 mg/dL SP <150 SP Serum or plasma cholesterol measurement (mass/volume) 205 mg/dL SP < 200 SP Serum or plasma cholesterol in HDL measurement (mass/v olume) 43 mg/dL SP 40-60 SP Cholesterol in LDL [mass/volume] in serum or plasma by direct assay SP mg/dL 1-129 SP Serum or plasma cholesterol in VLDL measurement (mass/ volume) 26 mg/dL SP 5-40 SP Methicillin resistant Staphylococcus aur eus (MRSA) screening culture - 08/08/18 POS Methicillin resistant Staphylococcus aureus (MRSA) scr eening culture POS NRG SP Automated blood complete blood count (he mogram) panel - 08/09/18 03:05 POS Blood leukocytes automated count (number/volume) 7.6 10*3/uL SP 4.3-11.0 SP Blood erythrocytes automated count (number/volume) 4.09 10*6/uL SP 4.35-5.85 SP Venous blood hemoglobin measurement (mass/volume) 12.4 g/dL SP17.7 Blood hematocrit (volume fraction) 37 % 40-54 SP Automated erythrocyte mean corpuscular volume 90 [ foz_us] SP99 Automated erythrocyte mean corpuscular h emoglobin (mass per erythrocyte) SP 30 pg 25-34 SP Automated erythrocyte mean corpuscular h emoglobin concentration measurement SP 34 g/dL 32-36 SP Automated erythrocyte distribution width ratio 13. 4 % 10.0- SP Automated blood platelet count (count/volume) 222 10*3/uL SP400 Automated blood platelet mean volume measurement 10.7 [foz_us] SP 7.4-10.4 SP Whole blood basic metabolic panel - 07/30 08/17 03:05 POS Serum or plasma sodium measurement (moles/volume) 141 mmol/L SP 135-145 SP Serum or plasma potassium measurement (moles/volume) 3.8 mmol/L SP 3.6-5.0 SP Serum or plasma chloride measurement (moles/volume) 107 mmol/L SP 98-107 SP Carbon dioxide 24 mmol/L 21-32 SP Serum or plasma anion gap determination (moles/volume) 10 mmol/L SP 5-14 SP Serum or plasma urea nitrogen measurement (mass/volume ) 12 mg/dL SP 7-18 SP Serum or plasma creatinine measurement (mass/volume) 0.95 mg/dL SP 0.60-1.30 SP Serum or plasma urea nitrogen/creatinine mass ratio 13 NRG SP Serum or plasma creatinine measurement w ith calculation of estimated glomerular SP rate > NRG SP Serum or plasma glucose measurement (mass/volume) 105 mg/dL SP105 Serum or plasma calcium measurement (mass/volume) 9.5 mg/dL SP10.1 Streptococcus pyogenes antigen detection - 11/11/18 08:38 POS Streptococcus pyogenes antigen detection NEGATIVE NEGATIVE SP Influenza virus A and B antigen detectio n - 11/11/18 08:38 POS FLU RESULT NEGATIVE FOR INFLUENZA A AND B ANTIGENS BY IA SP Bacterial throat culture - 11/11/18 08:3 8 POS Bacterial throat culture NBS NRG SP Complete blood count (CBC) with automate d white blood cell (WBC) differential - POS 19:20 Blood leukocytes automated count (number/volume) 6.6 10*3/uL POS 4.3-11.0 SP Blood erythrocytes automated count (number/volume) 3.74 10*6/uL SP 4.35-5.85 SP Venous blood hemoglobin measurement (mass/volume) 11.6 g/dL SP17.7 Blood hematocrit (volume fraction) 35 % 40-54 SP Automated erythrocyte mean corpuscular volume 93 [ foz_us] SP99 Automated erythrocyte mean corpuscular h emoglobin (mass per erythrocyte) SP 31 pg 25-34 SP Automated erythrocyte mean corpuscular h emoglobin concentration measurement SP 34 g/dL 32-36 SP Automated erythrocyte distribution width ratio 13. 7 % 10.0- SP Automated blood platelet count (count/volume) 207 10*3/uL SP400 Automated blood platelet mean volume measurement 11.2 [foz_us] SP 7.4-10.4 SP Automated blood neutrophils/100 leukocytes 62 % 42-75 SP Automated blood lymphocytes/100 leukocytes 30 % 12-44 SP Blood monocytes/100 leukocytes 6 % 0-12 SP Automated blood eosinophils/100 leukocytes 3 % 0-10 SP Automated blood basophils/100 leukocytes 0 % 0-10 SP Blood neutrophils automated count (number/volume) 4.1 10*3 SP7.8 Blood lymphocytes automated count (number/volume) 2.0 10*3 SP4.0 Blood monocytes automated count (number/volume) 0. 4 10*3 SP1.0 Automated eosinophil count 0.2 10*3/uL 0 .0-0.3 SP Automated blood basophil count (count/volume) 0.0 10*3/uL SP0.1 PT panel in platelet poor plasma by coag ulation assay - 03/17/19 19:20 POS Prothrombin time (PT) in platelet poor plasma by coagu lation assay SP s 12.2-14.7 SP INR in platelet poor plasma or blood by coagulation as say 1.0 SP 0.8-1.4 SP Activated partial thromboplastin time (a PTT) in platelet poor plasma POS assay - 03/17/19 19:20 Activated partial thromboplastin time (a PTT) in platelet poor plasma POS assay 26 s 24-35 SP Comprehensive metabolic panel - 03/17/19 19:20 POS Serum or plasma sodium measurement (moles/volume) 140 mmol/L SP 135-145 SP Serum or plasma potassium measurement (moles/volume) 3.5 mmol/L SP 3.6-5.0 SP Serum or plasma chloride measurement (moles/volume) 104 mmol/L SP 98-107 SP Carbon dioxide 24 mmol/L 21-32 SP Serum or plasma anion gap determination (moles/volume) 12 mmol/L SP 5-14 SP Serum or plasma urea nitrogen measurement (mass/volume ) 15 mg/dL SP 7-18 SP Serum or plasma creatinine measurement (mass/volume) 1.37 mg/dL SP 0.60-1.30 SP Serum or plasma urea nitrogen/creatinine mass ratio 11 NRG SP Serum or plasma creatinine measurement w ith calculation of estimated glomerular SP rate > NRG SP Serum or plasma glucose measurement (mass/volume) 178 mg/dL SP105 Serum or plasma calcium measurement (mass/volume) 9.4 mg/dL SP10.1 Serum or plasma total bilirubin measurement (mass/volu me) 0.6 mg/dL SP 0.1-1.0 SP Serum or plasma alkaline phosphatase mayelin surement (enzymatic activity/volume) SP 84 U/L 40-136 SP Serum or plasma aspartate aminotransfera se measurement (enzymatic SP 18 U/L 5-34 SP Serum or plasma alanine aminotransferase measurement (enzymatic activity/volume) SP 24 U/L 0-55 SP Serum or plasma protein measurement (mass/volume) 7.6 g/dL SP8.2 Serum or plasma albumin measurement (mass/volume) 4.1 g/dL SP4.5 CALCIUM CORRECTED 9.3 mg/dL 8.5-10.1 SP Magnesium - 03/17/19 19:20 POS Magnesium 1.7 mg/dL 1.6-2.4 SP Serum or plasma troponin i.cardiac measu rement (mass/volume) - 03/17/19 19:20 POS Serum or plasma troponin i.cardiac measurement (mass/v olume) < ng/mL POS <0.028 SP Myoglobin, serum - 03/17/19 19:20 POS Myoglobin, serum 41.4 ng/mL 10.0-92.0 SP Serum or plasma lithium measurement (mol es/volume) - 03/17/19 19:20 POS BNP PT 18.1 pg/mL <100.0 SP Serum or plasma troponin i.cardiac measu rement (mass/volume) - 03/17/19 21:05 POS Serum or plasma troponin i.cardiac measurement (mass/v olume) < ng/mL POS <0.028 SP Complete blood count (CBC) with automate d white blood cell (WBC) differential - POS 20:11 Blood leukocytes automated count (number/volume) 7.1 10*3/uL POS 4.3-11.0 SP Blood erythrocytes automated count (number/volume) 3.83 10*6/uL SP 4.35-5.85 SP Venous blood hemoglobin measurement (mass/volume) 11.6 g/dL SP17.7 Blood hematocrit (volume fraction) 34 % 40-54 SP Automated erythrocyte mean corpuscular volume 88 [ foz_us] SP99 Automated erythrocyte mean corpuscular h emoglobin (mass per erythrocyte) SP 30 pg 25-34 SP Automated erythrocyte mean corpuscular h emoglobin concentration measurement SP 34 g/dL 32-36 SP Automated erythrocyte distribution width ratio 13. 1 % 10.0- SP Automated blood platelet count (count/volume) 198 10*3/uL SP400 Automated blood platelet mean volume measurement 11.6 [foz_us] SP 7.4-10.4 SP Automated blood neutrophils/100 leukocytes 63 % 42-75 SP Automated blood lymphocytes/100 leukocytes 26 % 12-44 SP Blood monocytes/100 leukocytes 8 % 0-12 SP Automated blood eosinophils/100 leukocytes 3 % 0-10 SP Automated blood basophils/100 leukocytes 0 % 0-10 SP Blood neutrophils automated count (number/volume) 4.5 10*3 SP7.8 Blood lymphocytes automated count (number/volume) 1.8 10*3 SP4.0 Blood monocytes automated count (number/volume) 0. 6 10*3 SP1.0 Automated eosinophil count 0.2 10*3/uL 0 .0-0.3 SP Automated blood basophil count (count/volume) 0.0 10*3/uL SP0.1 Comprehensive metabolic panel - 06/13/19 20:11 POS Serum or plasma sodium measurement (moles/volume) 127 mmol/L SP 135-145 SP Serum or plasma potassium measurement (moles/volume) 4.1 mmol/L SP 3.6-5.0 SP Serum or plasma chloride measurement (moles/volume) 89 mmol/L SP 98-107 SP Carbon dioxide 24 mmol/L 21-32 SP Serum or plasma anion gap determination (moles/volume) 14 mmol/L SP 5-14 SP Serum or plasma urea nitrogen measurement (mass/volume ) 15 mg/dL SP 7-18 SP Serum or plasma creatinine measurement (mass/volume) 1.66 mg/dL SP 0.60-1.30 SP Serum or plasma urea nitrogen/creatinine mass ratio 9 NRG SP Serum or plasma creatinine measurement w ith calculation of estimated glomerular SP rate 51 NRG SP Serum or plasma glucose measurement (mass/volume) 796 mg/dL SP105 Serum or plasma calcium measurement (mass/volume) 10.3 mg/dL SP 8.5-10.1 SP Serum or plasma total bilirubin measurement (mass/volu me) 0.5 mg/dL SP 0.1-1.0 SP Serum or plasma alkaline phosphatase mayelin surement (enzymatic activity/volume) SP 150 U/L 40-136 SP Serum or plasma aspartate aminotransfera se measurement (enzymatic SP 16 U/L 5-34 SP Serum or plasma alanine aminotransferase measurement (enzymatic activity/volume) SP 22 U/L 0-55 SP Serum or plasma protein measurement (mass/volume) 8.0 g/dL SP8.2 Serum or plasma albumin measurement (mass/volume) 4.1 g/dL SP4.5 CALCIUM CORRECTED 10.2 mg/dL 8.5-10.1 SP Beta-hydroxybutyric acid measurement - 1 08/13/18 20:11 POS Beta-hydroxybutyric acid measurement 0.10 mmol/L 0.00-0.27 SP Capillary blood glucose measurement by g lucometer (mass/volume) - 06/13/19 21:59 POS Capillary blood glucose measurement by glucometer (mas s/volume) > POS 70-110 SP Methicillin resistant Staphylococcus aur eus (MRSA) screening culture - 06/13/19 POS Methicillin resistant Staphylococcus aureus (MRSA) scr eening culture POS NRG SP Whole blood basic metabolic panel - 05/30 12/15 22:51 POS Serum or plasma sodium measurement (moles/volume) 133 mmol/L SP 135-145 SP Serum or plasma potassium measurement (moles/volume) 4.5 mmol/L SP 3.6-5.0 SP Serum or plasma chloride measurement (moles/volume) 95 mmol/L SP 98-107 SP Carbon dioxide 27 mmol/L 21-32 SP Serum or plasma anion gap determination (moles/volume) 11 mmol/L SP 5-14 SP Serum or plasma urea nitrogen measurement (mass/volume ) 14 mg/dL SP 7-18 SP Serum or plasma creatinine measurement (mass/volume) 1.42 mg/dL SP 0.60-1.30 SP Serum or plasma urea nitrogen/creatinine mass ratio 10 NRG SP Serum or plasma creatinine measurement w ith calculation of estimated glomerular SP rate > NRG SP Serum or plasma glucose measurement (mass/volume) 615 mg/dL SP105 Serum or plasma calcium measurement (mass/volume) 10.0 mg/dL SP 8.5-10.1 SP Hemoglobin A1c measurement - 06/13/19 22 :51 POS Blood hemoglobin A1C measurement (mass/volume) 9.8 % 4.0-5.6 SP MEAN BLOOD GLUCOSE 235 % <=126 SP Complete urinalysis with reflex to cultu re - 06/13/19 23:40 POS Urine color determination YELLOW NRG SP Urine clarity determination CLEAR NR G SP Urine pH measurement by test strip 6.5 5-9 SP Specific gravity of urine by test strip 1.010 1.016-1.022 SP Urine protein assay by test strip, semi-quantitative NEGATIVE SP NEGATIVE SP Urine glucose detection by automated test strip 3+ NEGATIVE SP Erythrocytes detection in urine sediment by light micr oscopy NEGATIVE SP NEGATIVE SP Urine ketones detection by automated test strip NE GATIVE SP Urine nitrite detection by test strip NEGATIVE NEGATIVE SP Urine total bilirubin detection by test strip NEGA TIVE SP Urine urobilinogen measurement by automated test strip (mass/volume) SP mg/dL <=1.0 SP Urine leukocyte esterase detection by dipstick NEG ATIVE SP Automated urine sediment erythrocyte cou nt by microscopy (number/high power SP NONE NRG SP Automated urine sediment leukocyte count by microscopy (number/high power field) SP NONE NRG SP Bacteria detection in urine sediment by light microsco py NEGATIVE SP NRG SP Squamous epithelial cells detection in u rine sediment by light microscopy SP 0-2 NRG SP Crystals detection in urine sediment by light microsco py NONE SP NRG SP Casts detection in urine sediment by light microscopy NONE SP Mucus detection in urine sediment by light microscopy SMALL SP NRG SP Complete urinalysis with reflex to culture NO NRG SP Capillary blood glucose measurement by g lucometer (mass/volume) - 06/14/19 00:06 POS Capillary blood glucose measurement by glucometer (mas s/volume) 437 POS 70-110 SP Capillary blood glucose measurement by g lucometer (mass/volume) - 06/14/19 01:29 POS Capillary blood glucose measurement by glucometer (mas s/volume) 351 POS 70-110 SP Capillary blood glucose measurement by g lucometer (mass/volume) - 06/14/19 02:32 POS Capillary blood glucose measurement by glucometer (mas s/volume) 333 POS 70-110 SP Complete blood count (CBC) with automate d white blood cell (WBC) differential - POS 03:00 Blood leukocytes automated count (number/volume) 7.1 10*3/uL POS 4.3-11.0 SP Blood erythrocytes automated count (number/volume) 3.58 10*6/uL SP 4.35-5.85 SP Venous blood hemoglobin measurement (mass/volume) 10.7 g/dL SP17.7 Blood hematocrit (volume fraction) 32 % 40-54 SP Automated erythrocyte mean corpuscular volume 88 [ foz_us] SP99 Automated erythrocyte mean corpuscular h emoglobin (mass per erythrocyte) SP 30 pg 25-34 SP Automated erythrocyte mean corpuscular h emoglobin concentration measurement SP 34 g/dL 32-36 SP Automated erythrocyte distribution width ratio 13. 1 % 10.0- SP Automated blood platelet count (count/volume) 196 10*3/uL SP400 Automated blood platelet mean volume measurement 11.1 [foz_us] SP 7.4-10.4 SP Automated blood neutrophils/100 leukocytes 61 % 42-75 SP Automated blood lymphocytes/100 leukocytes 27 % 12-44 SP Blood monocytes/100 leukocytes 9 % 0-12 SP Automated blood eosinophils/100 leukocytes 4 % 0-10 SP Automated blood basophils/100 leukocytes 0 % 0-10 SP Blood neutrophils automated count (number/volume) 4.3 10*3 SP7.8 Blood lymphocytes automated count (number/volume) 1.9 10*3 SP4.0 Blood monocytes automated count (number/volume) 0. 6 10*3 SP1.0 Automated eosinophil count 0.3 10*3/uL 0 .0-0.3 SP Automated blood basophil count (count/volume) 0.0 10*3/uL SP0.1 Whole blood basic metabolic panel - 05/30 01/15 03:00 POS Serum or plasma sodium measurement (moles/volume) 136 mmol/L SP 135-145 SP Serum or plasma potassium measurement (moles/volume) 3.7 mmol/L SP 3.6-5.0 SP Serum or plasma chloride measurement (moles/volume) 100 mmol/L SP 98-107 SP Carbon dioxide 25 mmol/L 21-32 SP Serum or plasma anion gap determination (moles/volume) 11 mmol/L SP 5-14 SP Serum or plasma urea nitrogen measurement (mass/volume ) 11 mg/dL SP 7-18 SP Serum or plasma creatinine measurement (mass/volume) 1.10 mg/dL SP 0.60-1.30 SP Serum or plasma urea nitrogen/creatinine mass ratio 10 NRG SP Serum or plasma creatinine measurement w ith calculation of estimated glomerular SP rate > NRG SP Serum or plasma glucose measurement (mass/volume) 269 mg/dL SP105 Serum or plasma calcium measurement (mass/volume) 9.4 mg/dL SP10.1 Serum or plasma phosphate measurement (m ass/volume) - 06/14/19 03:00 POS Serum or plasma phosphate measurement (mass/volume) 2.8 mg/dL SP 2.3-4.7 SP Magnesium - 06/14/19 03:00 POS Magnesium 2.1 mg/dL 1.6-2.4 SP Beta-hydroxybutyric acid measurement - 1 08/14/18 03:00 POS Beta-hydroxybutyric acid measurement 0.04 mmol/L 0.00-0.27 SP Capillary blood glucose measurement by g lucometer (mass/volume) - 06/14/19 03:33 POS Capillary blood glucose measurement by glucometer (mas s/volume) 280 POS 70-110 SP Capillary blood glucose measurement by g lucometer (mass/volume) - 06/14/19 04:31 POS Capillary blood glucose measurement by glucometer (mas s/volume) 205 POS 70-110 SP Capillary blood glucose measurement by g lucometer (mass/volume) - 06/14/19 05:29 POS Capillary blood glucose measurement by glucometer (mas s/volume) 276 POS 70-110 SP Capillary blood glucose measurement by g lucometer (mass/volume) - 06/14/19 06:35 POS Capillary blood glucose measurement by glucometer (mas s/volume) 314 POS 70-110 SP Whole blood basic metabolic panel - 05/30 01/15 07:05 POS Serum or plasma sodium measurement (moles/volume) 137 mmol/L SP 135-145 SP Serum or plasma potassium measurement (moles/volume) 3.9 mmol/L SP 3.6-5.0 SP Serum or plasma chloride measurement (moles/volume) 102 mmol/L SP 98-107 SP Carbon dioxide 25 mmol/L 21-32 SP Serum or plasma anion gap determination (moles/volume) 10 mmol/L SP 5-14 SP Serum or plasma urea nitrogen measurement (mass/volume ) 11 mg/dL SP 7-18 SP Serum or plasma creatinine measurement (mass/volume) 1.09 mg/dL SP 0.60-1.30 SP Serum or plasma urea nitrogen/creatinine mass ratio 10 NRG SP Serum or plasma creatinine measurement w ith calculation of estimated glomerular SP rate > NRG SP Serum or plasma glucose measurement (mass/volume) 258 mg/dL SP105 Serum or plasma calcium measurement (mass/volume) 9.4 mg/dL SP10.1 Capillary blood glucose measurement by g lucometer (mass/volume) - 06/14/19 07:41 POS Capillary blood glucose measurement by glucometer (mas s/volume) 269 POS 70-110 SP Capillary blood glucose measurement by g lucometer (mass/volume) - 06/14/19 08:46 POS Capillary blood glucose measurement by glucometer (mas s/volume) 263 POS 70-110 SP Capillary blood glucose measurement by g lucometer (mass/volume) - 06/14/19 09:41 POS Capillary blood glucose measurement by glucometer (mas s/volume) 189 POS 70-110 SP Capillary blood glucose measurement by g lucometer (mass/volume) - 06/14/19 10:47 POS Capillary blood glucose measurement by glucometer (mas s/volume) 145 POS 70-110 SP Capillary blood glucose measurement by g lucometer (mass/volume) - 06/14/19 16:52 POS Capillary blood glucose measurement by glucometer (mas s/volume) 288 POS 70-110 SP Capillary blood glucose measurement by g lucometer (mass/volume) - 06/14/19 19:36 POS Capillary blood glucose measurement by glucometer (mas s/volume) 325 POS 70-110 SP Complete blood count (CBC) with automate d white blood cell (WBC) differential - POS 05:25 Blood leukocytes automated count (number/volume) 7.2 10*3/uL POS 4.3-11.0 SP Blood erythrocytes automated count (number/volume) 3.46 10*6/uL SP 4.35-5.85 SP Venous blood hemoglobin measurement (mass/volume) 10.5 g/dL SP17.7 Blood hematocrit (volume fraction) 31 % 40-54 SP Automated erythrocyte mean corpuscular volume 90 [ foz_us] SP99 Automated erythrocyte mean corpuscular h emoglobin (mass per erythrocyte) SP 30 pg 25-34 SP Automated erythrocyte mean corpuscular h emoglobin concentration measurement SP 34 g/dL 32-36 SP Automated erythrocyte distribution width ratio 13. 3 % 10.0- SP Automated blood platelet count (count/volume) 186 10*3/uL SP400 Automated blood platelet mean volume measurement 11.2 [foz_us] SP 7.4-10.4 SP Automated blood neutrophils/100 leukocytes 65 % 42-75 SP Automated blood lymphocytes/100 leukocytes 26 % 12-44 SP Blood monocytes/100 leukocytes 6 % 0-12 SP Automated blood eosinophils/100 leukocytes 3 % 0-10 SP Automated blood basophils/100 leukocytes 0 % 0-10 SP Blood neutrophils automated count (number/volume) 4.7 10*3 SP7.8 Blood lymphocytes automated count (number/volume) 1.9 10*3 SP4.0 Blood monocytes automated count (number/volume) 0. 5 10*3 SP1.0 Automated eosinophil count 0.2 10*3/uL 0 .0-0.3 SP Automated blood basophil count (count/volume) 0.0 10*3/uL SP0.1 Comprehensive metabolic panel - 06/15/19 05:25 POS Serum or plasma sodium measurement (moles/volume) 136 mmol/L SP 135-145 SP Serum or plasma potassium measurement (moles/volume) 3.8 mmol/L SP 3.6-5.0 SP Serum or plasma chloride measurement (moles/volume) 102 mmol/L SP 98-107 SP Carbon dioxide 24 mmol/L 21-32 SP Serum or plasma anion gap determination (moles/volume) 10 mmol/L SP 5-14 SP Serum or plasma urea nitrogen measurement (mass/volume ) 14 mg/dL SP 7-18 SP Serum or plasma creatinine measurement (mass/volume) 1.02 mg/dL SP 0.60-1.30 SP Serum or plasma urea nitrogen/creatinine mass ratio 14 NRG SP Serum or plasma creatinine measurement w ith calculation of estimated glomerular SP rate > NRG SP Serum or plasma glucose measurement (mass/volume) 213 mg/dL SP105 Serum or plasma calcium measurement (mass/volume) 9.1 mg/dL SP10.1 Serum or plasma total bilirubin measurement (mass/volu me) 0.4 mg/dL SP 0.1-1.0 SP Serum or plasma alkaline phosphatase mayelin surement (enzymatic activity/volume) SP 109 U/L 40-136 SP Serum or plasma aspartate aminotransfera se measurement (enzymatic SP 21 U/L 5-34 SP Serum or plasma alanine aminotransferase measurement (enzymatic activity/volume) SP 31 U/L 0-55 SP Serum or plasma protein measurement (mass/volume) 6.4 g/dL SP8.2 Serum or plasma albumin measurement (mass/volume) 3.4 g/dL SP4.5 CALCIUM CORRECTED 9.6 mg/dL 8.5-10.1 SP Capillary blood glucose measurement by g lucometer (mass/volume) - 06/15/19 05:27 POS Capillary blood glucose measurement by glucometer (mas s/volume) 218 POS 70-110 SP Capillary blood glucose measurement by g lucometer (mass/volume) - 06/15/19 11:08 POS Capillary blood glucose measurement by glucometer (mas s/volume) 203 POS 70-110 SP Encounters ACCT No. Visit Date/Time Discharge Status POS Pt. Type Provider Facility Loc./Un it POS Complaint POS [id number] 06/13/2019 22:06:00 09:38:00 SP DIS Outpatient MAMI MARKHAM, KIMBERLY Paige [facility] 4TH PARESTHESIA R ARM/LEG,NEW ON SET DM,HHNK SP [id number] 05/30/2019 01:16:00 02:52:00 SP DIS Emergency DELROY KELLEY MD [facility] ER RASH SP [id number] 03/17/2019 18:35:00 22:24:00 SP DIS Emergency DELROY KELLEY MD [facility] ER POOR CIRCULATION IN LEGS SP [id number] 11/11/2018 08:10:00 09:45:00 SP DIS Emergency STANTON CASTELLON MD [facility] ER THROAT PAIN SP [id number] 08/08/2018 10:23:00 10:25:00 SP DIS Outpatient Royal KENDRICK MD [facility] CATH CHEST PAIN,ABN NUCLEA R STRESS SP [id number] 07/11/2018 08:20:00 23:59:59 SP CLS Outpatient Royal KENDRICK MD [facility] CARD CHEST PAIN SP [id number] 05/19/2018 08:40:00 17:43:00 SP DIS Inpatient GIANNI PAUL DO, [facility] ICU HYPERTENSIVE EMERGENCY,CHEST PAIN, R/O SP [id number] 09/14/2017 07:47:00 018 23:59:59 SP [facility] Outpatient [facility] DO LAURA Nayeli [facility] RAD PAIN IN LUMBAR REGIO N AND GOES SP LT LEG [id number] 09/04/2017 17:20:00 018 10:45:00 SP DIS Inpatient [facility] LAURA BEAL [facility] 4TH HYPERTENSIVE ENERPEN CY, SP WEAKNESS [id number] 10/09/2016 16:37:00 017 20:33:00 SP DIS Emergency ANNA FARFAN [facility] ER SWOLLEN GLANDS IN NE CK/DIFF [id number] 08/01/2016 10:51:00 017 23:59:59 SP [facility] RAD RIGHT LEG AND FOOT N UMBNESS AND SP [id number] 11/18/2015 01:54:00 016 16:50:00 SP DIS Inpatient ALIVIA MARKHAM, PETTY Monae [facility] CSD CHEST PAIN,HYPERTENSIVE URGE NCY [id number] 08/30/2015 14:06:00 016 23:59:59 SP [facility] Outpatient [facility] LAURA BEAL [facility] RAD LT LEG GOIES NUMB HU RTS TO WALK [id number] 12/21/2014 22:59:00 015 23:37:00 SP DIS Emergency JACK NUNN DO [facility] ER BUG BITE IN LEFT EAR SP [id number] 01/08/2014 06:59:00 014 23:59:59 SP [facility] Outpatient [facility] LAURA BELA [facility] RAD SWELLING ABOVE LEFT SP INSUFF [id number] 12/31/2013 15:05:00 014 23:59:59 SP [facility] RAD SWELLING ABOVE LT CL AVICLE SP [id number] 12/04/2013 10:20:00 05/08/2 014 23:59:59 SP [facility] RAD CAROTID OCCLUSION SP [id number] 12/01/2013 11:10:00 23:59:59 SP CLS Outpatient LAURA NOVOA DO [facility] RAD NECK PAIN SWELLING SP [id number] 11/04/2013 13:26:00 014 23:59:59 SP CLS Outpatient LAURA NOVOA DO [facility] RAD RLQ PAIN SP [id number] 02/18/2013 08:38:00 013 10:03:00 SP DIS Emergency STANTON CASTELLON MD [facility] ER SWOLLEN LYMPH NODES SP [id number] 12/02/2012 14:38:00 17:49:00 SP DIS Emergency ANNA FARFAN [facility] ER COUGH/CONGESTION SP [id number] 12/21/2014 22:59:00 SP Registration SP [id number] 10/20/2011 14:28:00 SP Registration SP [id number] 10/17/2011 12:42:00 SP Registration SP [id number] 07/20/2011 02:29:00 SP Registration ZULAY
== END 2019-05-30 02:52 | disposition home or self-care (01) ==
LOC: EDUNIT# 01:14 → ER 01:16
DX: L20.9 Atopic dermatitis, unspecified (principal); I10 Essential (primary) hypertension; E78.00 Pure hypercholesterolemia, unspecified; I25.2 Old myocardial infarction; J45.909 Unspecified asthma, uncomplicated; Z79.82 Long term (current) use of aspirin; Z87.891 Personal history of nicotine dependence; Z86.73 Personal history of transient ischemic attack (TIA), and cerebral infarction without residual deficits; Z95.5 Presence of coronary angioplasty implant and graft
CPT/HCPCS: 96372; 99284

== ENCOUNTER 2019-06-13 20:00 | Observation (INO) | payer MEDICARE ==
[~2019-06-13] VITALS: Ht 188 cm; Wt 98.0 kg
[~2019-06-13 20:00] MED LIST changes: +LORA10TA7 PO; +METO-370 PO; -METO50TA7 PO; +PYRI100T2 PO; -PYRI100T4 PO; +TRAM50TA2 PO; -TRM50T PO
[2019-06-13 20:28] LABS: BASOPHILS % (AUTO) 0 % (0-10); EOSINOPHILS # (AUTO) 0.2 10^3/uL (0.0-0.3); EOSINOPHILS % (AUTO) 3 % (0-10); HEMATOCRIT 34 % (40-54); HEMOGLOBIN 11.6 G/DL (13.3-17.7); LYMPHOCYTES # (AUTO) 1.8 X 10^3 (1.0-4.0); LYMPHOCYTES % (AUTO) 26 % (12-44); MEAN CORPUSCULAR HEMOGLOBIN 30 PG (25-34); MEAN CORPUSCULAR HGB CONC 34 G/DL (32-36); MEAN CORPUSCULAR VOLUME 88 FL (80-99); MEAN PLATELET VOLUME 11.6 FL (7.4-10.4); MONOCYTES # (AUTO) 0.6 X 10^3 (0.0-1.0); MONOCYTES % (AUTO) 8 % (0-12); NEUTROPHILS # (AUTO) 4.5 X 10^3 (1.8-7.8); NEUTROPHILS % (AUTO) 63 % (42-75); PLATELET COUNT 198 10^3/uL (130-400); RED CELL DISTRIBUTION WIDTH 13.1 % (10.0-14.5); WHITE BLOOD COUNT 7.1 10^3/uL (4.3-11.0)
--- NOTE | 2019-06-13 20:37 | ED General ---
General Chief Complaint: Neurological Problems Stated Complaint: R ARM AND LEG SHAKING Nursing Triage Note: Complains of tremors in the right arm. First occurence two days ago in right leg and second occurence in right arm prior to arrival Nursing Sepsis Screen: No Definite Risk Source of Information: Patient Exam Limitations: No Limitations History of Present Illness Date Seen by Provider: Jun 13, 2019 Time Seen by Provider: 20:34 Initial Comments To ER with tremors in the right arm and right leg intermittently 3 times today. No fever no chills no headache, no known cause of this and it has never happened before. He states that the right arm will start to tremor and begin flopping and shaking which is seemingly out of his control until he grabbed with his left arm and makes it stopped. This lasts only a few seconds. Same thing applies above the right leg, begins twitching and tremoring until he grabs it and then makes it stopped. Timing/Duration: 1-2 Days Severity: Moderate Associated Systoms: Denies Symptoms Allergies and Home Medications Allergies Coded Allergies: No Known Drug Allergies (Unverified , 07/20/11) Home Medications Amlodipine Besylate 10 Mg Tablet, 10 MG PO DAILY, (Reported) Aspirin 81 Mg Tablet.dr, 81 MG PO DAILY, (Reported) Atorvastatin Calcium 40 Mg Tablet, 40 MG PO HS, (Reported) Chlorzoxazone 500 Mg Tablet, 500 MG PO BID, (Reported) Furosemide 40 Mg Tablet, 40 MG PO DAILY, (Reported) Lisinopril 40 Mg Tablet, 40 MG PO DAILY, (Reported) Loratadine 10 Mg Tablet, 10 MG PO DAILY Prescribed by: DELROY KELLEY on 05/30/19235 Metoprolol Succinate 50 Mg Tab.er.24h, 50 MG PO DAILY Prescribed by: Royal KENDRICK on 08/09/18 100 Nitroglycerin 0.4 Mg Tab.subl, 0.4 MG SL UD PRN for CHEST PAIN, (Reported) Prednisone 20 Mg Tab, 40 MG PO BID Prescribed by: DELROY KELLEY on 05/30/19235 Pyridoxine HCl 100 Mg Tablet, 100 MG PO DAILY, (Reported) Ticagrelor 90 Mg Tablet, 90 MG PO BID Prescribed by: Royal KENDRICK on 08/09/18 100 Tramadol HCl 50 Mg Tablet, 50 MG PO BID PRN for PAIN-MODERATE, (Reported) Patient Home Medication List Home Medication List Reviewed: Yes Review of Systems Review of Systems Constitutional: see HPI EENTM: see HPI Respiratory: no symptoms reported Cardiovascular: no symptoms reported Genitourinary: no symptoms reported Musculoskeletal: no symptoms reported Skin: no symptoms reported Psychiatric/Neurological: See HPI Hematologic/Lymphatic: No Symptoms Reported Immunological/Allergic: no symptoms reported Past Qurkzbr-Ntmsbn-Qcwtgo Hx Patient Social History Alcohol Use: Denies Use Number of Drinks Today: AA Alcohol Beverage of Choice: Beer Recreational Drug Use: No Smoking Status: Former Smoker Type Used: Cigarettes Former Smoker, Quit: Feb 05, 2017 2nd Hand Smoke Exposure: No Recent Foreign Travel: No Contact w/Someone Who Travel: No Recent Infectious Disease Expo: No Recent Hopitalizations: Yes (HTN) Immunizations Up To Date Tetanus Booster (TDap): Unknown PED Vaccines UTD: No Seasonal Allergies Seasonal Allergies: No Past Medical History Surgeries: Yes (Inguinal hernia Rpr-peds, lower back, r pinky finger) Coronary Stent, Orthopedic Respiratory: Yes (CHILDHOOD ASTHMA) Asthma Currently Using CPAP: No Currently Using BIPAP: No Cardiac: Yes Heart Attack, High Cholesterol, Hypertension Neurological: No Stroke Reproductive Disorders: No Genitourinary: No Gastrointestinal: No Musculoskeletal: Yes Chronic Back Pain Endocrine: No HEENT: No Cancer: No Psychosocial: No Integumentary: No Blood Disorders: No Adverse Reaction/Blood Tranf: No Family Medical History Diabetes Physical Exam Vital Signs Vital Signs - First Documented 06/13/19 06/13/19 20:07 21:37 Temp 36.5 Pulse 93 Resp 12 B/P (MAP) 178/98 (124) Pulse Ox 97 Capillary Refill : Less Than 3 Seconds Height, Weight, BMI Height: 6'2.00" Weight: 222lbs. 0.0oz. 100.266624gb; 27.00 BMI Method:Stated General Appearance: No Apparent Distress, WD/WN Eyes: Bilateral Eye Normal Inspection, Bilateral Eye PERRL, Bilateral Eye EOMI HEENT: PERRL/EOMI, TMs Normal Neck: Full Range of Motion, Normal Inspection Respiratory: Normal Breath Sounds, No Accessory Muscle Use, No Respiratory Distress Cardiovascular: No Murmur, Normal Peripheral Pulses Gastrointestinal: Normal Bowel Sounds, Non Tender, Soft Extremity: Normal Capillary Refill, Normal Inspection Neurologic/Psychiatric: Alert, Oriented x3 Skin: Normal Color, Warm/Dry Comments Alert and oriented, calm, pleasant, without tremor in either extremity. Progress/Results/Core Measures Suspected Sepsis Recent Fever Within 48 Hours: No Infection Criteria Present: None New/Unexplained Altered Menta: No Sepsis Screen: No Definite Risk SIRS Temperature: Pulse: 93 Respiratory Rate: 12 Laboratory Tests 06/13/19 20:11: White Blood Count 7.1 Blood Pressure 178 /98 Mean: 124 Laboratory Tests 06/13/19 20:11: Creatinine 1.66H, Platelet Count 198, Total Bilirubin 0.5 Results/Orders Lab Results Laboratory Tests Test 06/13/19 20:11 Range/Units White Blood Count 7.1 4.3-11.0 10^3/uL Red Blood Count 3.83 L 4.35-5.85 10^6/uL Hemoglobin 11.6 L 13.3-17.7 G/DL Hematocrit 34 L 40-54 % Mean Corpuscular Volume 88 80-99 FL Mean Corpuscular Hemoglobin 30 25-34 PG Mean Corpuscular Hemoglobin Concent 34 32-36 G/DL Red Cell Distribution Width 13.1 10.0-14.5 % Platelet Count 198 130-400 10^3/uL Mean Platelet Volume 11.6 H 7.4-10.4 FL Neutrophils (%) (Auto) 63 42-75 % Lymphocytes (%) (Auto) 26 12-44 % Monocytes (%) (Auto) 8 0-12 % Eosinophils (%) (Auto) 3 0-10 % Basophils (%) (Auto) 0 0-10 % Neutrophils # (Auto) 4.5 1.8-7.8 X 10^3 Lymphocytes # (Auto) 1.8 1.0-4.0 X 10^3 Monocytes # (Auto) 0.6 0.0-1.0 X 10^3 Eosinophils # (Auto) 0.2 0.0-0.3 10^3/uL Basophils # (Auto) 0.0 0.0-0.1 10^3/uL Sodium Level 127 L 135-145 MMOL/L Potassium Level 4.1 3.6-5.0 MMOL/L Chloride Level 89 L 98-107 MMOL/L Carbon Dioxide Level 24 21-32 MMOL/L Anion Gap 14 5-14 MMOL/L Blood Urea Nitrogen 15 7-18 MG/DL Creatinine 1.66 H 0.60-1.30 MG/DL Estimat Glomerular Filtration Rate 51 BUN/Creatinine Ratio 9 Glucose Level 796 *H 70-105 MG/DL Calcium Level 10.3 H 8.5-10.1 MG/DL Corrected Calcium 10.2 H 8.5-10.1 MG/DL Total Bilirubin 0.5 0.1-1.0 MG/DL Aspartate Amino Transf (AST/SGOT) 16 5-34 U/L Alanine Aminotransferase (ALT/SGPT) 22 0-55 U/L Alkaline Phosphatase 150 H 40-136 U/L Total Protein 8.0 6.4-8.2 GM/DL Albumin 4.1 3.2-4.5 GM/DL Beta-Hydroxybutyrate (Chem panel) 0.10 0.00-0.27 MMOL/L My Orders Orders - JASMIN FOLEY APRN Cbc With Automated Diff (06/13/19 20:22) Comprehensive Metabolic Panel (06/13/19 20:22) Ed Iv/Invasive Line Start (06/13/19 20:22) Ct Head Wo (06/13/19 20:22) Ns Iv 1000 Ml (Sodium Chloride 0.9%) (06/13/19 20:45) Insulin (Regular) Human (Humulin R (Per (06/13/19 20:45) Beta Hydroxybutyrate (06/13/19 20:46) Insulin (Regular) Human (Humulin R (Per (06/13/19 21:00) Vital Signs/I&O 06/13/19 06/13/19 20:07 21:37 Temp 36.5 Pulse 93 85 Resp 12 17 B/P (MAP) 178/98 (124) 169/99 Pulse Ox 97 Capillary Refill : Less Than 3 Seconds Blood Pressure Mean: 124 POS Departure Communication (Admissions) Time/Spoke to Admitting Phy: 20:[address] Watkins who is on-call for Dr. Dr. Novoa, we will admit on insulin drip plus Levemir 10 units subcutaneous tonight. Impression Primary Impression: Uncontrolled type 2 DM with hyperosmolar nonketotic hyperglycemia Additional Impressions: Paresthesia of right arm and leg Diabetes mellitus, new onset Disposition: ADMITTED INPATIENT Condition: Stable Admissions Decision to Admit Reason: Admit from ER (General) Decision to Admit/Date: Jun 13, 2019 Time/Decision to Admit Time: 20:54 Departure-Patient Inst. Referrals: LAURA NOVOA DO (PCP/Family) Primary Care Physician JASMIN FOLEY APRN Jun 13, 2019 20:37 POS
[2019-06-13 20:40] LABS: ALBUMIN 4.1 GM/DL (3.2-4.5); BILIRUBIN,TOTAL 0.5 MG/DL (0.1-1.0); CALCIUM 10.3 MG/DL (8.5-10.1); CREATININE SERUM 1.66 MG/DL (0.60-1.30); POTASSIUM 4.1 MMOL/L (3.6-5.0)
[2019-06-13] MEDS ORDERED: inSUlin (REGULAR) HUMAN 1 UNIT/0.01 ML (CHARGE PER UNIT) IV ONE ×2 (20:45→21:00)
[2019-06-13] MEDS ORDERED: NS IV 1000 ML 1,000 ML IV SCH ×2 (20:45→23:18)
--- NOTE | 2019-06-13 22:06 | NUR ---
ALVERTO HERNANDEZ Nayeli admitted to room CU7-1, with an admitting diagnosis of Parasthesia right arm and leg,New onset DM, HHNR, on 06/13/19 from ED via stretcher, accompanied by .ALVERTO HERNANDEZ introduced to surroundings, call light, bed controls, phone, TV, temperature control, lights, meal times, smoking policy, visitor policy, side rail policy, bathrooms and showers. Patient Rights given to patient in the handbook. ALVERTO HERNANDEZ verbalizes understanding that [facility] is not responsible for the loss or damage to any personal effects or valuables that are kept in the patients possession during their hospitalization. The following Patient Care Plans were discussed with the patient: Discharge Planning, pain,activity, and diet. ALVERTO HERNANDEZ verbalizes understanding of Interdisciplinary Patient Education. Patient and/or family were informed about the Rapid Response Team and its purpose.
[2019-06-13 22:20] VITALS: BP 173/103
[2019-06-13] MEDS ORDERED: 1/2 NS IV SOLUTION 1,000 ML IV ONE (22:39)
[2019-06-13] MEDS ORDERED: POTASSIUM CL 10MEQ/50ML IVPB 100 ML IV ONE (22:39)
[2019-06-13] MEDS ORDERED: D5W IV SOLUTION (EXCEL) 250 ML IV ONE (22:40)
--- NOTE | 2019-06-13 22:46 | Diagnostic Imaging Report ---
PROCEDURE: CT head without contrast. TECHNIQUE: Multiple contiguous axial images were obtained through the brain without the use of intravenous contrast. Auto Exposure Controls were utilized during the CT exam to meet ALARA standards for radiation dose reduction. INDICATION: Right arm tremor There is no mass, shift of the midline or hemorrhage to suggest an acute intracranial abnormality. The ventricles are not abnormally dilated and stable in size when compared to the prior exam of 09/04/2017. The bone windows show no sign of a fracture or of a destructive lesion. The orbits and sinuses were not visualized in their entirety. Where visualized there is no acute abnormality. IMPRESSION: 1. There is no evidence for an acute intracranial abnormality. 2. If clinical concern regarding an acute abnormality persists, then MRI would be recommended for further study. Dictated by: Dictated on workstation # [id number]
[2019-06-13 23:00] VITALS: BP 158/88
[2019-06-13] MEDS ORDERED: D5 1/2 NS 1000 ML IV SOLUTION 1,000 ML IV SCH ×2 (23:15→23:30)
[2019-06-13] MEDS ORDERED: inSUlin REGULAR TPN/DRIP ONLY 250 UNITS in NORMAL SALINE 250 ML IV SCH ×2 (23:15→23:30)
[2019-06-13] MEDS ORDERED: ONDANSETRON 4 MG/2 ML (SDV) Z0FRAN IV PRN (23:15)
[2019-06-13] MEDS ORDERED: 1/2 NS IV SOLUTION 1,000 ML IV SCH (23:18)
[2019-06-13] MEDS ORDERED: POTASSIUM CL 10MEQ/50ML IVPB 50 ML IV SCH (23:30)
[2019-06-13] MEDS: 1/2 NS IV SOLUTION 1,000 ML IV SCH (23:40)
[2019-06-13] MEDS: POTASSIUM CL 10MEQ/50ML IVPB 50 ML IV SCH (23:41)
[2019-06-13 23:44] LABS: BUN/CREATININE RATIO 10; CARBON DIOXIDE 27 MMOL/L (21-32); CHLORIDE 95 MMOL/L (98-107); CREATININE SERUM 1.42 MG/DL (0.60-1.30); GFR ESTIMATED > 60; POTASSIUM 4.5 MMOL/L (3.6-5.0); SODIUM 133 MMOL/L (135-145)
[2019-06-13 23:52] LABS: BILIRUBIN,URINE NEGATIVE (NEGATIVE); CLARITY,URINE CLEAR; COLOR,URINE YELLOW; GLUCOSE, URINE (UA) 3+ (NEGATIVE); KETONES,URINE NEGATIVE (NEGATIVE); LEUKOCYTE ESTERASE ,URINE NEGATIVE (NEGATIVE); NITRITE,URINE NEGATIVE (NEGATIVE); PH,URINE 6.5 (5-9); PROTEIN,URINE NEGATIVE (NEGATIVE)
[2019-06-14] VITALS (15 sets, daily range): BP systolic 118–140; BP diastolic 57–88
[2019-06-14 00:02] LABS: BACTERIA,URINE NEGATIVE /HPF; SQUAMOUS EPITHELIAL CELL,UR 0-2 /HPF
[2019-06-14 00:04] LABS: GLUCOSE 615 MG/DL (70-105)
[2019-06-14] MEDS: POTASSIUM CL 10MEQ/50ML IVPB 50 ML IV SCH ×6 (00:53→10:43)
[2019-06-14] MEDS: 1/2 NS IV SOLUTION 1,000 ML IV SCH (02:35)
[2019-06-14 03:28] LABS: BASOPHILS % (AUTO) 0 % (0-10); EOSINOPHILS # (AUTO) 0.3 10^3/uL (0.0-0.3); EOSINOPHILS % (AUTO) 4 % (0-10); HEMATOCRIT 32 % (40-54); HEMOGLOBIN 10.7 G/DL (13.3-17.7); LYMPHOCYTES # (AUTO) 1.9 X 10^3 (1.0-4.0); LYMPHOCYTES % (AUTO) 27 % (12-44); MEAN CORPUSCULAR HEMOGLOBIN 30 PG (25-34); MEAN CORPUSCULAR HGB CONC 34 G/DL (32-36); MEAN CORPUSCULAR VOLUME 88 FL (80-99); MEAN PLATELET VOLUME 11.1 FL (7.4-10.4); MONOCYTES # (AUTO) 0.6 X 10^3 (0.0-1.0); MONOCYTES % (AUTO) 9 % (0-12); NEUTROPHILS # (AUTO) 4.3 X 10^3 (1.8-7.8); NEUTROPHILS % (AUTO) 61 % (42-75); PLATELET COUNT 196 10^3/uL (130-400); RED CELL DISTRIBUTION WIDTH 13.1 % (10.0-14.5); WHITE BLOOD COUNT 7.1 10^3/uL (4.3-11.0)
--- NOTE | 2019-06-14 03:40 | NUR ---
Patient c/o Migraine and muscle spasms. Patient requesting medication for such ailments. Call placed to E ICU to report patient complaints.
[2019-06-14 03:50] LABS: BUN/CREATININE RATIO 10; CALCIUM 9.4 MG/DL (8.5-10.1); CARBON DIOXIDE 25 MMOL/L (21-32); CHLORIDE 100 MMOL/L (98-107); GFR ESTIMATED > 60; GLUCOSE 269 MG/DL (70-105); MAGNESIUM 2.1 MG/DL (1.6-2.4); PHOSPHORUS 2.8 MG/DL (2.3-4.7); POTASSIUM 3.7 MMOL/L (3.6-5.0); SODIUM 136 MMOL/L (135-145)
[2019-06-14] MEDS: HYDROcodone/APAP 7.5 MG/325 MG (LORTAB, LORCET PLUS) TABLET PO PRN ×3 (04:11→20:11)
[2019-06-14] MEDS ORDERED: CYCLOBENZAPRINE 10 MG (FLEXERIL) TAB PO SCH (04:15)
[2019-06-14] MEDS: LACTATED RINGERS 1,000 ML IV SCH ×3 (05:48→20:11)
--- NOTE | 2019-06-14 05:49 | Pulmonary Consultation ---
History of Present Illness History of Present Illness Date of Consultation 06/14/19 05:43 Date of Admission Allergies and Home Medications Allergies Coded Allergies: No Known Drug Allergies (Unverified , 07/20/11) Home Medications Amlodipine Besylate 10 Mg Tablet, 10 MG PO DAILY, (Reported) Aspirin 81 Mg Tablet.dr, 81 MG PO DAILY, (Reported) Atorvastatin Calcium 40 Mg Tablet, 40 MG PO HS, (Reported) Chlorzoxazone 500 Mg Tablet, 500 MG PO BID, (Reported) Furosemide 40 Mg Tablet, 40 MG PO DAILY, (Reported) Lisinopril 40 Mg Tablet, 40 MG PO DAILY, (Reported) Loratadine 10 Mg Tablet, 10 MG PO DAILY Prescribed by: DELROY KELLEY on 05/30/19 0236 Metoprolol Succinate 50 Mg Tab.er.24h, 50 MG PO DAILY Prescribed by: Royal KENDRICK on 08/09/18 1008 Nitroglycerin 0.4 Mg Tab.subl, 0.4 MG SL UD PRN for CHEST PAIN, (Reported) Prednisone 20 Mg Tab, 40 MG PO BID Prescribed by: DELROY KELLEY on 05/30/19 0236 Pyridoxine HCl 100 Mg Tablet, 100 MG PO DAILY, (Reported) Ticagrelor 90 Mg Tablet, 90 MG PO BID Prescribed by: Royal KENDRICK on 08/09/18 1008 Tramadol HCl 50 Mg Tablet, 50 MG PO BID PRN for PAIN-MODERATE, (Reported) Past Zgwcvqv-Xsubgq-Szltkt Hx Patient Social History Alcohol Use: Denies Use Number of Drinks Today: AA Alcohol Beverage of Choice: Beer Recreational Drug Use: No Smoking Status: Former Smoker Type Used: Cigarettes Former Smoker, Quit: Feb 05, 2017 2nd Hand Smoke Exposure: No Recent Foreign Travel: No Contact w/Someone Who Travel: No Recent Infectious Disease Expo: No Recent Hopitalizations: Yes (HTN) Immunizations Up To Date Tetanus Booster (TDap): Unknown PED Vaccines UTD: No Seasonal Allergies Seasonal Allergies: No Past Medical History Surgeries: Yes (Inguinal hernia Rpr-peds, lower back, r pinky finger) Coronary Stent, Orthopedic Respiratory: Yes (CHILDHOOD ASTHMA) Asthma Currently Using CPAP: No Currently Using BIPAP: No Cardiac: Yes Heart Attack, High Cholesterol, Hypertension Neurological: No Stroke Reproductive Disorders: No Genitourinary: No Gastrointestinal: No Musculoskeletal: Yes Chronic Back Pain Endocrine: No HEENT: No Cancer: No Psychosocial: No Integumentary: No Blood Disorders: No Adverse Reaction/Blood Tranf: No Family Medical History Alcoholism 19 FATHER, Onset:40's - 50 Diabetes mellitus 19 FATHER, Onset:Unknown 19 MOTHER, Onset:Unknown Kidney disease 19 MOTHER, Onset:Unknown Diabetes Sepsis Event Evaluation Height, Weight, BMI Height: 6'2.00" Weight: 222lbs. 0.0oz. 100.736042bg; 27.78 BMI Method:Stated Exam Exam Vital Signs Date Time Temp Pulse Resp B/P (MAP) Pulse Ox O2 Delivery O2 Flow Rate FiO2 06/14/19 03:35 97 Room Air 06/14/19 03:35 37.1 06/14/19 03:00 68 22 125/57 (79) 96 Room Air 06/14/19 02:00 67 21 123/59 (80) 97 Room Air 06/14/19 01:00 89 06/14/19 01:00 68 16 123/58 (79) 97 Room Air 06/14/19 00:00 86 15 140/81 (100) 98 Room Air 06/13/19 23:55 99 Room Air 06/13/19 23:05 Room Air 06/13/19 23:00 84 15 158/88 (111) 98 Room Air 06/13/19 22:20 36.9 82 20 173/103 (126) 99 Room Air 06/13/19 21:37 85 17 169/99 97 06/13/19 20:07 36.5 93 12 178/98 (124) I & O 06/14/19 07:00 Intake Total 2270 ml Output Total 300 ml Balance 1970 ml Height & Weight Height: 6'2.00" Weight: 222lbs. 0.0oz. 100.033920wa; 27.78 BMI Method:Stated General Appearance: No Apparent Distress, WD/WN HEENT: PERRL/EOMI, TMs Normal Neck: Full Range of Motion, Normal Inspection Respiratory: Normal Breath Sounds, No Accessory Muscle Use, No Respiratory Distress Cardiovascular: No Murmur, Normal Peripheral Pulses Capillary Refill: Less Than 3 Seconds Extremity: Normal Capillary Refill, Normal Inspection Neurologic/Psychiatric: Alert, Oriented x3 Skin: Normal Color, Warm/Dry Results Lab Laboratory Tests 06/13/19 20:11 06/13/19 22:51 06/14/19 03:00 Assessment/Plan Assessment/Plan HHNK - New dx of DM II -No abdominal pain, N/V -Denies alcohol use -D/C D5 -S/p Levemier last night - will continue 10 units HS -Start LR at 150 and D/C 1/2 NS -D/C insulin gtt once BS is <200 -After D/C gtt start SSI -Will start Metformin Severe leg cramps -S/p Flexeril without relief -Will try Ativan 1mg IV Dehydration -IVF Will sign off once pt is out of ICU. Please call with any questions. ROBIN IBARRA DO Jun 14, 2019 05:49 POS
[2019-06-14] MEDS ORDERED: MAGNESIUM 1 GM/100 ML IVPB 100 ML IV SCH (06:00)
[2019-06-14] MEDS ORDERED: POTASSIUM CL 10MEQ/50ML IVPB 50 ML IV SCH (06:00)
[2019-06-14] MEDS ORDERED: KCL 20 MEQ TAB (K-DUR) PO SCH (06:00)
[2019-06-14] MEDS: metFORMIN 500 MG (GLUCOPHAGE) TAB PO SCH ×2 (06:41→17:21)
[2019-06-14] MEDS: LORazepam INJ 2 MG/ML (ATIVAN) VIAL IVP PRN ×2 (06:47→14:12)
[2019-06-14 07:29] LABS: BUN/CREATININE RATIO 10; CALCIUM 9.4 MG/DL (8.5-10.1); CARBON DIOXIDE 25 MMOL/L (21-32); CHLORIDE 102 MMOL/L (98-107); CREATININE SERUM 1.09 MG/DL (0.60-1.30); GFR ESTIMATED > 60; GLUCOSE 258 MG/DL (70-105); POTASSIUM 3.9 MMOL/L (3.6-5.0); SODIUM 137 MMOL/L (135-145)
[2019-06-14] MEDS ORDERED: FLU QUADRIvalent (5+ YOA) 2019-2020 (AFLURIA) 0.5 ML IM ONE ×2 (07:30→14:13)
--- NOTE | 2019-06-14 08:23 | Diagnostic Imaging Report ---
Indication: Shortness of breath Portable chest 4:00 AM Heart size and pulmonary vascularity are normal. Lungs are clear. There are no effusions or pneumothoraces. IMPRESSION: Negative chest Dictated by: Dictated on workstation # [id number]
[2019-06-14] MEDS: TICAGRELOR 90 MG TABLET (BRILINTA) PO SCH ×2 (08:37→20:11)
[2019-06-14] MEDS: amLODIPine 10 MG (NORVASC) TAB PO SCH (08:37)
[2019-06-14] MEDS: ASPIRIN E.C. 81 MG (ECOTRIN) TAB PO SCH (08:38)
[2019-06-14] MEDS: lisINopril 40 MG (PRINIVIL) TABLET PO SCH (08:38)
[2019-06-14] MEDS: FUROSEMIDE 40 MG (LASIX) TAB PO SCH (08:38)
[2019-06-14] MEDS: meTOproloL SUCCINATE 50 MG (TOPROL XL) TAB PO SCH (08:42)
[2019-06-14] MEDS ORDERED: PATIENT MAY USE OWN MED,SINGLE MED PO SCH (10:30)
[2019-06-14] MEDS: inSUlin ASPART (NovoLOG) 1 UNIT/0.01 ML (CHARGE PER UNIT) SC SCH ×3 (11:20→20:19)
[2019-06-14] MEDS: CHLORZOXAZONE PO SCH ×2 (11:20→23:09)
--- NOTE | 2019-06-14 12:50 | NUR ---
1240 PT TO ROOM 408 VIA W/C ACCOMPANIED BY THIS RN. REPORT GIVEN TO Riki CAMARA RN PRIOR TO TRANSFER. ALL PT'S PERSONAL BELONGINGS SENT WITH PT.
--- NOTE | 2019-06-14 12:57 | History & Physical-Hospitalist ---
History of Present Illness HPI/Chief Complaint Khoa Gallego is a 59yoM with PMH HTN, HLD, CAD, who presented with leg cramps. He reports that his right leg has been having severe cramping. He also reports that he has been eating a lot of sweets. He has been craving sugar cookies. He reports urinating frequently. He denies any fevers, chills, chest pain, dyspnea, cough, abdominal pain, nausea, vomiting, diarrhea, or dysuria. Source: patient Exam Limitations: no limitations Date Seen 06/14/19 Time Seen by a Provider: 08:40 Attending Physician Kimberly Bolaños MD PCP Simon Gunn DO Referring Physician Date of Admission Jun 13, 2019 at 20:50 Home Medications & Allergies Home Medications Reviewed patient Home Medication Reconciliation performed by pharmacy medication reconciliations geotechnical laboratory technician and/or nursing. Patients Allergies have been reviewed. Allergies Allergies Coded Allergies No Known Drug Allergies (Furrmhtowq56/22/11) Past Ukwtdmd-Raskaf-Tzzwow Hx Past Med/Social Hx: Reviewed Nursing Past Med/Soc Hx Patient Social History Alcohol Use: Denies Use Number of Drinks Today: AA Alcohol Beverage of Choice: Beer Recreational Drug Use: No Smoking Status: Former Smoker Former Smoker, Quit: Feb 05, 2017 Type Used: Cigarettes 2nd Hand Smoke Exposure: No Recent Foreign Travel: No Contact w/other who traveled: No Recent Hopitalizations: Yes (HTN) Recent Infectious Disease Expo: No Immunizations Up To Date Tetanus Booster (TDap): Unknown Pediatric: No Seasonal Allergies Seasonal Allergies: No Past Medical History Surgeries: Coronary Stent, Orthopedic Currently Using CPAP: No Currently Using BIPAP: No Cardiac: Heart Attack, High Cholesterol, Hypertension Neurological: Stroke Reproductive: No Musculoskeletal: Chronic Back Pain History of Blood Disorders: No Adverse Reaction to Blood Bernal: No Family History Alcoholism 19 FATHER, Onset:40's - 50 Diabetes mellitus 19 FATHER, Onset:Unknown 19 MOTHER, Onset:Unknown Kidney disease 19 MOTHER, Onset:Unknown Diabetes Review of Systems Constitutional: no symptoms reported EENTM: no symptoms reported Respiratory: no symptoms reported Cardiovascular: no symptoms reported Gastrointestinal: no symptoms reported Genitourinary: other (polyuria) Musculoskeletal: no symptoms reported Skin: no symptoms reported Psychiatric/Neurological: No Symptoms Reported Other polyphagia Physical Exam Physical Exam Vital Signs Vital Signs - First Documented 11/15/19 11/15/19 11/15/19 20:07 21:37 22:20 Temp 36.5 Pulse 93 Resp 12 B/P (MAP) 178/98 (124) Pulse Ox 97 O2 Delivery Room Air Capillary Refill : Less Than 3 Seconds Height, Weight, BMI Height: 6'2.00" Weight: 222lbs. 0.0oz. 100.908603ot; 27.78 BMI Method:Stated General Appearance: No Apparent Distress, WD/WN HEENT: PERRL/EOMI, Pharynx Normal Neck: Normal Inspection, Supple Respiratory: Lungs Clear, Normal Breath Sounds, No Respiratory Distress Cardiovascular: Regular Rate, Rhythm, No Murmur Gastrointestinal: Normal Bowel Sounds, Non Tender, Soft, Distended Extremity: Normal Inspection, Non Tender Neurologic/Psychiatric: No Motor/Sensory Deficits, Normal Mood/Affect, Other (lethargic, falling asleep during conversation) Skin: Normal Color, Warm/Dry Lymphatic: No Adenopathy Results Results/Procedures Labs Laboratory Tests 06/13/19 20:11 06/13/19 22:51 06/14/19 03:00 06/14/19 07:05 Patient resulted labs reviewed. Imaging: Reviewed Imaging Report Assessment/Plan Admission Diagnosis Type 2 diabetes mellitus with hyperosmolar nonketotic hyperglycemia Admission Status: Observation Assessment and Plan Type 2 diabetes mellitus with hyperosmolar nonketotic hyperglycemia -Blood sugar >700 on arrival -No acidosis -Beta hydroxybutyrate normal -Infectious workup negative -New onset diabetes -Given Levemir 10 units on admission -Started on insulin gtt -Blood sugar in 200s this morning -Give another Levemir 10 units -Transition off insulin gtt in 3-4 hours or if blood sugar drops below 200 -Begin SSI Level B once off drip -Decrease IV fluids to LR 100 ml/hr -Adjust insulin as needed -A1C pending -Nursing to educate patient regarding injections today VIC -Cr 1.6 on arrival -Improved to 1.1 this morning -Continue IV fluids Leg cramps -Flexeril used without relief -Ativan ordered HTN HLD CAD -Stable, continue home meds DVT Prophylaxis: Lovenox Diagnosis/Problems Diagnosis/Problems (1) Type 2 diabetes mellitus with hyperosmolar nonketotic hyperglycemia Status: Acute (2) Paresthesia of right arm and leg Status: Acute (3) HTN (hypertension) Status: Chronic Qualifiers: Hypertension type: essential hypertension Qualified Codes: I10 - Essential (primary) hypertension (4) HLD (hyperlipidemia) Status: Chronic (5) CAD (coronary artery disease) Status: Chronic Clinical Quality Measures DVT/VTE Risk/Contraindication: Risk Factor Score Per Nursin RFS Level Per Nursing on Admit: 2=Moderate KIMBERLY BOLAÑOS MD Jun 14, 2019 12:57 POS
--- NOTE | 2019-06-14 13:07 | NUR ---
TRANSFERRED FROM ICU TO ROOM 408 PER W/C. ALERT AND COOPERATIVE. SKIN W/D. COLOR APPROPRIATE. UP TO BATHROOM, SL. UNSTEADY ON FEET. DENIES PAIN. IV PER LEFT AC WITH LR AT 150 CC/HR INFUSING WELL. SITE CLEAR. LUNGS CLEAR. HEART RATE REGULAR. NO EDEMA NOTED. PT. STATES HE FEELS CONGESTED. SL. NON-PRODUCTIVE COUGH. AT BEDSIDE.
--- NOTE | 2019-06-14 16:30 | NUR ---
REPORT RECEIVED FROM CARLY ALMAGUER. ASSUMED CARE OF THE PATIENT AT THIS TIME. PATIENT IN BED WATCHING TV, IS AT BEDSIDE. DENY ANY NEEDS AT THIS TIME. WILL CONTINUE TO MONITOR.
[2019-06-15] VITALS: BP 118/71
[2019-06-15] MEDS: LORazepam INJ 2 MG/ML (ATIVAN) VIAL IVP PRN (02:32)
[2019-06-15] MEDS: HYDROcodone/APAP 7.5 MG/325 MG (LORTAB, LORCET PLUS) TABLET PO PRN (02:53)
[2019-06-15 04:00] VITALS: BP 158/92
[2019-06-15 05:55] LABS: BASOPHILS % (AUTO) 0 % (0-10); EOSINOPHILS # (AUTO) 0.2 10^3/uL (0.0-0.3); EOSINOPHILS % (AUTO) 3 % (0-10); HEMATOCRIT 31 % (40-54); HEMOGLOBIN 10.5 G/DL (13.3-17.7); LYMPHOCYTES # (AUTO) 1.9 X 10^3 (1.0-4.0); LYMPHOCYTES % (AUTO) 26 % (12-44); MEAN CORPUSCULAR HEMOGLOBIN 30 PG (25-34); MEAN CORPUSCULAR HGB CONC 34 G/DL (32-36); MEAN CORPUSCULAR VOLUME 90 FL (80-99); MEAN PLATELET VOLUME 11.2 FL (7.4-10.4); MONOCYTES # (AUTO) 0.5 X 10^3 (0.0-1.0); MONOCYTES % (AUTO) 6 % (0-12); NEUTROPHILS # (AUTO) 4.7 X 10^3 (1.8-7.8); NEUTROPHILS % (AUTO) 65 % (42-75); PLATELET COUNT 186 10^3/uL (130-400); RED CELL DISTRIBUTION WIDTH 13.3 % (10.0-14.5); WHITE BLOOD COUNT 7.2 10^3/uL (4.3-11.0)
[2019-06-15 06:18] LABS: ALANINE AMINOTRANSFERASE 31 U/L (0-55); ALBUMIN 3.4 GM/DL (3.2-4.5); ALKALINE PHOSPHATASE 109 U/L (40-136); BILIRUBIN,TOTAL 0.4 MG/DL (0.1-1.0); BUN/CREATININE RATIO 14; CALCIUM 9.1 MG/DL (8.5-10.1); CARBON DIOXIDE 24 MMOL/L (21-32); CHLORIDE 102 MMOL/L (98-107); CREATININE SERUM 1.02 MG/DL (0.60-1.30); GFR ESTIMATED > 60; GLUCOSE 213 MG/DL (70-105); POTASSIUM 3.8 MMOL/L (3.6-5.0); SODIUM 136 MMOL/L (135-145); TOTAL PROTEIN 6.4 GM/DL (6.4-8.2)
[2019-06-15] MEDS: inSUlin ASPART (NovoLOG) 1 UNIT/0.01 ML (CHARGE PER UNIT) SC SCH ×2 (06:26→11:17)
[2019-06-15] MEDS: LACTATED RINGERS 1,000 ML IV SCH (06:26)
[2019-06-15] MEDS: metFORMIN 500 MG (GLUCOPHAGE) TAB PO SCH (06:26)
[2019-06-15 08:00] VITALS: BP 123/69
[2019-06-15] MEDS: ASPIRIN E.C. 81 MG (ECOTRIN) TAB PO SCH (08:26)
[2019-06-15] MEDS: amLODIPine 10 MG (NORVASC) TAB PO SCH (08:26)
[2019-06-15] MEDS: TICAGRELOR 90 MG TABLET (BRILINTA) PO SCH (08:26)
[2019-06-15] MEDS: CHLORZOXAZONE PO SCH (08:27)
[2019-06-15] MEDS: FUROSEMIDE 40 MG (LASIX) TAB PO SCH (08:27)
[2019-06-15] MEDS: meTOproloL SUCCINATE 50 MG (TOPROL XL) TAB PO SCH (08:27)
[2019-06-15] MEDS: lisINopril 40 MG (PRINIVIL) TABLET PO SCH (08:27)
[2019-06-15] MEDS ORDERED: INSU100I10 SQ (09:45)
[2019-06-15] MEDS ORDERED: METF-397 PO (09:45)
--- NOTE | 2019-06-15 09:53 | Discharge Summary ---
Discharge Summary Hospital Course Was the Problem List Reviewed?: Yes Problems/Dx: (1) Type 2 diabetes mellitus with hyperosmolar nonketotic hyperglycemia Status: Acute (2) Paresthesia of right arm and leg Status: Acute (3) HTN (hypertension) Status: Chronic Qualifiers: Qualified Codes: I10 - Essential (primary) hypertension (4) HLD (hyperlipidemia) Status: Chronic (5) CAD (coronary artery disease) Status: Chronic (6) VIC (acute kidney injury) Status: Resolved Hospital Course Date of Admission: Jun 13, 2019 at 20:50 Admission Diagnosis : Type 2 diabetes mellitus with hyperosmolar nonketotic hyperglycemia Family Physician/Provider: Laura Novoa DO Date of Discharge: 06/15/19 Discharge Diagnosis: Type 2 diabetes mellitus with hyperosmolar nonketotic hyperglycemia Hospital Course: Khoa Gallego is a 59yoM with PMH HTN, HLD, CAD, who presented with cramping and was found to be hyperglycemic. He was started on an insulin drip and long-acting insulin and his blood sugars improved. His also had an acute kidney injury on admission which resolved. He was transitioned to Metformin and Lantus on discharge. He was educated regarding insulin injections, monitoring blood sugars, and signs of hypoglycemia. He was instructed to schedule a follow up wi Dr. Novoa within a week. Labs and Pending Lab Test: Laboratory Tests 06/14/19 16:52: Glucometer 288H 06/14/19 19:36: Glucometer 325H 06/15/19 05:25: White Blood Count 7.2, Red Blood Count 3.46L, Hemoglobin 10.5L, Hematocrit 31L, Mean Corpuscular Volume 90, Mean Corpuscular Hemoglobin 30, Mean Corpuscular Hemoglobin Concent 34, Red Cell Distribution Width 13.3, Platelet Count 186, Mean Platelet Volume 11.2H, Neutrophils (%) (Auto) 65, Lymphocytes (%) (Auto) 26, Monocytes (%) (Auto) 6, Eosinophils (%) (Auto) 3, Basophils (%) (Auto) 0, Neutrophils # (Auto) 4.7, Lymphocytes # (Auto) 1.9, Monocytes # (Auto) 0.5, Eosinophils # (Auto) 0.2, Basophils # (Auto) 0.0, Sodium Level 136, Potassium Level 3.8, Chloride Level 102, Carbon Dioxide Level 24, Anion Gap 10, Blood Urea Nitrogen 14, Creatinine 1.02, Estimat Glomerular Filtration Rate > 60, BUN/Creatinine Ratio 14, Glucose Level 213H, Calcium Level 9.1, Corrected Calcium 9.6, Total Bilirubin 0.4, Aspartate Amino Transf (AST/SGOT) 21, Alanine Aminotransferase (ALT/SGPT) 31, Alkaline Phosphatase 109, Total Protein 6.4, Albumin 3.4 06/15/19 05:27: Glucometer 218H Home Meds Active Lantus Solostar (Insulin Glargine,Hum.rec.anlog) 100 Unit/1 Ml Insuln.pen 25 Unit SQ HS 30 Days Metformin HCl 500 Mg Tablet 1,000 Mg PO BID@, 90 Days Loratadine 10 Mg Tablet 10 Mg PO DAILY 7 Days Prednisone 20 Mg Tab 40 Mg PO BID 5 Days Metoprolol Succinate 50 Mg Tab.er.24h 50 Mg PO DAILY 90 Days Brilinta (Ticagrelor) 90 Mg Tablet 90 Mg PO BID 90 Days Reported Nitroglycerin 0.4 Mg Tab.subl 0.4 Mg SL UD PRN Tramadol HCl 50 Mg Tablet 50 Mg PO BID PRN Vitamin B-6 (Pyridoxine HCl) 100 Mg Tablet 100 Mg PO DAILY Lisinopril 40 Mg Tablet 40 Mg PO DAILY Amlodipine Besylate 10 Mg Tablet 10 Mg PO DAILY Lipitor (Atorvastatin Calcium) 40 Mg Tablet 40 Mg PO HS Aspirin EC (Aspirin) 81 Mg Tablet.dr 81 Mg PO DAILY Chlorzoxazone 500 Mg Tablet 500 Mg PO BID Furosemide 40 Mg Tablet 40 Mg PO DAILY Assessment/Pt Instructions Take medications as prescribed. Begin using Lantus 25 units nightly for diabetes. Also take Metformin twice daily with breakfast and dinner. Use your 's glucometer for now to check your blood sugars. Follow up with Dr. Freida cheng for your newly diagnosed diabetes. Discharge Planning: <30 minutes discharge planning Discharge Instructions Discharge Diet: ADA Diet Activity as Tolerated: Yes Pneumonia Vaccine Order Indica: Yes Discharge Physical Examination Vital Signs Vital Signs Date Time Temp Pulse Resp B/P (MAP) Pulse Ox O2 Delivery O2 Flow Rate FiO2 06/15/19 08:00 36.8 84 18 123/69 (87) 100 Room Air General Appearance: No Apparent Distress, WD/WN HEENT: PERRL/EOMI, Pharynx Normal Respiratory: Lungs Clear, Normal Breath Sounds, No Respiratory Distress Cardiovascular: Regular Rate, Rhythm, No Murmur Gastrointestinal: Normal Bowel Sounds, Non Tender, Soft Extremity: Normal Inspection, Non Tender, Pedal Edema Skin: Normal Color, Warm/Dry Neurologic/Psychiatric: Alert, Oriented x3, Normal Mood/Affect Allergies: Coded Allergies: No Known Drug Allergies (Unverified , 07/20/11) Copy Copies To 1: LAURA NOVOA DO Discharge Summary Date of Admission Jun 13, 2019 at 20:50 Date of Discharge Discharge Date: Jun 15, 2019 Discharge Time: 09:50 Admission Diagnosis Type 2 diabetes mellitus with hyperosmolar nonketotic hyperglycemia Discharge Diagnosis Type 2 diabetes mellitus with hyperosmolar nonketotic hyperglycemia (1) Type 2 diabetes mellitus with hyperosmolar nonketotic hyperglycemia Status: Acute (2) Paresthesia of right arm and leg Status: Acute (3) HTN (hypertension) Status: Chronic Qualifiers: Qualified Codes: I10 - Essential (primary) hypertension (4) HLD (hyperlipidemia) Status: Chronic (5) CAD (coronary artery disease) Status: Chronic (6) VIC (acute kidney injury) Status: Resolved Clinical Quality Measures DVT/VTE Risk/Contraindication: Risk Factor Score Per Nursin RFS Level Per Nursing on Admit: 2=Moderate KIMBERLY BOLAÑOS MD Jun 15, 2019 09:50 POS
[2019-06-15 11:30] VITALS: BP 123/69
--- NOTE | 2019-06-15 11:44 | NUR ---
PATIENT'S JACE CALLED AFTER DISCHARGE. THEY ARE NOT ABLE TO AFFORD THE DIABETIC MEDICATION. [facility] TOLD THEM TO CALL US BACK AND ASK FOR SOME SORT OF VOUCHER OR COUPON. HER CALL BACK NUMBER IS [phone]. [employer]TER NOTIFIED OF REQUEST. SHE WILL LOOK INTO IT AND CALL THE PATIENT'S AND/OR [facility] BACK.
[2019-06-15] MEDS ORDERED: metFORMIN 500 MG (GLUCOPHAGE) TAB PO SCH (17:00)
--- NOTE | 2019-06-16 09:26 | NUR ---
Contacted [facility] about cost of lantus ~ $200, worked with Dr Watkins and Carline, changed insulin to Levemir 25units sq QHS and used the 340b savings plan.
== END 2019-06-15 09:38 | disposition home or self-care (01) ==
LOC: EDUNIT# 20:00 → ER 20:02 → UNDOADMOB 20:50 → ICU 20:50 → 4TH 06-14 12:45 → UNDODISOB 06-15 11:30
PROVIDERS: ADMIT Internal Medicine; ATTEND Internal Medicine
DX: E11.65 Type 2 diabetes mellitus with hyperglycemia (principal); R20.2 Paresthesia of skin; I10 Essential (primary) hypertension; E78.5 Hyperlipidemia, unspecified; I25.10 Atherosclerotic heart disease of native coronary artery without angina pectoris; N17.9 Acute kidney failure, unspecified; E78.00 Pure hypercholesterolemia, unspecified; G89.29 Other chronic pain; M54.9 Dorsalgia, unspecified; J45.909 Unspecified asthma, uncomplicated; Z79.4 Long term (current) use of insulin; Z79.52 Long term (current) use of systemic steroids; Z79.899 Other long term (current) drug therapy; Z79.82 Long term (current) use of aspirin; Z86.73 Personal history of transient ischemic attack (TIA), and cerebral infarction without residual deficits; Z95.5 Presence of coronary angioplasty implant and graft; Z87.891 Personal history of nicotine dependence; Z83.3 Family history of diabetes mellitus; Z84.1 Family history of disorders of kidney and ureter
CPT/HCPCS: 36415; 70450; 71045; 80048; 80053; 81000; 82010; 82962; 83036; 83735; 84100; 85025; 87081; 96361; 96374; G0378

== ENCOUNTER → 2020-02-23 | Outpatient (CLI) | payer MEDICARE ==
[~2020-02-23] MED LIST changes: +INSU100I10 SQ; +METF-397 PO; -METO-370 PO; +METO50TA7 PO; +PYRI100T10 PO; -PYRI100T2 PO; -TRAM50TA2 PO; +TRM50T PO
[2020-02-23 12:21] LABS: HEMOGLOBIN 11.4 G/DL (13.3-17.7); MEAN PLATELET VOLUME 10.8 FL (7.4-10.4); RED CELL DISTRIBUTION WIDTH 13.8 % (10.0-14.5); WHITE BLOOD COUNT 5.7 10^3/uL (4.3-11.0)
[2020-02-23 12:31] LABS: ALBUMIN 3.9 GM/DL (3.2-4.5); CHLORIDE 106 MMOL/L (98-107); POTASSIUM 3.2 MMOL/L (3.6-5.0); SODIUM 142 MMOL/L (135-145)
[2020-02-23 12:32] LABS: CALCIUM 9.4 MG/DL (8.5-10.1)
[2020-02-23 12:33] LABS: TRIGLYCERIDES 124 MG/DL (<150); VLDL CHOLESTEROL 25 MG/DL (5-40)
[2020-02-23 12:34] LABS: CARBON DIOXIDE 25 MMOL/L (21-32); GLUCOSE 118 MG/DL (70-105); TOTAL PROTEIN 7.2 GM/DL (6.4-8.2)
[2020-02-23 12:35] LABS: BILIRUBIN,TOTAL 0.6 MG/DL (0.1-1.0)
[2020-02-23 12:37] LABS: ALKALINE PHOSPHATASE 75 U/L (40-136); CREATININE SERUM 1.25 MG/DL (0.60-1.30); GFR ESTIMATED > 60
[2020-02-23 12:38] LABS: BUN/CREATININE RATIO 13; CHOLESTEROL 177 MG/DL (< 200)
[2020-02-23 12:39] LABS: HDL CHOLESTEROL 39 MG/DL (40-60)
[2020-02-23 12:40] LABS: ALANINE AMINOTRANSFERASE 11 U/L (0-55)
--- NOTE | 2020-02-23 13:24 | Diagnostic Imaging Report ---
PROCEDURE: MRI lumbar spine. TECHNIQUE: Multiplanar, multisequence MRI of the lumbar spine was performed without contrast. INDICATION: Low back pain and bilateral leg pain. Patient has prior history of lumbar spine surgery. COMPARISON: Comparison is made with prior MRI of the lumbar spine from 09/14/2017. FINDINGS: Curvature and alignment is maintained. Vertebral body heights are unremarkable. There is no acute compression fracture. There is significant degenerative disc disease at the L4-L5 level with Modic changes in the adjacent endplates, similar to prior exam. There is also disc space narrowing and desiccation at the L5-S1 level compatible with degenerative disc disease. There is normal height and signal intensity to the L1-L2, L2-L3, and L3-L4 discs. Conus is unremarkable at the L1 level. T12-L1: Small right paracentral wide-based disc/osteophyte is again noted producing slight indentation on the ventral thecal sac. This is similar to prior exam. No resultant central canal or neuroforaminal narrowing is seen. L1-L2: Central canal and neural foramina remain widely patent. L2-L3: Central canal and neural foramina remain patent. L3-L4: Central canal is patent. There may be very mild neuroforaminal narrowing on the right due to right far lateral broad-based disc/osteophyte complex. L4-L5: Broad-based disc/osteophyte complex flattens the ventral thecal sac. Central canal remains patent. There is significant lateral recess narrowing bilaterally. There is also severe left and [id number]-[id number] right neuroforaminal stenosis. This is similar to prior. L5-S1: Central canal is patent. There is significant bilateral lateral recess stenosis. There is also significant bilateral neuroforaminal stenosis. Previously noted small residual disc protrusion is less prominent on today's study. Paraspinous tissues are unremarkable. IMPRESSION: Multilevel lumbar spondylosis with multilevel lateral recess and neuroforaminal stenosis described level by level above. Overall appearance of the lumbar spine is very similar to prior study from 09/14/2017. Dictated by: Dictated on workstation # [id number]
== END ==
LOC: RAD 12:03
PROVIDERS: ATTEND Family Medicine
DX: M48.07 Spinal stenosis, lumbosacral region (principal); M51.27 Other intervertebral disc displacement, lumbosacral region; M47.816 Spondylosis without myelopathy or radiculopathy, lumbar region; M51.37 Other intervertebral disc degeneration, lumbosacral region; Z98.890 Other specified postprocedural states
CPT/HCPCS: 36415; 72148; 80053; 80061; 83036; 85027

== ENCOUNTER 2021-06-19 23:27 | Emergency (ER) | payer MEDICARE ==
[~2021-06-19] VITALS: Ht 188 cm; Wt 92.1 kg
[~2021-06-19 23:27] MED LIST changes: +AMLO-251 PO; -AMLO10TA7 PO; +ASPI-1238 PO; -ASPI-983 PO; +CLN.2T PO; -CLON0.1T PO; -CLON0.2T PO; +LISI40TA9 PO
[2021-06-19 23:36] VITALS: BP 175/76
--- NOTE | 2021-06-19 23:49 | ED Lower Extremity ---
General Chief Complaint: Lower Extremity Stated Complaint: L LEG WEAKNESS Source: patient Exam Limitations: no limitations History of Present Illness Date Seen by Provider: Jun 19, 2021 Time Seen by Provider: 23:43 Initial Comments Patient is a 61-year-old male who presents to the emergency room with a chief complaint of a "" to the left leg. Patient had been sitting at his computer table for about 15 or 20 minutes when he noticed that his left leg went numb. He states it was numb from the hip all the way down to the foot. He states it lasted in total of about 10 minutes. He states he was sitting on it and moving it around trying to get the circulation to come back and it did but shortly after that it became numb again. It lasted again for about 5 or 10 minutes he became very nervous and started shaking and thought that he might be trying to have a heart attack. He came up to the emergency room for evaluation. He has had some back pain requiring him to take some hydrocodone at home. He denies any loss of bowel or bladder function or inability to urinate. He denies any recent trauma, heavy lifting or exertion. He states the leg feels back to normal now. He states while it was "numb" he was still able to move it. He did not fall this evening. He has had prior back surgery for a ruptured disc back in 1985. He has had no ongoing evaluations of his back since that time. All other review of systems reviewed and negative except as stated. Onset: just prior to arrival Severity: moderate Pain/Injury Location: left other ("Numb" left lower extremity) Modifying Factors: Improves With Movement Allergies and Home Medications Allergies Coded Allergies: No Known Drug Allergies (Unverified , 07/20/11) Patient Home Medication List Home Medication List Reviewed: Yes Amlodipine Besylate (Amlodipine Besylate) 10 Mg Tablet, 10 MG PO DAILY, (Reported) Entered as Reported by: JB DRISCOLL on 08/08/18 1221 Aspirin (Aspirin EC) 81 Mg Tablet.dr, 81 MG PO DAILY, (Reported) Entered as Reported by: JB DRISCOLL on 08/08/18 1221 Atorvastatin Calcium (Lipitor) 40 Mg Tablet, 40 MG PO HS, (Reported) Entered as Reported by: JB DRISCOLL on 08/08/18 1221 Chlorzoxazone (Chlorzoxazone) 500 Mg Tablet, 500 MG PO BID, (Reported) Entered as Reported by: RENEE SHEARER on 05/19/18 1018 Furosemide (Furosemide) 40 Mg Tablet, 40 MG PO DAILY, (Reported) Entered as Reported by: JB DRISCOLL on 09/05/17 0848 Insulin Glargine,Hum.rec.anlog (Lantus Solostar) 100 Unit/1 Ml Insuln.pen, 25 UNIT SQ HS Prescribed by: KIMBERLY BOLAÑOS on 06/15/19 0945 Lisinopril (Lisinopril) 40 Mg Tablet, 40 MG PO DAILY, (Reported) Entered as Reported by: JB DRISCOLL on 08/08/18 1221 Loratadine (Loratadine) 10 Mg Tablet, 10 MG PO DAILY Prescribed by: DELROY KELLEY on 05/30/19 0236 Metformin HCl (Metformin HCl) 500 Mg Tablet, 1,000 MG PO BID@ Prescribed by: KIMBERLY BOLAÑOS on 06/15/19 0945 Metoprolol Succinate (Metoprolol Succinate) 50 Mg Tab.er.24h, 50 MG PO DAILY Prescribed by: Royal KENDRICK on 08/09/18 1008 Nitroglycerin (Nitroglycerin) 0.4 Mg Tab.subl, 0.4 MG SL UD PRN for CHEST PAIN, (Reported) Entered as Reported by: JB DRISCOLL on 08/08/18 1249 Prednisone (Prednisone) 20 Mg Tab, 40 MG PO BID Prescribed by: DELROY KELLEY on 05/30/19 0236 Pyridoxine HCl (Vitamin B-6) 100 Mg Tablet, 100 MG PO DAILY, (Reported) Entered as Reported by: JB DRISCOLL on 08/08/18 1225 Ticagrelor (Brilinta) 90 Mg Tablet, 90 MG PO BID Prescribed by: Royal KENDRICK on 08/09/18 1008 Tramadol HCl (Tramadol HCl) 50 Mg Tablet, 50 MG PO BID PRN for PAIN-MODERATE, (Reported) Entered as Reported by: JB DRISCOLL on 08/08/18 1225 Review of Systems Constitutional: see HPI EENTM: no symptoms reported Respiratory: no symptoms reported Gastrointestinal: no symptoms reported Genitourinary: no symptoms reported Musculoskeletal: back pain Skin: no symptoms reported Psychiatric/Neurological: Numbness (LLE) All Other Systems Reviewed Negative Unless Noted: Yes Past Xkdpicn-Jibqrx-Hivfwz Hx Patient Social History Tobacco Use?: No Use of E-Cig and/or Vaping dev: No Substance use?: No Alcohol Use?: No Immunizations Up To Date Tetanus Booster (TDap): Unknown PED Vaccines UTD: No Influenza Vaccine Up-to-Date: Yes; Up-to-Date First/Initial COVID19 Vaccinat: 2020 Second COVID19 Vaccination Pedro Pablo: 2020 COVID19 Vaccine Administrative Dietitian: UNK TO PT "I GOT 2 SHOTS" Seasonal Allergies Seasonal Allergies: No Past Medical History Surgery/Hospitalization HX: BACK SURGERY Surgeries: Yes (Inguinal hernia Rpr-peds, lower back, r pinky finger) Coronary Stent, Orthopedic Respiratory: Yes (CHILDHOOD ASTHMA) Asthma Currently Using CPAP: No Currently Using BIPAP: No Cardiac: Yes Heart Attack, High Cholesterol, Hypertension Neurological: No Stroke Reproductive Disorders: No Genitourinary: No Gastrointestinal: No Musculoskeletal: Yes Chronic Back Pain Endocrine: No HEENT: No Cancer: No Psychosocial: No Integumentary: No Blood Disorders: No Adverse Reaction/Blood Tranf: No Family Medical History Alcoholism 19 FATHER, Onset:40's - 50 Diabetes mellitus 19 FATHER, Onset:Unknown 19 MOTHER, Onset:Unknown Kidney disease 19 MOTHER, Onset:Unknown Diabetes Physical Exam Vital Signs Vital Signs - First Documented 06/19/21 23:36 Temp 36.0 Pulse 64 Resp 18 B/P (MAP) 175/76 (109) Pulse Ox 100 O2 Delivery Room Air Capillary Refill : Height, Weight, BMI Height: 6'2.00" Weight: 222lbs. 0.0oz. 100.472738ug; 27.78 BMI Method:Stated General Appearance: WD/WN, no apparent distress HEENT: PERRL/EOMI Neck: normal inspection Cardiovascular: regular rate, rhythm, systolic murmur, other (Normal distal pulses) Respiratory: lungs clear, normal breath sounds, no respiratory distress, no accessory muscle use Gastrointestinal: normal bowel sounds, non tender, soft Back: normal inspection, other (Scar noted to the low back. No vertebral tenderness or paraspinous muscle tenderness or spasm is palpated. ) Hips: bilateral hip non-tender, bilateral hip normal inspection, bilateral hip normal range of motion, bilateral hip no evidence of injury Legs: bilateral leg non-tender, bilateral leg normal inspection, bilateral leg normal range of motion, bilateral leg no evidence of injury Knees: bilateral knee non-tender, bilateral knee normal inspection, bilateral knee normal range of motion, bilateral knee no evidence of injury Ankles: bilateral ankle non-tender, bilateral ankle normal inspection, bilateral ankle normal range of motion, bilateral ankle no evidence of injury Feet: bilateral foot non-tender, bilateral foot normal inspection, bilateral foot normal range of motion, bilateral foot no evidence of injury Reflexes: 2+ knee (R); 1+ knee (L) Neurologic/Tendon: normal sensation, normal motor functions, normal tendon functions, other (Negative straight leg raise, normal dorsiflexion of the great toes bilaterally) Neurologic/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 He has no ongoing paresthesias/numbness. He has normal neurologic function of the bilateral lower extremities. No incontinence or perineal numbness. He has no reproducible back pain. I suspect secondary to the patient's history of back surgery that he may have another herniated disc. I encouraged him to follow-up with Dr. Novoa, his primary care physician tomorrow. He most likely needs a repeat lumbar spine MRI. I have given the patient good return precautions to include loss of function of the left lower extremity, loss of bowel or bladder continence, numbness to his groin. He has a pain management plan at home. He takes muscle relaxers and hydrocodone as needed. I have no concern for acute cerebrovascular accident. Patient has no complaints at this time. Will be discharged home. Departure Impression Primary Impression: Numbness in left leg Additional Impression: Chronic low back pain Qualified Codes: M54.50 - Low back pain, unspecified; G89.29 - Other chronic pain Disposition: 01 HOME, SELF-CARE Condition: Stable Departure-Patient Inst. Decision time for Depature: 00:04 Referrals: LAURA NOVOA DO (PCP/Family) Primary Care Physician Patient Instructions: Low Back Pain ED Add. Discharge Instructions: Continue your medications for back pain as needed. Follow-up with Dr. Novoa tomorrow, he may need to order you an MRI of your low back to rule out a herniated disc causing the numbness in your left leg. Please come back to the emergency room if you have recurrent numbness especially with loss of function to the left leg, loss of bowel or bladder control, numbness in your groin or any other emergent, concerning symptoms. Copy Copies To 1: LAURA NOVOA KATHRYN M MD Jun 19, 2021 23:48
== END 2021-06-20 00:15 | disposition home or self-care (01) ==
LOC: EDUNIT# 23:27 → ER 23:28
DX: R20.0 Anesthesia of skin (principal); G89.29 Other chronic pain; M54.50 Low back pain, unspecified; J45.909 Unspecified asthma, uncomplicated; I10 Essential (primary) hypertension; I25.2 Old myocardial infarction; E78.00 Pure hypercholesterolemia, unspecified; Z86.73 Personal history of transient ischemic attack (TIA), and cerebral infarction without residual deficits; Z79.82 Long term (current) use of aspirin; Z79.899 Other long term (current) drug therapy
CPT/HCPCS: 99281

== ENCOUNTER 2021-08-04 19:59 | Emergency (ER) | payer MEDICARE ==
[~2021-08-04] VITALS: Ht 188 cm; Wt 92.0 kg
[2021-08-04] MEDS ORDERED: NITROGLYCERIN 0.4 MG SL TABS BTL 25'S SL PRN (20:15)
[2021-08-04] MEDS ORDERED: ASPIRIN 81 MG CHEW (CHILDREN'S ASA) PO ONE (20:15)
[2021-08-04 20:29] LABS: BASOPHILS % (AUTO) 0 % (0-10); EOSINOPHILS # (AUTO) 0.2 10^3/uL (0.0-0.3); EOSINOPHILS % (AUTO) 3 % (0-10); HEMATOCRIT 38 % (40-54); HEMOGLOBIN 12.6 g/dL (13.3-17.7); LYMPHOCYTES # (AUTO) 1.9 10^3/uL (1.0-4.0); LYMPHOCYTES % (AUTO) 26 % (12-44); MEAN CORPUSCULAR HEMOGLOBIN 31 pg (25-34); MEAN CORPUSCULAR HGB CONC 34 g/dL (32-36); MEAN CORPUSCULAR VOLUME 92 fL (80-99); MONOCYTES # (AUTO) 0.5 10^3/uL (0.0-1.0); MONOCYTES % (AUTO) 6 % (0-12); NEUTROPHILS # (AUTO) 4.7 10^3/uL (1.8-7.8); NEUTROPHILS % (AUTO) 65 % (42-75); PLATELET COUNT 223 10^3/uL (130-400); WHITE BLOOD COUNT 7.3 10^3/uL (4.3-11.0)
[2021-08-04 20:45] LABS: ALBUMIN 3.9 GM/DL (3.2-4.5); POTASSIUM 3.7 MMOL/L (3.6-5.0)
[2021-08-04 20:46] LABS: CALCIUM 9.4 MG/DL (8.5-10.1)
[2021-08-04 20:49] LABS: BILIRUBIN,TOTAL 0.6 MG/DL (0.1-1.0)
[2021-08-04 20:51] LABS: CREATININE SERUM 1.3 MG/DL (0.60-1.30)
[2021-08-04 20:54] LABS: MAGNESIUM 1.8 MG/DL (1.6-2.4)
[2021-08-04 20:55] LABS: FIBRIN DEGRADATION PRODUCTS 0.69 UG/ML (0.00-0.49); PROTHROMBIN TIME PATIENT 13.2 SEC (12.2-14.7)
[2021-08-04 21:03] LABS: CREATINE KINASE MB 0.5 NG/ML (<6.6)
--- NOTE | 2021-08-04 21:21 | Diagnostic Imaging Report ---
CLINICAL INDICATIONS: Patient with chest pain. EXAM: Portable chest x-ray upright view. COMPARISON: Chest x-ray dated 06/14/2019. FINDINGS: Lungs/pleura: Stable minimal scarring in the periphery of the left lung base. Otherwise, lungs are clear. There is no pneumothorax. There is no pleural effusion. Mediastinum: Unremarkable. Pulmonary vasculature: Unremarkable. Heart: Unremarkable. Bones/extrathoracic soft tissue: There are degenerative spurs involving the thoracic spine. IMPRESSION: There is no radiographic evidence of acute cardiopulmonary process. Dictated by: Dictated on workstation # [id number]
[2021-08-04] MEDS ORDERED: NS 100 ML (IVPB) BAG IV ONE (21:30)
[2021-08-04] MEDS ORDERED: IOHEXOL 350 MG/ML 150 ML (OMNIPAQUE 350) VIAL IV ONE (21:30)
[2021-08-04] MEDS ORDERED: HOLD METFORMIN - RECEIVED CONTRAST 20 ML VIAL IV SCH (21:30)
--- NOTE | 2021-08-04 22:12 | Diagnostic Imaging Report ---
Clinical indications: Patient with chest pain and shortness of breath. Exam: CT angiogram of the chest performed with 82 cc Omnipaque 350 IV contrast. Coronal and oblique MIP images of the vasculature were created to better evaluate anatomy. Auto Exposure Controls were utilized during the CT exam to meet ALARA standards for radiation dose reduction. Comparison: CT angiogram of the chest dated 09/04/2017.. Findings: There is interval development of mild groundglass opacifications involving the lingula and bilateral lower lobe regions which may represent atelectasis versus infiltrates. There is no pleural effusion. There is no significant lymphadenopathy. Partially calcified lymph nodes in the right perihilar region seen. There is no axillary lymphadenopathy. There is no thoracic dilation. There is dense contrast within the left innominate vein and superior vena cava which obscures portions of the mediastinum and pulmonary vessels. There is no evidence of pulmonary embolism. There is a 3.3 cm cyst involving left lobe of liver. Remainder of the visualized upper abdominal structures show no significant acute abnormality. Vascular calcification of the celiac and SMA again noted with at least mild narrowing. There are small spurs involving the thoracic spine. IMPRESSION: 1: There is no evidence of pulmonary embolism. There is no thoracic aortic aneurysm. 2: There is mild groundglass opacification involving the lingula and both lung bases regions which may represent atelectasis, but lung infiltrates cannot be completely excluded. Dictated by: Dictated on workstation # [id number]
[2021-08-04] MEDS ORDERED: hydrALAZINE (APESOLINE) 20 MG/ML VIAL IV ONE (22:30)
--- NOTE | 2021-08-04 23:50 | ED Chest Pain ---
General Chief Complaint: Chest Pain Stated Complaint: CHEST PAIN/SOA Nursing Triage Note: PT AMB TO ED BY POV WITH C/O CP BEGINNING APPROX AN [employer]CH[employer]. PT REPORTS HE WAS SITTING WATCHING TV WHEN THE CP CAME AND WENT 3 TIMES ALONG WITH BRIEF SOB. PT RATES PAIN 6/10 AT WORST, DENIES PAIN CURRENTLY. PT DID NOT TAKE NITRO. PT STATES THE PAIN FELT DIFFERENT THAN PREVIOUS HEART ATTACK. Source: patient History of Present Illness Date Seen by Provider: Aug 04, 2021 Time Seen by Provider: 20:07 Initial Comments PT ARRIVES VIA POV FROM HOME PT STATES AROUND 1900 TONIGHT, HE WAS SITTING AND WATCHING TV, HAD "HAD A LITTLE PAIN IN MY CHEST", PAIN LASTED A FEW SECONDS AND WENT AWAY. "THEN IT HAPPENED 2 MORE TIMES" SO CAME TO ER. EACH TIME THE PAIN ONLY LASTED A FEW SECONDS PAIN IN LEFT UPPER CHEST HAD SLIGHT SHORTNESS OF BREATH WITH THE PAIN NO NAUSEA/VOMITING NO SWEATS NO SWELLING IN LEGS/FEET OR PAIN IN CALVES NO PALPITATIONS NO DIZZINESS OR SYNCOPE PT HAS NTG SL AT HOME, AND KEEPS IN HIS POCKET, BUT DID NOT TAKE ANY PT DOES NOT HAVE PAIN NOW STATES PAIN WAS 6/10 AT WORST NO RADIATION OF PAIN NOTHING WORSENED OR BROUGHT ON PAIN, OR IMPROVED PAIN STATES THIS PAIN WAS NOT THE SAME PAIN WHEN HE HAD A HEART ATTACK PT HAS HISTORY OF CAD WITH STENT IN [address] PARKER WAS A MONTH AGO. NO CHANGES IN MEDICATIONS. PT IS ON ASPIRIN AND BRILINTA. PT DOES STATE A FEW TIMES DURING ER STAY THAT HIS IN PT STATES HE MOSTLY EATS AT [employer], FOR ALL OF HIS MEALS PT HAS HAD COVID-19 VACCINE X 2--LAST ONE 10/2020. NO BOOSTER SHOT PCP: DR. NOVOA CREDIT RISK SPECIALIST: DR. PARKER Allergies and Home Medications Allergies Coded Allergies: No Known Drug Allergies (Unverified , 07/20/11) Patient Home Medication List Home Medication List Reviewed: Yes Amlodipine Besylate (Amlodipine Besylate) 10 Mg Tablet, 10 MG PO DAILY, (Reported) Entered as Reported by: JB DRISCOLL on 08/08/18 1221 Aspirin (Aspirin EC) 81 Mg Tablet.dr 81 MG PO DAILY, (Reported) Entered as Reported by: JB DRISCOLL on 08/08/18 1221 Atorvastatin Calcium (Lipitor) 40 Mg Tablet, 40 MG PO HS, (Reported) Entered as Reported by: JB DRISCOLL on 08/08/18 1221 Chlorzoxazone (Chlorzoxazone) 500 Mg Tablet, 500 MG PO BID, (Reported) Entered as Reported by: RENEE SHEARER on 05/19/18 1018 Furosemide (Furosemide) 40 Mg Tablet, 40 MG PO DAILY, (Reported) Entered as Reported by: JB DRISCOLL on 09/05/17 0848 Insulin Glargine,Hum.rec.anlog (Lantus Solostar) 100 Unit/1 Ml Insuln.pen, 25 UNIT SQ HS Prescribed by: KIMBERLY BOLAÑOS on 06/15/19 0945 Lisinopril (Lisinopril) 40 Mg Tablet, 40 MG PO DAILY, (Reported) Entered as Reported by: JB DRISCOLL on 08/08/18 1221 Loratadine (Loratadine) 10 Mg Tablet, 10 MG PO DAILY Prescribed by: DELROY KELLEY on 05/30/19 0236 Metformin HCl (Metformin HCl) 500 Mg Tablet, 1,000 MG PO BID@ Prescribed by: KIMBERLY BOLAÑOS on 06/15/19 0945 Metoprolol Succinate (Metoprolol Succinate) 50 Mg Tab.er.24h, 50 MG PO DAILY Prescribed by: Royal KENDRICK on 08/09/18 100 Nitroglycerin (Nitroglycerin) 0.4 Mg Tab.subl, 0.4 MG SL UD PRN for CHEST PAIN, (Reported) Entered as Reported by: JB DRISCOLL on 08/08/18 1249 Prednisone (Prednisone) 20 Mg Tab, 40 MG PO BID Prescribed by: DELROY KELLEY on 05/30/19 0236 Pyridoxine HCl (Vitamin B-6) 100 Mg Tablet, 100 MG PO DAILY, (Reported) Entered as Reported by: JB DRISCOLL on 08/08/18 1225 Ticagrelor (Brilinta) 90 Mg Tablet, 90 MG PO BID Prescribed by: Royal KENDRICK on 08/09/18 1008 Tramadol HCl (Tramadol HCl) 50 Mg Tablet, 50 MG PO BID PRN for PAIN-MODERATE, (Reported) Entered as Reported by: JB DRISCOLL on 08/08/18 1225 Review of Systems Review of Systems Constitutional: no symptoms reported EENTM: No Symptoms Reported Respiratory: See HPI Cardiovascular: See HPI Gastrointestinal: No Symptoms Reported Genitourinary: No Symptoms Reported Musculoskeletal: no symptoms reported Skin: no symptoms reported Psychiatric/Neurological: No Symptoms Reported Endocrine: No Symptoms Reported Hematologic/Lymphatic: No Symptoms Reported Past Tluielf-Vybgxg-Wvjscj Hx Patient Social History Tobacco Use?: Yes Tobacco type used: Cigarettes Smoking Status: Former Smoker Use of E-Cig and/or Vaping dev: No Substance use?: No Alcohol Use?: Yes Alcohol type: Beer Alcohol Frequency: Several times a month Pt feels they are or have been: No Immunizations Up To Date Tetanus Booster (TDap): Unknown PED Vaccines UTD: No Influenza Vaccine Up-to-Date: No; Not Current First/Initial COVID19 Vaccinat: 2020 Second COVID19 Vaccination Pedro Pablo: 2020 Seasonal Allergies Seasonal Allergies: No Past Medical History Surgery/Hospitalization HX: CARDIAC STENTS, BACK SURGERY Surgeries: Yes (Inguinal hernia Rpr-peds, lower back, r pinky finger) Abdominal, Cardiac, Coronary Stent, Orthopedic Respiratory: Yes (CHILDHOOD ASTHMA) Asthma Currently Using CPAP: No Currently Using BIPAP: No Cardiac: Yes Coronary Artery Disease, Heart Attack, High Cholesterol, Hypertension Neurological: Yes Stroke Reproductive Disorders: No Genitourinary: No Gastrointestinal: No Musculoskeletal: Yes (S/P LUMBAR SPINE SURGERY) Chronic Back Pain Endocrine: Yes Diabetes, Insulin dep HEENT: No (GLASSES) Cancer: No Psychosocial: No Integumentary: No Blood Disorders: No Adverse Reaction/Blood Tranf: No Family Medical History Alcoholism 19 FATHER, Onset:40's - 50 Diabetes mellitus 19 FATHER, Onset:Unknown 19 MOTHER, Onset:Unknown Kidney disease 19 MOTHER, Onset:Unknown Diabetes PT HAS HISTORY OF NON-COMPLIANCE SOCIAL HISTORY: -SMOKED > 1 PPD, QUIT AROUND 2018 -DRUGS--DENIES USE -ETOH--DRINKS SEVERAL TIMES A MONTH PAST SURGICAL HISTORY: -RIGHT INGUINAL HERNIA REPAIR CHILD -LUMBAR SPINE SURGERY 1985 -RIGHT 5TH FINGER SURGERY -CARDIAC CATH 08/08/[address] KENDRICK: CONCLUSIONS: 1. Successful PCI with drug-eluting stent to distal left circumflex artery. Moderate to severe disease in first OM artery was left alone. 2. Dual antiplatelet therapy. High dose statin therapy. 3. Continue aggressive blood pressure management. Physical Exam Vital Signs Vital Signs - First Documented 08/04/21 20:05 Temp 36.3 Pulse 75 Resp 13 B/P (MAP) 131/81 (98) Pulse Ox 100 O2 Delivery Room Air Capillary Refill : Less Than 3 Seconds Height, Weight, BMI Height: 6'2.00" Weight: 222lbs. 0.0oz. [id number]; 26.00 BMI Method:Stated General Appearance: No Apparent Distress, WD/WN Neck: Normal Inspection Respiratory: Chest Non Tender, Normal Breath Sounds, No Accessory Muscle Use, No Respiratory Distress Cardiovascular: Regular Rate, Rhythm, No Edema, No Gallop, No JVD, No Murmur, Normal Peripheral Pulses Gastrointestinal: Non Tender, Soft Extremity: Normal Inspection, Normal Range of Motion, Non Tender, No Calf Tenderness, No Pedal Edema Neurologic/Psychiatric: Alert, Oriented x3, No Motor/Sensory Deficits, Normal Mood/Affect, event management consultant II-XII Norm as Tested Skin: Normal Color (PT IS BLACK), Warm/Dry; No Rash Progress/Results/Core Measures Results/Orders Lab Results Laboratory Tests Test 08/04/21 20:10 08/04/21 20:15 08/04/21 23:20 Range/Units Influenza Type A Antigen NEGATIVE NEGATIVE Influenza Type B Antigen NEGATIVE NEGATIVE SARS-CoV-2 RNA (RT-PCR) Negative Negative White Blood Count 7.3 4.3-11.0 10^3/uL Red Blood Count 4.07 L 4.30-5.52 10^6/uL Hemoglobin 12.6 L 13.3-17.7 g/dL Hematocrit 38 L 40-54 % Mean Corpuscular Volume 92 80-99 fL Mean Corpuscular Hemoglobin 31 25-34 pg Mean Corpuscular Hemoglobin Concent 34 32-36 g/dL Red Cell Distribution Width 13.6 10.0-14.5 % Platelet Count 223 130-400 10^3/uL Mean Platelet Volume 11.0 9.0-12.2 fL Immature Granulocyte % (Auto) 0 % Neutrophils (%) (Auto) 65 42-75 % Lymphocytes (%) (Auto) 26 12-44 % Monocytes (%) (Auto) 6 0-12 % Eosinophils (%) (Auto) 3 0-10 % Basophils (%) (Auto) 0 0-10 % Neutrophils # (Auto) 4.7 1.8-7.8 10^3/uL Lymphocytes # (Auto) 1.9 1.0-4.0 10^3/uL Monocytes # (Auto) 0.5 0.0-1.0 10^3/uL Eosinophils # (Auto) 0.2 0.0-0.3 10^3/uL Basophils # (Auto) 0.0 0.0-0.1 10^3/uL Immature Granulocyte # (Auto) 0.0 0.0-0.1 10^3/uL Erythrocyte Sedimentation Rate 17 0-30 MM/HR Prothrombin Time 13.2 12.2-14.7 SEC INR Comment 1.0 0.8-1.4 Activated Partial Thromboplast Time 28 24-35 SEC D-Dimer 0.69 H 0.00-0.49 UG/ML Sodium Level 140 135-145 MMOL/L Potassium Level 3.7 3.6-5.0 MMOL/L Chloride Level 104 98-107 MMOL/L Carbon Dioxide Level 25 21-32 MMOL/L Anion Gap 11 5-14 MMOL/L Blood Urea Nitrogen 24 H 7-18 MG/DL Creatinine 1.30 0.60-1.30 MG/DL Estimat Glomerular Filtration Rate 68 BUN/Creatinine Ratio 18 Glucose Level 133 H 70-105 MG/DL Calcium Level 9.4 8.5-10.1 MG/DL Corrected Calcium 9.5 8.5-10.1 MG/DL Magnesium Level 1.8 1.6-2.4 MG/DL Total Bilirubin 0.6 0.1-1.0 MG/DL Aspartate Amino Transf (AST/SGOT) 18 5-34 U/L Alanine Aminotransferase (ALT/SGPT) 23 0-55 U/L Alkaline Phosphatase 61 40-136 U/L Lactate Dehydrogenase 223 H 125-220 U/L Total Creatine Kinase 63 30-200 U/L Creatine Kinase MB 0.5 <6.6 NG/ML Myoglobin 43.0 10.0-92.0 NG/ML Troponin I < 0.028 < 0.028 <0.028 NG/ML C-Reactive Protein High Sensitivity 0.18 0.00-0.50 MG/DL B-Type Natriuretic Peptide 26.2 <100.0 PG/ML Total Protein 8.0 6.4-8.2 GM/DL Albumin 3.9 3.2-4.5 GM/DL Amylase Level 92 25-125 U/L Lipase 23 8-78 U/L Procalcitonin 0.05 <0.10 NG/ML My Orders Orders - DAPHNEY YANG DO Cbc With Automated Diff (08/04/21 20:03) Magnesium (08/04/21 20:03) Chest 1 View, Ap/Pa Only (08/04/21 20:03) Ekg Tracing (08/04/21 20:03) Comprehensive Metabolic Panel (08/04/21 20:03) Myoglobin Serum (08/04/21 20:03) Protime With Inr (08/04/21 20:03) Partial Thromboplastin Time (08/04/21 20:03) O2 (08/04/21 20:03) Monitor-Rhythm Ecg Trace Only (08/04/21 20:03) Ed Iv/Invasive Line Start (08/04/21 20:03) Creatine Kinase (08/04/21 20:03) Creatine Kinase Mb (08/04/21 20:03) Lipase (08/04/21 20:03) Amylase (08/04/21 20:03) Bnp Ruperto (08/04/21 20:03) Troponin I Ruperto (08/04/21 20:03) Nitroglycerin 0.4 Mg Btl 25's (Nitrostat (08/04/21 20:15) Aspirin Chewable Tablet (Baby Aspirin Ch (08/04/21 20:15) Procalcitonin (Pct) (08/04/21 20:03) Hs C Reactive Protein (08/04/21 20:03) Erythrocyte Sedimentation Rate (08/04/21 20:03) LDH (08/04/21 20:03) Covid 19 Inhouse Test (08/04/21 20:03) Influenza A & B Antigens (08/04/21 20:03) Coronavirus Sars-Cov-2 So 2019 (08/04/21 20:43) Fibrin Degradation Products (08/04/21 20:15) Ct Angio Chest W (08/04/21 21:13) Iohexol Injection (Omnipaque 350 Mg/Ml 1 (08/04/21 21:30) Received Contrast (Hold Metformin- Contr (08/04/21 21:30) Ns (Ivpb) (Sodium Chloride 0.9% Ivpb Bag (08/04/21 21:30) Hydralazine Injection (Apresoline Inject (08/04/21 22:30) Ekg Tracing (08/04/21 23:06) Troponin I Ruperto (08/04/21 23:06) Medications Given in ED Current Medications Medications Dose Ordered Sig/Haylie Route Start Time Stop Time Status Last Admin Dose Admin Aspirin 324 mg ONCE ONCE PO 08/04/21 20:15 08/04/21 20:16 DC 08/04/21 20:29 324 MG Hydralazine HCl 10 mg ONCE ONCE IV 08/04/21 22:30 08/04/21 22:31 DC 08/04/21 22:50 10 MG Iohexol 150 ml ONCE ONCE IV 08/04/21 21:30 08/04/21 21:31 DC 08/04/21 21:32 82 ML Sodium Chloride 100 ml ONCE ONCE IV 08/04/21 21:30 08/04/21 21:31 DC 08/04/21 21:33 74 ML Vital Signs/I&O 08/04/21 20:05 Temp 36.3 Pulse 75 Resp 13 B/P (MAP) 131/81 (98) Pulse Ox 100 O2 Delivery Room Air Blood Pressure Mean: 98 Progress Progress Note : Progress Note PLACED IN ISOLATION ROOM PPE WORN COVID-19 TESTING DONE NO CHEST PAIN OR ANY OTHER SYMPTOMS OF ANY KIND AT ANY TIME DURING ER STAY PT DID HAVE GRADUAL INCREASE IN BP AND WAS GIVEN HYDRALAZINE WITH BP DOWN TO 130'S/70'S 3 HOUR REPEAT EKG AND TROPONIN DONE--EKG UNCHANGED, AND REPEAT TROPONIN NEGATIVE Initial ECG Impression Date: Aug 04, 2021 Initial ECG Impression Time: 20:08 Initial ECG Rate: 72 Initial ECG Rhythm: Normal Sinus Initial ECG Impression: Nonspecific Changes EKG : EKG Time: 23:12 Rate: 82 Rhythm: Normal Sinus ECG Comparisson: Unchanged Diagnostic Imaging Comments CXR--PER RADIOLOGIST REPORT AT 2122 FINDINGS: Lungs/pleura: Stable minimal scarring in the periphery of the left lung base. Otherwise, lungs are clear. There is no pneumothorax. There is no pleural effusion. Mediastinum: Unremarkable. Pulmonary vasculature: Unremarkable. Heart: Unremarkable. Bones/extrathoracic soft tissue: There are degenerative spurs involving the thoracic spine. IMPRESSION: There is no radiographic evidence of acute cardiopulmonary process. CT CHEST ANGIOGRAM--PER RADIOLOGIST REPORT AT 2214 indings: There is interval development of mild groundglass opacifications involving the lingula and bilateral lower lobe regions which may represent atelectasis versus infiltrates. There is no pleural effusion. There is no significant lymphadenopathy. Partially calcified lymph nodes in the right perihilar region seen. There is no axillary lymphadenopathy. There is no thoracic dilation. There is dense contrast within the left innominate vein and superior vena cava which obscures portions of the mediastinum and pulmonary vessels. There is no evidence of pulmonary embolism. There is a 3.3 cm cyst involving left lobe of liver. Remainder of the visualized upper abdominal structures show no significant acute abnormality. Vascular calcification of the celiac and SMA again noted with at least mild narrowing. There are small spurs involving the thoracic spine. IMPRESSION: 1: There is no evidence of pulmonary embolism. There is no thoracic aortic aneurysm. 2: There is mild groundglass opacification involving the lingula and both lung bases regions which may represent atelectasis, but lung infiltrates cannot be completely excluded. Reviewed: Reviewed by Me Departure Impression Primary Impression: Chest pain Additional Impressions: HTN (hypertension) HX OF CAD WITH STENT IDDM (insulin dependent diabetes mellitus) Disposition: HOME, SELF-CARE Condition: Improved Departure-Patient Inst. Decision time for Depature: 00:21 Referrals: LAURA NOVOA DO (PCP/Family) Primary Care Physician REHANA PARKER MD FACP FAC CCDS Patient Instructions: Chest Pain (DC), High Blood Pressure (DC), DASH Diet Add. Discharge Instructions: CONTINUE YOUR MEDICATIONS PRESCRIBED FOLLOW UP WITH YOUR CREDIT RISK SPECIALIST THIS WEEK FOR FURTHER CARE, RETURN TO ER IF SYMPTOMS RETURN AND ARE NOT RELIEVED WITH HOME NITROGLYCERINE. All discharge instructions reviewed with patient and/or family. Voiced understanding. DAPHNEY YANG DO Aug 04, 2021 23:50
[2021-08-05 00:35] VITALS: BP 135/76
== END 2021-08-05 00:35 | disposition home or self-care (01) ==
LOC: EDUNIT# 19:59 → ER 20:02
DX: R07.9 Chest pain, unspecified (principal); I10 Essential (primary) hypertension; E11.9 Type 2 diabetes mellitus without complications; J45.909 Unspecified asthma, uncomplicated; I25.2 Old myocardial infarction; E78.00 Pure hypercholesterolemia, unspecified; I25.10 Atherosclerotic heart disease of native coronary artery without angina pectoris; G89.29 Other chronic pain; M54.9 Dorsalgia, unspecified; Z20.822 Contact with and (suspected) exposure to COVID-19; Z86.73 Personal history of transient ischemic attack (TIA), and cerebral infarction without residual deficits; Z87.891 Personal history of nicotine dependence; Z79.82 Long term (current) use of aspirin; Z79.4 Long term (current) use of insulin; Z79.891 Long term (current) use of opiate analgesic
CPT/HCPCS: 36415; 71045; 71275; 80053; 82150; 82550; 82553; 83615; 83690; 83735; 83874; 83880; 84145; 84484; 85025; 85379; 85610; 85652; 85730; 86141; 87635; 87636; 87804; 93005; 93041

== ENCOUNTER → 2021-10-14 | Outpatient (CLI) | payer MEDICARE ==
--- NOTE | 2021-10-14 09:06 | Diagnostic Imaging Report ---
CLINICAL INDICATION: Patient with low back pain and surgery in the lumbar region in the . EXAM: Axial CT scan of the lumbar spine performed without IV contrast. Sagittal and coronal reformatted images were created. Auto Exposure Controls were utilized during the CT exam to meet ALARA standards for radiation dose reduction. COMPARISON: MRI of the lumbar spine without contrast dated 02/23/2020. FINDINGS: There is no acute lumbar spine fracture or dislocation. There are degenerative spurs involving the lumbar spine which are most pronounced at the L4-L5 and L5-S1 levels. L1-L2: There is no significant central canal or neuroforaminal narrowing. L2-L3: There is mild facet arthropathy. There is no significant central canal narrowing. There is no significant right neuroforaminal narrowing and stable minimal left neuroforaminal narrowing. L3-L4: There is mild diffuse disk bulge. There is mild bilateral facet arthropathy. There is no significant left neuroforaminal narrowing. There is stable mild right neuroforaminal narrowing. L4-L5: Again noted is diffuse disk bulge with severe loss of disk space height. There are vacuum disk changes. There are hypertrophic spurs extending posteriorly and into the foraminal regions bilaterally. There is stable severe bilateral neuroforaminal narrowing. There is stable minimal encroachment upon the thecal sac anteriorly by the herniated discs. There is mild to moderate bilateral facet arthropathy. L5-S1: Stable diffuse disk bulge with moderate to severe loss of disk space height, predominantly posteriorly. Stable mild to moderate right neuroforaminal narrowing and moderate left neuroforaminal narrowing. There is no significant central canal stenosis. IMPRESSION: There is no significant change to the multilevel lumbar spine degenerative disk disease which is worse at the L4-L5 and L5-S1 levels. Dictated by: Dictated on workstation # [id number]
--- NOTE | 2021-10-14 17:08 | Diagnostic Imaging Report ---
EXAMINATION: US Lower Extremity Arterial Duplex Left. TECHNIQUE: Multiple real-time grayscale images were obtained over the left lower extremity in various projections. Additional duplex Doppler and color Doppler images were also obtained. HISTORY: Pain in lower back and left leg COMPARISON: None available. FINDINGS: Left lower extremity: Multiphasic waveforms are seen to the level of the popliteal artery. There are monophasic waveforms in the calf vessels indicative of a hemodynamically significance stenosis. IMPRESSION: Hemodynamically significant stenosis in the region of the distal left popliteal artery. Dictated by: Dictated on workstation # [id number]
== END ==
LOC: RAD 08:15
PROVIDERS: ATTEND Family Medicine
DX: M51.37 Other intervertebral disc degeneration, lumbosacral region (principal); I74.3 Embolism and thrombosis of arteries of the lower extremities
CPT/HCPCS: 72131; 93926

== ENCOUNTER 2021-12-27 21:55 | Emergency (ER) | payer MEDICARE ==
[~2021-12-27] VITALS: Ht 185.4 cm; Wt 96.6 kg
[2021-12-27] MEDS ORDERED: lisINopril 20 MG (PRINIVIL) TABLET PO ONE (22:15)
[2021-12-27] MEDS ORDERED: ACETAMINOPHEN 500 MG TAB (TYLENOL) PO ONE (22:15)
[2021-12-27] MEDS ORDERED: ASPIRIN 81 MG CHEW (CHILDREN'S ASA) PO ONE (22:15)
[2021-12-27] MEDS ORDERED: amLODIPine 10 MG (NORVASC) TAB PO ONE (22:15)
--- NOTE | 2021-12-27 22:15 | ED General ---
General Chief Complaint: Upper Extremity Stated Complaint: LEFT ARM PAIN Source of Information: Patient Exam Limitations: No Limitations History of Present Illness Date Seen by Provider: December 27, 2021 Time Seen by Provider: 22:00 Initial Comments 61-year-old male with past medical history of CAD with stenting, hypertension, hyperlipidemia coming in due to left arm squeezing pain. Its moderate, constant, and has been going on for greater than 2 hours. He says he has had pain like this before with the last episode a couple days ago. He says this feels different than prior episodes where he had heart attacks. Denies any chest pain, shortness of breath, abdominal pain, nausea, vomiting, diarrhea, weakness, numbness, headache, vision changes, fever, or any other concerns. Denies any pain with movement of the arm. Nothing seems to really make it better or worse. Has not tried any medicines for it as of yet. Of note, he says he took his Plavix and aspirin today, but he has not had his blood pressure medicines in over 24 hours Allergies and Home Medications Allergies Coded Allergies: No Known Drug Allergies (Unverified , 07/20/11) Patient Home Medication List Home Medication List Reviewed: Yes Amlodipine Besylate (Amlodipine Besylate) 10 Mg Tablet, 10 MG PO DAILY, (Reported) Entered as Reported by: JB DRISCOLL on 08/08/18 1221 Aspirin (Aspirin EC) 81 Mg Tablet.dr, 81 MG PO DAILY, (Reported) Entered as Reported by: JB DRISCOLL on 08/08/18 1221 Atorvastatin Calcium (Lipitor) 40 Mg Tablet, 40 MG PO HS, (Reported) Entered as Reported by: JB DRISCOLL on 08/08/18 1221 Chlorzoxazone (Chlorzoxazone) 500 Mg Tablet, 500 MG PO BID, (Reported) Entered as Reported by: RENEE SHEARER on 05/19/18 1018 Furosemide (Furosemide) 40 Mg Tablet, 40 MG PO DAILY, (Reported) Entered as Reported by: JB DRISCOLL on 09/05/17 0848 Insulin Glargine,Hum.rec.anlog (Lantus Solostar) 100 Unit/1 Ml Insuln.pen, 25 UNIT SQ HS Prescribed by: KIMBERLY BOLAÑOS on 06/15/19 0945 Lisinopril (Lisinopril) 40 Mg Tablet, 40 MG PO DAILY, (Reported) Entered as Reported by: JB DRISCOLL on 08/08/18 1221 Loratadine (Loratadine) 10 Mg Tablet, 10 MG PO DAILY Prescribed by: DELROY KELLEY on 05/30/19 0236 Metformin HCl (Metformin HCl) 500 Mg Tablet, 1,000 MG PO BID@ Prescribed by: KIMBERLY BOLAÑOS on 06/15/19 0945 Metoprolol Succinate (Metoprolol Succinate) 50 Mg Tab.er.24h, 50 MG PO DAILY Prescribed by: Royal KENDRICK on 08/09/18 1008 Nitroglycerin (Nitroglycerin) 0.4 Mg Tab.subl, 0.4 MG SL UD PRN for CHEST PAIN, (Reported) Entered as Reported by: JB DRISCOLL on 08/08/18 1249 Prednisone (Prednisone) 20 Mg Tab, 40 MG PO BID Prescribed by: DELROY KELLEY on 05/30/19 0236 Pyridoxine HCl (Vitamin B-6) 100 Mg Tablet, 100 MG PO DAILY, (Reported) Entered as Reported by: JB DRISCOLL on 08/08/18 1225 Ticagrelor (Brilinta) 90 Mg Tablet, 90 MG PO BID Prescribed by: Royal KENDRICK on 08/09/18 1008 Tramadol HCl (Tramadol HCl) 50 Mg Tablet, 50 MG PO BID PRN for PAIN-MODERATE, (Reported) Entered as Reported by: JB DRISCOLL on 08/08/18 1225 Review of Systems Review of Systems Constitutional: No chills, No fever EENTM: No blurred vision Respiratory: No cough Cardiovascular: No chest pain Gastrointestinal: No abdominal pain Genitourinary: no symptoms reported Musculoskeletal: other (left arm pain) Skin: no symptoms reported Psychiatric/Neurological: No Symptoms Reported Hematologic/Lymphatic: No Symptoms Reported Immunological/Allergic: no symptoms reported All Other Systems Reviewed Negative Unless Noted: Yes Past Eajfuvq-Flaiii-Grewba Hx Patient Social History Tobacco Use?: No Smoking Status: Former Smoker Substance use?: No Alcohol Use?: No Immunizations Up To Date Tetanus Booster (TDap): Unknown PED Vaccines UTD: No Influenza Vaccine Up-to-Date: No; Not Current First/Initial COVID19 Vaccinat: 2021 Second COVID19 Vaccination Pedro Pablo: 2020 Third COVID19 Vaccination Date: 2020 Seasonal Allergies Seasonal Allergies: No Past Medical History Surgery/Hospitalization HX: CARDIAC STENTS, BACK SURGERY Surgeries: Yes (Inguinal hernia Rpr-peds, lower back, r pinky finger) Abdominal, Cardiac, Coronary Stent, Orthopedic Respiratory: Yes (CHILDHOOD ASTHMA) Asthma Currently Using CPAP: No Currently Using BIPAP: No Cardiac: Yes Coronary Artery Disease, Heart Attack, High Cholesterol, Hypertension Neurological: Yes Stroke Reproductive Disorders: No Genitourinary: No Gastrointestinal: No Musculoskeletal: Yes (S/P LUMBAR SPINE SURGERY) Chronic Back Pain Endocrine: Yes Diabetes, Insulin dep HEENT: No (GLASSES) Cancer: No Psychosocial: No Integumentary: No Blood Disorders: No Adverse Reaction/Blood Tranf: No Family Medical History Alcoholism 19 FATHER, Onset:40's - 50 Diabetes mellitus 19 FATHER, Onset:Unknown 19 MOTHER, Onset:Unknown Kidney disease 19 MOTHER, Onset:Unknown Diabetes PT HAS HISTORY OF NON-COMPLIANCE SOCIAL HISTORY: -SMOKED > 1 PPD, QUIT AROUND 2017 -DRUGS--DENIES USE -ETOH--DRINKS SEVERAL TIMES A MONTH PAST SURGICAL HISTORY: -RIGHT INGUINAL HERNIA REPAIR CHILD -LUMBAR SPINE SURGERY 1985 -RIGHT 5TH FINGER SURGERY -CARDIAC CATH 08/08/[address] KENDRICK: CONCLUSIONS: 1. Successful PCI with drug-eluting stent to distal left circumflex artery. Moderate to severe disease in first OM artery was left alone. 2. Dual antiplatelet therapy. High dose statin therapy. 3. Continue aggressive blood pressure management. Physical Exam Vital Signs Vital Signs - First Documented 12/27/21 22:08 Temp 37.2 Pulse 82 Resp 18 B/P (MAP) 191/97 (128) Pulse Ox 98 O2 Delivery Room Air Capillary Refill : Height, Weight, BMI Height: 6'2.00" Weight: 222lbs. 0.0oz. [id number]; 26.00 BMI Method:Stated General Appearance: No Apparent Distress, WD/WN Eyes: Bilateral Eye Normal Inspection HEENT: PERRL/EOMI, Normal ENT Inspection, Pharynx Normal Neck: Full Range of Motion, Normal Inspection, Non Tender, Supple Respiratory: Chest Non Tender, Lungs Clear, Normal Breath Sounds, No Accessory Muscle Use, No Respiratory Distress Cardiovascular: Regular Rate, Rhythm, No Edema, Normal Peripheral Pulses Gastrointestinal: Normal Bowel Sounds, Non Tender, Soft; No Distended, No Guarding Back: Normal Inspection, No CVA Tenderness, No Vertebral Tenderness Extremity: Normal Capillary Refill, Normal Inspection, Normal Range of Motion, Non Tender, No Calf Tenderness, No Pedal Edema, Other (no swelling in the bilateral arms, normal distal pulses, normal neurovascular exam in all 4 extremities) Neurologic/Psychiatric: Alert, No Motor/Sensory Deficits, Normal Mood/Affect Skin: Normal Color, Warm/Dry Lymphatic: No Adenopathy Progress/Results/Core Measures Suspected Sepsis SIRS Temperature: Pulse: Respiratory Rate: Laboratory Tests 12/27/21 22:12: White Blood Count 6.9 Blood Pressure / Mean: Laboratory Tests 12/27/21 22:12: Creatinine 1.29, INR Comment 0.9, Platelet Count 218, Total Bilirubin 0.4 Results/Orders Lab Results Laboratory Tests Test 12/27/21 22:12 Range/Units White Blood Count 6.9 4.3-11.0 10^3/uL Red Blood Count 3.88 L 4.30-5.52 10^6/uL Hemoglobin 12.2 L 13.3-17.7 g/dL Hematocrit 36 L 40-54 % Mean Corpuscular Volume 94 80-99 fL Mean Corpuscular Hemoglobin 31 25-34 pg Mean Corpuscular Hemoglobin Concent 34 32-36 g/dL Red Cell Distribution Width 13.2 10.0-14.5 % Platelet Count 218 130-400 10^3/uL Mean Platelet Volume 11.0 9.0-12.2 fL Immature Granulocyte % (Auto) 0 % Neutrophils (%) (Auto) 60 42-75 % Lymphocytes (%) (Auto) 29 12-44 % Monocytes (%) (Auto) 7 0-12 % Eosinophils (%) (Auto) 3 0-10 % Basophils (%) (Auto) 1 0-10 % Neutrophils # (Auto) 4.2 1.8-7.8 10^3/uL Lymphocytes # (Auto) 2.0 1.0-4.0 10^3/uL Monocytes # (Auto) 0.5 0.0-1.0 10^3/uL Eosinophils # (Auto) 0.2 0.0-0.3 10^3/uL Basophils # (Auto) 0.0 0.0-0.1 10^3/uL Immature Granulocyte # (Auto) 0.0 0.0-0.1 10^3/uL Prothrombin Time 12.7 12.2-14.7 SEC INR Comment 0.9 0.8-1.4 Activated Partial Thromboplast Time 26 24-35 SEC Sodium Level 141 135-145 MMOL/L Potassium Level 3.7 3.6-5.0 MMOL/L Chloride Level 105 98-107 MMOL/L Carbon Dioxide Level 24 21-32 MMOL/L Anion Gap 12 5-14 MMOL/L Blood Urea Nitrogen 20 H 7-18 MG/DL Creatinine 1.29 0.60-1.30 MG/DL Estimat Glomerular Filtration Rate 62 BUN/Creatinine Ratio 16 Glucose Level 104 70-105 MG/DL Calcium Level 9.5 8.5-10.1 MG/DL Corrected Calcium 9.7 8.5-10.1 MG/DL Magnesium Level 1.9 1.6-2.4 MG/DL Total Bilirubin 0.4 0.1-1.0 MG/DL Aspartate Amino Transf (AST/SGOT) 17 5-34 U/L Alanine Aminotransferase (ALT/SGPT) 17 0-55 U/L Alkaline Phosphatase 61 40-136 U/L Troponin I < 0.028 <0.028 NG/ML Total Protein 7.3 6.4-8.2 GM/DL Albumin 3.8 3.2-4.5 GM/DL My Orders Orders - HARSHAD SIMMONS MD Cbc With Automated Diff (12/27/21 22:11) Magnesium (12/27/21 22:11) Chest 1 View, Ap/Pa Only (12/27/21 22:11) Ekg Tracing (12/27/21 22:11) Comprehensive Metabolic Panel (12/27/21 22:11) Protime With Inr (12/27/21 22:11) Partial Thromboplastin Time (12/27/21 22:11) O2 (12/27/21 22:11) Monitor-Rhythm Ecg Trace Only (12/27/21 22:11) Ed Iv/Invasive Line Start (12/27/21 22:11) Troponin I Ruperto (12/27/21 22:11) Aspirin Chewable Tablet (Baby Aspirin Ch (12/27/21 22:15) Acetaminophen Tablet (Tylenol Tablet) (12/27/21 22:15) Lisinopril Tablet (Zestril Tablet) (12/27/21 22:15) Amlodipine Tablet (Norvasc Tablet) (12/27/21 22:15) Medications Given in ED Current Medications Medications Dose Ordered Sig/Haylie Route Start Time Stop Time Status Last Admin Dose Admin Acetaminophen 1,000 mg ONCE ONCE PO 12/27/21 22:15 12/27/21 22:16 DC 12/27/21 22:18 1,000 MG Amlodipine Besylate 10 mg ONCE ONCE PO 12/27/21 22:15 12/27/21 22:16 DC 12/27/21 22:18 10 MG Aspirin 243 mg ONCE ONCE PO 12/27/21 22:15 12/27/21 22:16 DC 12/27/21 22:18 243 MG Lisinopril 40 mg ONCE ONCE PO 12/27/21 22:15 12/27/21 22:16 DC 12/27/21 22:23 40 MG Vital Signs/I&O 12/27/21 22:08 Temp 37.2 Pulse 82 Resp 18 B/P (MAP) 191/97 (128) Pulse Ox 98 O2 Delivery Room Air Capillary Refill : Progress Note : Progress Note 61-year-old male with above history coming in due to squeezing left arm pain. ABCs were intact and vitals were stable on presentation. Physical exam reassuring with no focal abnormalities. EKG with no acute ischemic changes and appears similar to prior. An IV was placed and basic labs obtained including cardiac biomarkers which were negative. Chest x-ray read as a left sided mild pleural effusion. On my interpretation when I review it compared to his prior chest x-ray looks most identical. He was given his home blood pressure medications, aspirin, Tylenol. Symptoms have improved. This is a very atypical symptom and that does not really sound consistent with ACS. Additionally he is low risk for a PE, not tachycardic, and I have low suspicion. Normal distal pulses and normal neuro exam making dissection less likely. He has not had any trauma and has no tenderness on exam making an x-ray of the extremity likely futile. I believe he stable for discharge with outpatient follow-up. He was sent home with strict return precautions ECG Initial ECG Impression Date: December 27, 2021 Initial ECG Impression Time: 22:20 Initial ECG Rate: 69 Initial ECG Rhythm: Normal Sinus Comment Narrow QRS, normal axis, no significant ST changes, T wave inversions in the lateral leads, appears almost identical to prior EKG Diagnostic Imaging Diagonstic Imaging: Xray Plain Films/CT/US/NM/MRI: chest Comments [facility] [place] NAME: ALVERTO HERNANDEZ [facility] REC#: [id number] PT STATUS: REG ER : 1960 PHYSICIAN: HARSHAD SIMMONS MD ADMIT DATE: 12/27/21/ER Draft Date of Exam:12/27/21 CHEST 1 VIEW, AP/PA ONLY CHEST 1 VIEW, AP/PA ONLY Indication: Chest pain. Comparison: 08/04/2021 Findings: Small left pleural effusion is present. Left basilar linear opacities are noted. Cardiomegaly. No pneumothorax. Impression: 1. New small left pleural effusion is of unknown etiology. 2. No features of pneumonia. Dictated on workstation # [id number] Dict: 12/27/21 225 Trans: 12/27/21 2251 [facility] [id number] Interpreted by: CINDY CAGLE MD Electronically signed by: Departure Impression Primary Impression: Left arm pain Disposition: HOME, SELF-CARE Condition: Stable Departure-Patient Inst. Decision time for Depature: 22:58 Referrals: LAURA NOVOA DO (PCP/Family) Primary Care Physician Patient Instructions: Muscle and Bone Pain (DC) Add. Discharge Instructions: It does not appear like you are having a heart attack today. Its possible this pain is from elevated blood pressure or could be nerve related. I would be sure to take your regular medicines as prescribed. We did give you amlodipine and lisinopril tonight, so I would take your other medicines. Follow-up with your top cutter if you begin having worsening symptoms. If you have chest pain, shortness of breath, or any other concerns then please come back to the ER. Work/School Note: Work Release Form Date Seen in the Emergency Department: December 27, 2021 Return to Work: Dec 29, 2021 Restrictions: No Restrictions HARSHAD SIMMONS MD December 27, 2021 22:15
[2021-12-27 22:19] LABS: BASOPHILS % (AUTO) 1 % (0-10); EOSINOPHILS # (AUTO) 0.2 10^3/uL (0.0-0.3); EOSINOPHILS % (AUTO) 3 % (0-10); HEMATOCRIT 36 % (40-54); HEMOGLOBIN 12.2 g/dL (13.3-17.7); LYMPHOCYTES % (AUTO) 29 % (12-44); MEAN CORPUSCULAR HEMOGLOBIN 31 pg (25-34); MEAN CORPUSCULAR HGB CONC 34 g/dL (32-36); MEAN CORPUSCULAR VOLUME 94 fL (80-99); MONOCYTES # (AUTO) 0.5 10^3/uL (0.0-1.0); MONOCYTES % (AUTO) 7 % (0-12); NEUTROPHILS # (AUTO) 4.2 10^3/uL (1.8-7.8); NEUTROPHILS % (AUTO) 60 % (42-75); PLATELET COUNT 218 10^3/uL (130-400); WHITE BLOOD COUNT 6.9 10^3/uL (4.3-11.0)
[2021-12-27 22:28] LABS: ALBUMIN 3.8 GM/DL (3.2-4.5); POTASSIUM 3.7 MMOL/L (3.6-5.0)
[2021-12-27 22:29] LABS: CALCIUM 9.5 MG/DL (8.5-10.1)
[2021-12-27 22:31] LABS: INR 0.9 (0.8-1.4); PROTHROMBIN TIME PATIENT 12.7 SEC (12.2-14.7); TOTAL PROTEIN 7.3 GM/DL (6.4-8.2)
[2021-12-27 22:32] LABS: BILIRUBIN,TOTAL 0.4 MG/DL (0.1-1.0)
[2021-12-27 22:34] LABS: CREATININE SERUM 1.29 MG/DL (0.60-1.30)
[2021-12-27 22:37] LABS: MAGNESIUM 1.9 MG/DL (1.6-2.4)
--- NOTE | 2021-12-27 22:52 | Diagnostic Imaging Report ---
CHEST 1 VIEW, AP/PA ONLY Indication: Chest pain. Comparison: 08/04/2021 Findings: Small left pleural effusion is present. Left basilar linear opacities are noted. Cardiomegaly. No pneumothorax. Impression: 1. New small left pleural effusion is of unknown etiology. 2. No features of pneumonia. Dictated by: Dictated on workstation # [id number]
[2021-12-27 23:05] VITALS: BP 159/83
== END 2021-12-27 23:05 | disposition home or self-care (01) ==
LOC: EDUNIT# 21:55 → ER 21:58
DX: M79.602 Pain in left arm (principal); I10 Essential (primary) hypertension; T46.1X6A Underdosing of calcium-channel blockers, initial encounter; I25.10 Atherosclerotic heart disease of native coronary artery without angina pectoris; E11.9 Type 2 diabetes mellitus without complications; Z91.14 Patient's other noncompliance with medication regimen; Z87.891 Personal history of nicotine dependence; Z95.5 Presence of coronary angioplasty implant and graft; Z79.82 Long term (current) use of aspirin; Z79.4 Long term (current) use of insulin; Z79.899 Other long term (current) drug therapy; Z79.02 Long term (current) use of antithrombotics/antiplatelets
CPT/HCPCS: 36415; 71045; 80053; 83735; 84484; 85025; 85610; 85730; 93005; 93041

== ENCOUNTER → 2022-01-27 | Outpatient (CLI) | payer MEDICARE | LOC: CARD 10:00 | PROVIDERS: ATTEND Family Medicine | DX: I25.10 Atherosclerotic heart disease of native coronary artery without angina pectoris (principal); I51.7 Cardiomegaly; Z95.5 Presence of coronary angioplasty implant and graft | CPT/HCPCS: 93306 ==

== ENCOUNTER → 2022-02-02 | Outpatient (CLI) | payer MEDICARE ==
[2022-02-02 09:25] LABS: CREATININE SERUM 1.2 MG/DL (0.60-1.30)
== END ==
LOC: LAB 08:53
PROVIDERS: ATTEND Family Medicine
DX: Z01.89 Encounter for other specified special examinations (principal)
CPT/HCPCS: 36415; 82565; 84520

== ENCOUNTER → 2022-02-10 | Outpatient (CLI) | payer MEDICARE ==
[~2022-02-10] MED LIST changes: +REGADENOSON 0.4 MG/5 ML SYR (LEXISCAN) IV ONE
[2022-02-10] MEDS: CATHETER FLUSH 10 ML SYR IVP PRN ×2 (07:44→09:22)
[2022-02-10 09:21] VITALS: BP 213/106
== END ==
LOC: CARD 07:45
PROVIDERS: ATTEND Family Medicine
DX: I25.10 Atherosclerotic heart disease of native coronary artery without angina pectoris (principal); Z95.5 Presence of coronary angioplasty implant and graft
CPT/HCPCS: 78452; 93017

== ENCOUNTER 2022-07-29 17:54 | Emergency (ER) | payer MEDICARE ==
[~2022-07-29] VITALS: Ht 187.9 cm; Wt 97.0 kg
[~2022-07-29 17:54] MED LIST changes: -REGADENOSON 0.4 MG/5 ML SYR (LEXISCAN) IV ONE
--- NOTE | 2022-07-29 18:21 | ED Cardiac General ---
History of Present Illness General Stated Complaint: ELEVATED BP Source: patient History of Present Illness Date Seen by Provider: Jul 29, 2022 Time Seen by Provider: 18:09 Initial Comments PT ARRIVES VIA POV FROM HOME C/O ELEVATED BLOOD PRESSURE PT HAS CHRONIC HTN. STATES IT HAS BEEN GOING ON "FOR AWHILE NOW" STATES HE NEEDS TO HAVE TEETH PULLED, AND STATES THEY WILL NOT PULL HIS TEETH BECAUSE HIS BLOOD PRESSURE IS TOO HIGH STATES HE IS CURRENTLY ON AN ANTIBIOTIC FOR HIS TEETH--AMOXIL STATES BLOOD PRESSURE WAS 174/94 TONIGHT PT DOES NOT KNOW WHAT HIS BLOOD PRESSURE NORMALLY RUNS. NO SYMPTOMS ASSOCIATED WITH ELEVATED BLOOD PRESSURE NO CHEST PAIN NO SHORTNESS OF BREATH NO PALPITATIONS NO DIZZINESS OR SYNCOPE NO GI SYMPTOMS NO HEADACHE NO VISION CHANGES NO PARESTHESIAS OR MOTOR DEFICITS NO SWELLING IN LEGS/ FEET SAW DR. NOVOA YESTERDAY OR THE DAY BEFORE, NO MEDICATION CHANGES. IN ADDITION TO HTN, PT HAS HISTORY OF CAD WITH STENTS, AND IS ON ASPIRIN AND PLAVIX, HE IS ALSO DIABETIC, HAS HISTORY OF PRIOR CVA, AND HAS CHRONIC BACK PAIN HE SEES DR. PARKER FOR CARDIOLOGY. HAS NOT SEEN HIM RECENTLY. HAS BEEN ON SAME MEDICATIONS, AND NO DOSE CHANGES FOR "AWHILE" SYMPTOMS ARE NO DIFFERENT TONIGHT IN ANY WAY. PCP: DR. NOVOA TRUCKING CONTRACTOR: DR. PARKER Allergies and Home Medications Allergies Coded Allergies: No Known Drug Allergies (Unverified , 07/20/11) Patient Home Medication List Home Medication List Reviewed: Yes Amlodipine Besylate (Amlodipine Besylate) 10 Mg Tablet, 10 MG PO DAILY, (Repor roberto) Entered as Reported by: JB DRISCOLL on 08/08/18 1221 Aspirin (Aspirin EC) 81 Mg Tablet.dr, 81 MG PO DAILY, (Reported) Entered as Reported by: JB DRISCOLL on 08/08/18 1221 Atorvastatin Calcium (Lipitor) 40 Mg Tablet, 40 MG PO HS, (Reported) Entered as Reported by: JB DRISCOLL on 08/08/18 1221 Chlorzoxazone (Chlorzoxazone) 500 Mg Tablet, 500 MG PO BID, (Reported) Entered as Reported by: RENEE SHEARER on 05/19/18 1018 Furosemide (Furosemide) 40 Mg Tablet, 40 MG PO DAILY, (Reported) Entered as Reported by: JB DRISCOLL on 09/05/17 0848 Hydralazine HCl (Hydralazine HCl) 10 Mg Tablet, 10 MG PO TID PRN for BLOOD PRESSURE Prescribed by: DAPHNEY YANG on 07/29/221925 Insulin Glargine,Hum.rec.anlog (Lantus Solostar) 100 Unit/1 Ml Insuln.pen, 25 UNIT SQ HS Prescribed by: KIMBERLY BOLAÑOS on 06/15/19 0945 Lisinopril (Lisinopril) 40 Mg Tablet, 40 MG PO DAILY, (Reported) Entered as Reported by: JB DRISCOLL on 08/08/18 1221 Loratadine (Loratadine) 10 Mg Tablet, 10 MG PO DAILY Prescribed by: DELROY KELLEY on 05/30/19 023 Metformin HCl (Metformin HCl) 500 Mg Tablet, 1,000 MG PO BID@ Prescribed by: KIMBERLY BOLAÑOS on 06/15/19 09 Metoprolol Succinate (Metoprolol Succinate) 50 Mg Tab.er.24h, 50 MG PO DAILY Prescribed by: Royal KENDRICK on 08/09/18 1008 Nitroglycerin (Nitroglycerin) 0.4 Mg Tab.subl, 0.4 MG SL UD PRN for CHEST PAIN, (Reported) Entered as Reported by: JB DRISCOLL on 08/08/18 1249 Prednisone (Prednisone) 20 Mg Tab, 40 MG PO BID Prescribed by: DELROY KELLEY on 05/30/19 0236 Pyridoxine HCl (Vitamin B-6) 100 Mg Tablet, 100 MG PO DAILY, (Reported) Entered as Reported by: JB DRISCOLL on 08/08/18 1225 Ticagrelor (Brilinta) 90 Mg Tablet, 90 MG PO BID Prescribed by: Royal KENDRICK on 08/09/18 1008 Tramadol HCl (Tramadol HCl) 50 Mg Tablet, 50 MG PO BID PRN for PAIN-MODERATE, (Reported) Entered as Reported by: JB DRISCOLL on 08/08/18 1225 Review of Systems Review of Systems Constitutional: no symptoms reported EENTM: No Symptoms Reported Respiratory: No Symptoms Reported Cardiovascular: See HPI; Denies Chest Pain, Denies Edema, Denies Irregular Heart Rate, Denies Lightheadedness, Denies Palpitations, Denies Syncope Gastrointestinal: No Symptoms Reported Genitourinary: No Symptoms Reported Musculoskeletal: other (NO CHANGES IN CHRONIC BACK PAIN ) Skin: no symptoms reported Psychiatric/Neurological: No Symptoms Reported Endocrine: No Symptoms Reported Hematologic/Lymphatic: No Symptoms Reported Past Tlfwmuw-Tlyegs-Csddbv Hx Patient Social History Tobacco Use?: No Use of E-Cig and/or Vaping dev: No Substance use?: No Alcohol Use?: No Immunizations Up To Date Tetanus Booster (TDap): Unknown PED Vaccines UTD: No First/Initial COVID19 Vaccinat: 2020 Second COVID19 Vaccination Pedro Pablo: 2020 Third COVID19 Vaccination Date: 2020 Seasonal Allergies Seasonal Allergies: No Past Medical History Surgery/Hospitalization HX: CARDIAC STENTS, BACK SURGERY Surgeries: Yes (Inguinal hernia Rpr-peds, lower back, r pinky finger) Abdominal, Cardiac, Coronary Stent, Orthopedic Respiratory: Yes (CHILDHOOD ASTHMA) Asthma Currently Using CPAP: No Currently Using BIPAP: No Cardiac: Yes Coronary Artery Disease, Heart Attack, High Cholesterol, Hypertension Neurological: Yes Stroke Reproductive Disorders: No Genitourinary: No Gastrointestinal: No Musculoskeletal: Yes (S/P LUMBAR SPINE SURGERY) Degenerate Disk Disease, Chronic Back Pain Endocrine: Yes Diabetes, Insulin dep HEENT: No (GLASSES) Cancer: No Psychosocial: No Integumentary: No Blood Disorders: No Adverse Reaction/Blood Tranf: No Family Medical History Alcoholism 19 FATHER, Onset:40's - 50 Diabetes mellitus 19 FATHER, Onset:Unknown 19 MOTHER, Onset:Unknown Kidney disease 19 MOTHER, Onset:Unknown Diabetes PT HAS HISTORY OF NON-COMPLIANCE SOCIAL HISTORY: -SMOKED > 1 PPD, QUIT AROUND 2017 -DRUGS--DENIES USE -ETOH--DRINKS SEVERAL TIMES A MONTH PAST SURGICAL HISTORY: -RIGHT INGUINAL HERNIA REPAIR CHILD -LUMBAR SPINE SURGERY 1985 -RIGHT 5TH FINGER SURGERY -CARDIAC CATH 08/08/[address] KENDRICK: CONCLUSIONS: 1. Successful PCI with drug-eluting stent to distal left circumflex artery. Moderate to severe disease in first OM artery was left alone. 2. Dual antiplatelet therapy. High dose statin therapy. 3. Continue aggressive blood pressure management. Physical Exam Vital Signs Vital Signs - First Documented 07/29/22 18:08 Pulse 64 B/P (MAP) 197/102 (133) Pulse Ox 98 O2 Delivery Room Air Capillary Refill : Height, Weight, BMI Height: 6'2.00" Weight: 222lbs. 0.0oz. 100.289349fm; 28.00 BMI Method:Stated General Appearance: No Apparent Distress, WD/WN, Other (WALKS IN WITH A CANE. 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 Norm as Tested Skin: Normal Color (PT IS BLACK), Warm/Dry Progress/Results/Core Measures Results/Orders Lab Results Laboratory Tests Test 07/29/22 18:17 07/29/22 18:30 Range/Units White Blood Count 6.9 4.3-11.0 10^3/uL Red Blood Count 3.98 L 4.30-5.52 10^6/uL Hemoglobin 12.5 L 13.3-17.7 g/dL Hematocrit 38 L 40-54 % Mean Corpuscular Volume 95 80-99 fL Mean Corpuscular Hemoglobin 31 25-34 pg Mean Corpuscular Hemoglobin Concent 33 32-36 g/dL Red Cell Distribution Width 13.1 10.0-14.5 % Platelet Count 187 130-400 10^3/uL Mean Platelet Volume 10.8 9.0-12.2 fL Immature Granulocyte % (Auto) 0 % Neutrophils (%) (Auto) 52 42-75 % Lymphocytes (%) (Auto) 33 12-44 % Monocytes (%) (Auto) 10 0-12 % Eosinophils (%) (Auto) 5 0-10 % Basophils (%) (Auto) 1 0-10 % Neutrophils # (Auto) 3.6 1.8-7.8 10^3/uL Lymphocytes # (Auto) 2.3 1.0-4.0 10^3/uL Monocytes # (Auto) 0.7 0.0-1.0 10^3/uL Eosinophils # (Auto) 0.3 0.0-0.3 10^3/uL Basophils # (Auto) 0.1 0.0-0.1 10^3/uL Immature Granulocyte # (Auto) 0.0 0.0-0.1 10^3/uL Prothrombin Time 12.3 12.2-14.7 SEC INR Comment 0.9 0.8-1.4 Activated Partial Thromboplast Time 27 24-35 SEC Sodium Level 142 135-145 MMOL/L Potassium Level 3.9 3.6-5.0 MMOL/L Chloride Level 105 98-107 MMOL/L Carbon Dioxide Level 28 21-32 MMOL/L Anion Gap 9 5-14 MMOL/L Blood Urea Nitrogen 26 H 7-18 MG/DL Creatinine 1.30 0.60-1.30 MG/DL Estimat Glomerular Filtration Rate 61 BUN/Creatinine Ratio 20 Glucose Level 103 70-105 MG/DL Calcium Level 10.0 8.5-10.1 MG/DL Corrected Calcium 10.0 8.5-10.1 MG/DL Magnesium Level 2.3 1.6-2.4 MG/DL Total Bilirubin 0.3 0.1-1.0 MG/DL Aspartate Amino Transf (AST/SGOT) 16 5-34 U/L Alanine Aminotransferase (ALT/SGPT) 18 0-55 U/L Alkaline Phosphatase 61 40-136 U/L Troponin I < 0.028 <0.028 NG/ML B-Type Natriuretic Peptide 22.5 <100.0 PG/ML Total Protein 7.7 6.4-8.2 GM/DL Albumin 4.0 3.2-4.5 GM/DL Urine Color YELLOW Urine Clarity CLEAR Urine pH 5.5 5-9 Urine Specific [place] >=1.030 1.016-1.022 Urine Protein NEGATIVE NEGATIVE Urine Glucose (UA) NEGATIVE NEGATIVE Urine Ketones NEGATIVE NEGATIVE Urine Nitrite NEGATIVE NEGATIVE Urine Bilirubin NEGATIVE NEGATIVE Urine Urobilinogen 0.2 < = 1.0 MG/DL Urine Leukocyte Esterase NEGATIVE NEGATIVE Urine RBC (Auto) NEGATIVE NEGATIVE Urine RBC NONE /HPF Urine WBC NONE /HPF Urine Squamous Epithelial Cells 0-2 /HPF Urine Crystals NONE /LPF Urine Bacteria NEGATIVE /HPF Urine Casts NONE /LPF Urine Mucus NEGATIVE /LPF Urine Culture Indicated NO My Orders Orders - DAPHNEY YANG DO Ed Iv/Invasive Line Start (07/29/22 18:14) Ekg Tracing (07/29/22 18:14) Monitor-Rhythm Ecg Trace Only (07/29/22 18:14) Bnp Dunn (07/29/22 18:14) Cbc With Automated Diff (07/29/22 18:14) Comprehensive Metabolic Panel (07/29/22 18:14) Magnesium (07/29/22 18:14) Protime With Inr (07/29/22 18:14) Partial Thromboplastin Time (07/29/22 18:14) Ua Culture If Indicated (07/29/22 18:14) Troponin I Ruperto (07/29/22 18:14) Chest 1 View, Ap/Pa Only (07/29/22 18:14) Hydralazine Injection (Apresoline Inject (07/29/22 18:30) Hydralazine Tablet (Apresoline Tablet) (07/30/22 00:00) Medications Given in ED Current Medications Medications Dose Ordered Sig/Haylie Route Start Time Stop Time Status Last Admin Dose Admin Hydralazine HCl 10 mg ONCE ONCE IV 07/29/22 18:30 07/29/22 18:31 DC 07/29/22 18:36 10 MG Vital Signs/I&O 07/29/22 18:08 Pulse 64 B/P (MAP) 197/102 (133) Pulse Ox 98 O2 Delivery Room Air Progress Progress Note : Progress Note BP 197/102 ON ARRIVAL, PULSE IN 60'S GIVEN: -HYDRALAZINE BP DOWN TO 158/81, HR IN 60'S COMPLETELY ASYMPTOMATIC DURING ENTIRE ER STAY UNEVENTFUL ER STAY REVIEWED TEST RESULTS, ANTICIPATED COURSE, NEED FOR FOLLOW UP AND RETURN PRECAUTIONS WILL SEND HOME WITH MEDICATION TO TAKE PRN OVER THE WEEKEND, THIS IS HOLIDAY WEEKEND. PT ADVISED TO FOLLOW UP WITH DR. PARKER FOR FURTHER EVAULATION AND TREATMENT OF BLOOD PRESSURE Initial ECG Impression Date: Jul 29, 2022 Initial ECG Impression Time: 18:27 Initial ECG Rate: 61 Initial ECG Rhythm: Normal Sinus Initial ECG Impression: Nonspecific Changes Initial ECG Comparisson: Unchanged (EXCEPT FOR SOME AXIS DEVATION. ) Diagnostic Imaging Comments CXR--PER RADIOLOGIST REPORT AT 1910 FINDINGS: The cardiac silhouette is mildly enlarged, though stable. Minimal central pulmonary vascular congestion. Blunting of the left costophrenic angle is again seen, relatively similar to the prior examination. The lungs appear clear. No definite right pleural effusion. No pneumothorax. No acute osseous abnormality. IMPRESSION: Mild cardiomegaly with minimal central pulmonary vascular congestion without interstitial edema. Stable minimal blunting of the left costophrenic angle which may relate to trace pleural fluid versus pleural scarring and thickening. Reviewed: Reviewed by Me Departure Impression Primary Impression: Uncontrolled hypertension Additional Impressions: IDDM (insulin dependent diabetes mellitus) CAD WITH HISTORY OF STENTS HX OF CVA Disposition: HOME, SELF-CARE Condition: Improved Departure-Patient Inst. Decision time for Depature: 19:20 Referrals: LAURA NOVOA DO (PCP/Family) Primary Care Physician REHANA PARKER MD FACP FAC CCDS Patient Instructions: High Blood Pressure (DC), DASH Diet Add. Discharge Instructions: HOME, REST TAKE YOUR REGULAR MEDICATIONS NEEDED YOU MAY TAKE THE ADDITIONAL MEDICATION THAT WAS PRESCRIBED TODAY, NEEDED IF YOUR BLOOD PRESSURE IS OVER 160/[address] PARKER FOR FURTHER CARE--CALL HIS OFFICE ON SUNDAY TO SCHEDULE AN APPOINTMENT RETURN TO ER IF SYMPTOMS WORSEN Scripts Hydralazine HCl (Hydralazine HCl) 10 Mg Tablet 10 MG PO TID PRN for BLOOD PRESSURE, #15 TAB TAKE NEEDED THREE TIMES A DAY FOR SYSTOLIC BP > 160 OR DIASTOLIC BP > 100 Prov: DAPHNEY YANG DO 07/29/22 DAPHNEY YANG DO Jul 29, 2022 18:20
[2022-07-29 18:24] LABS: BASOPHILS # (AUTO) 0.1 10^3/uL (0.0-0.1); BASOPHILS % (AUTO) 1 % (0-10); EOSINOPHILS # (AUTO) 0.3 10^3/uL (0.0-0.3); EOSINOPHILS % (AUTO) 5 % (0-10); HEMATOCRIT 38 % (40-54); HEMOGLOBIN 12.5 g/dL (13.3-17.7); LYMPHOCYTES # (AUTO) 2.3 10^3/uL (1.0-4.0); LYMPHOCYTES % (AUTO) 33 % (12-44); MEAN CORPUSCULAR HEMOGLOBIN 31 pg (25-34); MEAN CORPUSCULAR HGB CONC 33 g/dL (32-36); MEAN CORPUSCULAR VOLUME 95 fL (80-99); MEAN PLATELET VOLUME 10.8 fL (9.0-12.2); MONOCYTES # (AUTO) 0.7 10^3/uL (0.0-1.0); MONOCYTES % (AUTO) 10 % (0-12); NEUTROPHILS # (AUTO) 3.6 10^3/uL (1.8-7.8); NEUTROPHILS % (AUTO) 52 % (42-75); PLATELET COUNT 187 10^3/uL (130-400); WHITE BLOOD COUNT 6.9 10^3/uL (4.3-11.0)
[2022-07-29] MEDS ORDERED: hydrALAZINE (APESOLINE) 20 MG/ML VIAL IV ONE (18:30)
[2022-07-29 18:40] LABS: CHLORIDE 105 MMOL/L (98-107); POTASSIUM 3.9 MMOL/L (3.6-5.0); SODIUM 142 MMOL/L (135-145)
[2022-07-29 18:42] LABS: GLUCOSE 103 MG/DL (70-105); TOTAL PROTEIN 7.7 GM/DL (6.4-8.2)
[2022-07-29 18:43] LABS: CARBON DIOXIDE 28 MMOL/L (21-32); INR 0.9 (0.8-1.4); PROTHROMBIN TIME PATIENT 12.3 SEC (12.2-14.7)
[2022-07-29 18:44] LABS: BILIRUBIN,TOTAL 0.3 MG/DL (0.1-1.0)
[2022-07-29 18:46] LABS: ALKALINE PHOSPHATASE 61 U/L (40-136); GFR ESTIMATED 61
[2022-07-29 18:47] LABS: BUN/CREATININE RATIO 20
[2022-07-29 18:49] LABS: ALANINE AMINOTRANSFERASE 18 U/L (0-55); MAGNESIUM 2.3 MG/DL (1.6-2.4)
[2022-07-29 18:55] LABS: BILIRUBIN,URINE NEGATIVE (NEGATIVE); CLARITY,URINE CLEAR; COLOR,URINE YELLOW; GLUCOSE, URINE (UA) NEGATIVE (NEGATIVE); KETONES,URINE NEGATIVE (NEGATIVE); LEUKOCYTE ESTERASE ,URINE NEGATIVE (NEGATIVE); NITRITE,URINE NEGATIVE (NEGATIVE); PH,URINE 5.5 (5-9); PROTEIN,URINE NEGATIVE (NEGATIVE)
--- NOTE | 2022-07-29 18:56 | Diagnostic Imaging Report ---
INDICATION: Hypertension. COMPARISON: 12/27/2021. TECHNIQUE: Single radiograph of the chest dated July 29, 2022. FINDINGS: The cardiac silhouette is mildly enlarged, though stable. Minimal central pulmonary vascular congestion. Blunting of the left costophrenic angle is again seen, relatively similar to the prior examination. The lungs appear clear. No definite right pleural effusion. No pneumothorax. No acute osseous abnormality. IMPRESSION: Mild cardiomegaly with minimal central pulmonary vascular congestion without interstitial edema. Stable minimal blunting of the left costophrenic angle which may relate to trace pleural fluid versus pleural scarring and thickening. Dictated by: Dictated on workstation # [id number]
[2022-07-29 19:01] LABS: BACTERIA,URINE NEGATIVE /HPF; SQUAMOUS EPITHELIAL CELL,UR 0-2 /HPF
[2022-07-29] MEDS ORDERED: HYDR-3922 PO (19:26)
[2022-07-29 19:41] VITALS: BP 164/80
== END 2022-07-29 19:42 | disposition home or self-care (01) ==
LOC: EDUNIT# 17:54 → ER 17:56
DX: I10 Essential (primary) hypertension (principal); I25.10 Atherosclerotic heart disease of native coronary artery without angina pectoris; E11.9 Type 2 diabetes mellitus without complications; Z87.891 Personal history of nicotine dependence; Z95.5 Presence of coronary angioplasty implant and graft; Z86.73 Personal history of transient ischemic attack (TIA), and cerebral infarction without residual deficits; Z79.4 Long term (current) use of insulin
CPT/HCPCS: 36415; 71045; 80053; 81000; 83735; 83880; 84484; 85025; 85610; 85730; 93005; 93041; 96374

== ENCOUNTER 2022-11-05 01:27 | Emergency (ER) | payer MEDICARE ==
[~2022-11-05] VITALS: Ht 187 cm; Wt 96.0 kg
[~2022-11-05 01:27] MED LIST changes: +HYDR-3922 PO
--- NOTE | 2022-11-05 01:55 | ED General ---
General Stated Complaint: POSS STROKE,FALL TWICE LAST WEEK Source of Information: Patient Exam Limitations: No Limitations History of Present Illness Date Seen by Provider: Nov 05, 2022 Time Seen by Provider: 01:54 Initial Comments Patient is a 62-year-old male who presents to the emergency room with chief complaint of concern for having a stroke. Patient states that he was watching cable TV this evening and the show was talking about pain in the right leg being an indicator of stroke. He states he came to the emergency room because he has been having pain for about a week. He states his pain started behind his right knee on Sunday of this last week. He states bending, sitting in a chair, pulling on his pants make the pain more intense. He did see his primary care doctor on , Dr. NOVOA. He states he told him about the pain but no medications were provided. He did add a new blood pressure pill at that time. He states that he tried some hydrocodone today but it did not help. He denies hip pain. He denies ankle or foot pain. He wears compression socks for chronic intermittent swelling. He denies numbness tingling or weakness to the leg. Walking does not intensify the pain. He does have a history of coronary artery disease. He is on Plavix. Denies recent injury. Has never had a blood clot. Allergies and Home Medications Allergies Coded Allergies: No Known Drug Allergies (Unverified , 07/20/11) Patient Home Medication List Home Medication List Reviewed: Yes Amlodipine Besylate (Amlodipine Besylate) 10 Mg Tablet, 10 MG PO DAILY, (Reported) Entered as Reported by: JB DRISCOLL on 08/08/18 1221 Aspirin (Aspirin EC) 81 Mg Tablet.dr, 81 MG PO DAILY, (Reported) Entered as Reported by: JB DRISCOLL on 08/08/18 1221 Atorvastatin Calcium (Lipitor) 40 Mg Tablet, 40 MG PO HS, (Reported) Entered as Reported by: JB DRISCOLL on 08/08/18 1221 Chlorzoxazone (Chlorzoxazone) 500 Mg Tablet, 500 MG PO BID, (Reported) Entered as Reported by: RENEE SHEARER on 05/19/18 1018 Furosemide (Furosemide) 40 Mg Tablet, 40 MG PO DAILY, (Reported) Entered as Reported by: JB DRISCOLL on 09/05/17 0848 Hydralazine HCl (Hydralazine HCl) 10 Mg Tablet, 10 MG PO TID PRN for BLOOD PRESSURE Prescribed by: DAPHNEY YANG on 07/29/221925 Insulin Glargine,Hum.rec.anlog (Lantus Solostar) 100 Unit/1 Ml Insuln.pen, 25 UNIT SQ HS Prescribed by: KIMBERLY BOLAÑOS on 06/15/19 0945 Lisinopril (Lisinopril) 40 Mg Tablet, 40 MG PO DAILY, (Reported) Entered as Reported by: JB DRISCOLL on 08/08/18 1221 Loratadine (Loratadine) 10 Mg Tablet, 10 MG PO DAILY Prescribed by: DELROY KELLEY on 05/30/19 023 Metformin HCl (Metformin HCl) 500 Mg Tablet, 1,000 MG PO BID@ Prescribed by: KIMBERLY BOLAÑOS on 06/15/19 0945 Metoprolol Succinate (Metoprolol Succinate) 50 Mg Tab.er.24h, 50 MG PO DAILY Prescribed by: Royal KENDRICK on 08/09/18 1008 Nitroglycerin (Nitroglycerin) 0.4 Mg Tab.subl, 0.4 MG SL UD PRN for CHEST PAIN, (Reported) Entered as Reported by: JB DRISCOLL on 08/08/18 1249 Prednisone (Prednisone) 20 Mg Tab, 40 MG PO BID Prescribed by: DELROY KELLEY on 05/30/19 0236 Pyridoxine HCl (Vitamin B-6) 100 Mg Tablet, 100 MG PO DAILY, (Reported) Entered as Reported by: JB DRISCOLL on 08/08/18 1225 Ticagrelor (Brilinta) 90 Mg Tablet, 90 MG PO BID Prescribed by: Royal KENDRICK on 08/09/18 1008 Tramadol HCl (Tramadol HCl) 50 Mg Tablet, 50 MG PO BID PRN for PAIN-MODERATE, (Reported) Entered as Reported by: JB DRISCOLL on 08/08/18 1225 Review of Systems Review of Systems Constitutional: see HPI EENTM: no symptoms reported Respiratory: no symptoms reported Cardiovascular: no symptoms reported Gastrointestinal: no symptoms reported Genitourinary: no symptoms reported Musculoskeletal: other (Pain behind the right knee) Skin: no symptoms reported Past Zlgzgzz-Graqmq-Biawih Hx Immunizations Up To Date Tetanus Booster (TDap): Unknown PED Vaccines UTD: No First/Initial COVID19 Vaccinat: 2020 Second COVID19 Vaccination Pedro Pablo: 2020 Third COVID19 Vaccination Date: 2020 Seasonal Allergies Seasonal Allergies: No Past Medical History Surgery/Hospitalization HX: CARDIAC STENTS, BACK SURGERY Surgeries: Yes (Inguinal hernia Rpr-peds, lower back, r pinky finger) Abdominal, Cardiac, Coronary Stent, Orthopedic Respiratory: Yes (CHILDHOOD ASTHMA) Asthma Currently Using CPAP: No Currently Using BIPAP: No Cardiac: Yes Coronary Artery Disease, Heart Attack, High Cholesterol, Hypertension Neurological: Yes Stroke Reproductive Disorders: No Genitourinary: No Gastrointestinal: No Musculoskeletal: Yes (S/P LUMBAR SPINE SURGERY) Degenerate Disk Disease, Chronic Back Pain Endocrine: Yes Diabetes, Insulin dep HEENT: No (GLASSES) Cancer: No Psychosocial: No Integumentary: No Blood Disorders: No Adverse Reaction/Blood Tranf: No Family Medical History Alcoholism 19 FATHER, Onset:40's - 50 Diabetes mellitus 19 FATHER, Onset:Unknown 19 MOTHER, Onset:Unknown Kidney disease 19 MOTHER, Onset:Unknown Diabetes PT HAS HISTORY OF NON-COMPLIANCE SOCIAL HISTORY: -SMOKED > 1 PPD, QUIT AROUND 2017 -DRUGS--DENIES USE -ETOH--DRINKS SEVERAL TIMES A MONTH PAST SURGICAL HISTORY: -RIGHT INGUINAL HERNIA REPAIR CHILD -LUMBAR SPINE SURGERY 1985 -RIGHT 5TH FINGER SURGERY -CARDIAC CATH 08/08/[address] KENDRICK: CONCLUSIONS: 1. Successful PCI with drug-eluting stent to distal left circumflex artery. Moderate to severe disease in first OM artery was left alone. 2. Dual antiplatelet therapy. High dose statin therapy. 3. Continue aggressive blood pressure management. Physical Exam Vital Signs Vital Signs - First Documented 11/05/22 02:30 Temp 35.6 Pulse 62 Resp 18 Pulse Ox 98 O2 Delivery Room Air Capillary Refill : Height, Weight, BMI Height: 6'2.00" Weight: 222lbs. 0.0oz. 100.072629ew; 27.00 BMI Method:Stated General Appearance: No Apparent Distress, WD/WN Eyes: Bilateral Eye Normal Inspection, Bilateral Eye PERRL HEENT: PERRL/EOMI Neck: Normal Inspection Respiratory: Lungs Clear, Normal Breath Sounds, No Accessory Muscle Use, No Respiratory Distress Cardiovascular: Regular Rate, Rhythm, Normal Peripheral Pulses (2+ dorsalis pedis pulses bilaterally), Systolic Murmur (Left lower sternal border and apex), Other (No lower extremity edema) Gastrointestinal: Non Tender, Soft, Other (Protuberant abdomen) Extremity: Normal Capillary Refill, Normal Inspection, Normal Range of Motion, Non Tender, No Calf Tenderness, Other (No palpable masses in the popliteal fossa on the right) Neurologic/Psychiatric: Alert, Oriented x3, No Motor/Sensory Deficits, Normal Mood/Affect Progress/Results/Core Measures Suspected Sepsis SIRS Temperature: Pulse: Respiratory Rate: Laboratory Tests 11/05/22 01:59: White Blood Count 5.8 Blood Pressure / Mean: Laboratory Tests 11/05/22 01:59: Creatinine 1.34H, Platelet Count 203, Total Bilirubin 0.4 Results/Orders Lab Results Laboratory Tests Test 11/05/22 01:59 11/05/22 03:20 Range/Units White Blood Count 5.8 4.3-11.0 10^3/uL Red Blood Count 3.95 L 4.30-5.52 10^6/uL Hemoglobin 12.2 L 13.3-17.7 g/dL Hematocrit 37 L 40-54 % Mean Corpuscular Volume 94 80-99 fL Mean Corpuscular Hemoglobin 31 25-34 pg Mean Corpuscular Hemoglobin Concent 33 32-36 g/dL Red Cell Distribution Width 13.0 10.0-14.5 % Platelet Count 203 130-400 10^3/uL Mean Platelet Volume 11.0 9.0-12.2 fL Immature Granulocyte % (Auto) 0 % Neutrophils (%) (Auto) 47 42-75 % Lymphocytes (%) (Auto) 39 12-44 % Monocytes (%) (Auto) 9 0-12 % Eosinophils (%) (Auto) 3 0-10 % Basophils (%) (Auto) 1 0-10 % Neutrophils # (Auto) 2.7 1.8-7.8 10^3/uL Lymphocytes # (Auto) 2.3 1.0-4.0 10^3/uL Monocytes # (Auto) 0.5 0.0-1.0 10^3/uL Eosinophils # (Auto) 0.2 0.0-0.3 10^3/uL Basophils # (Auto) 0.0 0.0-0.1 10^3/uL Immature Granulocyte # (Auto) 0.0 0.0-0.1 10^3/uL Sodium Level 144 135-145 MMOL/L Potassium Level 3.2 L 3.6-5.0 MMOL/L Chloride Level 107 98-107 MMOL/L Carbon Dioxide Level 25 21-32 MMOL/L Anion Gap 12 5-14 MMOL/L Blood Urea Nitrogen 20 H 7-18 MG/DL Creatinine 1.34 H 0.60-1.30 MG/DL Estimat Glomerular Filtration Rate 59 BUN/Creatinine Ratio 15 Glucose Level 119 H 70-105 MG/DL Calcium Level 9.9 8.5-10.1 MG/DL Corrected Calcium 9.6 8.5-10.1 MG/DL Total Bilirubin 0.4 0.1-1.0 MG/DL Aspartate Amino Transf (AST/SGOT) 18 5-34 U/L Alanine Aminotransferase (ALT/SGPT) 19 0-55 U/L Alkaline Phosphatase 58 40-136 U/L Total Protein 8.0 6.4-8.2 GM/DL Albumin 4.4 3.2-4.5 GM/DL Urine Color YELLOW Urine Clarity CLEAR Urine pH 6.0 5-9 Urine Specific [place] 1.025 H 1.016-1.022 Urine Protein NEGATIVE NEGATIVE Urine Glucose (UA) NEGATIVE NEGATIVE Urine Ketones NEGATIVE NEGATIVE Urine Nitrite NEGATIVE NEGATIVE Urine Bilirubin NEGATIVE NEGATIVE Urine Urobilinogen 0.2 < = 1.0 MG/DL Urine Leukocyte Esterase NEGATIVE NEGATIVE Urine RBC (Auto) NEGATIVE NEGATIVE Urine RBC NONE /HPF Urine WBC NONE /HPF Urine Crystals NONE /LPF Urine Bacteria TRACE /HPF Urine Casts NONE /LPF Urine Mucus SMALL H /LPF Urine Culture Indicated NO My Orders Orders - NICOLASA ROWLEY MD Cbc With Automated Diff (11/05/22 02:14) Comprehensive Metabolic Panel (11/05/22 02:14) Ua Culture If Indicated (11/05/22 02:14) Vital Signs/I&O 11/05/22 02:30 Temp 35.6 Pulse 62 Resp 18 B/P (MAP) Pulse Ox 98 O2 Delivery Room Air Capillary Refill : Progress Note : Time: 02:34 Progress Note Notified by patient's nurse, May CARROLL that the patient made her aware that he feels like he has been hallucinating in the recent last 2 weeks.. He told her that he occasionally sees bugs crawling on the floor and thought he saw a snake in the floor. He denies any recent medications other than the new blood pressure pill. No complaints of fevers or chills. No headache. Basic labs obtained, CBC, Chem-12 and urinalysis. Departure Impression Primary Impression: Popliteal pain Additional Impression: Visual disturbance Disposition: 01 HOME, SELF-CARE Condition: Stable Departure-Patient Inst. Decision time for Depature: 02:06 Referrals: LAURA NOVOA DO (PCP/Family) Primary Care Physician Patient Instructions: Palomo's (Popliteal) Cyst Add. Discharge Instructions: You can use moist heat behind the knee to help with pain and discomfort. Extra strength Tylenol - 2 tablets - every 6 hours as needed for pain. Keep your follow up appointment with Dr Novoa on Sunday and talk to him about getting an Ultrasound of the right leg to evaluate for a Palomo's Cyst. Please talk to Dr Novoa on Sunday about the hallucinations when you wake as well. If you have any worsening leg pain, especially with swelling or any other emergent concerns, please return to the Emergency Department for re-evaluation. Copy Copies To 1: LAURA NOVOA KATHRYN M MD Nov 05, 2022 01:55
[2022-11-05 02:19] LABS: BASOPHILS % (AUTO) 1 % (0-10); EOSINOPHILS # (AUTO) 0.2 10^3/uL (0.0-0.3); EOSINOPHILS % (AUTO) 3 % (0-10); HEMATOCRIT 37 % (40-54); HEMOGLOBIN 12.2 g/dL (13.3-17.7); LYMPHOCYTES # (AUTO) 2.3 10^3/uL (1.0-4.0); LYMPHOCYTES % (AUTO) 39 % (12-44); MEAN CORPUSCULAR HEMOGLOBIN 31 pg (25-34); MEAN CORPUSCULAR HGB CONC 33 g/dL (32-36); MEAN CORPUSCULAR VOLUME 94 fL (80-99); MONOCYTES # (AUTO) 0.5 10^3/uL (0.0-1.0); MONOCYTES % (AUTO) 9 % (0-12); NEUTROPHILS # (AUTO) 2.7 10^3/uL (1.8-7.8); NEUTROPHILS % (AUTO) 47 % (42-75); PLATELET COUNT 203 10^3/uL (130-400); WHITE BLOOD COUNT 5.8 10^3/uL (4.3-11.0)
[2022-11-05 02:41] LABS: ALBUMIN 4.4 GM/DL (3.2-4.5)
[2022-11-05 02:42] LABS: POTASSIUM 3.2 MMOL/L (3.6-5.0)
[2022-11-05 02:43] LABS: CALCIUM 9.9 MG/DL (8.5-10.1)
[2022-11-05 02:46] LABS: BILIRUBIN,TOTAL 0.4 MG/DL (0.1-1.0)
[2022-11-05 02:48] LABS: CREATININE SERUM 1.34 MG/DL (0.60-1.30)
[2022-11-05 03:32] LABS: BILIRUBIN,URINE NEGATIVE (NEGATIVE); CLARITY,URINE CLEAR; COLOR,URINE YELLOW; GLUCOSE, URINE (UA) NEGATIVE (NEGATIVE); KETONES,URINE NEGATIVE (NEGATIVE); LEUKOCYTE ESTERASE ,URINE NEGATIVE (NEGATIVE); NITRITE,URINE NEGATIVE (NEGATIVE); PROTEIN,URINE NEGATIVE (NEGATIVE)
[2022-11-05 03:39] LABS: BACTERIA,URINE TRACE /HPF
[2022-11-05 03:49] VITALS: BP 185/76
== END 2022-11-05 03:51 | disposition home or self-care (01) ==
LOC: EDUNIT# 01:27 → ER 01:30
DX: M79.661 Pain in right lower leg (principal); R44.1 Visual hallucinations; I10 Essential (primary) hypertension; Z79.899 Other long term (current) drug therapy; Z87.891 Personal history of nicotine dependence; Z95.5 Presence of coronary angioplasty implant and graft; Z79.02 Long term (current) use of antithrombotics/antiplatelets
CPT/HCPCS: 36415; 80053; 81000; 85025; 99282

== ENCOUNTER → 2022-12-07 | Outpatient (CLI) | payer MEDICARE ==
--- NOTE | 2022-12-07 15:37 | Diagnostic Imaging Report ---
INDICATION: Pain behind the right knee as well as swelling. Sonographic interrogation of the right popliteal fossa was performed. No solid or cystic mass is detected. The right popliteal vein is unremarkable. IMPRESSION: No sonographic abnormality is identified. Dictated by: Dictated on workstation # [id number]
== END ==
LOC: RAD 12:07
PROVIDERS: ATTEND Family Medicine
DX: M71.21 Synovial cyst of popliteal space [Baker], right knee (principal)
CPT/HCPCS: 76881

== ENCOUNTER 2023-05-23 05:51 | Outpatient (CLI) | payer MEDICARE ==
[~2023-05-23] VITALS: Ht 185.4 cm; Wt 91.7 kg
[2023-05-25] MEDS ORDERED: TELM80TA8 PO (15:08)
[2023-05-25] MEDS ORDERED: CLOP75TA28 PO (15:08)
[2023-05-25] MEDS ORDERED: MTP100TCR PO (15:08)
[2023-05-25] MEDS ORDERED: AMLO-250 PO (15:08)
[2023-05-25] MEDS ORDERED: DIAZ10TA3 PO (15:08)
[2023-05-25] MEDS ORDERED: CHOL10007 PO (15:08)
[2023-05-25] MEDS ORDERED: HYDR-3817 PO (15:08)
[2023-05-25] MEDS ORDERED: IBUP-1779 PO (15:08)
[2023-05-25] MEDS ORDERED: POTA10CA84 PO (15:08)
== END 2023-05-25 15:14 | disposition home or self-care (01) ==
LOC: PREOP 05:51
PROVIDERS: ATTEND Surgery
DX: Z01.818 Encounter for other preprocedural examination (principal)

== ENCOUNTER 2023-06-05 10:33 | Day surgery (SDC) | payer MEDICARE ==
[~2023-06-05] VITALS: Ht 185.4 cm; Wt 91.7 kg
[~2023-06-05 10:33] MED LIST changes: +AMLO-250 PO; +CHOL10007 PO; +CLOP75TA28 PO; +DIAZ10TA3 PO; +HYDR-3817 PO; +IBUP-1779 PO; +MTP100TCR PO; +POTA10CA84 PO; +TELM80TA8 PO
[2023-06-05] MEDS ORDERED: LACTATED RINGERS 1,000 ML 1,000 ML IV STA (10:41)
[2023-06-05] MEDS ORDERED: LACTATED RINGERS 1,000 ML 1,000 ML IV ONE (10:54)
[2023-06-05 11:00] VITALS: BP 132/73
[2023-06-05] MEDS ORDERED: MIDAZOLAM INJ 2 MG/2 ML VIAL ONE (11:55)
--- NOTE | 2023-06-05 12:52 | Progress Note-Post Operative ---
Post-Operative Progess Note Surgeon (s)/Leather Cleaner (s) Surgeon ATTILA WOLFF DO Leather Cleaner: na Pre-Operative Diagnosis screening colonoscopy Post-Operative Diagnosis normal colon Procedure & Operative Findings Date of Procedure 06/05/23 Procedure Performed/Findings colonoscopy Anesthesia Type per cellular tower climber Estimated Blood Loss Estimated blood loss (mL): none Specimens/Packing Specimens Removed na ATTILA WOLFF DO Jun 05, 2023 12:52
--- NOTE | 2023-06-05 12:53 | Discharge Inst-Simple/Standard ---
Discharge Inst-Standard Patient Instructions/Follow Up Plan of Care/Instructions/FU: 10 years Kash unless family history of colon cancer which would be 5 years or personal history of polyps which would be 5 years. Any issues before that be seen at that time. Activity as Tolerated: Yes Discharge Diet: Regular Diet ATTILA WOLFF DO Jun 05, 2023 12:53
[2023-06-05 12:55] VITALS: BP 114/56
[2023-06-05 13:10] VITALS: BP 126/65
[2023-06-05 13:38] VITALS: BP 126/65
--- NOTE | 2023-06-05 13:58 | Anesthesia-General Post-Op ---
MAC Patient Condition Mental Status/LOC: Same as Preop Cardiovascular: Satisfactory Nausea/Vomiting: Absent Respiratory: Satisfactory Pain: Controlled Complications: Absent Post Op Complications Complications None Follow Up Care/Instructions Patient Instructions None needed. Anesthesiology Discharge Order Discharge Order Patient is doing well, no complaints, stable vital signs, no apparent adverse anesthesia problems. No complications reported per nursing. ALEYDA MANCIA CRNA Jun 05, 2023 13:58
--- NOTE | 2023-06-05 22:23 | OPERATIVE REPORT ---
DATE OF SERVICE: 06/05/2023 PREOPERATIVE DIAGNOSIS: Screening colonoscopy. POSTOPERATIVE DIAGNOSIS: Normal colon. PROCEDURE: Colonoscopy. SURGEON: Attila Hewitt DO ANESTHESIA: Per FOOD STAND MANAGER. ESTIMATED BLOOD LOSS: None. COMPLICATIONS: None. INDICATIONS: The patient is a 63-year-old male, needing screening colonoscopy. He understands risks and benefits of procedure and wished to proceed. Consent was signed in chart. DESCRIPTION OF PROCEDURE: The patient was taken to endoscopy suite, placed in left lateral recumbent position. Timeout was performed. Digital rectal exam was performed. No palpable polyps, masses or ulcerations. Scope was inserted in the rectum, advanced all the way to the cecum with minimal difficulty. Prep was adequate. Scope was slowly retracted back. No polyps, masses or ulcerations within the cecum, ascending, transverse, descending and sigmoid colon. Once in the rectum, scope was retroflexed noting no other pathology. Scope was returned to its normal position, slowly withdrawn until completely removed. The patient tolerated the procedure well, no complications, taken to recovery room in stable condition. RECOMMENDATIONS: The patient will need repeat colonoscopy in 10 years unless family history of colon cancer, personal history of polyps, which will then be 5 years. Any issues before that, will be seen at that time. Job ID: [id number] DocumentID: [id number] Dictated Date: 06/05/2023 12:55:08 Pool Table Operator Date: 06/05/2023 22:21:00 Dictated By: ATTILA HEWITT DO
== END 2023-06-05 13:45 | disposition home or self-care (01) ==
LOC: ENDO 10:33
PROVIDERS: ATTEND Surgery
DX: Z12.11 Encounter for screening for malignant neoplasm of colon (principal); F17.210 Nicotine dependence, cigarettes, uncomplicated